=== PATIENT | male | born 1975 | race American Indian/Alaskan Native ===

== ENCOUNTER 2018-01-22 21:58 | Inpatient (IN) | payer MEDICAID ==
--- NOTE | 2018-01-22 23:30 | ED PDOC ---
Arrival/HPI - General Chief Complaint: Chest Pain Time Seen by Provider: 01/22/18 22:07 Historian: Patient - History of Present Illness Narrative History of Present Illness (Text): 01/22/18 23:26 A 42 year old male, whose past medical history includes 1 stent (July 2016) , hypertension, diabetes, anxiety, depression, and schizophrenia, presents to the emergency department with complaint of intermittent, chest tightness for the past 2 days, worsening today. The patient also notes that he "blacked out" today for about 5 seconds. Patient notes that he received Nitroglycerin spray in the ambulance in route to the emergency department. The patient denies fevers , chills, headache, dizziness, sore throat, cough, shortness of breath, dyspnea on exertion, abdominal pain, nausea, vomiting, diarrhea, neck/back pain, urinary /bowel changes or any other complaint. Time/Duration: Other (2 Days) Symptom Onset: Sudden Symptom Course: Unchanged Activities at Onset: Rest, Light Context: Home Past Medical History - Provider Review Nursing Documentation Reviewed: Yes - Infectious Disease Hx of Infectious Diseases: None Family/Social History - Physician Review Nursing Documentation Reviewed: Yes Family/Social History: No Known Family HX Allergies/Home Meds Allergies/Adverse Reactions: Allergies No Known Allergies Allergy (Verified 01/22/18 22:02) Home Medications: Home Meds Medication Instructions Recorded Confirmed Aspirin [Aspirin Chewable] 81 mg PO DAILY 01/22/18 01/22/18 Atorvastatin [Lipitor] 40 mg PO DAILY 01/22/18 01/22/18 Clopidogrel [Plavix] 75 mg PO DAILY 01/22/18 01/22/18 Lisinopril/Hydrochlorothiazide 1 tab PO DAILY 01/22/18 01/22/18 [Lisinopril-Hctz 20-25 mg Tab] Metoprolol Tartrate [Lopressor] 50 mg PO BID 01/22/18 01/22/18 QUEtiapine [Seroquel] 100 mg PO DAILY 01/22/18 01/22/18 amLODIPine [Norvasc] 10 mg PO DAILY 01/22/18 01/22/18 Review of Systems - Physician Review All systems were reviewed & negative as marked: Yes - Review of Systems Constitutional: absent: Fevers, Night Sweats ENT: absent: Sore Throat Respiratory: absent: SOB, Cough Cardiovascular: Chest Pain (Intermittent chest tightness), Syncope Gastrointestinal: absent: Abdominal Pain, Diarrhea, Nausea, Vomiting Musculoskeletal: absent: Back Pain, Neck Pain Neurological: absent: Headache Physical Exam Vital Signs Pulse Resp BP Pulse Ox 01/23/18 02:16 72 18 111/67 97 01/22/18 23:39 74 18 109/57 L 97 Temperature: Afebrile Blood Pressure: Normal Pulse: Regular Respiratory Rate: Normal Appearance: Positive for: Well-Appearing, Non-Toxic, Comfortable Pain Distress: None Mental Status: Positive for: Alert and Oriented X 3 - Systems Exam Head: Present: Atraumatic, Normocephalic Pupils: Present: PERRL Extroacular Muscles: Present: EOMI Conjunctiva: Present: Normal Ears: Present: NORMAL TM Mouth: Present: Moist Mucous Membranes Pharnyx: Present: Normal Neck: Present: Normal Range of Motion Respiratory/Chest: Present: Clear to Auscultation, Good Air Exchange. No: Respiratory Distress, Accessory Muscle Use Cardiovascular: Present: Regular Rate and Rhythm, Normal S1, S2. No: Murmurs Abdomen: No: Tenderness, Distention, Peritoneal Signs Back: Present: Normal Inspection Upper Extremity: Present: Normal Inspection. No: Cyanosis, Edema Lower Extremity: Present: Normal Inspection. No: Edema Neurological: Present: GCS=15, CN II-XII Intact, Speech Normal, Motor Func Grossly Intact, Normal Sensory Function Skin: Present: Warm, Dry, Normal Color. No: Rashes Psychiatric: Present: Alert, Oriented x 3, Normal Insight, Normal Concentration Medical Decision Making ED Course and Treatment: 01/22/18 23:31 Impression: A 42 year old male presents to the emergency department complaining of intermittent, chest pain, described as chest tightness and a short syncopal episode which the patient described as "blacking out". Plan: -- Head CT -- EKG -- Chest X-Ray -- Labs -- Aspirin -- Reassess and disposition Progress Notes: 01/23/18 00:22: Chest X-Ray read and interpreted by me shows no acute processes. EKG: Ordered, reviewed, and independently interpreted the EKG. Rate : BPM Rhythm : 85 NSR Interpretation : Non- specific ST- T changes 01/23/18 00:52: Case discussed in detail with Dr. Tai who accepts patient to the hospitalist service. CT Head Without Intravenous Contrast Dictated and Authenticated by: Tera De Anda MD 01/23/2018 2:12 AM Eastern Time ([place] & [place]) IMPRESSION: 1. No definite acute intracranial abnormality. 2. Incidental/non-acute findings are described above. - Lab Interpretations Lab Results: 01/22/18 22:20 01/22/18 22:20 Lab Results 01/23/18 00:20: pCO2 37, pO2 89.0, HCO3 22.4, ABG pH 7.39, ABG Total CO2 23.5, ABG O2 Saturation 97.9, ABG O2 Content 18.2, ABG Base Excess -2.2 L, ABG Hemoglobin 13.6, ABG Carboxyhemoglobin 2.5 H, POC ABG HHb (Measured) 2.0, ABG Methemoglobin 0.6, ABG O2 Capacity 18.6, Hgb O2 Saturation 94.9 L, FiO2 21.0 01/22/18 22:20: Serum Osmolality 316 H, Transferrin Pending 01/22/18 22:20: Iron 66, TIBC 270, % Saturation 24 01/22/18 22:20: WBC 6.8, RBC 4.96, Hgb 13.9 L, Hct 39.6 L, MCV 79.8 L, MCH 28.0 , MCHC 35.1, RDW 13.1, Plt Count 287, MPV 10.9 01/22/18 22:20: Sodium 125 L, Potassium 4.6, Chloride 81 L, Carbon Dioxide 25, Anion Gap 24 H, BUN 47 H, Creatinine 4.1 H, Est GFR ( Amer) 20, Est GFR ( Non-Af Amer) 16, Random Glucose 798 H*, Calcium 9.6, Total Bilirubin 0.8, AST 27 , ALT 25, Alkaline Phosphatase 145 H, Lactate Dehydrogenase 401, Total Creatine Kinase 169, Troponin I 0.02, Total Protein 7.8, Albumin 4.5, Globulin 3.4, Albumin/Globulin Ratio 1.3 01/22/18 22:20: PT 11.7, INR 1.03, APTT 27.4 I have reviewed the lab results: Yes - RAD Interpretation Radiology Orders: 01/22/18 23:21 CHEST PORTABLE [RAD] Stat 01/22/18 23:28 HEAD W/O CONTRAST [CT] Stat - EKG Interpretation Interpreted by ED Physician: Yes Type: 12 lead EKG - Medication Orders Current Medication Orders: Amlodipine Besylate (Norvasc) 10 mg PO DAILY JET Aspirin (Aspirin Chewable) 81 mg PO DAILY JET Atorvastatin Calcium (Lipitor) 40 mg PO DAILY JET Clopidogrel Bisulfate (Plavix) 75 mg PO DAILY [facility] Fluoxetine HCl (Prozac) 20 mg PO DAILY JET Sodium Chloride (Sodium Chloride 0.9%) 1,000 mls @ 200 mls/hr IV .Q5H JET Stop: 01/23/18 12:29 Last Admin: 01/23/18 03:09 Dose: 200 mls/hr eMAR Start Stop Document 01/23/18 03:09 AD (Rec: 01/23/18 03:09 AD [id number]) Intravenous Solution Start Date 01/23/18 Start Time 03:09 Insulin Human Lispro (Humalog High) 0 units SC Q4H JET PRN Reason: Protocol Last Admin: 01/23/18 03:08 Dose: 15 units MAR Blood Glucose Document 01/23/18 03:08 AD (Rec: 01/23/18 03:08 AD [id number]) Blood Glucose Finger Stick Blood Glucose (70-120) 483 Subcutaneous Administrations Document 01/23/18 03:08 AD (Rec: 01/23/18 03:08 AD [id number]) Injection Site MAR Injection Site Left Deltoid Charges for Administration # of Subcutaneous Administrations 1 Metoprolol Tartrate (Lopressor) 50 mg PO BID JET Mirtazapine (Remeron) 15 mg PO HS JET Pantoprazole Sodium (Protonix Inj) 40 mg IVP DAILY JET Quetiapine Fumarate (Seroquel) 100 mg PO HS JET PRN Reason: Protocol Discontinued Medications Aspirin (Aspirin) 325 mg PO ONCE STA Stop: 01/22/18 23:28 Last Admin: 01/22/18 23:32 Dose: 325 mg Sodium Chloride (Sodium Chloride 0.9%) 2,000 mls @ 999 mls/hr IV .Q2H1M STA Stop: 01/23/18 02:01 Last Admin: 01/23/18 00:15 Dose: 999 mls/hr eMAR Start Stop Document 01/23/18 00:15 AD (Rec: 01/23/18 00:15 AD [id number]) Intravenous Solution Start Date 01/23/18 Start Time 00:15 Insulin Human Regular (Humulin R) 10 units IVP STAT STA Stop: 01/23/18 00:03 Last Admin: 01/23/18 00:15 Dose: 10 units MAR Blood Glucose Document 01/23/18 00:15 AD (Rec: 01/23/18 00:15 AD [id number]) Blood Glucose Finger Stick Blood Glucose (70-120) 798 IVP Administration Document 01/23/18 00:15 AD (Rec: 01/23/18 00:15 AD [id number]) Charges for Administration # of IVP Administrations 1 Insulin Human Regular (Humulin R) 20 units SC STAT STA Stop: 01/23/18 05:55 Last Admin: 01/23/18 06:25 Dose: 20 units MAR Blood Glucose Document 01/23/18 06:25 CDL (Rec: 01/23/18 06:25 CDL [id number]) Blood Glucose Finger Stick Blood Glucose (70-120) 421 Subcutaneous Administrations Document 01/23/18 06:25 CDL (Rec: 01/23/18 06:25 CDL [id number]) Injection Site MAR Injection Site Right Abdomen Charges for Administration # of Subcutaneous Administrations 1 Nitroglycerin (Nitrostat Sl Tab) 0.4 mg SL Q5M PRN PRN Reason: Chest Pain Stop: 01/23/18 01:41 Tramadol HCl (Ultram) 50 mg PO STAT STA Stop: 01/23/18 00:50 Last Admin: 01/23/18 01:15 Dose: 50 mg MAR Pain Assessment Document 01/23/18 01:15 AD (Rec: 01/23/18 01:15 AD [id number]) Pain Reassessment Is this a pain reassessment? No Presence of Pain Presence of Pain Yes Pain Scale Used Pain Scale Used Numeric Description Intensity of Pain at present 8 Pain Behavior Facial Grimacing - Scribe Statement The provider has reviewed the documentation as recorded by the Scribe Sharda Bolden Provider Scribe Attestation: All medical record entries made by the Scribe were at my direction and personally dictated by me. I have reviewed the chart and agree that the record accurately reflects my personal performance of the history, physical exam, medical decision making, and the department course for this patient. I have also personally directed, reviewed, and agree with the discharge instructions and disposition. Disposition/Present on Arrival - Present on Arrival Any Indicators Present on Arrival: No History of DVT/PE: No History of Uncontrolled Diabetes: No Urinary Catheter: No History of Decub. Ulcer: No History Surgical Site Infection Following: None - Disposition Have Diagnosis and Disposition been Completed?: Yes Diagnosis: Chest pain, Syncope, Uncontrolled diabetes mellitus Disposition: HOSPITALIZED Disposition Time: 00:54 Patient Problems: Current Active Problems Problem Status Onset Chest pain Acute Syncope Acute Uncontrolled diabetes mellitus Acute Condition: STABLE
[2018-01-22 23:35] LABS: HEMOGLOBIN 13.9 g/dL (14.0-18.0); MEAN CELL VOLUME 79.8 fl (80.0-105.0); MEAN CORPUSCULAR HGB CONC 35.1 g/dl (31.0-37.0); MEAN PLATELET VOLUME 10.9 fl (7.0-11.0); RBC 4.96 10^6/uL (3.5-6.1); RED CELL DISTRIBUTION WIDTH 13.1 % (11.5-14.5); WHITE BLOOD COUNT 6.8 10^3/ul (4.5-11.0)
[2018-01-22 23:54] LABS: INR 1.03 (0.93-1.08); PARTIAL THROMBOPLASTIN TIME 27.4 Seconds (25.1-36.5); PROTHROMBIN TIME 11.7 SECONDS (9.4-12.5)
[2018-01-22 23:56] LABS: TROPONIN I 0.02 ng/mL
[2018-01-22 23:59] LABS: ALB/GLOB RATIO 1.3 (1.1-1.8); ALBUMIN 4.5 g/dL (3.0-4.8); CALCIUM 9.6 mg/dL (8.4-10.5)
[2018-01-23] MEDS ORDERED: Sodium Chloride 0.9% 2,000 ML IV STA (00:01)
[2018-01-23] MEDS ORDERED: Insulin Regular 1 UNITS/0.01 ML ML IVP STA (00:02)
[2018-01-23 00:22] LABS: ARTERIAL BLOOD GAS HCO3 22.4 mmol/L (21-28); ARTERIAL BLOOD GAS HEMOGLOBIN 13.6 g/dL (11.7-17.4); ARTERIAL BLOOD GAS O2 CAPACITY 18.6 mL/dl (16-24); ARTERIAL BLOOD GAS O2 CONTENT 18.2 ML/dl (15-23); ARTERIAL BLOOD GAS O2 SAT 97.9 % (95-98); ARTERIAL BLOOD GAS PCO2 37 mm/Hg (35-45); ARTERIAL BLOOD GAS PH 7.39 (7.35-7.45); ARTERIAL BLOOD GAS TCO2 23.5 mmol.L (22-28)
[2018-01-23] MEDS ORDERED: Insulin Lispro (humaLOG) MEDIUM Coverage SC SCH (01:30)
--- NOTE | 2018-01-23 02:13 | CT ---
EXAM: CT Head Without Intravenous Contrast CLINICAL HISTORY: 42 years old, male; Signs and symptoms; Syncope and collapse TECHNIQUE: Axial computed tomography images of the head/brain without intravenous contrast. All CT scans at this facility use one or more dose reduction techniques, viz.: automated exposure control; ma/kV adjustment per patient size (including targeted exams where dose is matched to indication; i.e. head); or iterative reconstruction technique. Coronal and sagittal reformatted images were created and reviewed. COMPARISON: No relevant prior studies available. FINDINGS: Brain: No intracranial hemorrhage. No mass. No definite edema. Ventricles: No hydrocephalus. Bones/joints: No acute fracture. Soft tissues: Unremarkable. Sinuses: Scattered mild mucosal thickening. Mastoid air cells: No mastoid effusion. Orbits: Unremarkable as visualized. IMPRESSION: 1. No definite acute intracranial abnormality. 2. Incidental/non-acute findings are described above.
[2018-01-23] MEDS ORDERED: Sodium Chloride 0.9% 1,000 ML IV SCH ×2 (02:30→08:16)
[2018-01-23] MEDS ORDERED: Insulin Lispro 1 UNITS/0.01 ML ONE (03:02)
[2018-01-23] MEDS: Insulin Lispro (HUMAlog) HIGH Coverage SC SCH ×5 (03:08→23:27)
[2018-01-23] MEDS: Sodium Chloride 0.9% 1,000 ML IV SCH ×4 (03:09→20:17)
[2018-01-23 04:25] LABS: IRON 66 ug/dL (45-180)
[2018-01-23 04:34] LABS: % IRON SATURATION 24 % (20-55); TOTAL IRON BINDING CAPACITY 270 ug/dL (261-462)
[2018-01-23 05:34] VITALS: BMI 38.5
[2018-01-23] MEDS ORDERED: Insulin Regular 1 UNITS/0.01 ML ML SC STA (05:54)
[2018-01-23 07:03] LABS: BASO # 0.03 K/mm3 (0.0-2.0); BASO % 0.5 % (0.0-3.0); EOS # 0.1 (0.0-0.7); EOS % 2.2 % (1.5-5.0); GRAN # 3.03 (1.4-6.5); GRAN % 48.3 % (50.0-68.0); HEMOGLOBIN 12.6 g/dL (14.0-18.0); LYMPH # 2.5 (1.2-3.4); LYMPH % 39.6 % (22.0-35.0); MEAN CELL VOLUME 77.7 fl (80.0-105.0); MEAN CORPUSCULAR HEMOGLOBIN 27.3 pg (25.0-35.0); MEAN CORPUSCULAR HGB CONC 35.2 g/dl (31.0-37.0); MEAN PLATELET VOLUME 10.5 fl (7.0-11.0); MONO # 0.6 (0.1-0.6); MONO % 9.4 % (1.0-6.0); RBC 4.61 10^6/uL (3.5-6.1); WHITE BLOOD COUNT 6.3 10^3/ul (4.5-11.0)
[2018-01-23 07:15] LABS: INR 1.09 (0.93-1.08); PROTHROMBIN TIME 12.6 SECONDS (9.4-12.5)
--- NOTE | 2018-01-23 07:41 | CP.PCM.HP ---
<Gian Neumann - Last Filed: 01/23/18 07:32> History of Present Illness - History of Present Illness History of Present Illness: CC: Syncopal episode HPI: 42 year old AA male with past medical history that includes HTN, DM2, schizophrenia, anxiety, depression who he see [facility] program who presents s/ p syncopal episode at fathers house and chest pressure. Patient reports that earlier in the day he was at his father's house when he bent over to pick something up off the ground and had a syncopal episode lasting a few seconds. Patient indicates that he broke his fall by first hitting a near by couch and then to the ground. He denies any biting of the tongue, loss of bowel, post ictal state, palpitations. He denies any changes in his vision. Patient also reports chest pressure that is midsternum without nausea, vomiting diaphoresis. He indicates productive cough for past few days. He indicates the chest tightness started about 2 days prior and was rated as 5/10 and for past 24 hours rated pain as 7/10. He also indicates that he has been consuming only kendall aid and fruit juices for the past 24 -48 hours and that is why his sugar is elevated in ED. Patient reports headache, sinus drainage, dry mouth, abdominal discomfort that is mild, and crampin of right lower extremity. 12 point ROS other than in HPI is benign. PMH: ?[place] s/p stentx1, HTN, DM2, schizophrenia, anxiety, depression PSH: Stent x1 in 07/2016 FMH: HTN, DM2 SOCHX: Tobacco: Light smoker for 20 plus years, ETOH: denies, ID: Denies ALL: NKDA MEDS: MAR Reviewed Present on Admission - Present on Admission Any Indicators Present on Admission: Yes History of Uncontrolled Diabetes: Yes Review of Systems - Review of Systems All systems: reviewed and no additional remarkable complaints except (as mentioned in HPI) Past Patient History - Infectious Disease Hx of Infectious Diseases: None - Past Social History Smoking Status: Light Smoker < 10 Cigarettes Daily Alcohol: None Drugs: Denies - CARDIAC Hx Hypertension: Yes - PULMONARY Hx Respiratory Disorders: No - NEUROLOGICAL Hx Neurological Disorder: No - HEENT Hx HEENT Problems: No - RENAL Hx Chronic Kidney Disease: No - ENDOCRINE/METABOLIC Hx Diabetes Mellitus Type 1: Yes - HEMATOLOGICAL/ONCOLOGICAL Hx Blood Disorders: No - INTEGUMENTARY Hx Dermatological Problems: No - MUSCULOSKELETAL/RHEUMATOLOGICAL Hx Musculoskeletal Disorders: No Hx Falls: No - GASTROINTESTINAL Hx Gastrointestinal Disorders: No - GENITOURINARY/GYNECOLOGICAL Hx Genitourinary Disorders: No - PSYCHIATRIC Hx Psychophysiologic Disorder: Yes Hx Anxiety: Yes Hx Depression: Yes Hx Schizophrenia: Yes Hx Substance Use: No - SURGICAL HISTORY Hx Surgeries: Yes Hx Cardiac Catheterization: Yes (07/2016) Other/Comment: cardiac stents - ANESTHESIA Hx Anesthesia: Yes Hx Anesthesia Reactions: No Hx Malignant Hyperthermia: No Meds Allergies/Adverse Reactions: Allergies Allergy/AdvReac Type Severity Reaction Status Date / Time No Known Allergies Allergy Verified 01/22/18 22:02 Physical Exam - Constitutional Appears: Non-toxic - Head Exam Head Exam: ATRAUMATIC, NORMAL INSPECTION, NORMOCEPHALIC - Eye Exam Eye Exam: EOMI, PERRL Additional comments: scleral icterus, conjunctivits mild - ENT Exam ENT Exam: Mucous Membranes Dry - Respiratory Exam Respiratory Exam: Clear to Auscultation Bilateral, NORMAL BREATHING PATTERN. absent: Rales, Rhonchi, Wheezes - Cardiovascular Exam Cardiovascular Exam: REGULAR RHYTHM, +S1, +S2 - GI/Abdominal Exam GI & Abdominal Exam: Diminished Bowel Sounds, Soft - Extremities Exam Extremities exam: Positive for: pedal pulses present. Negative for: calf tenderness, pedal edema - Neurological Exam Neurological exam: Alert, CN II-XII Intact, Normal Gait, Oriented x3 - Psychiatric Exam Psychiatric exam: Normal Mood Additional comments: slightly lethargic - Skin Skin Exam: Dry, Warm Additional comments: skin tenting Results - Vital Signs Recent Vital Signs: Last Vital Signs Temp 98.6 F 01/23/18 06:00 Pulse 70 01/23/18 06:00 Resp 20 01/23/18 06:00 BP 124/70 01/23/18 06:00 Pulse Ox 95 01/23/18 06:00 - Labs Result Diagrams: 01/23/18 06:30 01/22/18 22:20 Labs: Laboratory Results - last 24 hr 01/23/18 01/23/18 01/23/18 01:46 02:31 03:55 WBC RBC Hgb Hct MCV MCH MCHC RDW Plt Count MPV Gran % Lymph % (Auto) [place] % (Auto) Eos % (Auto) Baso % (Auto) Gran # Lymph # (Auto) [place] # (Auto) Eos # (Auto) Baso # (Auto) PT INR POC Glucose (mg/dL) > 500 H* 483 H* 440 H* 01/23/18 01/23/18 01/23/18 05:12 06:30 06:30 WBC 6.3 RBC 4.61 Hgb 12.6 L Hct 35.8 L MCV 77.7 L MCH 27.3 MCHC 35.2 RDW 13.0 Plt Count 263 MPV 10.5 Gran % 48.3 L Lymph % (Auto) 39.6 H [place] % (Auto) 9.4 H Eos % (Auto) 2.2 Baso % (Auto) 0.5 Gran # 3.03 Lymph # (Auto) 2.5 [place] # (Auto) 0.6 Eos # (Auto) 0.1 Baso # (Auto) 0.03 PT 12.6 H INR 1.09 H POC Glucose (mg/dL) 421 H* Assessment & Plan - Assessment and Plan (Free Text) Assessment: 42 year old AA male with past medical history that includes HTN, DM2, schizophrenia, anxiety, depression who he see [facility] program who presents s/ p syncopal episode at [facility] and chest pressure Syncopal episode - Head CT negative 1. No definite acute intracranial abnormality. 2. Incidental/non-acute findings are described above - EKG NSR, 85 bpm, no specific ST-T wave changes - No seizure like activity on history, no irregular heartbeat, no previous episodes - Likely secondary to hypovolemia - Cardiology consulted - echo, carotids Chest Pain r/o ACS - Initial trop negative - serial trops, ekgs - cardiology consult elevated AG - Possible etiology: DKA v. lactic acidosis v. rhabdomyolysis - 798 on admission - Poorly controlled DM - Recent intake of fruit juice and kendall aid - UA f/u for ketones - UDS, salicylates, methanol level - ISS - High Q4H - bg check Q4h - IVF Schizophrenia - Continue home meds Anxiety/Depression - Continue home meds DVT ppx: heparin SQ GI ppx: Protonix Case and plan discussed with attending - Date & Time Date: 01/23/18 Time: 07:43 <Aldair Tai - Last Filed: 01/27/18 03:41> Results - Vital Signs Recent Vital Signs: Last Vital Signs Temp 98.0 F 01/26/18 12:00 Pulse 69 01/26/18 12:00 Resp 21 01/26/18 12:00 BP 145/98 H 01/26/18 12:00 Pulse Ox 96 01/26/18 06:00 - Labs Result Diagrams: 01/26/18 06:40 01/26/18 06:40 Labs: Laboratory Results - last 24 hr 01/26/18 01/26/18 01/26/18 06:40 06:40 07:33 WBC 5.0 RBC 4.31 Hgb 11.7 L Hct 34.7 L MCV 80.5 MCH 27.1 MCHC 33.7 RDW 13.0 Plt Count 246 MPV 9.7 Gran % 46.3 L Lymph % (Auto) 43.9 H [place] % (Auto) 6.4 H Eos % (Auto) 3.0 Baso % (Auto) 0.4 Gran # 2.33 Lymph # (Auto) 2.2 [place] # (Auto) 0.3 Eos # (Auto) 0.2 Baso # (Auto) 0.02 Sodium 139 Potassium 4.2 Chloride 107 Carbon Dioxide 23 Anion Gap 13 BUN 22 H Creatinine 1.4 Est GFR ( Amer) > 60 Est GFR (Non-Af Amer) 56 POC Glucose (mg/dL) 157 H Random Glucose 180 H Calcium 8.6 Total Bilirubin 0.4 AST 22 ALT 24 Alkaline Phosphatase 110 Total Protein 6.8 Albumin 3.5 Globulin 3.3 Albumin/Globulin Ratio 1.1 01/26/18 11:17 WBC RBC Hgb Hct MCV MCH MCHC RDW Plt Count MPV Gran % Lymph % (Auto) [place] % (Auto) Eos % (Auto) Baso % (Auto) Gran # Lymph # (Auto) [place] # (Auto) Eos # (Auto) Baso # (Auto) Sodium Potassium Chloride Carbon Dioxide Anion Gap BUN Creatinine Est GFR ( Amer) Est GFR (Non-Af Amer) POC Glucose (mg/dL) 224 H Random Glucose Calcium Total Bilirubin AST ALT Alkaline Phosphatase Total Protein Albumin Globulin Albumin/Globulin Ratio Attending/Attestation - Attestation I have personally seen and examined this patient.: Yes I have fully participated in the care of the patient.: Yes I have reviewed all pertinent clinical information: Yes Notes (Text): 01/27/18 03:41 Agree with history, physical examination, assessment and plan.
[2018-01-23 08:25] LABS: TROPONIN I < 0.01 ng/mL
[2018-01-23 08:31] LABS: ALB/GLOB RATIO 1.1 (1.1-1.8); ALBUMIN 3.8 g/dL (3.0-4.8); ALT/SGPT 26 U/L (7-56); AST/SGOT 22 U/L (17-59); BLOOD UREA NITROGEN 46 mg/dL (7-21); CALCIUM 8.9 mg/dL (8.4-10.5); GFR AFRICAN-AMERICAN 26; GFR NON-AFRICAN AMERICAN 22
--- NOTE | 2018-01-23 08:59 | RAD ---
HISTORY: chest pain COMPARISON: No prior. FINDINGS: LUNGS: No active pulmonary disease. PLEURA: No significant pleural effusion identified, no pneumothorax apparent. CARDIOVASCULAR: Normal. OSSEOUS STRUCTURES: No significant abnormalities. VISUALIZED UPPER ABDOMEN: Normal. OTHER FINDINGS: None. IMPRESSION: No active disease.
--- NOTE | 2018-01-23 10:18 | CARD ---
APPROVED REPORT EKG Measurement Heart [id number] <Conclusion> Normal sinus rhythm LVH by voltage Q in 3 Shallow T wave inversions 1, AVL, new
[2018-01-23] MEDS ORDERED: Potassium Chloride 20 mEq ER Tab PO ONE (10:23)
[2018-01-23] MEDS ORDERED: Pantoprazole 40 mg EC Tab PO SCH (10:30)
--- NOTE | 2018-01-23 11:12 | CARD ---
APPROVED REPORT EKG Measurement Heart [id number] <Conclusion> Normal sinus rhythm Mild ST elevations inferolateral leads: suggest clinical correlation.
--- NOTE | 2018-01-23 11:43 | CP.PCM.CON ---
History of Present Illness - History of Present Illness History of Present Illness: Initial Nephrology Consultation: Assessment: Stable Acute Kidney Injury (N17.9) likely hemodyamic due to hyperglycemia, dehydration/ hypovolemia syncope HAGMA with metabolic alkalosis, likely due to uncontrolled DM with hyperglycemia hypokalemia, pseudohyponatremia due to hyperglycemia HTN, CAD s/p stent morbid obesity schizophrenia Plan No acute need for renal replacement therapy at this time. Hypertension control with meds as ordered. Patient not on ACEI/ARB due to RONAN. hold BP meds as BP on low side Monitor Input/Output, daily weights and renal function with basic metabolic panel continue with IVF. supplements lytes as needed Check urine analysis, spot protein/creatinine and albumin/creatinine ratio, renal sonogram. Check for 25-OH vitamin D, iPTH can check HIV/Hep B and Hep C serology Dose meds/antibiotics for reduced GFR. Avoid fleets enema/magnesium based laxatives. Avoid nephrotoxins/NSAIDs/ iodinated contrast (unless needed emergently) Glycemic control Further work up/management as per primary team Thanks for allowing me to participate in care of your patient. Will follow patient with you. Please call if any Qs Dr Tommy Arroyo Office: [phone] Chief Complaint; I passed out reason for consult: RONAN HPI: Pt is a 42 M with hx of diabetes Mellitus (since 2012), hypertension (12 years) morbid obesity, schizophrenia, CAD s/p stent presented with complaints of passing out. he had been drinking plenty of sugar drinks and found to haev severe hyperglycemia and RONAN, low BP Denies OTC/herbal meds or NSAIDs No recent iodinated contrast exposure. Noted obvious episodes of low BP. reports chronic back pain. also c/o increased thirst and increased urine output. he is not aware about kidney problems in past. says had lost 85 lbs so far denies smoking/etoh/drugs ROS: Cardiovascular: No chest pain. Pulmonary: No shortness of breath Gastrointestinal: denies abdominal pain No nausea. No vomiting. Genitourinary: No pain while urinating. Denies blood in urine. All other negative Physical Examination: General Appearance: Comfortable, in no acute respiratory distress, co-operative . morbid obese Vitals reviewed and noted as below Head; Atraumatic, normocephalic ENT: no ulcers no thrush. Tongue is midline. Oropharynx: no rash or ulcers. EYES: Pupils are equal, round and reactive to light accommodation. Eye muscles and extraocular movement intact. Sclera is anicteric. Neck; supple no lymphadenopathy, no thyromegaly or bruit Lungs: Normal respiratory rate/effort. Breath sounds bilateral equal and clear Heart: Normal rate. s1s2 normal. No rub or gallop. Extremities: no edema. No varicose veins Neurological: Patient is alert, awake and oriented to person, place and time. No focal deficit. Strength bilateral appropriate and equal Skin: Warm and dry. Normal turgor. No rash. Palpitation: Normal elasticity for age Abdomen: Abdomen is soft. Bowel sounds +. There is no abdominal tenderness, no guarding/rigidity no organomegaly Psych: normal insight and normal affect/mood MSK: no joint tenderness or swelling. Digits and nails normal, no deformity : kidney or bladder not palpable Labs/imaging reviewed. Past medical history, past surgical history, family history, social history, allergy reviewed and noted as below Family hx: no hx of CKD. Rest non-contributory Past Patient History - Infectious Disease Hx of Infectious Diseases: None - Past Social History Smoking Status: Light Smoker < 10 Cigarettes Daily Alcohol: None Drugs: Denies - CARDIAC Hx Hypertension: Yes - PULMONARY Hx Respiratory Disorders: No - NEUROLOGICAL Hx Neurological Disorder: No - HEENT Hx HEENT Problems: No - RENAL Hx Chronic Kidney Disease: No - ENDOCRINE/METABOLIC Hx Diabetes Mellitus Type 1: Yes - HEMATOLOGICAL/ONCOLOGICAL Hx Blood Disorders: No - INTEGUMENTARY Hx Dermatological Problems: No - MUSCULOSKELETAL/RHEUMATOLOGICAL Hx Musculoskeletal Disorders: No Hx Falls: No - GASTROINTESTINAL Hx Gastrointestinal Disorders: No - GENITOURINARY/GYNECOLOGICAL Hx Genitourinary Disorders: No - PSYCHIATRIC Hx Psychophysiologic Disorder: Yes Hx Anxiety: Yes Hx Depression: Yes Hx Schizophrenia: Yes Hx Substance Use: No - SURGICAL HISTORY Hx Surgeries: Yes Hx Cardiac Catheterization: Yes (07/2016) Other/Comment: cardiac stents - ANESTHESIA Hx Anesthesia: Yes Hx Anesthesia Reactions: No Hx Malignant Hyperthermia: No Meds Allergies/Adverse Reactions: Allergies Allergy/AdvReac Type Severity Reaction Status Date / Time No Known Allergies Allergy Verified 01/22/18 22:02 - Medications Medications: Current Medications Acetaminophen (Tylenol 325mg Tab) 650 mg PO Q6H PRN PRN Reason: headache Last Admin: 01/23/18 09:58 Dose: 650 mg Aspirin (Aspirin Chewable) 81 mg PO DAILY [facility] Last Admin: 01/23/18 09:57 Dose: 81 mg Atorvastatin Calcium (Lipitor) 40 mg PO DAILY [facility] Last Admin: 01/23/18 09:57 Dose: 40 mg Clopidogrel Bisulfate (Plavix) 75 mg PO DAILY [facility] Last Admin: 01/23/18 09:57 Dose: 75 mg Fluoxetine HCl (Prozac) 20 mg PO DAILY [facility] Last Admin: 01/23/18 10:01 Dose: 20 mg Sodium Chloride (Sodium Chloride 0.9%) 1,000 mls @ 150 mls/hr IV .Q6H40M [facility] Stop: 01/23/18 16:15 Insulin Human Lispro (Humalog High) 0 units SC Q4H [facility] PRN Reason: Protocol Last Admin: 01/23/18 08:10 Dose: 10 units Mirtazapine (Remeron) 15 mg PO HS [facility] Naproxen (Anaprox) 275 mg PO BID [facility] Pantoprazole Sodium (Protonix Ec Tab) 40 mg PO DAILY [facility] Quetiapine Fumarate (Seroquel) 100 mg PO HS [facility] PRN Reason: Protocol Results - Vital Signs Recent Vital Signs: Last Vital Signs Temp 98.6 F 01/23/18 06:00 Pulse 71 01/23/18 09:59 Resp 20 01/23/18 06:00 BP 101/60 01/23/18 09:59 Pulse Ox 95 01/23/18 06:00 - Labs Result Diagrams: 01/23/18 06:30 01/23/18 06:30 Labs: Laboratory Results - last 24 hr 01/23/18 01/23/18 01/23/18 01:46 02:31 03:55 WBC RBC Hgb Hct MCV MCH MCHC RDW Plt Count MPV Gran % Lymph % (Auto) Hardeman % (Auto) Eos % (Auto) Baso % (Auto) Gran # Lymph # (Auto) Hardeman # (Auto) Eos # (Auto) Baso # (Auto) PT INR Sodium Potassium Chloride Carbon Dioxide Anion Gap BUN Creatinine Est GFR ( Amer) Est GFR (Non-Af Amer) POC Glucose (mg/dL) > 500 H* 483 H* 440 H* Random Glucose Calcium Phosphorus Magnesium Total Bilirubin AST ALT Alkaline Phosphatase Troponin I Total Protein Albumin Globulin Albumin/Globulin Ratio Salicylates 01/23/18 01/23/18 01/23/18 05:12 06:00 06:30 WBC RBC Hgb Hct MCV MCH MCHC RDW Plt Count MPV Gran % Lymph % (Auto) Hardeman % (Auto) Eos % (Auto) Baso % (Auto) Gran # Lymph # (Auto) Hardeman # (Auto) Eos # (Auto) Baso # (Auto) PT INR Sodium 132 Potassium 3.6 Chloride 94 L Carbon Dioxide 22 Anion Gap 20 BUN 46 H Creatinine 3.2 H Est GFR ( Amer) 26 Est GFR (Non-Af Amer) 22 POC Glucose (mg/dL) 421 H* Random Glucose 423 H* D Calcium 8.9 Phosphorus 4.0 Magnesium 1.9 Total Bilirubin 0.6 AST 22 ALT 26 Alkaline Phosphatase 117 Troponin I < 0.01 D Total Protein 7.2 Albumin 3.8 Globulin 3.4 Albumin/Globulin Ratio 1.1 Salicylates 1 L 01/23/18 01/23/18 01/23/18 06:30 06:30 07:24 WBC 6.3 RBC 4.61 Hgb 12.6 L Hct 35.8 L MCV 77.7 L MCH 27.3 MCHC 35.2 RDW 13.0 Plt Count 263 MPV 10.5 Gran % 48.3 L Lymph % (Auto) 39.6 H Hardeman % (Auto) 9.4 H Eos % (Auto) 2.2 Baso % (Auto) 0.5 Gran # 3.03 Lymph # (Auto) 2.5 Hardeman # (Auto) 0.6 Eos # (Auto) 0.1 Baso # (Auto) 0.03 PT 12.6 H INR 1.09 H Sodium Potassium Chloride Carbon Dioxide Anion Gap BUN Creatinine Est GFR ( Amer) Est GFR (Non-Af Amer) POC Glucose (mg/dL) 322 H Random Glucose Calcium Phosphorus Magnesium Total Bilirubin AST ALT Alkaline Phosphatase Troponin I Total Protein Albumin Globulin Albumin/Globulin Ratio Salicylates
[2018-01-23 11:48] LABS: TRANSFERRIN 212.78 mg/dL (206-381)
--- NOTE | 2018-01-23 14:47 | US ---
PROCEDURE: Ultrasound of the Kidneys HISTORY: RONAN COMPARISON: None available. TECHNIQUE: Sonogram of the kidneys. FINDINGS: RIGHT KIDNEY: Measures: 12.0 x 6.0 x 5.3 cm. Normal in size, contour and echogenicity. No stone, solid mass lesion or hydronephrosis visualized. LEFT KIDNEY: Measures: 11.8 x 5.9 x 6.0 cm. Normal in size, contour and echogenicity. No stone, solid mass lesion or hydronephrosis visualized. OTHER FINDINGS: None. IMPRESSION: Unremarkable renal sonogram.
[2018-01-23] MEDS ORDERED: Insulin Lispro 1 UNITS/0.01 ML SC SCH (16:30)
[2018-01-23] MEDS ORDERED: Naproxen 275 mg Tab PO SCH (18:00)
[2018-01-23] MEDS ORDERED: Insulin Detemir 100 units/ml Vial (Levemir) SC SCH (22:00)
--- NOTE | 2018-01-23 22:33 | US ---
PROCEDURE: Bilateral carotid artery duplex ultrasound HISTORY: Carotid stenosis PHYSICIAN(S): Crow Kim MD. TECHNIQUE: Duplex sonography and color-flow Doppler were used to evaluate the carotid bifurcations and limited segments of the vertebral arteries bilaterally. FINDINGS: There is diffuse smooth heterogeneous plaque noted at the carotid bifurcations bilaterally. The peak systolic velocity in the proximal right internal carotid artery is 46 cm/sec. This corresponds to a 20 to 39% proximal right ICA stenosis. Normal systolic velocities are noted in the proximal right external carotid artery. There is antegrade flow in the right vertebral artery. The peak systolic velocity in the proximal left internal carotid artery is 60 cm/sec. This corresponds to a 20 to 39% proximal left ICA stenosis. Normal systolic velocities are noted in the proximal left external carotid artery. There is antegrade flow in the left vertebral artery. IMPRESSION: 1. Bilateral 20-39% proximal ICA stenoses. 2. Antegrade flow in both vertebral arteries.
--- NOTE | 2018-01-24 01:21 | CON ---
DATE: 01/23/2018 LOCATION: The patient in room 270, bed 1. REASON FOR CONSULTATION: Chest pain, coronary artery disease, history of stent insertion, hypertension, diabetes mellitus. 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 Denies any palpitations or shortness of breath associated with this episode. No nausea. No vomiting. No urinary incontinence. Patient is known to have coronary artery disease, has a history of stent insertion in 07/2016 at [facility], history of hypertension, diabetes, schizophrenia, anxiety, depression. Prior to 2 days ago, patient denies any exertional chest pain or shortness of breath. Denies any PND. PAST MEDICAL HISTORY: Positive for coronary artery disease, history of one stent insertion in 07/2016 at [facility], hypertension, diabetes, schizophrenia, anxiety, depression. PERSONAL HISTORY: Patient denied smoking and denied drinking. ALLERGIES: PATIENT DENIES ANY ALLERGIES. FAMILY HISTORY: Father has diabetes mellitus. Mother has high blood pressure. HOME MEDICATIONS: Included aspirin 81 daily, amlodipine 10 daily, Lipitor 40 daily, metoprolol tartarate 50 b.i.d., lisinopril/hydrochlorothiazide 20/25 mg one tablet daily, Seroquel 100 mg p.o. daily, Plavix 75 daily. REVIEW OF SYSTEMS: All the systems reviewed. Positive as mentioned in the history, otherwise negative. PHYSICAL EXAMINATION: VITAL SIGNS: Blood pressure 124/70, respirations 20, pulse 70, temperature 98.6. HEENT: Head is normocephalic. Eyes, pupil normal. Conjunctivae normal. Nose and throat normal. THORAX: Patient has tenderness on the area where he is complaining of chest pain. LUNGS: Clear. CARDIOVASCULAR: S1 and S2. ABDOMEN: Soft, nontender. No organomegaly. EXTREMITIES: No clubbing. No cyanosis. LABORATORY DATA: Shows WBC 6.3, hemoglobin 12.6, hematocrit 35.8, platelet 263. Sodium 132, potassium 3.6, BUN 46, creatinine 3.2. Random sugar on admission was 440, now is 214. Calcium, phosphorous and magnesium normal. Troponin x2 less than 0.01. Total protein and albumin normal. AST and ALT normal. DIAGNOSTIC DATA: Patient's chest x-ray, no active disease. Cardiogram, normal sinus rhythm, LVH by voltage criteria, Q in V3, shallow T-wave inversion in I and aVL. DIAGNOSES: Chest pain, it is sharp pain, it changes its intensity by moving side to side. Patient also stated that when he had stent insertion, he had tightness in the chest at that time, but this pain is different, it is like sharp pain. Patient also had local tenderness; it looks like it is musculoskeletal type of pain, although patient has a history of coronary artery disease, stent insertion in the past, but this pain is musculoskeletal; hypertension, diabetes mellitus, schizophrenia, depression, anxiety, obesity. PLAN: Patient is going to have echo and discussed with the patient, patient will have stress test as an outpatient, we will schedule him. I will also put him on Naprosyn 275 mg b.i.d. along with Protonix 40 daily. Patient already on Plavix 75 daily, atorvastatin 40 daily, insulin and aspirin 81 daily. Patient also has renal dysfunction. Patient getting IV fluid therapy. Case discussed with . We will continue to follow with you. Yulissa Palmer MD
[2018-01-24 07:02] LABS: BASO # 0.03 K/mm3 (0.0-2.0); BASO % 0.5 % (0.0-3.0); EOS # 0.2 (0.0-0.7); EOS % 3.3 % (1.5-5.0); GRAN # 2.21 (1.4-6.5); GRAN % 40.4 % (50.0-68.0); HEMOGLOBIN 12.4 g/dL (14.0-18.0); LYMPH # 2.6 (1.2-3.4); LYMPH % 46.7 % (22.0-35.0); MEAN CELL VOLUME 79.3 fl (80.0-105.0); MEAN CORPUSCULAR HEMOGLOBIN 27.3 pg (25.0-35.0); MEAN CORPUSCULAR HGB CONC 34.4 g/dl (31.0-37.0); MEAN PLATELET VOLUME 9.8 fl (7.0-11.0); MONO # 0.5 (0.1-0.6); MONO % 9.1 % (1.0-6.0); RBC 4.54 10^6/uL (3.5-6.1); RED CELL DISTRIBUTION WIDTH 13.1 % (11.5-14.5); WHITE BLOOD COUNT 5.5 10^3/ul (4.5-11.0)
[2018-01-24 07:21] LABS: INR 1.04 (0.93-1.08)
[2018-01-24 07:26] LABS: ALB/GLOB RATIO 1.1 (1.1-1.8); ALBUMIN 3.6 g/dL (3.0-4.8); CALCIUM 8.8 mg/dL (8.4-10.5)
[2018-01-24] MEDS: Insulin Lispro (HUMAlog) HIGH Coverage SC SCH ×2 (08:13→11:41)
--- NOTE | 2018-01-24 09:04 | CARD ---
APPROVED REPORT EXAM: Two-dimensional and M-mode echocardiogram with Doppler and color Doppler. Other Information Quality : Good[employer] : INDICATION Chest Pain 2D DIMENSIONS Left Atrium (2D)3.6 (1.6-4.0cm)IVSd1.3 (0.7-1.1cm) LVDd4.4 (3.9-5.9cm)PWd1.3 (0.7-1.1cm) LVDs2.8 (2.5-4.0cm)FS (%) 35.2 % LVEF (%)64.0 (>50%) M-Mode DIMENSIONS Aortic Root3.10 (2.2-3.7cm)Aortic Cusp Exc.2.30 (1.5-2.0cm) Aortic Valve AoV Peak Buvkriaw706.0cm/s Mitral Valve MV E Xjtqzttp11.5cm/sMV A Ttvtxufc63.0cm/sE/A ratio1.1 TDI E/Lateral E'0.0E/Medial E'0.0 Tricuspid Valve TR Peak [id number] [id number] Peak Gr.6mmHg [id number] LEFT VENTRICLE The left ventricle is normal size. There is mild concentric left ventricular hypertrophy. The left ventricular function is normal. The left ventricular ejection fraction is within the normal range. There is normal LV segmental wall motion. RIGHT VENTRICLE The right ventricle is normal size. ATRIA The left atrium size is normal. The right atrium size is normal. The interatrial septum is intact with no evidence for an atrial septal defect. AORTIC VALVE The aortic valve is normal in structure. MITRAL VALVE The mitral valve is normal in structure. TRICUSPID VALVE The tricuspid valve is normal in structure. There is trace tricuspid regurgitation. PULMONIC VALVE The pulmonic valve is not well visualized. GREAT VESSELS The aortic root is normal in size. PERICARDIAL EFFUSION There is no pericardial effusion. <Conclusion> The left ventricle is normal size. There is mild concentric left ventricular hypertrophy. The left ventricular function is normal.
--- NOTE | 2018-01-24 09:38 | CARD ---
APPROVED REPORT EKG Measurement Heart [id number] <Conclusion> Sinus bradycardia Improved repolarization 1, AVL c/w earlier ECG
[2018-01-24 10:59] LABS: PH,URINE 5.5 (4.7-8.0); URINE BILIRUBIN NEGATIVE (NEGATIVE); URINE BLOOD NEGATIVE (NEGATIVE); URINE GLUCOSE (UA) 250 mg/dL (NEGATIVE); URINE LEUKOCYTE ESTERASE NEGATIVE Leu/uL (NEGATIVE); URINE PROTEIN NEGATIVE mg/dL (<30 mg/dL); URINE UROBILINOGEN 0.2 E.U./dL (<1 E.U./dL)
[2018-01-24 11:04] LABS: URINE APPEARANCE CLEAR (CLEAR); URINE COLOR YELLOW (YELLOW)
--- NOTE | 2018-01-24 11:43 | CP.PCM.PN ---
Subjective - Date & Time of Evaluation Date of Evaluation: 01/24/18 Time of Evaluation: 11:42 - Subjective Subjective: Nephrology Consultation: Assessment: Stable Acute Kidney Injury (N17.9) likely hemodyamic due to hyperglycemia, dehydration/ hypovolemia syncope HAGMA with metabolic alkalosis, likely due to uncontrolled DM with hyperglycemia hypokalemia, pseudohyponatremia due to hyperglycemia HTN, CAD s/p stent morbid obesity schizophrenia Plan No acute need for renal replacement therapy at this time. Hypertension control with meds as ordered. Patient not on ACEI/ARB due to RONAN. hold BP meds as BP on low side, can resume lopressor at d/c since pt has CAD Monitor Input/Output, daily weights and renal function with basic metabolic panel continue with IVF. supplements lytes as needed Check urine analysis, spot protein/creatinine and albumin/creatinine ratio, renal sonogram. Check for 25-OH vitamin D, iPTH can check HIV/Hep B and Hep C serology Dose meds/antibiotics for reduced GFR. Avoid fleets enema/magnesium based laxatives. Avoid nephrotoxins/NSAIDs/ iodinated contrast (unless needed emergently) Glycemic control Further work up/management as per primary team Thanks for allowing me to participate in care of your patient. Will follow patient with you. Please call if any Qs Dr Tommy Arroyo Office: [phone] Chief Complaint; I passed out reason for consult: RONAN HPI: Pt is a 42 M with hx of diabetes Mellitus (since 2012), hypertension (12 years) morbid obesity, schizophrenia, CAD s/p stent presented with complaints of passing out. he had been drinking plenty of sugar drinks and found to haev severe hyperglycemia and RONAN, low BP Denies OTC/herbal meds or NSAIDs No recent iodinated contrast exposure. Noted obvious episodes of low BP. reports chronic back pain. also c/o increased thirst and increased urine output. he is not aware about kidney problems in past. says had lost 85 lbs so far denies smoking/etoh/drugs ROS: Cardiovascular: No chest pain. Pulmonary: No shortness of breath Gastrointestinal: denies abdominal pain No nausea. No vomiting. Genitourinary: No pain while urinating. Denies blood in urine. All other negative Physical Examination: General Appearance: Comfortable, in no acute respiratory distress, co-operative . morbid obese Vitals reviewed and noted as below Head; Atraumatic, normocephalic ENT: no ulcers no thrush. Tongue is midline. Oropharynx: no rash or ulcers. EYES: Pupils are equal, round and reactive to light accommodation. Eye muscles and extraocular movement intact. Sclera is anicteric. Neck; supple no lymphadenopathy, no thyromegaly or bruit Lungs: Normal respiratory rate/effort. Breath sounds bilateral equal and clear Heart: Normal rate. s1s2 normal. No rub or gallop. Extremities: no edema. No varicose veins Neurological: Patient is alert, awake and oriented to person, place and time. No focal deficit. Strength bilateral appropriate and equal Skin: Warm and dry. Normal turgor. No rash. Palpitation: Normal elasticity for age Abdomen: Abdomen is soft. Bowel sounds +. There is no abdominal tenderness, no guarding/rigidity no organomegaly Psych: normal insight and normal affect/mood MSK: no joint tenderness or swelling. Digits and nails normal, no deformity : kidney or bladder not palpable Labs/imaging reviewed. Past medical history, past surgical history, family history, social history, allergy reviewed and noted as below Family hx: no hx of CKD. Rest non-contributory Objective - Vital Signs/Intake and Output Vital Signs (last 24 hours): Temp Pulse Resp BP Pulse Ox 97.7 F 92 H 20 118/83 96 01/24/18 06:00 01/24/18 10:00 01/24/18 06:00 01/24/18 06:00 01/24/18 06:00 Intake and Output: 01/24/18 01/24/18 06:59 18:59 Intake Total 2220 Balance 2220 - Medications Medications: Current Medications Aspirin (Aspirin Chewable) 81 mg PO DAILY [facility] Last Admin: 01/24/18 10:05 Dose: 81 mg Atorvastatin Calcium (Lipitor) 40 mg PO DAILY [facility] Last Admin: 01/24/18 10:05 Dose: 40 mg Clopidogrel Bisulfate (Plavix) 75 mg PO DAILY [facility] Last Admin: 01/24/18 10:05 Dose: 75 mg Fluoxetine HCl (Prozac) 20 mg PO DAILY [facility] Last Admin: 01/24/18 10:05 Dose: 20 mg Insulin Human Lispro (Humalog High) 0 units SC ACHS [facility] PRN Reason: Protocol Last Admin: 01/24/18 08:13 Dose: 7 units Mirtazapine (Remeron) 15 mg PO HS [facility] Last Admin: 01/23/18 23:28 Dose: 15 mg Quetiapine Fumarate (Seroquel) 100 mg PO HS [facility] PRN Reason: Protocol Last Admin: 01/23/18 23:28 Dose: 100 mg - Labs Labs: 01/24/18 06:30 01/24/18 06:30 PT 12.0 SECONDS (9.4-12.5) 01/24/18 06:30 INR 1.04 (0.93-1.08) 01/24/18 06:30 APTT 27.4 Seconds (25.1-36.5) 01/22/18 22:20
--- NOTE | 2018-01-24 11:56 | CP.PCM.PN ---
<Juan Lopez - Last Filed: 01/24/18 11:51> Subjective - Date & Time of Evaluation Date of Evaluation: 01/24/18 Time of Evaluation: 11:51 - Subjective Subjective: patient seen and examined at bedside. Complaining of headache and overall lethargy. Explained this is most likely 2/2 to his blood sugar being so high for so long that he is expected to feel this way. No other complaints at this time. Objective - Vital Signs/Intake and Output Vital Signs (last 24 hours): Temp Pulse Resp BP Pulse Ox 97.7 F 92 H 20 118/83 96 01/24/18 06:00 01/24/18 10:00 01/24/18 06:00 01/24/18 06:00 01/24/18 06:00 Intake and Output: 01/24/18 01/24/18 06:59 18:59 Intake Total 2220 Balance 2220 - Medications Medications: Current Medications Aspirin (Aspirin Chewable) 81 mg PO DAILY [facility] Last Admin: 01/24/18 10:05 Dose: 81 mg Atorvastatin Calcium (Lipitor) 40 mg PO DAILY [facility] Last Admin: 01/24/18 10:05 Dose: 40 mg Clopidogrel Bisulfate (Plavix) 75 mg PO DAILY [facility] Last Admin: 01/24/18 10:05 Dose: 75 mg Fluoxetine HCl (Prozac) 20 mg PO DAILY [facility] Last Admin: 01/24/18 10:05 Dose: 20 mg Insulin Human Lispro (Humalog High) 0 units SC [facility] PRN Reason: Protocol Last Admin: 01/24/18 11:41 Dose: 15 units Mirtazapine (Remeron) 15 mg PO HS [facility] Last Admin: 01/23/18 23:28 Dose: 15 mg Quetiapine Fumarate (Seroquel) 100 mg PO HS [facility] PRN Reason: Protocol Last Admin: 01/23/18 23:28 Dose: 100 mg - Labs Labs: 01/24/18 06:30 01/24/18 06:30 PT 12.0 SECONDS (9.4-12.5) 01/24/18 06:30 INR 1.04 (0.93-1.08) 01/24/18 06:30 APTT 27.4 Seconds (25.1-36.5) 01/22/18 22:20 - Constitutional Appears: Well - Head Exam Head Exam: ATRAUMATIC, NORMAL INSPECTION, NORMOCEPHALIC - Eye Exam Eye Exam: EOMI, Normal appearance, PERRL Pupil Exam: NORMAL ACCOMODATION, PERRL - ENT Exam ENT Exam: Mucous Membranes Moist, Normal Exam - Neck Exam Neck Exam: Full ROM, Normal Inspection. absent: Lymphadenopathy - Respiratory Exam Respiratory Exam: Clear to Ausculation Bilateral, NORMAL BREATHING PATTERN - Cardiovascular Exam Cardiovascular Exam: REGULAR RHYTHM, +S1, +S2. absent: Murmur - GI/Abdominal Exam GI & Abdominal Exam: Soft, Normal Bowel Sounds. absent: Tenderness - Extremities Exam Extremities Exam: Full ROM, Normal Capillary Refill, Normal Inspection. absent : Joint Swelling, Pedal Edema - Back Exam Back Exam: NORMAL INSPECTION - Neurological Exam Neurological Exam: Alert, Awake, CN II-XII Intact, Normal Gait, Oriented x3 - Psychiatric Exam Psychiatric exam: Normal Affect, Normal Mood - Skin Skin Exam: Dry, Intact, Normal Color, Warm Assessment and Plan (1) Uncontrolled diabetes mellitus Assessment & Plan: development educator ISS High now, will reeval for bolus dosing A1C 18.8 so will need new regimen before discharge as well as strict follow up with PMD. Advised patient needs to take blood sugar regular at home. Explained the risks of having uncontrolled diabetes. All of his questions were answered. Status: Chronic (2) RONAN (acute kidney injury) Assessment & Plan: Nephro ([place]) Likely some ckd from uncontrolled DM No proteinuria, Renal US unremarkable acute injury likely 2/2 to dehydration, Will continue to monitor and hydrate Status: Acute (3) Chest pain Assessment & Plan: Cards ([facility]) Ekgs and trops negative, No st changes, no arrythmogenic intervals ASA 81 QD Plavix 75mg PO QD, may be able to stop. Needs to be evaluated with PMD for apporpriate stop date as patient has had stents placed in 2016 Status: Acute (4) Insomnia Assessment & Plan: Seroquel 100 PO HS Status: Chronic (5) Prophylactic measure Assessment & Plan: SCD heparin SC Q8 No GI PPX indicated at this time Status: Acute <Dahlia Linder - Last Filed: 01/25/18 15:06> Objective - Vital Signs/Intake and Output Vital Signs (last 24 hours): Temp Pulse Resp BP Pulse Ox 97.8 F 71 18 125/94 H 99 01/25/18 12:00 01/25/18 14:00 01/25/18 12:00 01/25/18 12:00 01/25/18 09:43 Intake and Output: 01/25/18 01/25/18 06:59 18:59 Intake Total 2020 Output Total 400 Balance 1620 - Medications Medications: Current Medications Acetaminophen (Tylenol 325mg Tab) 650 mg PO Q6H PRN PRN Reason: Pain, Mild (1-3) Last Admin: 01/25/18 09:44 Dose: 650 mg Aspirin (Aspirin Chewable) 81 mg PO DAILY [facility] Last Admin: 01/25/18 09:43 Dose: 81 mg Atorvastatin Calcium (Lipitor) 40 mg PO DAILY [facility] Last Admin: 01/25/18 09:43 Dose: 40 mg Clopidogrel Bisulfate (Plavix) 75 mg PO DAILY [facility] Last Admin: 01/25/18 09:43 Dose: 75 mg Ergocalciferol (Drisdol 50,000 Intl Units Cap) 1 cap PO Q7D [facility] Last Admin: 01/24/18 13:03 Dose: 1 cap Heparin Sodium (Porcine) (Heparin) 5,000 units SC Q8 [facility] PRN Reason: Protocol Last Admin: 01/25/18 14:37 Dose: 5,000 units Sodium Chloride (Sodium Chloride 0.9%) 1,000 mls @ 150 mls/hr IV .Q6H40M [facility] Last Admin: 01/25/18 10:45 Dose: 150 mls/hr Insulin Detemir (Levemir) 20 unit SC Q12 [facility] Insulin Human Lispro (Humalog Med) 0 units SC ACHS [facility] PRN Reason: Protocol Last Admin: 01/25/18 12:04 Dose: 7 units Oxymetazoline HCl (Afrin 0.05%) 0 ml NS Q12H [facility] Last Admin: 01/25/18 12:04 Dose: 1 spr Quetiapine Fumarate (Seroquel) 100 mg PO HS [facility] PRN Reason: Protocol Last Admin: 01/24/18 22:12 Dose: 100 mg Repaglinide (Prandin) 0.5 mg PO AC [facility] Last Admin: 01/25/18 12:08 Dose: 0.5 mg - Labs Labs: 01/25/18 06:00 01/25/18 06:00 PT 12.0 SECONDS (9.4-12.5) 01/24/18 06:30 INR 1.04 (0.93-1.08) 01/24/18 06:30 APTT 27.4 Seconds (25.1-36.5) 01/22/18 22:20 Attending/Attestation - Attestation I have personally seen and examined this patient.: Yes I have fully participated in the care of the patient.: Yes I have reviewed all pertinent clinical information, including history, physical exam and plan: Yes Notes (Text): I have seen and examined the patient at bedside. Agree with the above note with the following additions/ exceptions: Briefly this is 42 year female with history of uncontrolled DM non compliant with medications who came for evaluation of chest pain and syncope. 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 He was found to have Hba1c of 18. Will start insulin. development educator consulted. He also has RONAN most likely due to pre renal. Continue IVF. Creatinine is improving. UA did not reveal proteinuria. Renal US normal. Upon discharge patient will follow up with Dr Muhammad.
[2018-01-24] MEDS ORDERED: Cholecalciferol 1,000 INTLU TAB PO SCH (12:15)
[2018-01-24] MEDS ORDERED: Ergocalciferol 50,000 Intl Units Cap PO SCH (12:15)
[2018-01-24] MEDS: Insulin Lispro (humaLOG) MEDIUM Coverage SC SCH ×2 (16:49→22:07)
[2018-01-24] MEDS: Insulin Detemir 100 units/ml Vial (Levemir) SC SCH (22:08)
[2018-01-24] MEDS: Oxymetazoline 0.05% Nasal Spray (30 ml) NS SCH (23:34)
[2018-01-25 07:21] LABS: BASO # 0.02 K/mm3 (0.0-2.0); BASO % 0.4 % (0.0-3.0); EOS # 0.2 (0.0-0.7); EOS % 2.9 % (1.5-5.0); GRAN # 2.14 (1.4-6.5); GRAN % 38.2 % (50.0-68.0); HEMOGLOBIN 13.1 g/dL (14.0-18.0); LYMPH # 2.7 (1.2-3.4); LYMPH % 48.3 % (22.0-35.0); MEAN CORPUSCULAR HEMOGLOBIN 27.6 pg (25.0-35.0); MEAN CORPUSCULAR HGB CONC 34.1 g/dl (31.0-37.0); MEAN PLATELET VOLUME 10.4 fl (7.0-11.0); MONO # 0.6 (0.1-0.6); MONO % 10.2 % (1.0-6.0); RBC 4.74 10^6/uL (3.5-6.1); RED CELL DISTRIBUTION WIDTH 13.2 % (11.5-14.5); WHITE BLOOD COUNT 5.6 10^3/ul (4.5-11.0)
[2018-01-25 07:52] LABS: ALB/GLOB RATIO 1.1 (1.1-1.8); ALBUMIN 3.9 g/dL (3.0-4.8); CALCIUM 9.1 mg/dL (8.4-10.5)
[2018-01-25] MEDS: Insulin Lispro (humaLOG) MEDIUM Coverage SC SCH ×4 (08:24→21:31)
[2018-01-25] MEDS: Insulin Detemir 100 units/ml Vial (Levemir) SC SCH ×2 (09:43→21:32)
[2018-01-25] MEDS: Sodium Chloride 0.9% 1,000 ML IV SCH ×2 (10:45→17:40)
--- NOTE | 2018-01-25 11:24 | CP.PCM.PN ---
<Juan Lopez - Last Filed: 01/25/18 11:19> Subjective - Date & Time of Evaluation Date of Evaluation: 01/25/18 Time of Evaluation: 11:19 - Subjective Subjective: Patient seen and examined at bedside. Still complaining of dizziness and headache. Likely 2/2 blood sugars. No other Complaints at this time. Objective - Vital Signs/Intake and Output Vital Signs (last 24 hours): Temp Pulse Resp BP Pulse Ox 97.5 F L 75 20 142/90 99 01/25/18 06:00 01/25/18 09:43 01/25/18 06:00 01/25/18 09:43 01/25/18 09:43 Intake and Output: 01/25/18 01/25/18 06:59 18:59 Intake Total 1040 Output Total 400 Balance 640 - Medications Medications: Current Medications Acetaminophen (Tylenol 325mg Tab) 650 mg PO Q6H PRN PRN Reason: Pain, Mild (1-3) Last Admin: 01/25/18 09:44 Dose: 650 mg Aspirin (Aspirin Chewable) 81 mg PO DAILY [facility] Last Admin: 01/25/18 09:43 Dose: 81 mg Atorvastatin Calcium (Lipitor) 40 mg PO DAILY [facility] Last Admin: 01/25/18 09:43 Dose: 40 mg Clopidogrel Bisulfate (Plavix) 75 mg PO DAILY [facility] Last Admin: 01/25/18 09:43 Dose: 75 mg Ergocalciferol (Drisdol 50,000 Intl Units Cap) 1 cap PO Q7D [facility] Last Admin: 01/24/18 13:03 Dose: 1 cap Heparin Sodium (Porcine) (Heparin) 5,000 units SC Q8 [facility] PRN Reason: Protocol Last Admin: 01/25/18 06:00 Dose: 5,000 units Sodium Chloride (Sodium Chloride 0.9%) 1,000 mls @ 150 mls/hr IV .Q6H40M [facility] Last Admin: 01/25/18 10:45 Dose: 150 mls/hr Insulin Detemir (Levemir) 15 unit SC Q12 [facility] Last Admin: 01/25/18 09:43 Dose: 15 unit Insulin Human Lispro (Humalog Med) 0 units SC ACHS [facility] PRN Reason: Protocol Last Admin: 01/25/18 08:24 Dose: 3 units Oxymetazoline HCl (Afrin 0.05%) 0 ml NS Q12H [facility] Last Admin: 01/24/18 23:34 Dose: 1 spr Quetiapine Fumarate (Seroquel) 100 mg PO HS [facility] PRN Reason: Protocol Last Admin: 01/24/18 22:12 Dose: 100 mg Repaglinide (Prandin) 0.5 mg PO AC [facility] Last Admin: 01/25/18 08:24 Dose: 0.5 mg - Labs Labs: 01/25/18 06:00 01/25/18 06:00 PT 12.0 SECONDS (9.4-12.5) 01/24/18 06:30 INR 1.04 (0.93-1.08) 01/24/18 06:30 APTT 27.4 Seconds (25.1-36.5) 01/22/18 22:20 - Constitutional Appears: Well - Head Exam Head Exam: ATRAUMATIC, NORMAL INSPECTION, NORMOCEPHALIC - Eye Exam Eye Exam: EOMI, Normal appearance, PERRL Pupil Exam: NORMAL ACCOMODATION, PERRL - ENT Exam ENT Exam: Mucous Membranes Moist, Normal Exam - Neck Exam Neck Exam: Full ROM, Normal Inspection. absent: Lymphadenopathy - Respiratory Exam Respiratory Exam: Clear to Ausculation Bilateral, NORMAL BREATHING PATTERN - Cardiovascular Exam Cardiovascular Exam: REGULAR RHYTHM, +S1, +S2. absent: Murmur - GI/Abdominal Exam GI & Abdominal Exam: Soft, Normal Bowel Sounds. absent: Tenderness - Extremities Exam Extremities Exam: Full ROM, Normal Capillary Refill, Normal Inspection. absent : Joint Swelling, Pedal Edema - Back Exam Back Exam: NORMAL INSPECTION - Neurological Exam Neurological Exam: Alert, Awake, CN II-XII Intact, Normal Gait, Oriented x3 - Psychiatric Exam Psychiatric exam: Normal Affect, Normal Mood - Skin Skin Exam: Dry, Intact, Normal Color, Warm Assessment and Plan - Assessment and Plan (Free Text) Assessment: (1) Uncontrolled diabetes mellitus Assessment & Plan: inclusion paraeducator ISS Med Levemir Q12 BID Prandin 0.5 PO AC A1C 18.8 so will need new regimen before discharge as well as strict follow up with PMD. Advised patient needs to take blood sugar regular at home. Explained the risks of having uncontrolled diabetes. All of his questions were answered. Status: Chronic (2) RONAN (acute kidney injury) Assessment & Plan: Nephro ([place]) Likely some ckd from uncontrolled DM No proteinuria, Renal US unremarkable acute injury likely 2/2 to dehydration, Will continue to monitor and hydrate NS @ 150 Status: Acute (3) Chest pain Assessment & Plan: Cards ([facility]) Ekgs and trops negative, No st changes, no arrythmogenic intervals ASA 81 QD Plavix 75mg PO QD, may be able to stop. Needs to be evaluated with PMD for apporpriate stop date as patient has had stents placed in 2016 Status: Acute (4) Insomnia Assessment & Plan: Seroquel 100 PO HS Status: Chronic (5) Prophylactic measure Assessment & Plan: SCD heparin SC Q8 No GI PPX indicated at this time OOB to chair PT/OT ICS Status: Acute <Dahlia Linder - Last Filed: 01/25/18 15:10> Objective - Vital Signs/Intake and Output Vital Signs (last 24 hours): Temp Pulse Resp BP Pulse Ox 97.8 F 71 18 125/94 H 99 01/25/18 12:00 01/25/18 14:00 01/25/18 12:00 01/25/18 12:00 01/25/18 09:43 Intake and Output: 01/25/18 01/25/18 06:59 18:59 Intake Total 2020 Output Total 400 Balance 1620 - Medications Medications: Current Medications Acetaminophen (Tylenol 325mg Tab) 650 mg PO Q6H PRN PRN Reason: Pain, Mild (1-3) Last Admin: 01/25/18 09:44 Dose: 650 mg Aspirin (Aspirin Chewable) 81 mg PO DAILY [facility] Last Admin: 01/25/18 09:43 Dose: 81 mg Atorvastatin Calcium (Lipitor) 40 mg PO DAILY [facility] Last Admin: 01/25/18 09:43 Dose: 40 mg Clopidogrel Bisulfate (Plavix) 75 mg PO DAILY [facility] Last Admin: 01/25/18 09:43 Dose: 75 mg Ergocalciferol (Drisdol 50,000 Intl Units Cap) 1 cap PO Q7D [facility] Last Admin: 01/24/18 13:03 Dose: 1 cap Heparin Sodium (Porcine) (Heparin) 5,000 units SC Q8 [facility] PRN Reason: Protocol Last Admin: 01/25/18 14:37 Dose: 5,000 units Sodium Chloride (Sodium Chloride 0.9%) 1,000 mls @ 150 mls/hr IV .Q6H40M [facility] Last Admin: 01/25/18 10:45 Dose: 150 mls/hr Insulin Detemir (Levemir) 20 unit SC Q12 [facility] Insulin Human Lispro (Humalog Med) 0 units SC ACHS [facility] PRN Reason: Protocol Last Admin: 01/25/18 12:04 Dose: 7 units Oxymetazoline HCl (Afrin 0.05%) 0 ml NS Q12H [facility] Last Admin: 01/25/18 12:04 Dose: 1 spr Quetiapine Fumarate (Seroquel) 100 mg PO HS [facility] PRN Reason: Protocol Last Admin: 01/24/18 22:12 Dose: 100 mg Repaglinide (Prandin) 0.5 mg PO AC [facility] Last Admin: 01/25/18 12:08 Dose: 0.5 mg - Labs Labs: 01/25/18 06:00 01/25/18 06:00 PT 12.0 SECONDS (9.4-12.5) 01/24/18 06:30 INR 1.04 (0.93-1.08) 01/24/18 06:30 APTT 27.4 Seconds (25.1-36.5) 01/22/18 22:20 Attending/Attestation - Attestation I have personally seen and examined this patient.: Yes I have fully participated in the care of the patient.: Yes I have reviewed all pertinent clinical information, including history, physical exam and plan: Yes Notes (Text): I have seen and examined the patient at bedside. Agree with the above note with the following additions/ exceptions: Briefly this is 42 year female with history of uncontrolled DM non compliant with medications who came for evaluation of chest pain and syncope. Sports Manager recommended outpatient stress test. He was found to have Hba1c of 18. Levemir was started yesterday and we will adjust the dosage today. He also has RONAN most likely due to pre renal which is improving. Creatinine is 1.7 today. Continue IVF. UA did not reveal proteinuria. Renal US normal. Patient reports persistent headache and dizziness. Will repeat CT head today. Will order for PT eval tomorrow. Upon discharge patient will follow up with Dr Muhammad.
[2018-01-25] MEDS: Oxymetazoline 0.05% Nasal Spray (30 ml) NS SCH ×3 (12:04→23:33)
--- NOTE | 2018-01-25 14:42 | CP.PCM.PN ---
Subjective - Date & Time of Evaluation Date of Evaluation: 01/25/18 Time of Evaluation: 14:42 - Subjective Subjective: Nephrology Consultation: Assessment: Stable Acute Kidney Injury (N17.9) likely hemodyamic due to hyperglycemia, dehydration/ hypovolemia syncope HAGMA with metabolic alkalosis, likely due to uncontrolled DM with hyperglycemia hypokalemia, pseudohyponatremia due to hyperglycemia HTN, CAD s/p stent morbid obesity schizophrenia vit d def Plan No acute need for renal replacement therapy at this time. Hypertension control with meds as ordered. Patient not on ACEI/ARB due to RONAN. hold BP meds as BP on low side, can resume lopressor at d/c since pt has CAD Monitor Input/Output, daily weights and renal function with basic metabolic panel continue with IVF. supplements lytes as needed agree with weekly vit d supplements Check urine analysis, spot protein/creatinine and albumin/creatinine ratio, renal sonogram. Check for 25-OH vitamin D, iPTH can check HIV/Hep B and Hep C serology Dose meds/antibiotics for reduced GFR. Avoid fleets enema/magnesium based laxatives. Avoid nephrotoxins/NSAIDs/ iodinated contrast (unless needed emergently) Glycemic control Further work up/management as per primary team Thanks for allowing me to participate in care of your patient. Will follow patient with you. Please call if any Qs Dr Tommy Arroyo Office: [phone] Chief Complaint; I passed out reason for consult: RONAN HPI: Pt is a 42 M with hx of diabetes Mellitus (since 2012), hypertension (12 years) morbid obesity, schizophrenia, CAD s/p stent presented with complaints of passing out. he had been drinking plenty of sugar drinks and found to haev severe hyperglycemia and RONAN, low BP Denies OTC/herbal meds or NSAIDs No recent iodinated contrast exposure. Noted obvious episodes of low BP. reports chronic back pain. also c/o increased thirst and increased urine output. he is not aware about kidney problems in past. says had lost 85 lbs so far denies smoking/etoh/drugs ROS: Cardiovascular: No chest pain. Pulmonary: No shortness of breath Gastrointestinal: denies abdominal pain No nausea. No vomiting. Genitourinary: No pain while urinating. Denies blood in urine. All other negative Physical Examination: General Appearance: Comfortable, in no acute respiratory distress, co-operative . morbid obese Vitals reviewed and noted as below Head; Atraumatic, normocephalic ENT: no ulcers no thrush. Tongue is midline. Oropharynx: no rash or ulcers. EYES: Pupils are equal, round and reactive to light accommodation. Eye muscles and extraocular movement intact. Sclera is anicteric. Neck; supple no lymphadenopathy, no thyromegaly or bruit Lungs: Normal respiratory rate/effort. Breath sounds bilateral equal and clear Heart: Normal rate. s1s2 normal. No rub or gallop. Extremities: no edema. No varicose veins Neurological: Patient is alert, awake and oriented to person, place and time. No focal deficit. Strength bilateral appropriate and equal Skin: Warm and dry. Normal turgor. No rash. Palpitation: Normal elasticity for age Abdomen: Abdomen is soft. Bowel sounds +. There is no abdominal tenderness, no guarding/rigidity no organomegaly Psych: normal insight and normal affect/mood MSK: no joint tenderness or swelling. Digits and nails normal, no deformity : kidney or bladder not palpable Labs/imaging reviewed. Past medical history, past surgical history, family history, social history, allergy reviewed and noted as below Family hx: no hx of CKD. Rest non-contributory Objective - Vital Signs/Intake and Output Vital Signs (last 24 hours): Temp Pulse Resp BP Pulse Ox 97.8 F 71 18 125/94 H 99 01/25/18 12:00 01/25/18 14:00 01/25/18 12:00 01/25/18 12:00 01/25/18 09:43 Intake and Output: 01/25/18 01/25/18 06:59 18:59 Intake Total 2020 Output Total 400 Balance 1620 - Medications Medications: Current Medications Acetaminophen (Tylenol 325mg Tab) 650 mg PO Q6H PRN PRN Reason: Pain, Mild (1-3) Last Admin: 01/25/18 09:44 Dose: 650 mg Aspirin (Aspirin Chewable) 81 mg PO DAILY [facility] Last Admin: 01/25/18 09:43 Dose: 81 mg Atorvastatin Calcium (Lipitor) 40 mg PO DAILY [facility] Last Admin: 01/25/18 09:43 Dose: 40 mg Clopidogrel Bisulfate (Plavix) 75 mg PO DAILY [facility] Last Admin: 01/25/18 09:43 Dose: 75 mg Ergocalciferol (Drisdol 50,000 Intl Units Cap) 1 cap PO Q7D [facility] Last Admin: 01/24/18 13:03 Dose: 1 cap Heparin Sodium (Porcine) (Heparin) 5,000 units SC Q8 [facility] PRN Reason: Protocol Last Admin: 01/25/18 14:37 Dose: 5,000 units Sodium Chloride (Sodium Chloride 0.9%) 1,000 mls @ 150 mls/hr IV .Q6H40M [facility] Last Admin: 01/25/18 10:45 Dose: 150 mls/hr Insulin Detemir (Levemir) 15 unit SC Q12 [facility] Last Admin: 01/25/18 09:43 Dose: 15 unit Insulin Human Lispro (Humalog Med) 0 units SC ACHS [facility] PRN Reason: Protocol Last Admin: 01/25/18 12:04 Dose: 7 units Oxymetazoline HCl (Afrin 0.05%) 0 ml NS Q12H [facility] Last Admin: 01/25/18 12:04 Dose: 1 spr Quetiapine Fumarate (Seroquel) 100 mg PO HS [facility] PRN Reason: Protocol Last Admin: 01/24/18 22:12 Dose: 100 mg Repaglinide (Prandin) 0.5 mg PO AC [facility] Last Admin: 01/25/18 12:08 Dose: 0.5 mg - Labs Labs: 01/25/18 06:00 01/25/18 06:00 PT 12.0 SECONDS (9.4-12.5) 01/24/18 06:30 INR 1.04 (0.93-1.08) 01/24/18 06:30 APTT 27.4 Seconds (25.1-36.5) 01/22/18 22:20
[2018-01-25 16:53] LABS: BARBITURATES, UR NEGATIVE (NEGATIVE); BENZODIAZEPINES, UR NEGATIVE (NEGATIVE); OPIATES, UR NEGATIVE (NEGATIVE); PHENCYCLIDINE, UR POSITIVE (NEGATIVE)
[2018-01-25 23:34] VITALS: O2SAT 96
[2018-01-26] MEDS: Sodium Chloride 0.9% 1,000 ML IV SCH ×3 (00:27→13:53)
[2018-01-26 07:12] LABS: BASO # 0.02 K/mm3 (0.0-2.0); BASO % 0.4 % (0.0-3.0); EOS # 0.2 (0.0-0.7); GRAN # 2.33 (1.4-6.5); GRAN % 46.3 % (50.0-68.0); HEMOGLOBIN 11.7 g/dL (14.0-18.0); LYMPH # 2.2 (1.2-3.4); LYMPH % 43.9 % (22.0-35.0); MEAN CELL VOLUME 80.5 fl (80.0-105.0); MEAN CORPUSCULAR HEMOGLOBIN 27.1 pg (25.0-35.0); MEAN CORPUSCULAR HGB CONC 33.7 g/dl (31.0-37.0); MEAN PLATELET VOLUME 9.7 fl (7.0-11.0); MONO # 0.3 (0.1-0.6); MONO % 6.4 % (1.0-6.0); RBC 4.31 10^6/uL (3.5-6.1)
[2018-01-26 07:29] LABS: ALB/GLOB RATIO 1.1 (1.1-1.8); ALBUMIN 3.5 g/dL (3.0-4.8); ALT/SGPT 24 U/L (7-56); AST/SGOT 22 U/L (17-59); BLOOD UREA NITROGEN 22 mg/dL (7-21); CALCIUM 8.6 mg/dL (8.4-10.5); GFR AFRICAN-AMERICAN > 60; GFR NON-AFRICAN AMERICAN 56
[2018-01-26] MEDS: Insulin Lispro (humaLOG) MEDIUM Coverage SC SCH ×2 (07:30→13:52)
--- NOTE | 2018-01-26 09:13 | CT ---
PROCEDURE: CT HEAD WITHOUT CONTRAST. HISTORY: severe headache COMPARISON: None available. TECHNIQUE: Axial computed tomography images were obtained through the head/brain without intravenous contrast. Radiation dose: Total exam DLP = mGy-cm. This CT exam was performed using one or more of the following dose reduction techniques: Automated exposure control, adjustment of the mA and/or kV according to patient size, and/or use of iterative reconstruction technique. FINDINGS: HEMORRHAGE: No intracranial hemorrhage. BRAIN: No mass effect or edema. No atrophy or chronic microvascular ischemic changes. VENTRICLES: Unremarkable. No hydrocephalus. CALVARIUM: Unremarkable. PARANASAL SINUSES: Unremarkable as visualized. No significant inflammatory changes. MASTOID AIR CELLS: Unremarkable as visualized. No inflammatory changes. OTHER FINDINGS: None. IMPRESSION: Normal CT of the Head.
[2018-01-26] MEDS: Oxymetazoline 0.05% Nasal Spray (30 ml) NS SCH (11:00)
[2018-01-26] MEDS: Insulin Detemir 100 units/ml Vial (Levemir) SC SCH (11:01)
--- NOTE | 2018-01-26 12:22 | CP.PCM.PN ---
Subjective - Date & Time of Evaluation Date of Evaluation: 01/26/18 Time of Evaluation: 12:21 - Subjective Subjective: Nephrology Consultation: Assessment: Stable Acute Kidney Injury (N17.9) likely hemodyamic due to hyperglycemia, dehydration/ hypovolemia syncope HAGMA with metabolic alkalosis, likely due to uncontrolled DM with hyperglycemia hypokalemia, pseudohyponatremia due to hyperglycemia HTN, CAD s/p stent morbid obesity schizophrenia vit d def Plan No acute need for renal replacement therapy at this time. Hypertension control with meds as ordered. Patient not on ACEI/ARB due to RONAN. hold BP meds as BP on low side, can resume lopressor at d/c since pt has CAD Monitor Input/Output, daily weights and renal function with basic metabolic panel supplements lytes as needed agree with weekly vit d supplements Check urine analysis, spot protein/creatinine and albumin/creatinine ratio, renal sonogram. Check for 25-OH vitamin D, iPTH can check HIV/Hep B and Hep C serology Dose meds/antibiotics for reduced GFR. Avoid fleets enema/magnesium based laxatives. Avoid nephrotoxins/NSAIDs/ iodinated contrast (unless needed emergently) Glycemic control Further work up/management as per primary team pt stable for d/c from renal perspective when planned. pt to f/up 2 weeks in office post d/c Thanks for allowing me to participate in care of your patient. Will follow patient with you. Please call if any Qs Dr Tommy Arroyo Office: [phone] reason for consult: RONAN HPI: Pt is a 42 M with hx of diabetes Mellitus (since 2012), hypertension (12 years) morbid obesity, schizophrenia, CAD s/p stent presented with complaints of passing out. he had been drinking plenty of sugar drinks and found to haev severe hyperglycemia and RONAN, low BP Denies OTC/herbal meds or NSAIDs No recent iodinated contrast exposure. Noted obvious episodes of low BP. reports chronic back pain. also c/o increased thirst and increased urine output. he is not aware about kidney problems in past. says had lost 85 lbs so far denies smoking/etoh/drugs ROS: Cardiovascular: No chest pain. Pulmonary: No shortness of breath Gastrointestinal: denies abdominal pain No nausea. No vomiting. Genitourinary: No pain while urinating. Denies blood in urine. All other negative Physical Examination: General Appearance: Comfortable, in no acute respiratory distress, co-operative . morbid obese Vitals reviewed and noted as below Head; Atraumatic, normocephalic ENT: no ulcers no thrush. Tongue is midline. Oropharynx: no rash or ulcers. EYES: Pupils are equal, round and reactive to light accommodation. Eye muscles and extraocular movement intact. Sclera is anicteric. Neck; supple no lymphadenopathy, no thyromegaly or bruit Lungs: Normal respiratory rate/effort. Breath sounds bilateral equal and clear Heart: Normal rate. s1s2 normal. No rub or gallop. Extremities: no edema. No varicose veins Neurological: Patient is alert, awake and oriented to person, place and time. No focal deficit. Strength bilateral appropriate and equal Skin: Warm and dry. Normal turgor. No rash. Palpitation: Normal elasticity for age Abdomen: Abdomen is soft. Bowel sounds +. There is no abdominal tenderness, no guarding/rigidity no organomegaly Psych: normal insight and normal affect/mood MSK: no joint tenderness or swelling. Digits and nails normal, no deformity : kidney or bladder not palpable Labs/imaging reviewed. Past medical history, past surgical history, family history, social history, allergy reviewed and noted as below Family hx: no hx of CKD. Rest non-contributory Objective - Vital Signs/Intake and Output Vital Signs (last 24 hours): Temp Pulse Resp BP Pulse Ox 98 F 78 18 136/83 96 01/26/18 06:00 01/26/18 06:00 01/26/18 06:00 01/26/18 06:00 01/26/18 06:00 Intake and Output: 01/26/18 01/26/18 06:59 18:59 Intake Total 240 1685 Balance 240 1685 - Medications Medications: Current Medications Acetaminophen (Tylenol 325mg Tab) 650 mg PO Q6H PRN PRN Reason: Pain, Mild (1-3) Last Admin: 01/25/18 17:20 Dose: 650 mg Aspirin (Aspirin Chewable) 81 mg PO DAILY [facility] Last Admin: 01/26/18 11:01 Dose: 81 mg Atorvastatin Calcium (Lipitor) 40 mg PO DAILY [facility] Last Admin: 01/26/18 11:01 Dose: 40 mg Clopidogrel Bisulfate (Plavix) 75 mg PO DAILY [facility] Last Admin: 01/26/18 11:01 Dose: 75 mg Ergocalciferol (Drisdol 50,000 Intl Units Cap) 1 cap PO Q7D [facility] Last Admin: 01/24/18 13:03 Dose: 1 cap Heparin Sodium (Porcine) (Heparin) 5,000 units SC Q8 [facility] PRN Reason: Protocol Last Admin: 01/26/18 05:52 Dose: 5,000 units Sodium Chloride (Sodium Chloride 0.9%) 1,000 mls @ 150 mls/hr IV .Q6H40M [facility] Last Admin: 01/26/18 08:03 Dose: 150 mls/hr Insulin Detemir (Levemir) 20 unit SC Q12 [facility] Last Admin: 01/26/18 11:01 Dose: 20 unit Insulin Human Lispro (Humalog Med) 0 units SC ACHS [facility] PRN Reason: Protocol Last Admin: 01/25/18 21:31 Dose: Not Given Oxymetazoline HCl (Afrin 0.05%) 0 ml NS Q12H [facility] Last Admin: 01/26/18 11:00 Dose: 1 spr Quetiapine Fumarate (Seroquel) 100 mg PO HS [facility] PRN Reason: Protocol Last Admin: 01/25/18 21:31 Dose: 100 mg Repaglinide (Prandin) 0.5 mg PO AC [facility] Last Admin: 01/26/18 08:02 Dose: 0.5 mg - Labs Labs: 01/26/18 06:40 01/26/18 06:40 PT 12.0 SECONDS (9.4-12.5) 01/24/18 06:30 INR 1.04 (0.93-1.08) 01/24/18 06:30 APTT 27.4 Seconds (25.1-36.5) 01/22/18 22:20
[2018-01-26 12:44] VITALS: BP 145/98; PULSE 69; RESP 21; TEMP 98
--- NOTE | 2018-01-26 13:58 | CP.PCM.DIS ---
<ClementinaluisJuan - Last Filed: 01/26/18 13:58> Provider - Provider Date of Admission: 01/23/18 15:22 Attending physician: Yulissa Starr MD Primary care physician: Eleonora Arciniega MD Consults: Nephro: Dina Time Spent in preparation of Discharge (in minutes): 45 Hospital Course - Lab Results Lab Results: Most Recent Lab Values WBC 5.0 10^3/ul (4.5-11.0) 01/26/18 06:40 RBC 4.31 10^6/uL (3.5-6.1) 01/26/18 06:40 Hgb 11.7 g/dL (14.0-18.0) L 01/26/18 06:40 Hct 34.7 % (42.0-52.0) L 01/26/18 06:40 MCV 80.5 fl (80.0-105.0) 01/26/18 06:40 MCH 27.1 pg (25.0-35.0) 01/26/18 06:40 MCHC 33.7 g/dl (31.0-37.0) 01/26/18 06:40 RDW 13.0 % (11.5-14.5) 01/26/18 06:40 Plt Count 246 10^3/uL (120.0-450.0) 01/26/18 06:40 MPV 9.7 fl (7.0-11.0) 01/26/18 06:40 Gran % 46.3 % (50.0-68.0) L 01/26/18 06:40 Lymph % (Auto) 43.9 % (22.0-35.0) H 01/26/18 06:40 [place] % (Auto) 6.4 % (1.0-6.0) H 01/26/18 06:40 Eos % (Auto) 3.0 % (1.5-5.0) 01/26/18 06:40 Baso % (Auto) 0.4 % (0.0-3.0) 01/26/18 06:40 Gran # 2.33 (1.4-6.5) 01/26/18 06:40 Lymph # (Auto) 2.2 (1.2-3.4) 01/26/18 06:40 [place] # (Auto) 0.3 (0.1-0.6) 01/26/18 06:40 Eos # (Auto) 0.2 (0.0-0.7) 01/26/18 06:40 Baso # (Auto) 0.02 K/mm3 (0.0-2.0) 01/26/18 06:40 PT 12.0 SECONDS (9.4-12.5) 01/24/18 06:30 INR 1.04 (0.93-1.08) 01/24/18 06:30 APTT 27.4 Seconds (25.1-36.5) 01/22/18 22:20 pCO2 37 mm/Hg (35-45) 01/23/18 00:20 pO2 89.0 mm/Hg (80-100) 01/23/18 00:20 HCO3 22.4 mmol/L (21-28) 01/23/18 00:20 ABG pH 7.39 (7.35-7.45) 01/23/18 00:20 ABG Total CO2 23.5 mmol.L (22-28) 01/23/18 00:20 ABG O2 Saturation 97.9 % (95-98) 01/23/18 00:20 ABG O2 Content 18.2 ML/dl (15-23) 01/23/18 00:20 ABG Base Excess -2.2 mmol/L (-2.0-3.0) L 01/23/18 00:20 ABG Hemoglobin 13.6 g/dL (11.7-17.4) 01/23/18 00:20 ABG Carboxyhemoglobin 2.5 % (0.5-1.5) H 01/23/18 00:20 POC ABG HHb (Measured) 2.0 % (0-5) 01/23/18 00:20 ABG Methemoglobin 0.6 % (0.0-3.0) 01/23/18 00:20 ABG O2 Capacity 18.6 mL/dl (16-24) 01/23/18 00:20 Hgb O2 Saturation 94.9 % (95.0-98.0) L 01/23/18 00:20 FiO2 21.0 % 01/23/18 00:20 Sodium 139 mmol/L (132-148) 01/26/18 06:40 Potassium 4.2 mmol/L (3.6-5.0) 01/26/18 06:40 Chloride 107 mmol/L (98-107) 01/26/18 06:40 Carbon Dioxide 23 mmol/L (21-33) 01/26/18 06:40 Anion Gap 13 (10-20) 01/26/18 06:40 BUN 22 mg/dL (7-21) H 01/26/18 06:40 Creatinine 1.4 mg/dl (0.8-1.5) 01/26/18 06:40 Est GFR ( Amer) > 60 01/26/18 06:40 Est GFR (Non-Af Amer) 56 01/26/18 06:40 POC Glucose (mg/dL) 224 mg/dL (65-110) H 01/26/18 11:17 Random Glucose 180 mg/dL (70-110) H 01/26/18 06:40 Hemoglobin A1c 18.8 % (4.2-6.5) H 01/22/18 22:20 Serum Osmolality 316 mosm/kg (272-300) H 01/22/18 22:20 Calcium 8.6 mg/dL (8.4-10.5) 01/26/18 06:40 Phosphorus 3.2 mg/dL (2.5-4.5) 01/25/18 06:00 Magnesium 2.2 mg/dL (1.7-2.2) 01/25/18 06:00 Iron 66 ug/dL (45-180) 01/22/18 22:20 TIBC 270 ug/dL (261-462) 01/22/18 22:20 % Saturation 24 % (20-55) 01/22/18 22:20 Transferrin 212.78 mg/dL (206-381) 01/22/18 22:20 Ferritin 492.0 ng/mL 01/22/18 22:20 Total Bilirubin 0.4 mg/dL (0.2-1.3) 01/26/18 06:40 AST 22 U/L (17-59) 01/26/18 06:40 ALT 24 U/L (7-56) 01/26/18 06:40 Alkaline Phosphatase 110 U/L (38-126) 01/26/18 06:40 Lactate Dehydrogenase 401 U/L (333-699) 01/22/18 22:20 Total Creatine Kinase 169 U/L (35-230) 01/22/18 22:20 Troponin I < 0.01 ng/mL 01/23/18 11:10 Total Protein 6.8 g/dL (5.8-8.3) 01/26/18 06:40 Albumin 3.5 g/dL (3.0-4.8) 01/26/18 06:40 Globulin 3.3 gm/dL 01/26/18 06:40 Albumin/Globulin Ratio 1.1 (1.1-1.8) 01/26/18 06:40 25-OH Vitamin D Total < 12.8 NG/ML (30.0-100.0) L 01/24/18 06:30 TSH 3rd Generation 2.84 mIU/mL (0.46-4.68) 01/25/18 06:00 PTH Intact Whole Molec 159 pg/mL (14-64) H 01/23/18 12:20 Urine Color Yellow (YELLOW) 01/24/18 10:10 Urine Appearance Clear (CLEAR) 01/24/18 10:10 Urine pH 5.5 (4.7-8.0) 01/24/18 10:10 Ur Specific [place] 1.015 (1.005-1.035) 01/24/18 10:10 Urine Protein Negative mg/dL (<30 mg/dL) 01/24/18 10:10 Urine Glucose (UA) 250 mg/dL (NEGATIVE) H 01/24/18 10:10 Urine Ketones Negative mg/dL (NEGATIVE) 01/24/18 10:10 Urine Blood Negative (NEGATIVE) 01/24/18 10:10 Urine Nitrate Negative (NEGATIVE) 01/24/18 10:10 Urine Bilirubin Negative (NEGATIVE) 01/24/18 10:10 Urine Urobilinogen 0.2 E.U./dL (<1 E.U./dL) 01/24/18 10:10 Ur Leukocyte Esterase Negative Jenniffer/uL (NEGATIVE) 01/24/18 10:10 Salicylates 1 mg/dL (2.0-20.0) L 01/23/18 06:00 Urine Opiates Screen Negative (NEGATIVE) 01/25/18 16:05 Urine Methadone Screen Negative (NEGATIVE) 01/25/18 16:05 Ur Barbiturates Screen Negative (NEGATIVE) 01/25/18 16:05 Ur Phencyclidine Scrn Positive (NEGATIVE) H 01/25/18 16:05 Ur Amphetamines Screen Negative (NEGATIVE) 01/25/18 16:05 U Benzodiazepines Scrn Negative (NEGATIVE) 01/25/18 16:05 U Oth Cocaine Metabols Negative (NEGATIVE) 01/25/18 16:05 U Cannabinoids Screen Negative (NEGATIVE) 01/25/18 16:05 - Hospital Course Hospital Course: On admission: 42 year old AA male with past medical history that includes HTN, DM2, schizophrenia, anxiety, depression who he see [facility] who presents s/ p syncopal episode at fathers house and chest pressure. Patient reports that earlier in the day he was at his father's house when he bent over to pick something up off the ground and had a syncopal episode lasting a few seconds. Patient indicates that he broke his fall by first hitting a near by couch and then to the ground. He denies any biting of the tongue, loss of bowel, post ictal state, palpitations. He denies any changes in his vision. Patient also reports chest pressure that is midsternum without nausea, vomiting diaphoresis. He indicates productive cough for past few days. He indicates the chest tightness started about 2 days prior and was rated as 5/10 and for past 24 hours rated pain as 7/10. He also indicates that he has been consuming only kendall aid and fruit juices for the past 24 -48 hours and that is why his sugar is elevated in ED. Patient reports headache, sinus drainage, dry mouth, abdominal discomfort that is mild, and crampin of right lower extremity. 12 point ROS other than in HPI is benign. Hospital Course: Patient was cleared by cardiology and set up to have out patient stress test. His A1c was measured at 18.8. He was started on sliding scale insulin and then his insulin requirements were calculated and he was started on 20 units BID of Levemir and prandin before meals. His susana resolved with adequate hydration. The patient was counselled to keep to a diabetic diet, check his blood sugars 3x per day. Stop smoking and stop using drugs. He is going to follow up with his regular doctor in 7-10 days. All of this was explained to the patient in detail. He expressed understanding and all of his questions were answered. Discharge Exam - Head Exam Head Exam: ATRAUMATIC, NORMAL INSPECTION, NORMOCEPHALIC - Eye Exam Eye Exam: EOMI, Normal appearance, PERRL Pupil Exam: NORMAL ACCOMODATION, PERRL - Respiratory Exam Respiratory Exam: Clear to PA & Lateral, NORMAL BREATHING PATTERN, UNREMARKABLE - Cardiovascular Exam Cardiovascular Exam: REGULAR RHYTHM - GI/Abdominal Exam GI & Abdominal Exam: Normal Bowel Sounds, Soft. absent: Distended, Tenderness - Neurological Exam Neurological exam: Alert, CN II-XII Intact, Normal Gait, Oriented x3, Reflexes Normal - Psychiatric Exam Psychiatric exam: Normal Affect, Normal Mood - Skin Skin Exam: Dry, Intact, Normal Color, Warm Discharge Plan - Discharge Medications Prescriptions: amLODIPine [Norvasc] 10 mg PO DAILY #30 tab Aspirin [Aspirin Chewable] 81 mg PO DAILY #30 chew Atorvastatin [Lipitor] 40 mg PO DAILY #30 tab Clopidogrel [Plavix] 75 mg PO DAILY #30 tab Ergocalciferol [Drisdol 50,000 Intl Units Cap] 1 cap PO Q7D #30 cap Insulin Detemir [Levemir] 20 unit SC Q12 30 Days unit Lisinopril/Hydrochlorothiazide [Lisinopril-Hctz 20-25 mg Tab] 1 tab PO DAILY # 30 tablet Metoprolol Tartrate [Lopressor] 50 mg PO BID #60 tab Repaglinide [Prandin] 0.5 mg PO AC 30 Days tab - Follow Up Plan Condition: STABLE Disposition: HOME/ ROUTINE Instructions: Diabetes Diet , Chest Pain (DC), Chest Pain (GEN) Additional Instructions: Please follow up with your primary care provider in 7-10 days. Please call to make an appointment. Please follow up with Dr. Palmer in the office for outpatient stress test. Please call to make an appointment. I have attached his office information. Referrals: Eleonora Arciniega MD [Primary Care Provider] - Yulissa Palmer MD [Staff Provider] - <Yulissa Starr - Last Filed: 01/27/18 15:42> Provider - Provider Date of Admission: 01/23/18 15:22 Attending physician: Yulissa Starr MD Primary care physician: Eleonora Arciniega MD Hospital Course - Lab Results Lab Results: Most Recent Lab Values WBC 5.0 10^3/ul (4.5-11.0) 01/26/18 06:40 RBC 4.31 10^6/uL (3.5-6.1) 01/26/18 06:40 Hgb 11.7 g/dL (14.0-18.0) L 01/26/18 06:40 Hct 34.7 % (42.0-52.0) L 01/26/18 06:40 MCV 80.5 fl (80.0-105.0) 01/26/18 06:40 MCH 27.1 pg (25.0-35.0) 01/26/18 06:40 MCHC 33.7 g/dl (31.0-37.0) 01/26/18 06:40 RDW 13.0 % (11.5-14.5) 01/26/18 06:40 Plt Count 246 10^3/uL (120.0-450.0) 01/26/18 06:40 MPV 9.7 fl (7.0-11.0) 01/26/18 06:40 Gran % 46.3 % (50.0-68.0) L 01/26/18 06:40 Lymph % (Auto) 43.9 % (22.0-35.0) H 01/26/18 06:40 [place] % (Auto) 6.4 % (1.0-6.0) H 01/26/18 06:40 Eos % (Auto) 3.0 % (1.5-5.0) 01/26/18 06:40 Baso % (Auto) 0.4 % (0.0-3.0) 01/26/18 06:40 Gran # 2.33 (1.4-6.5) 01/26/18 06:40 Lymph # (Auto) 2.2 (1.2-3.4) 01/26/18 06:40 [place] # (Auto) 0.3 (0.1-0.6) 01/26/18 06:40 Eos # (Auto) 0.2 (0.0-0.7) 01/26/18 06:40 Baso # (Auto) 0.02 K/mm3 (0.0-2.0) 01/26/18 06:40 PT 12.0 SECONDS (9.4-12.5) 01/24/18 06:30 INR 1.04 (0.93-1.08) 01/24/18 06:30 APTT 27.4 Seconds (25.1-36.5) 01/22/18 22:20 pCO2 37 mm/Hg (35-45) 01/23/18 00:20 pO2 89.0 mm/Hg (80-100) 01/23/18 00:20 HCO3 22.4 mmol/L (21-28) 01/23/18 00:20 ABG pH 7.39 (7.35-7.45) 01/23/18 00:20 ABG Total CO2 23.5 mmol.L (22-28) 01/23/18 00:20 ABG O2 Saturation 97.9 % (95-98) 01/23/18 00:20 ABG O2 Content 18.2 ML/dl (15-23) 01/23/18 00:20 ABG Base Excess -2.2 mmol/L (-2.0-3.0) L 01/23/18 00:20 ABG Hemoglobin 13.6 g/dL (11.7-17.4) 01/23/18 00:20 ABG Carboxyhemoglobin 2.5 % (0.5-1.5) H 01/23/18 00:20 POC ABG HHb (Measured) 2.0 % (0-5) 01/23/18 00:20 ABG Methemoglobin 0.6 % (0.0-3.0) 01/23/18 00:20 ABG O2 Capacity 18.6 mL/dl (16-24) 01/23/18 00:20 Hgb O2 Saturation 94.9 % (95.0-98.0) L 01/23/18 00:20 FiO2 21.0 % 01/23/18 00:20 Sodium 139 mmol/L (132-148) 01/26/18 06:40 Potassium 4.2 mmol/L (3.6-5.0) 01/26/18 06:40 Chloride 107 mmol/L (98-107) 01/26/18 06:40 Carbon Dioxide 23 mmol/L (21-33) 01/26/18 06:40 Anion Gap 13 (10-20) 01/26/18 06:40 BUN 22 mg/dL (7-21) H 01/26/18 06:40 Creatinine 1.4 mg/dl (0.8-1.5) 01/26/18 06:40 Est GFR ( Amer) > 60 01/26/18 06:40 Est GFR (Non-Af Amer) 56 01/26/18 06:40 POC Glucose (mg/dL) 224 mg/dL (65-110) H 01/26/18 11:17 Random Glucose 180 mg/dL (70-110) H 01/26/18 06:40 Hemoglobin A1c 18.8 % (4.2-6.5) H 01/22/18 22:20 Serum Osmolality 316 mosm/kg (272-300) H 01/22/18 22:20 Calcium 8.6 mg/dL (8.4-10.5) 01/26/18 06:40 Phosphorus 3.2 mg/dL (2.5-4.5) 01/25/18 06:00 Magnesium 2.2 mg/dL (1.7-2.2) 01/25/18 06:00 Iron 66 ug/dL (45-180) 01/22/18 22:20 TIBC 270 ug/dL (261-462) 01/22/18 22:20 % Saturation 24 % (20-55) 01/22/18 22:20 Transferrin 212.78 mg/dL (206-381) 01/22/18 22:20 Ferritin 492.0 ng/mL 01/22/18 22:20 Total Bilirubin 0.4 mg/dL (0.2-1.3) 01/26/18 06:40 AST 22 U/L (17-59) 01/26/18 06:40 ALT 24 U/L (7-56) 01/26/18 06:40 Alkaline Phosphatase 110 U/L (38-126) 01/26/18 06:40 Lactate Dehydrogenase 401 U/L (333-699) 01/22/18 22:20 Total Creatine Kinase 169 U/L (35-230) 01/22/18 22:20 Troponin I < 0.01 ng/mL 01/23/18 11:10 Total Protein 6.8 g/dL (5.8-8.3) 01/26/18 06:40 Albumin 3.5 g/dL (3.0-4.8) 01/26/18 06:40 Globulin 3.3 gm/dL 01/26/18 06:40 Albumin/Globulin Ratio 1.1 (1.1-1.8) 01/26/18 06:40 25-OH Vitamin D Total < 12.8 NG/ML (30.0-100.0) L 01/24/18 06:30 TSH 3rd Generation 2.84 mIU/mL (0.46-4.68) 01/25/18 06:00 PTH Intact Whole Molec 159 pg/mL (14-64) H 01/23/18 12:20 Urine Color Yellow (YELLOW) 01/24/18 10:10 Urine Appearance Clear (CLEAR) 01/24/18 10:10 Urine pH 5.5 (4.7-8.0) 01/24/18 10:10 Ur Specific [place] 1.015 (1.005-1.035) 01/24/18 10:10 Urine Protein Negative mg/dL (<30 mg/dL) 01/24/18 10:10 Urine Glucose (UA) 250 mg/dL (NEGATIVE) H 01/24/18 10:10 Urine Ketones Negative mg/dL (NEGATIVE) 01/24/18 10:10 Urine Blood Negative (NEGATIVE) 01/24/18 10:10 Urine Nitrate Negative (NEGATIVE) 01/24/18 10:10 Urine Bilirubin Negative (NEGATIVE) 01/24/18 10:10 Urine Urobilinogen 0.2 E.U./dL (<1 E.U./dL) 01/24/18 10:10 Ur Leukocyte Esterase Negative Jenniffer/uL (NEGATIVE) 01/24/18 10:10 Salicylates 1 mg/dL (2.0-20.0) L 01/23/18 06:00 Urine Opiates Screen Negative (NEGATIVE) 01/25/18 16:05 Urine Methadone Screen Negative (NEGATIVE) 01/25/18 16:05 Ur Barbiturates Screen Negative (NEGATIVE) 01/25/18 16:05 Ur Phencyclidine Scrn Positive (NEGATIVE) H 01/25/18 16:05 Ur Amphetamines Screen Negative (NEGATIVE) 01/25/18 16:05 U Benzodiazepines Scrn Negative (NEGATIVE) 01/25/18 16:05 U Oth Cocaine Metabols Negative (NEGATIVE) 01/25/18 16:05 U Cannabinoids Screen Negative (NEGATIVE) 01/25/18 16:05 Attending/Attestation - Attestation I have personally seen and examined this patient.: Yes I have fully participated in the care of the patient.: Yes I have reviewed all pertinent clinical information, including history, physical exam and plan: Yes Notes (Text): 01/27/18 15:34 Medical record note made by the resident after discussion with my direction and input after the patient was personally seen and examined by me. I have reviewed the chart and agree that the record accurately reflects by personal performance of the history, physical exam, data review, and medical decision-making, in the course for the patient. I have also personally directed the plan of care. 42 year old female with PMH of uncontrolled DM non compliant with medications who came for evaluation of chest pain and syncope.He was monitored in telemetry.Serial troponins were normal.He was evaluated by cardiology and outpatient stress test was recommended.Patient was also found to have uncontrolled DM and acute renal failure.He was found to have Hba1c of 18. Levemir was started .His renal failure was treated with IV hydration. His sugars are better controlled.Renal functions are back to normal. Issue of compliance with medication and diet was discussed in detail with him. He will be discharged home and will follow up with PCP . He will also follow up with cardiology for stress test as out patient. Management plan was discussed in detail with patient. Education was provided.
--- NOTE | 2018-01-26 17:58 | PN ---
DATE: 01/26/2018 REASON FOR CONSULTATION AND FOLLOWUP: Atypical chest pain, history of coronary artery disease, history of PTCA, hypertension, diabetes. SUBJECTIVE: The patient denies any chest pain, shortness of breath, or any palpitations. OBJECTIVE: GENERAL: Not in apparent distress. VITAL SIGNS: Temperature afebrile, heart rate 69, blood pressure 145/98. HEENT: PERRLA, intact. NECK: Supple. No carotid bruits or thyromegaly. CHEST: Clear to auscultation. HEART: S1 and S2, regular. ABDOMEN: Soft. EXTREMITIES: Clubbing and cyanosis negative. LABORATORY DATA: Blood workup as follows: WBC 5, hemoglobin 11.7, hematocrit 34.7, platelet count 246. Chemistry shows sodium 139, potassium 4.2, chloride 107, carbon dioxide 23, anion gap of 13, BUN 22, creatinine 1.4. Troponin remains negative flat, 0.01 x3, negative. Atypical chest pain, musculoskeletal, history of coronary artery disease, diabetes, hypertension, hyperlipidemia, poorly controlled diabetes as well as renal insufficiency, baseline creatinine 1.6 and counseled about creatinine clearance if he has stage 2 to 3 CKD disease. On admitting, the creatinine was 3.2, improved. RECOMMENDATION: Aggressive medical treatment, we will consider stress as outpatient, discussed with the patient. given to the Cardiology to schedule stress as outpatient because of history of coronary artery disease, noncompliance, diabetes, hypertension, multiple risk factor for restenosis. We will follow with you. He will discontinue telemetry. Thank you for providing us the opportunity in taking care of the patient, Carlos Enrique Hernandez. Yulissa Butler MD
== END 2018-01-26 15:40 | disposition home or self-care (01) | DRG 543 ==
LOC: ED 21:58 → ERH 01-23 00:52 → 2RSO 01-23 04:49 → OBSVTOIN 01-23 15:22
PROVIDERS: ADMIT Internal Medicine; ATTEND Internal Medicine
DX: R07.89 Other chest pain (principal); N17.9 Acute kidney failure, unspecified; F20.9 Schizophrenia, unspecified; E11.65 Type 2 diabetes mellitus with hyperglycemia; E86.0 Dehydration; E87.6 Hypokalemia; E87.4 Mixed disorder of acid-base balance; I10 Essential (primary) hypertension; F41.9 Anxiety disorder, unspecified; I25.10 Atherosclerotic heart disease of native coronary artery without angina pectoris; E66.01 Morbid (severe) obesity due to excess calories; F32.9 Major depressive disorder, single episode, unspecified; G47.00 Insomnia, unspecified; E55.9 Vitamin D deficiency, unspecified; Z68.41 Body mass index [BMI] 40.0-44.9, adult; F17.210 Nicotine dependence, cigarettes, uncomplicated; Z91.14 Patient's other noncompliance with medication regimen; Z95.5 Presence of coronary angioplasty implant and graft; Z79.02 Long term (current) use of antithrombotics/antiplatelets; Z79.82 Long term (current) use of aspirin

== ENCOUNTER 2018-08-05 18:33 | Observation (INO) | payer MEDICAID ==
--- NOTE | 2018-08-05 19:32 | ED PDOC ---
Arrival/HPI - General Historian: Patient - History of Present Illness Narrative History of Present Illness (Text): 08/05/18 19:49 43yo male with pmhx of hypertension, Diabetes, Schizophrenia, chronic back pain, neuropathy who present with complaint of intermittent chest pain described as "tightness" x 2days. He also report back pain and b/l foot pain. Notes that the back pain and foot pain is chronic. States he did not take his medications today because he was rushing to get to his program. Notes that his back pain is sharp and constant and radiates to his right lower leg. Denies SOB, diaphoresis, nausea, vomiting, tearing/ripping upper back pain, abdominal pain, fever, c hills, any other complaint. <Tiffanie Red A - Last Filed: 08/06/18 01:31> <Arnold Daniel - Last Filed: 08/07/18 11:30> - General Chief Complaint: Lower Extremity Problem/Injury Past Medical History - Provider Review Nursing Documentation Reviewed: Yes - Infectious Disease Hx of Infectious Diseases: None - Cardiac Hx Hypertension: Yes - Pulmonary Hx Respiratory Disorders: No - Neurological Hx Neurological Disorder: No - HEENT Hx HEENT Disorder: No - Renal Hx Renal Disorder: No - Endocrine/Metabolic Hx Diabetes Mellitus Type 2: Yes - Hematological/Oncological Hx Blood Disorders: No - Integumentary Hx Dermatological Disorder: No - Musculoskeletal/Rheumatological Hx Musculoskeletal Disorders: No Hx Falls: No - Gastrointestinal Hx Gastrointestinal Disorders: No - Genitourinary/Gynecological Hx Genitourinary Disorders: No - Psychiatric Hx Psychophysiologic Disorder: Yes Hx Anxiety: Yes Hx Depression: Yes Hx Schizophrenia: Yes Hx Substance Use: No - Surgical History Hx Cardiac Catheterization: Yes (07/2016) Other/Comment: cardiac stents - Anesthesia Hx Anesthesia: Yes Hx Anesthesia Reactions: No Hx Malignant Hyperthermia: No <Tiffanie Red A - Last Filed: 08/06/18 01:31> Family/Social History - Physician Review Nursing Documentation Reviewed: Yes Family/Social History: Unknown Family HX Smoking Status: Light Smoker < 10 Cigarettes Daily Hx Alcohol Use: No Hx Substance Use: No <Tiffanie Red A - Last Filed: 08/06/18 01:31> Allergies/Home Meds <Tiffanie Red - Last Filed: 08/06/18 01:31> <Arnold Daniel - Last Filed: 08/07/18 11:30> Allergies/Adverse Reactions: Allergies No Known Allergies Allergy (Verified 01/22/18 22:02) Home Medications: Home Meds Medication Instructions Recorded Confirmed RX: FLUoxetine [Prozac] 20 mg PO DAILY 08/05/18 08/05/18 RX: Insulin Glargine,Hum.rec.anlog 35 unit SQ HS 08/05/18 08/05/18 [Basaglar Kwikpen U-100] RX: Insulin Lispro [humALOG] 8 units SQ WM 08/05/18 08/05/18 RX: Mirtazapine [Remeron] 15 mg PO HS 08/05/18 08/05/18 RX: QUEtiapine [Seroquel] 200 mg PO HS 08/05/18 08/05/18 RX: metFORMIN [glucOPHAGE] 850 mg PO QAM 08/05/18 08/05/18 Review of Systems - Physician Review All systems were reviewed & negative as marked: Yes - Review of Systems Constitutional: Normal Eyes: Normal ENT: Normal Respiratory: Normal Cardiovascular: Chest Pain. absent: Palpitations, Edema, Calf Pain Gastrointestinal: Normal Genitourinary Male: Normal Musculoskeletal: Arthralgias (B/L foot pain), Back Pain Skin: Normal Neurological: Normal Endocrine: Normal Hemo/Lymphatic: Normal Psychiatric: Normal <Tiffanie Red - Last Filed: 08/06/18 01:31> Physical Exam Vital Signs Reviewed: Yes Vital Signs Temp Pulse Resp BP Pulse Ox 08/05/18 18:51 98.3 F 82 20 132/85 99 Temperature: Afebrile Blood Pressure: Normal Pulse: Regular Respiratory Rate: Normal Appearance: Positive for: Well-Appearing, Non-Toxic, Comfortable, Other (Morbidly obese) Pain Distress: None Mental Status: Positive for: Alert and Oriented X 3 Finger Stick Blood Glucose: 500 - Systems Exam Head: Present: Atraumatic, Normocephalic Pupils: Present: PERRL Extroacular Muscles: Present: EOMI Conjunctiva: Present: Normal Mouth: Present: Moist Mucous Membranes Neck: Present: Normal Range of Motion Respiratory/Chest: Present: Clear to Auscultation, Good Air Exchange. No: Respiratory Distress, Accessory Muscle Use, Wheezes, Decreased Breath Sounds, Rales, Retracting, Rhonchi Cardiovascular: Present: Regular Rate and Rhythm, Normal S1, S2. No: Murmurs Abdomen: No: Tenderness, Distention, Peritoneal Signs Back: Present: Paraspinal Tenderness (Paralumbar tenderness). No: Midline Tenderness, Pain with Leg Raise Upper Extremity: Present: Normal Inspection. No: Cyanosis, Edema Lower Extremity: Present: Normal Inspection, NORMAL PULSES, Normal ROM. No: Edema, Tenderness, Swelling Neurological: Present: GCS=15, CN II-XII Intact, Speech Normal Skin: Present: Warm, Dry, Normal Color. No: Rashes Psychiatric: Present: Alert, Oriented x 3, Normal Insight, Normal Concentration <Diru,Happiness A - Last Filed: 08/06/18 01:31> Vital Signs Temp Pulse Pulse Resp BP Pulse Ox 08/05/18 22:33 69 18 08/05/18 19:59 69 18 135/85 100 08/05/18 18:51 98.3 F 82 20 132/85 99 <Arnold Daniel - Last Filed: 08/07/18 11:30> Medical Decision Making ED Course and Treatment: 08/06/18 01:31 Pt presented to ED for stated history. His FS was greater than 400 in ED Labs CXR EKG ASA, Insulin, 1L NS CXR NAD EKG NSR @ 79bpm First CE was wnl. Elevated BS was noted without AG. PT will be admitted for further evaluation secondary to his cardiac risk factor Case was DW Dr. Linder and pt was admitted - Lab Interpretations Lab Results: Lab Results 08/05/18 18:53: POC Glucose (mg/dL) > 500 H* - RAD Interpretation Radiology Orders: 08/05/18 19:07 CHEST PORTABLE [RAD] Stat <Diru,Happiness A - Last Filed: 08/06/18 01:31> - Lab Interpretations Lab Results: 08/05/18 19:31 08/05/18 19:31 Lab Results 08/05/18 19:40: Urine Color Light yellow, Urine Appearance Clear, Urine pH 6.0, Ur Specific [place] 1.010, Urine Protein Negative, Urine Glucose (UA) >=1000, Urine Ketones Negative, Urine Blood Negative, Urine Nitrate Negative, Urine Bilirubin Negative, Urine Urobilinogen 0.2, Ur Leukocyte Esterase Negative 08/05/18 19:31: PT 11.3, INR 0.99, APTT 27.0 08/05/18 19:31: Sodium 131 L, Potassium 4.4, Chloride 95 L, Carbon Dioxide 23, Anion Gap 17, BUN 32 H, Creatinine 1.6 H, Est GFR ( Amer) 58, Est GFR (Non-Af Amer) 48, Random Glucose 656 H* D, Calcium 9.1, Magnesium 1.8, Total Bilirubin 0.6, AST 35, ALT 25, Alkaline Phosphatase 112, Lactate Dehydrogenase 645, Total Creatine Kinase 354 H, CK-MB (CK-2) 2.0, CK-MB (CK-2) % Cancelled, Troponin I < 0.01, NT-Pro-B Natriuret Pep 39.1, Total Protein 7.9, Albumin 4.2, Globulin 3.6, Albumin/Globulin Ratio 1.2, Triglycerides 658 H, Cholesterol 163, LDL Cholesterol Direct 88, HDL Cholesterol 27 L 08/05/18 19:31: WBC 6.0, RBC 4.78, Hgb 13.8 L D, Hct 40.8 L, MCV 85.4 D, MCH 28.9, MCHC 33.8, RDW 12.7, Plt Count 281, MPV 11.2 H, Gran % 51.8, Lymph % (Auto) 39.7 H, [place] % (Auto) 6.2 H, Eos % (Auto) 1.8, Baso % (Auto) 0.5, Gran # 3.09, Lymph # (Auto) 2.4, [place] # (Auto) 0.4, Eos # (Auto) 0.1, Baso # (Auto) 0.03 08/05/18 18:53: POC Glucose (mg/dL) > 500 H* - RAD Interpretation Radiology Orders: 08/05/18 19:07 CHEST PORTABLE [RAD] Stat - Medication Orders Current Medication Orders: Discontinued Medications Amlodipine Besylate (Norvasc) 10 mg PO DAILY [facility] Amlodipine Besylate (Norvasc) 10 mg PO DAILY [facility] Last Admin: 08/06/18 10:09 Dose: 10 mg MAR Blood Pressure Document 08/06/18 10:09 CD (Rec: 08/06/18 10:09 CD [id number]) Blood Pressure Blood Pressure (100/60-150/90) 114/47 Aspirin (Aspirin) 325 mg PO STAT STA Stop: 08/05/18 20:12 Last Admin: 08/05/18 20:26 Dose: 325 mg Aspirin (Aspirin Chewable) 81 mg PO DAILY [facility] Last Admin: 08/06/18 10:10 Dose: 81 mg Atorvastatin Calcium (Lipitor) 40 mg PO DAILY [facility] Last Admin: 08/06/18 10:09 Dose: 40 mg Clopidogrel Bisulfate (Plavix) 75 mg PO DAILY [facility] Last Admin: 08/06/18 10:10 Dose: 75 mg Cyclobenzaprine HCl (Flexeril) 5 mg PO TID PRN PRN Reason: Muscle spasm Gabapentin (Neurontin) 300 mg PO TID [facility]; Protocol Last Admin: 08/06/18 10:10 Dose: 300 mg Behavioural Document 08/06/18 10:10 CD (Rec: 08/06/18 10:10 CD [id number]) Maintenance Maintenance Dose Yes Heparin Sodium (Porcine) (Heparin) 5,000 units SC Q8 [facility]; Protocol Last Admin: 08/06/18 05:44 Dose: 5,000 units Subcutaneous Administrations Document 08/06/18 05:44 CDL (Rec: 08/06/18 05:45 CDL [id number]) Injection Site MAR Injection Site Right Abdomen Charges for Administration # of Subcutaneous Administrations 1 Hydrochlorothiazide (Hydrodiuril) 25 mg PO DAILY [facility] Last Admin: 08/06/18 10:09 Dose: 25 mg Sodium Chloride (Sodium Chloride 0.9%) 1,000 mls @ 999 mls/hr IV .Q1H1M STA Stop: 08/05/18 20:43 Last Admin: 08/05/18 19:51 Dose: 999 mls/hr eMAR Start Stop Document 08/05/18 19:51 AD (Rec: 08/05/18 19:51 AD [id number]) Intravenous Solution Start Date 08/05/18 Start Time 19:51 Sodium Chloride (Sodium Chloride 0.9%) 1,000 mls @ 100 mls/hr IV .Q10H [facility] Last Admin: 08/06/18 08:10 Dose: 100 mls/hr eMAR Start Stop Document 08/06/18 08:10 CD (Rec: 08/06/18 08:10 CD [id number]) Intravenous Solution Start Date 08/06/18 Start Time 08:10 Influenza Virus Vaccine (Flucelvax Quad [id number] Syr) 60 mcg IM .ONCE ONE Stop: 08/05/18 22:50 Insulin Detemir (Levemir) 15 unit SC BID [facility] Last Admin: 08/06/18 10:08 Dose: 15 units MAR Blood Glucose Document 08/06/18 10:08 CD (Rec: 08/06/18 10:08 CD [id number]) Blood Glucose Finger Stick Blood Glucose (70-120) 316 Subcutaneous Administrations Document 08/06/18 10:08 CD (Rec: 08/06/18 10:08 CD [id number]) Injection Site MAR Injection Site Left Arm Charges for Administration # of Subcutaneous Administrations 1 Insulin Human Lispro (Humalog Med) 0 units SC ACHS [facility]; Protocol Last Admin: 08/06/18 08:09 Dose: 7 units MAR Blood Glucose Document 08/06/18 08:09 CD (Rec: 08/06/18 08:10 CD [id number]) Blood Glucose Finger Stick Blood Glucose (70-120) 316 Subcutaneous Administrations Document 08/06/18 08:09 CD (Rec: 08/06/18 08:10 CD [id number]) Injection Site MAR Injection Site Right Arm Charges for Administration # of Subcutaneous Administrations 1 Insulin Human Regular (Humulin R Med) 10 units IV ONCE STA; Protocol Stop: 08/05/18 19:44 Last Admin: 08/05/18 19:51 Dose: 10 unit eMAR Start Stop Document 08/05/18 19:51 AD (Rec: 08/05/18 19:51 AD [id number]) Intravenous Solution Start Date 08/05/18 Start Time 19:51 MAR Blood Glucose Document 08/05/18 19:51 AD (Rec: 08/05/18 19:51 AD [id number]) Blood Glucose Finger Stick Blood Glucose (70-120) 500 Lisinopril (Zestril) 20 mg PO DAILY [facility] Last Admin: 08/06/18 10:09 Dose: 20 mg MAR Pulse and Blood Pressure Document 08/06/18 10:09 CD (Rec: 08/06/18 10:10 CD [id number]) Pulse Pulse Rate (60-90) 56 Blood Pressure Blood Pressure (100/60-150/90) 114/47 Metoprolol Tartrate (Lopressor) 50 mg PO BID [facility] Last Admin: 08/06/18 10:09 Dose: 50 mg MAR Pulse and Blood Pressure Document 08/06/18 10:09 CD (Rec: 08/06/18 10:09 CD [id number]) Pulse Pulse Rate (60-90) 56 Blood Pressure Blood Pressure (100/60-150/90) 114/47 Oxycodone/Acetaminophen (Percocet 5/325 Mg Tab) 1 tab PO STAT STA Stop: 08/05/18 20:20 Last Admin: 08/05/18 20:30 Dose: 1 tab MAR Pain Assessment Document 08/05/18 20:30 AD (Rec: 08/05/18 20:31 AD [id number]) Pain Reassessment Is this a pain reassessment? No Description Intensity of Pain at present 8 Pain Behavior Facial Grimacing Pantoprazole Sodium (Protonix Ec Tab) 40 mg PO 0600 [facility] Last Admin: 08/06/18 05:45 Dose: 40 mg Pneumococcal Polyvalent Vaccine (Pneumovax 23 Vaccine) 0.5 ml IM .ONCE ONE Stop: 08/05/18 22:50 <Arnold Daniel - Last Filed: 08/07/18 11:30> - PA / [employer] / Resident Statement / has reviewed & agrees with the documentation as recorded. <Arnold Daniel - Last Filed: 08/07/18 11:30> Disposition/Present on Arrival - Present on Arrival Any Indicators Present on Arrival: No History of DVT/PE: No History of Uncontrolled Diabetes: Yes Urinary Catheter: No History of Decub. Ulcer: No History Surgical Site Infection Following: None - Disposition Have Diagnosis and Disposition been Completed?: Yes Disposition Time: 20:20 Patient Plan: Admission <Tiffanie Red - Last Filed: 08/06/18 01:31> <Arnold Daniel - Last Filed: 08/07/18 11:30> - Disposition Diagnosis: Chest pain, RONAN (acute kidney injury), Uncontrolled diabetes mellitus Disposition: HOSPITALIZED Condition: FAIR
[2018-08-05] MEDS ORDERED: Insulin Reg-MEDIUM-Coverage IV STA (19:43)
[2018-08-05] MEDS ORDERED: Sodium Chloride 0.9% 1,000 ML IV STA (19:43)
[2018-08-05] MEDS ORDERED: Insulin Regular 1 UNITS/0.01 ML ML ONE (19:51)
[2018-08-05 20:00] LABS: B-TYPE NATRIURETIC PEPTIDE 39.1 pg/mL (0-450); BASO # 0.03 K/mm3 (0.0-2.0); BASO % 0.5 % (0.0-3.0); EOS # 0.1 (0.0-0.7); EOS % 1.8 % (1.5-5.0); GRAN # 3.09 (1.4-6.5); GRAN % 51.8 % (50.0-68.0); HEMOGLOBIN 13.8 g/dL (14.0-18.0); LYMPH # 2.4 (1.2-3.4); LYMPH % 39.7 % (22.0-35.0); MEAN CELL VOLUME 85.4 fl (80.0-105.0); MEAN CORPUSCULAR HEMOGLOBIN 28.9 pg (25.0-35.0); MEAN CORPUSCULAR HGB CONC 33.8 g/dl (31.0-37.0); MEAN PLATELET VOLUME 11.2 fl (7.0-11.0); MONO # 0.4 (0.1-0.6); MONO % 6.2 % (1.0-6.0); RBC 4.78 10^6/uL (3.5-6.1); RED CELL DISTRIBUTION WIDTH 12.7 % (11.5-14.5); TROPONIN I < 0.01 ng/mL
[2018-08-05 20:00] LABS: URINE BILIRUBIN NEGATIVE (NEGATIVE); URINE BLOOD NEGATIVE (NEGATIVE); URINE GLUCOSE (UA) >=1000 mg/dL (NEGATIVE); URINE LEUKOCYTE ESTERASE NEGATIVE Leu/uL (NEGATIVE); URINE PROTEIN NEGATIVE mg/dL (<30 mg/dL); URINE UROBILINOGEN 0.2 E.U./dL (<1 E.U./dL)
[2018-08-05 20:03] LABS: ALB/GLOB RATIO 1.2 (1.1-1.8); ALBUMIN 4.2 g/dL (3.0-4.8); ALT/SGPT 25 U/L (7-56); AST/SGOT 35 U/L (17-59); BLOOD UREA NITROGEN 32 mg/dL (7-21); CALCIUM 9.1 mg/dL (8.4-10.5); GFR NON-AFRICAN AMERICAN 48
[2018-08-05 20:09] LABS: URINE APPEARANCE CLEAR (CLEAR); URINE COLOR LIGHT YELLOW (YELLOW)
[2018-08-05 20:16] LABS: INR 0.99; PROTHROMBIN TIME 11.3 SECONDS (9.4-12.5)
[2018-08-05] MEDS ORDERED: Oxycodone/Acetaminophen 5/325 mg Tab PO STA (20:19)
--- NOTE | 2018-08-05 21:21 | CP.PCM.HP ---
History of Present Illness - History of Present Illness History of Present Illness: Tram Dinh, PGY-1 Medicine H&P Note for Dr. Harinder Linder: CC: Back pain and chest tightness Pt is a 43 yo M with pmhx of HTN, DM, CAD s/p stent on 07/31, chronic back pain, schizophrenia and neuropathy who presents for chest tightness and back pain that began 2 days ago. Pt states that 2 days ago he slipped while walking and almost fell backwards, but pt was able to catch himself. Upon catching himself he noticed that his back became very tight and sore and began having 9/10 back pain which radiated down the right leg. Pt denies actually falling or hitting his back while catching himself. He states that the pain is sharp and burning and radiates down to his feet which feel like pins and needles. Pt states that he also began noticing midsternal chest pain that is located at the xyphoid process, pain is not worsened with activity and does not radiate. He states that he has been having this similar chest pain for about 1 month and it is off and on, and the lastest episode began 2 days ago. Pt states that only thing that w orsens the pain is when he pushes on it or coughs. Pt at this time is denying fevers, chills, headache, numbness, tingling, weakness, SOB, palpitations, abd pain, n/v, c/d. Pt admits to non-radiating, non-exertional chest tightness, cough and R sided back pain that radiates down to his R leg. Pt makes repeated mentions of back pain and asking for strong pain medications. Pmhx:HTN, DM, CAD s/p stent on 07/31, chronic back pain, schizophrenia and neuropathy Pshx: Stent placement All: NKDA Social: Quit smoking 10 years ago, denies etoh or illicit drug use PMD: Dr. Muhammad Present on Admission - Present on Admission Any Indicators Present on Admission: Yes History of Uncontrolled Diabetes: Yes Review of Systems - Review of Systems Review of Systems: 12 point ROS is reviewed and negative except noted in HPI above. Past Patient History - Infectious Disease Hx of Infectious Diseases: None - Past Social History Smoking Status: Light Smoker < 10 Cigarettes Daily - CARDIAC Hx Hypertension: Yes - PULMONARY Hx Respiratory Disorders: No - NEUROLOGICAL Hx Neurological Disorder: No - HEENT Hx HEENT Problems: No - RENAL Hx Chronic Kidney Disease: No - ENDOCRINE/METABOLIC Hx Diabetes Mellitus Type 2: Yes - HEMATOLOGICAL/ONCOLOGICAL Hx Blood Disorders: No - INTEGUMENTARY Hx Dermatological Problems: No - MUSCULOSKELETAL/RHEUMATOLOGICAL Hx Musculoskeletal Disorders: No Hx Falls: No - GASTROINTESTINAL Hx Gastrointestinal Disorders: No - GENITOURINARY/GYNECOLOGICAL Hx Genitourinary Disorders: No - PSYCHIATRIC Hx Psychophysiologic Disorder: Yes Hx Anxiety: Yes Hx Depression: Yes Hx Schizophrenia: Yes Hx Substance Use: No - SURGICAL HISTORY Hx Cardiac Catheterization: Yes (07/2016) Other/Comment: cardiac stents - ANESTHESIA Hx Anesthesia: Yes Hx Anesthesia Reactions: No Hx Malignant Hyperthermia: No Meds Allergies/Adverse Reactions: Allergies Allergy/AdvReac Type Severity Reaction Status Date / Time No Known Allergies Allergy Verified 01/22/18 22:02 Physical Exam - Constitutional Appears: Well, Non-toxic, No Acute Distress - Head Exam Head Exam: ATRAUMATIC, NORMAL INSPECTION, NORMOCEPHALIC - Eye Exam Eye Exam: EOMI, Normal appearance, PERRL - Respiratory Exam Respiratory Exam: Clear to Auscultation Bilateral, NORMAL BREATHING PATTERN. a bsent: Accessory Muscle Use, Decreased Breath Sounds, Rales, Rhonchi, Wheezes, Respiratory Distress, Stridor - Cardiovascular Exam Cardiovascular Exam: REGULAR RHYTHM, +S1, +S2. absent: Gallop, Rubs, Systolic Murmur - GI/Abdominal Exam GI & Abdominal Exam: Normal Bowel Sounds, Soft. absent: Firm, Guarding, Tenderness - Extremities Exam Extremities exam: Positive for: normal capillary refill, normal inspection, pedal pulses present. Negative for: pedal edema - Back Exam Back exam: NORMAL INSPECTION. absent: CVA tenderness (L), CVA tenderness (R) - Neurological Exam Neurological exam: Alert, Oriented x3 - Psychiatric Exam Psychiatric exam: Normal Affect, Normal Mood - Skin Skin Exam: Dry, Intact, Normal Color, Warm Results - Vital Signs Recent Vital Signs: Last Vital Signs Temp 98.3 F 08/05/18 18:51 Pulse 69 08/05/18 19:59 Resp 18 08/05/18 19:59 BP 135/85 08/05/18 19:59 Pulse Ox 100 08/05/18 19:59 - Labs Result Diagrams: 08/05/18 19:31 08/05/18 19:31 Labs: Laboratory Results - last 24 hr 08/05/18 08/05/18 08/05/18 18:53 19:31 19:31 WBC 6.0 RBC 4.78 Hgb 13.8 L D Hct 40.8 L MCV 85.4 D MCH 28.9 MCHC 33.8 RDW 12.7 Plt Count 281 MPV 11.2 H Gran % 51.8 Lymph % (Auto) 39.7 H [place] % (Auto) 6.2 H Eos % (Auto) 1.8 Baso % (Auto) 0.5 Gran # 3.09 Lymph # (Auto) 2.4 [place] # (Auto) 0.4 Eos # (Auto) 0.1 Baso # (Auto) 0.03 PT INR APTT Sodium 131 L Potassium 4.4 Chloride 95 L Carbon Dioxide 23 Anion Gap 17 BUN 32 H Creatinine 1.6 H Est GFR ( Amer) 58 Est GFR (Non-Af Amer) 48 POC Glucose (mg/dL) > 500 H* Random Glucose 656 H* D Calcium 9.1 Magnesium 1.8 Total Bilirubin 0.6 AST 35 ALT 25 Alkaline Phosphatase 112 Lactate Dehydrogenase 645 Total Creatine Kinase 354 H CK-MB (CK-2) 2.0 CK-MB (CK-2) % Cancelled Troponin I < 0.01 NT-Pro-B Natriuret Pep 39.1 Total Protein 7.9 Albumin 4.2 Globulin 3.6 Albumin/Globulin Ratio 1.2 Urine Color Urine Appearance Urine pH Ur Specific [place] Urine Protein Urine Glucose (UA) Urine Ketones Urine Blood Urine Nitrate Urine Bilirubin Urine Urobilinogen Ur Leukocyte Esterase 08/05/18 08/05/18 19:31 19:40 WBC RBC Hgb Hct MCV MCH MCHC RDW Plt Count MPV Gran % Lymph % (Auto) [place] % (Auto) Eos % (Auto) Baso % (Auto) Gran # Lymph # (Auto) [place] # (Auto) Eos # (Auto) Baso # (Auto) PT 11.3 INR 0.99 APTT 27.0 Sodium Potassium Chloride Carbon Dioxide Anion Gap BUN Creatinine Est GFR ( Amer) Est GFR (Non-Af Amer) POC Glucose (mg/dL) Random Glucose Calcium Magnesium Total Bilirubin AST ALT Alkaline Phosphatase Lactate Dehydrogenase Total Creatine Kinase CK-MB (CK-2) CK-MB (CK-2) % Troponin I NT-Pro-B Natriuret Pep Total Protein Albumin Globulin Albumin/Globulin Ratio Urine Color Light yellow Urine Appearance Clear Urine pH 6.0 Ur Specific [place] 1.010 Urine Protein Negative Urine Glucose (UA) >=1000 Urine Ketones Negative Urine Blood Negative Urine Nitrate Negative Urine Bilirubin Negative Urine Urobilinogen 0.2 Ur Leukocyte Esterase Negative Assessment & Plan - Assessment and Plan (Free Text) Assessment: Pt is a 43 yo M with pmhx of HTN, DM, CAD s/p stent on 07/31, chronic back pain, schizophrenia and neuropathy who presents for chest tightness and back pain that began 2 days ago. Plan: 1. Chest pain w/ hx of CAD s/p stent r/o ACS: - Pt has reproducible non-extertional chest pain w/out EKG changes, unlikely to be cardiac etiology - Trend trops x3, inital trop negative - Tsh - Lipid panel - ASA 81mg - UDS 2. Hypglycemia w/out gap: - Glucose elevated to 656, repeat is 488 - Cont IVF - 10 units insulin given in ED - Will monitor K+ - Will continue to monitor glucose - ISS- medium 3. Chronic back pain: - Denies trauma to the area - Flexeril 5 TID PRN 4. Neuropathy: - Gabapentin 300 TID - Will continue to monitor 5. Hx of HTN: - Continue home meds, norvasc, lisinopril/hctz and metoprolol - Will continue to monitor 6. Hx of HLD: - Cont home lipitor 7. PPX: DVT: heparin sq GI: Protonix
[2018-08-05] MEDS: Sodium Chloride 0.9% 1,000 ML IV SCH (21:54)
[2018-08-05 22:12] LABS: HDL CHOLESTEROL 27 mg/dL (29-60)
[2018-08-05 22:24] LABS: LDL CHOLESTEROL 88 mg/dL (0-129)
[2018-08-05 22:31] LABS: BARBITURATES, UR NEGATIVE (NEGATIVE); BENZODIAZEPINES, UR NEGATIVE (NEGATIVE); OPIATES, UR NEGATIVE (NEGATIVE); PHENCYCLIDINE, UR POSITIVE (NEGATIVE)
[2018-08-05 22:48] VITALS: BMI 43.4
[2018-08-05] MEDS ORDERED: Influenza Vaccine 60 mcg/0.5 mL SYR (4YR UP) IM ONE (22:49)
[2018-08-05] MEDS ORDERED: Pneumococcal 23-Valent Vaccine IM ONE (22:49)
[2018-08-06 00:46] VITALS: RESP 20
[2018-08-06] MEDS ORDERED: Pantoprazole 40 mg EC Tab PO SCH (06:00)
[2018-08-06 06:01] VITALS: BP 114/47; PULSE 56; TEMP 97.8; O2SAT 99
[2018-08-06] MEDS ORDERED: Insulin Lispro (humaLOG) MEDIUM Coverage SC SCH (07:30)
[2018-08-06 08:05] LABS: BASO # 0.03 K/mm3 (0.0-2.0); BASO % 0.6 % (0.0-3.0); EOS # 0.2 (0.0-0.7); EOS % 3.3 % (1.5-5.0); GRAN # 1.88 (1.4-6.5); GRAN % 36.1 % (50.0-68.0); HEMOGLOBIN 13.7 g/dL (14.0-18.0); LYMPH # 2.7 (1.2-3.4); LYMPH % 52.5 % (22.0-35.0); MEAN CELL VOLUME 84.4 fl (80.0-105.0); MEAN CORPUSCULAR HEMOGLOBIN 28.1 pg (25.0-35.0); MEAN CORPUSCULAR HGB CONC 33.3 g/dl (31.0-37.0); MEAN PLATELET VOLUME 10.7 fl (7.0-11.0); MONO # 0.4 (0.1-0.6); MONO % 7.5 % (1.0-6.0); RBC 4.87 10^6/uL (3.5-6.1); RED CELL DISTRIBUTION WIDTH 12.8 % (11.5-14.5); WHITE BLOOD COUNT 5.2 10^3/uL (4.5-11.0)
[2018-08-06] MEDS: Sodium Chloride 0.9% 1,000 ML IV SCH (08:10)
[2018-08-06 08:24] LABS: ALB/GLOB RATIO 1.1 (1.1-1.8); ALBUMIN 3.9 g/dL (3.0-4.8); ALT/SGPT 33 U/L (7-56); AST/SGOT 21 U/L (17-59); BLOOD UREA NITROGEN 24 mg/dL (7-21); CALCIUM 9.3 mg/dL (8.4-10.5); GFR NON-AFRICAN AMERICAN 52; HDL CHOLESTEROL 28 mg/dL (29-60)
[2018-08-06 08:25] LABS: LDL CHOLESTEROL 85 mg/dL (0-129); TROPONIN I < 0.01 ng/mL
--- NOTE | 2018-08-06 09:03 | RAD ---
Date of service: 08/05/2018 HISTORY: chest pain COMPARISON: 01/22/2018 FINDINGS: LUNGS: No active pulmonary disease. PLEURA: No significant pleural effusion identified, no pneumothorax apparent. CARDIOVASCULAR: No aortic atherosclerotic calcification present. Normal cardiac size. No pulmonary vascular congestion. OSSEOUS STRUCTURES: No significant abnormalities. VISUALIZED UPPER ABDOMEN: Normal. OTHER FINDINGS: None. IMPRESSION: No active disease.
[2018-08-06] MEDS ORDERED: Insulin Detemir 100 units/ml Vial (Levemir) SC SCH (10:00)
--- NOTE | 2018-08-06 10:52 | CP.PCM.DIS ---
<Angel Day - Last Filed: 08/06/18 10:57> Provider - Provider Date of Admission: 08/05/18 20:20 Attending physician: Erick Small MD Consults: Cardiology Time Spent in preparation of Discharge (in minutes): 40 Hospital Course - Lab Results Lab Results: Most Recent Lab Values WBC 5.2 10^3/uL (4.5-11.0) 08/06/18 07:30 RBC 4.87 10^6/uL (3.5-6.1) 08/06/18 07:30 Hgb 13.7 g/dL (14.0-18.0) L 08/06/18 07:30 Hct 41.1 % (42.0-52.0) L 08/06/18 07:30 MCV 84.4 fl (80.0-105.0) 08/06/18 07:30 MCH 28.1 pg (25.0-35.0) 08/06/18 07:30 MCHC 33.3 g/dl (31.0-37.0) 08/06/18 07:30 RDW 12.8 % (11.5-14.5) 08/06/18 07:30 Plt Count 240 10^3/uL (120.0-450.0) 08/06/18 07:30 MPV 10.7 fl (7.0-11.0) 08/06/18 07:30 Gran % 36.1 % (50.0-68.0) L 08/06/18 07:30 Lymph % (Auto) 52.5 % (22.0-35.0) H 08/06/18 07:30 Mason % (Auto) 7.5 % (1.0-6.0) H 08/06/18 07:30 Eos % (Auto) 3.3 % (1.5-5.0) 08/06/18 07:30 Baso % (Auto) 0.6 % (0.0-3.0) 08/06/18 07:30 Gran # 1.88 (1.4-6.5) 08/06/18 07:30 Lymph # (Auto) 2.7 (1.2-3.4) 08/06/18 07:30 Mason # (Auto) 0.4 (0.1-0.6) 08/06/18 07:30 Eos # (Auto) 0.2 (0.0-0.7) 08/06/18 07:30 Baso # (Auto) 0.03 K/mm3 (0.0-2.0) 08/06/18 07:30 PT 11.3 SECONDS (9.4-12.5) 08/05/18 19:31 INR 0.99 08/05/18 19:31 APTT 27.0 Seconds (25.1-36.5) 08/05/18 19:31 Sodium 137 mmol/L (132-148) 08/06/18 07:30 Potassium 4.8 mmol/L (3.6-5.0) 08/06/18 07:30 Chloride 103 mmol/L (98-107) 08/06/18 07:30 Carbon Dioxide 28 mmol/L (21-33) 08/06/18 07:30 Anion Gap 11 (10-20) 08/06/18 07:30 BUN 24 mg/dL (7-21) H 08/06/18 07:30 Creatinine 1.5 mg/dl (0.8-1.5) 08/06/18 07:30 Est GFR ( Amer) > 60 08/06/18 07:30 Est GFR (Non-Af Amer) 52 08/06/18 07:30 POC Glucose (mg/dL) 316 mg/dL (65-110) H 08/06/18 07:41 Random Glucose 344 mg/dL (70-110) H* D 08/06/18 07:30 Calcium 9.3 mg/dL (8.4-10.5) 08/06/18 07:30 Phosphorus 4.0 mg/dL (2.5-4.5) 08/06/18 07:30 Magnesium 2.1 mg/dL (1.7-2.2) 08/06/18 07:30 Total Bilirubin 0.6 mg/dL (0.2-1.3) 08/06/18 07:30 AST 21 U/L (17-59) 08/06/18 07:30 ALT 33 U/L (7-56) 08/06/18 07:30 Alkaline Phosphatase 107 U/L (38-126) 08/06/18 07:30 Lactate Dehydrogenase 645 U/L (333-699) 08/05/18 19:31 Total Creatine Kinase 354 U/L (35-230) H 08/05/18 19:31 CK-MB (CK-2) 2.0 ng/mL (0.0-3.6) 08/05/18 19:31 CK-MB (CK-2) % Cancelled 08/05/18 19: Troponin I < 0.01 ng/mL 08/06/18 07:30 NT-Pro-B Natriuret Pep 39.1 pg/mL (0-450) 08/05/18 19:31 Total Protein 7.4 g/dL (5.8-8.3) 08/06/18 07:30 Albumin 3.9 g/dL (3.0-4.8) 08/06/18 07:30 Globulin 3.5 gm/dL 08/06/18 07:30 Albumin/Globulin Ratio 1.1 (1.1-1.8) 08/06/18 07:30 Triglycerides 256 mg/dL (35-160) H 08/06/18 07:30 Cholesterol 159 mg/dL (130-200) 08/06/18 07:30 LDL Cholesterol Direct 85 mg/dL (0-129) 08/06/18 07:30 HDL Cholesterol 28 mg/dL (29-60) L 08/06/18 07:30 TSH 3rd Generation 1.49 mIU/mL (0.46-4.68) 08/05/18 22:02 Urine Color Light yellow (YELLOW) 08/05/18 19:40 Urine Appearance Clear (CLEAR) 08/05/18 19:40 Urine pH 6.0 (4.7-8.0) 08/05/18 19:40 Ur Specific [place] 1.010 (1.005-1.035) 08/05/18 19:40 Urine Protein Negative mg/dL (<30 mg/dL) 08/05/18 19:40 Urine Glucose (UA) >=1000 mg/dL (NEGATIVE) 08/05/18 19:40 Urine Ketones Negative mg/dL (NEGATIVE) 08/05/18 19:40 Urine Blood Negative (NEGATIVE) 08/05/18 19:40 Urine Nitrate Negative (NEGATIVE) 08/05/18 19:40 Urine Bilirubin Negative (NEGATIVE) 08/05/18 19:40 Urine Urobilinogen 0.2 E.U./dL (<1 E.U./dL) 08/05/18 19:40 Ur Leukocyte Esterase Negative Jenniffer/uL (NEGATIVE) 08/05/18 19:40 Urine Opiates Screen Negative (NEGATIVE) 08/05/18 21:43 Urine Methadone Screen Negative (NEGATIVE) 08/05/18 21:43 Ur Barbiturates Screen Negative (NEGATIVE) 08/05/18 21:43 Ur Phencyclidine Scrn Positive (NEGATIVE) H 08/05/18 21:43 Ur Amphetamines Screen Negative (NEGATIVE) 08/05/18 21:43 U Benzodiazepines Scrn Negative (NEGATIVE) 08/05/18 21:43 U Oth Cocaine Metabols Negative (NEGATIVE) 08/05/18 21:43 U Cannabinoids Screen Negative (NEGATIVE) 08/05/18 21:43 - Hospital Course Hospital Course: 43 yo M with pmhx of HTN, DM, CAD s/p stent on 07/31, chronic back pain, schizophrenia and neuropathy presents for chest pain and back pain that began 2 days ago. In the ED EKG showed 79bpm, NSR, and no ST wave changes. Troponin x 3 is negative. Blood sugars was elevated >600 with no anion gap, treated with insulin. CXR showed no acute findings. Patient was admitted to telemetry for close observation. Cardiology recommended stress test. The patient requested to go home and refused an inpatient stress test. Patient understands that he is at high risk for a CV event based on his medical history. He agreed to follow up with cardiology for an outpatient stress test. He states that he has all his home medications and doesn't need any refills. Patient currently with no complaints. Denies any chest pain, or shortness of breath. No other complaints. Dx: Chest pain / Elevated sugars Discharge Exam - Head Exam Head Exam: ATRAUMATIC, NORMAL INSPECTION, NORMOCEPHALIC Discharge Plan - Follow Up Plan Condition: FAIR Disposition: HOME/ ROUTINE Instructions: Chest Pain (DC), Chest Pain (GEN) Additional Instructions: Follow up with Dr Palmer in 3-5 days for stress test. If your symptoms recur come back to the ED. Follow up with your PMD with in 1 week. Continue your home medications as prescribed. Referrals: Yulissa Palmer MD [Staff Provider] - <Erick Small - Last Filed: 08/06/18 11:08> Provider - Provider Date of Admission: 08/05/18 20:20 Attending physician: Erick Small MD Hospital Course - Lab Results Lab Results: Most Recent Lab Values WBC 5.2 10^3/uL (4.5-11.0) 08/06/18 07:30 RBC 4.87 10^6/uL (3.5-6.1) 08/06/18 07:30 Hgb 13.7 g/dL (14.0-18.0) L 08/06/18 07:30 Hct 41.1 % (42.0-52.0) L 08/06/18 07:30 MCV 84.4 fl (80.0-105.0) 08/06/18 07:30 MCH 28.1 pg (25.0-35.0) 08/06/18 07:30 MCHC 33.3 g/dl (31.0-37.0) 08/06/18 07:30 RDW 12.8 % (11.5-14.5) 08/06/18 07:30 Plt Count 240 10^3/uL (120.0-450.0) 08/06/18 07:30 MPV 10.7 fl (7.0-11.0) 08/06/18 07:30 Gran % 36.1 % (50.0-68.0) L 08/06/18 07:30 Lymph % (Auto) 52.5 % (22.0-35.0) H 08/06/18 07:30 Mason % (Auto) 7.5 % (1.0-6.0) H 08/06/18 07:30 Eos % (Auto) 3.3 % (1.5-5.0) 08/06/18 07:30 Baso % (Auto) 0.6 % (0.0-3.0) 08/06/18 07:30 Gran # 1.88 (1.4-6.5) 08/06/18 07:30 Lymph # (Auto) 2.7 (1.2-3.4) 08/06/18 07:30 Mason # (Auto) 0.4 (0.1-0.6) 08/06/18 07:30 Eos # (Auto) 0.2 (0.0-0.7) 08/06/18 07:30 Baso # (Auto) 0.03 K/mm3 (0.0-2.0) 08/06/18 07:30 PT 11.3 SECONDS (9.4-12.5) 08/05/18 19:31 INR 0.99 08/05/18 19:31 APTT 27.0 Seconds (25.1-36.5) 08/05/18 19:31 Sodium 137 mmol/L (132-148) 08/06/18 07:30 Potassium 4.8 mmol/L (3.6-5.0) 08/06/18 07:30 Chloride 103 mmol/L (98-107) 08/06/18 07:30 Carbon Dioxide 28 mmol/L (21-33) 08/06/18 07:30 Anion Gap 11 (10-20) 08/06/18 07:30 BUN 24 mg/dL (7-21) H 08/06/18 07:30 Creatinine 1.5 mg/dl (0.8-1.5) 08/06/18 07:30 Est GFR ( Amer) > 60 08/06/18 07:30 Est GFR (Non-Af Amer) 52 08/06/18 07:30 POC Glucose (mg/dL) 316 mg/dL (65-110) H 08/06/18 07:41 Random Glucose 344 mg/dL (70-110) H* D 08/06/18 07:30 Calcium 9.3 mg/dL (8.4-10.5) 08/06/18 07:30 Phosphorus 4.0 mg/dL (2.5-4.5) 08/06/18 07:30 Magnesium 2.1 mg/dL (1.7-2.2) 08/06/18 07:30 Total Bilirubin 0.6 mg/dL (0.2-1.3) 08/06/18 07:30 AST 21 U/L (17-59) 08/06/18 07:30 ALT 33 U/L (7-56) 08/06/18 07:30 Alkaline Phosphatase 107 U/L (38-126) 08/06/18 07:30 Lactate Dehydrogenase 645 U/L (333-699) 08/05/18 19:31 Total Creatine Kinase 354 U/L (35-230) H 08/05/18 19:31 CK-MB (CK-2) 2.0 ng/mL (0.0-3.6) 08/05/18 19: CK-MB (CK-2) % Cancelled 08/05/18: Troponin I < 0.01 ng/mL 08/06/18 07:30 NT-Pro-B Natriuret Pep 39.1 pg/mL (0-450) 08/05/18 19:31 Total Protein 7.4 g/dL (5.8-8.3) 08/06/18 07:30 Albumin 3.9 g/dL (3.0-4.8) 08/06/18 07:30 Globulin 3.5 gm/dL 08/06/18 07: Albumin/Globulin Ratio 1.1 (1.1-1.8) 08/06/18 07:30 Triglycerides 256 mg/dL (35-160) H 08/06/18 07:30 Cholesterol 159 mg/dL (130-200) 08/06/18 07:30 LDL Cholesterol Direct 85 mg/dL (0-129) 08/06/18 07:30 HDL Cholesterol 28 mg/dL (29-60) L 08/06/18 07:30 TSH 3rd Generation 1.49 mIU/mL (0.46-4.68) 08/05/18 22:02 Urine Color Light yellow (YELLOW) 08/05/18 19:40 Urine Appearance Clear (CLEAR) 08/05/18 19:40 Urine pH 6.0 (4.7-8.0) 08/05/18 19:40 Ur Specific [place] 1.010 (1.005-1.035) 08/05/18 19:40 Urine Protein Negative mg/dL (<30 mg/dL) 08/05/18 19:40 Urine Glucose (UA) >=1000 mg/dL (NEGATIVE) 08/05/18 19:40 Urine Ketones Negative mg/dL (NEGATIVE) 08/05/18 19:40 Urine Blood Negative (NEGATIVE) 08/05/18 19:40 Urine Nitrate Negative (NEGATIVE) 08/05/18 19:40 Urine Bilirubin Negative (NEGATIVE) 08/05/18 19:40 Urine Urobilinogen 0.2 E.U./dL (<1 E.U./dL) 08/05/18 19:40 Ur Leukocyte Esterase Negative Jenniffer/uL (NEGATIVE) 08/05/18 19:40 Urine Opiates Screen Negative (NEGATIVE) 08/05/18 21:43 Urine Methadone Screen Negative (NEGATIVE) 08/05/18 21:43 Ur Barbiturates Screen Negative (NEGATIVE) 08/05/18 21:43 Ur Phencyclidine Scrn Positive (NEGATIVE) H 08/05/18 21:43 Ur Amphetamines Screen Negative (NEGATIVE) 08/05/18 21:43 U Benzodiazepines Scrn Negative (NEGATIVE) 08/05/18 21:43 U Oth Cocaine Metabols Negative (NEGATIVE) 08/05/18 21:43 U Cannabinoids Screen Negative (NEGATIVE) 08/05/18 21:43 Discharge Exam - Head Exam Head Exam: NORMAL INSPECTION - Eye Exam Eye Exam: EOMI - ENT Exam ENT Exam: Normal Exam - Neck Exam Neck exam: Full Rom - Respiratory Exam Respiratory Exam: Clear to PA & Lateral. absent: Rhonchi, Wheezes - Cardiovascular Exam Cardiovascular Exam: REGULAR RHYTHM, +S1, +S2 - GI/Abdominal Exam GI & Abdominal Exam: Normal Bowel Sounds, Soft. absent: Organomegaly, Tenderness - Extremities Exam Extremities exam: normal inspection - Neurological Exam Neurological exam: Alert, Oriented x3 - Psychiatric Exam Psychiatric exam: Normal Affect, Normal Mood Attending/Attestation - Attestation I have personally seen and examined this patient.: Yes I have fully participated in the care of the patient.: Yes I have reviewed all pertinent clinical information, including history, physical exam and plan: Yes Notes (Text): 08/06/18 11:00 43 year old male with past medical history of hypertension, diabetes, CAD s/p stent and chronic back pain who presented with complaint of chest pain and back pain. Serial cardiac enzymes were negative and ACS was ruled out. EKG did not show any ischemic changes. He was seen by cardiology who recommended stress test tomorrow which patient deferred to have it done as outpatient. He was found to have elevated blood sugars. He is on metformin and glargine at home. He was instructed to monitor fingersticks at home and increase glargine if he remains hyperglycemic. Follow up closely with pmd with log book and further management of diabetes. Urine drug screen was positive for PCP, which patiet denied use of. He was counselled on risks of continued substance abuse. He has CKD and advised to monitory kidney function closely with pmd while on lisinopril, HCTZ and metformin. Patient is discharged home to follow up with pmd. 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 Monitor FS/Cr closely with pmd. Erick Small MD Hospitalist.
--- NOTE | 2018-08-06 17:10 | CON ---
DATE: 08/06/2018 LOCATION: The patient is on room #277, bed #2. REASON FOR CONSULTATION: Chest pain. HISTORY OF PRESENT ILLNESS: A 43-year-old male, known case of hypertension, diabetes, coronary artery disease, history of stent insertion in 07/2016 at [facility]. According to the patient, at that time, he was told to have a mild heart attack, following that, he had stent insertion. The patient had also history of spinal problem with chronic back pain and sometimes pain radiates to the legs. He also has history of diabetic neuropathy and schizophrenia. The patient stated that off and on he is getting chest pain in the lower sternal area in the mid chest. The patient also has tenderness in the lower sternal area. Pain is dull to pressure type. Denies exertional chest pain. PAST MEDICAL HISTORY: Positive for hypertension, diabetes, coronary artery disease, history of stent insertion in 07/2016, chronic back pain due to spinal problems, schizophrenia, neuropathy. PERSONAL HISTORY: He used to smoke until 10 years ago. He stopped. Denies drinking. Denies taking any illicit drugs. ALLERGIES: DENIES ANY ALLERGIES. FAMILY HISTORY: Father has diabetes, mother has high blood pressure. MEDICATIONS: Home medications included insulin, metformin 850 mg p.o. in the morning, amlodipine 10 mg daily, Seroquel 200 mg at bedtime, Remeron 15 mg p.o. at bedtime, metoprolol tartrate 50 mg b.i.d., lisinopril/hydrochlorothiazide combination 20/25 mg 1 tablet daily, Prozac 20 mg daily, Plavix 75 daily, atorvastatin 40 daily, aspirin 81 daily, and Neurontin 300 mg p.o. t.i.d. REVIEW OF SYSTEMS: All the systems reviewed, positive mentioned in history, others were negative. PHYSICAL EXAMINATION: VITAL SIGNS: Blood pressure 114/47, respirations 20, pulse 56, and temperature 97.8. HEENT: Head is normocephalic. Eyes, pupils normal. Conjunctivae normal. Nose and throat normal. NECK: JVP low. Carotids equal. THORAX: AP diameter normal. LUNGS: Clear. CARDIOVASCULAR: S1, S2. Tenderness in the lower sternal area where he complained of pain. ABDOMEN: Soft, nontender. No organomegaly. EXTREMITIES: No clubbing. No cyanosis. LABORATORY DATA: WBC 5.2, hemoglobin 13.7, hematocrit 41.1, and platelets 240. Sodium 137, potassium 4.8, BUN 24, creatinine 1.5. Sugar 317, calcium 9.3, phosphorus 4, and magnesium 2.1. Troponin x2 negative. Total protein 7.4, albumin 3.9, globulin 3.5, and triglycerides 256. DIAGNOSES: Chest pain, musculoskeletal with local tenderness on lower sternal area, the area of pain, history of coronary artery disease, history of stent insertion in 07/2016 at [facility], uncontrolled diabetes mellitus, the patient was compliant with the diet, hypertension, obesity, hyperlipidemia, back pain, degenerative disk disease, schizophrenia, and peripheral neuropathy. PLAN: Plan is reviewed. Chest x-ray, no abnormality seen. Cardiogram showed regular sinus rhythm. No acute changes. Troponin negative. On the patient's EKG, the NM interval is borderline, otherwise normal EKG. The patient's chest pain is musculoskeletal at the present time. Advised the patient to stay, and we will do IV Lexiscan stress test and echo tomorrow, but he refused to stay. He wants to go home. Probably, he is going to sign out against medical advise; however, he was advised to lose weight and follow diet, and in case he signs out, he should have echocardiogram and IV Lexiscan stress test as outpatient and follow with his family physician. Apparently, the patient is getting aspirin 81 mg daily, heparin 5000 units subcutaneously every 8 hours, insulin as ordered, hydrochlorothiazide 25 daily, atorvastatin 40 daily, metoprolol 50 b.i.d, gabapentin 300 mg t.i.d., amlodipine 10 mg daily, Plavix 75 daily, Protonix 40 daily, and lisinopril 20 daily. We will order IV Lexiscan stress test for tomorrow and echocardiogram tomorrow in case the patient decides to stay, and we will follow. Yulissa Palmer MD
--- NOTE | 2018-08-07 07:54 | CARD ---
APPROVED REPORT Date of service: 08/05/2018 EKG Measurement Heart [id number] <Conclusion> Normal sinus rhythm Normal ECG No change
== END 2018-08-06 12:46 | disposition home or self-care (01) ==
LOC: ED 18:33 → ERH 20:20 → 2RSO 22:50
PROVIDERS: ADMIT Hospitalist; ATTEND Internal Medicine
DX: E11.65 Type 2 diabetes mellitus with hyperglycemia (principal); N17.9 Acute kidney failure, unspecified; R07.89 Other chest pain; I12.9 Hypertensive chronic kidney disease with stage 1 through stage 4 chronic kidney disease, or unspecified chronic kidney disease; N18.9 Chronic kidney disease, unspecified; E11.22 Type 2 diabetes mellitus with diabetic chronic kidney disease; E11.40 Type 2 diabetes mellitus with diabetic neuropathy, unspecified; I25.10 Atherosclerotic heart disease of native coronary artery without angina pectoris; E78.5 Hyperlipidemia, unspecified; F20.9 Schizophrenia, unspecified; G89.29 Other chronic pain; M54.9 Dorsalgia, unspecified; E66.9 Obesity, unspecified; Z79.4 Long term (current) use of insulin; Z87.891 Personal history of nicotine dependence; Z95.5 Presence of coronary angioplasty implant and graft
CPT/HCPCS: 36415; 71045; 80053; 80061; 80324; 80345; 80346; 80349; 80353; 80358; 80361; 81003; 82550; 82553; 82948; 83615; 83735; 83880; 83992; 84100; 84443; 84484; 85025; 85610; 85730; 93005; 96372; 99285; G0378; J1644; J7030

== ENCOUNTER 2018-12-26 16:15 | Inpatient (IN) | payer MEDICARE, MEDICAID ==
--- NOTE | 2018-12-26 16:19 | ED PDOC ---
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 Patient was given Aspiring and Nitroglycerin spray in the field, and patient states he feels less chest pain than earlier. Also, patient states he has not fully compliant with his diabetes medication, however he did take his Metformin and Insulin (taken at 08:00). Patient notes chest pain while playing basketball described as tightness. He has also been sweating perfusely prior to ER visit from playing basketball. Patient denies any nausea, vomiting, dizziness, trauma/fall, or any other complaints at this time. Also, patient notes he has not drank much water today. PMD: Dr. Fischer Past Medical History - Provider Review Nursing Documentation Reviewed: Yes - Infectious Disease Hx of Infectious Diseases: None - Cardiac Hx Hypertension: Yes - Pulmonary Hx Respiratory Disorders: No - Neurological Hx Neurological Disorder: No - HEENT Hx HEENT Disorder: No - Renal Hx Renal Disorder: No - Endocrine/Metabolic Hx Diabetes Mellitus Type 2: Yes - Hematological/Oncological Hx Blood Disorders: No - Integumentary Hx Dermatological Disorder: No - Musculoskeletal/Rheumatological Hx Musculoskeletal Disorders: No Hx Falls: No - Gastrointestinal Hx Gastrointestinal Disorders: No - Genitourinary/Gynecological Hx Genitourinary Disorders: No - Psychiatric Hx Psychophysiologic Disorder: Yes Hx Anxiety: Yes Hx Depression: Yes Hx Schizophrenia: Yes Hx Substance Use: No - Surgical History Hx Cardiac Catheterization: Yes (07/2016) Other/Comment: cardiac stents - Anesthesia Hx Anesthesia: Yes Hx Anesthesia Reactions: No Hx Malignant Hyperthermia: No Family/Social History - Physician Review Nursing Documentation Reviewed: Yes Family/Social History: No Known Family HX Smoking Status: Light Smoker < 10 Cigarettes Daily Hx Alcohol Use: No Hx Substance Use: No Allergies/Home Meds Allergies/Adverse Reactions: Allergies No Known Allergies Allergy (Verified 12/26/18 21:25) Home Medications: Home Meds Medication Instructions Recorded Confirmed FLUoxetine [Prozac] 20 mg PO DAILY 08/05/18 12/26/18 Insulin Glargine,Hum.rec.anlog 35 unit SQ HS 08/05/18 12/26/18 [Basaglar Kwikpen U-100] Insulin Lispro [humALOG] 8 units SQ WM 08/05/18 12/26/18 Mirtazapine [Remeron] 15 mg PO HS 08/05/18 12/26/18 QUEtiapine [Seroquel] 200 mg PO HS 08/05/18 12/26/18 metFORMIN [glucOPHAGE] 850 mg PO QAM 08/05/18 12/26/18 Review of Systems - Physician Review All systems were reviewed & negative as marked: Yes - Review of Systems Constitutional: absent: Weight Change, Fevers Eyes: absent: Vision Changes, Photophobia ENT: absent: Hearing Changes Respiratory: absent: SOB, Cough Cardiovascular: Chest Pain (non-radiating, described as tightness). absent: Edema Gastrointestinal: absent: Abdominal Pain, Stool Changes, Constipation, Diarrhea, Nausea, Vomiting, Hematochezia, Hematemesis Genitourinary Male: absent: Dysuria, Frequency Musculoskeletal: absent: Back Pain, Neck Pain Skin: absent: Rash Neurological: absent: Dizziness Physical Exam Vital Signs Reviewed: Yes Temperature: Afebrile Blood Pressure: Hypotensive Pulse: Regular Respiratory Rate: Normal Appearance: Positive for: Well-Appearing, Non-Toxic, Comfortable, Other (sweating perfusely prior to ER visit from playing basketball) Pain Distress: None Mental Status: Positive for: Alert and Oriented X 3 - Systems Exam Head: Present: Atraumatic, Normocephalic Pupils: Present: PERRL Extroacular Muscles: Present: EOMI Conjunctiva: Present: Normal Mouth: Present: Moist Mucous Membranes Neck: Present: Normal Range of Motion. No: Meningeal Signs, MIDLINE TENDERNESS Respiratory/Chest: Present: Clear to Auscultation, Good Air Exchange. No: Respiratory Distress, Accessory Muscle Use Cardiovascular: Present: Regular Rate and Rhythm, Normal S1, S2. No: Murmurs Abdomen: No: Tenderness, Distention, Peritoneal Signs Back: Present: Normal Inspection Upper Extremity: Present: Normal Inspection, NORMAL PULSES, Neurovascularly Intact. No: Cyanosis, Edema, Tenderness Lower Extremity: Present: Normal Inspection, NORMAL PULSES, Normal ROM, Neurovascularly Intact. No: Edema, Tenderness Neurological: Present: GCS=15, CN II-XII Intact, Speech Normal Skin: Present: Warm, Dry, Normal Color. No: Rashes Psychiatric: Present: Alert, Oriented x 3, Normal Insight, Normal Concentration Medical Decision Making ED Course and Treatment: 12/26/18 17:01 Impression: 43 year old male with non-radiating chest pain. Chest pain while playing basketball, resolved as nitroglycerin and ASA and rest. Denies any chest pain currently. Well appearing on exam, mentating well however hypotensive to 66/40, was given 325 of ASA in the [place], no hx of CHF, will bolus with fluids given elevated glucose, dehydration after playing basketball and no stemi. Heart score: Age: 0 RF: 2 Story: 1 EK trop: pend Low pretest wells: PERC out Plan: -- EKG -- Chest X-ray -- Labs -- IV Fluids -- Reassess and disposition Progress Notes: EKG: Ordered, reviewed, and independently interpreted the EKG. Rate : 80 BPM Rhythm : NSR Interpretation : No STEMI. Comparison : No previous EKG for comparison. 12/26/18 17:58 no leukocytosis, pt afebrile. Troponin, BNP negative 95/60 after 3L of fluids No DKA. No gap or low bicarb. Non-hyperosmolar. OSM<320 Lactic 2.2, likely fluid depletion as pt was playing basketball outside in hot humid weather and has had decreased oral fluids at home pt in NAD, mentating well, AOx3, MAEW, GCS15 12/26/2018 16:30 Chest X-ray IMPRESSION: Poor inspiration with low lung volumes, crowded bronchovascular markings and mild bibasilar atelectasis. Dictator: Dr. Vaibhav Rowe Appreciate consult w/ Dr. Small: to admit to his service, pt in NAD pressure remains stable 90/50+ after 3L of fluids. Pt in NAD, MAEW, mentating well without sob or cp. - Scribe Statement The provider has reviewed the documentation as recorded by the Juanibdale Hargrove Provider Scribe Attestation: All medical record entries made by the Scribe were at my direction and personally dictated by me. I have reviewed the chart and agree that the record accurately reflects my personal performance of the history, physical exam, medical decision making, and the department course for this patient. I have also personally directed, reviewed, and agree with the discharge instructions and disposition. Disposition/Present on Arrival - Present on Arrival Any Indicators Present on Arrival: No History of DVT/PE: No History of Uncontrolled Diabetes: Yes Urinary Catheter: No History Surgical Site Infection Following: None - Disposition Have Diagnosis and Disposition been Completed?: Yes Diagnosis: Chest pain, Hyperglycemia Disposition: HOSPITALIZED Disposition Time: 16:30 Patient Problems: Current Active Problems Problem Status Onset Chest pain Acute Hyperglycemia Acute Condition: STABLE
[2018-12-26 16:29] VITALS: BMI 45.5
[2018-12-26] MEDS ORDERED: Sodium Chloride 0.9% 1,000 ML IV STA ×3 (16:34→17:01)
[2018-12-26 16:44] LABS: BASO # 0.02 K/mm3 (0.0-2.0); BASO % 0.4 % (0.0-3.0); EOS # 0.1 (0.0-0.7); EOS % 1.4 % (1.5-5.0); HEMOGLOBIN 14.8 g/dL (14.0-18.0); LYMPH # 1.9 (1.2-3.4); LYMPH % 39.2 % (22.0-35.0); MEAN CELL VOLUME 84.4 fl (80.0-105.0); MEAN CORPUSCULAR HEMOGLOBIN 28.5 pg (25.0-35.0); MEAN CORPUSCULAR HGB CONC 33.8 g/dl (31.0-37.0); MEAN PLATELET VOLUME 10.6 fl (7.0-11.0); MONO # 0.4 (0.1-0.6); MONO % 7.5 % (1.0-6.0); RBC 5.19 10^6/uL (3.5-6.1); RED CELL DISTRIBUTION WIDTH 12.8 % (11.5-14.5); WHITE BLOOD COUNT 4.9 10^3/uL (4.5-11.0)
[2018-12-26 16:55] LABS: INR 1.05; PARTIAL THROMBOPLASTIN TIME 27.2 Seconds (26.9-38.3); PROTHROMBIN TIME 11.7 SECONDS (9.4-12.5)
[2018-12-26 16:57] LABS: ALB/GLOB RATIO 1.2 (1.1-1.8); ALBUMIN 4.3 g/dL (3.0-4.8); CALCIUM 9.6 mg/dL (8.4-10.5)
[2018-12-26 17:06] LABS: B-TYPE NATRIURETIC PEPTIDE 25.1 pg/mL (0-450); TROPONIN I 0.02 ng/mL
[2018-12-26 17:11] LABS: CK-MB 4.6 ng/mL (0.0-3.6)
--- NOTE | 2018-12-26 17:15 | RAD ---
Date of service: 12/26/2018 HISTORY: cp COMPARISON: Comparison made with chest radiograph 08/05/2018. TECHNIQUE: 1 view obtained. FINDINGS: LUNGS: Poor inspiration with low lung volumes, crowded bronchovascular markings and mild bibasilar atelectasis. PLEURA: No significant pleural effusion identified, no pneumothorax apparent. CARDIOVASCULAR: Heart is enlarged. No aortic atherosclerotic calcification present. OSSEOUS STRUCTURES: No significant abnormalities. VISUALIZED UPPER ABDOMEN: Normal. OTHER FINDINGS: None. IMPRESSION: Poor inspiration with low lung volumes, crowded bronchovascular markings and mild bibasilar atelectasis.
[2018-12-26 17:23] LABS: VENOUS BLOOD GAS PO2 39 mm/Hg (30-55)
--- NOTE | 2018-12-26 18:29 | CP.PCM.HP ---
<FabrizioTram alvarez - Last Filed: 12/26/18 19:56> History of Present Illness - History of Present Illness History of Present Illness: Tram Dinh, PGY-1 Medicine H&P Note for Dr. Tai CC: Chest tightness Pt is a 43 yo M with pmhx of HTN, DM, CAD s/p stent on 07/31, schizophrenia, and anxiety who presents for chest tightness which started while he was playing basketball this afternoon. Pt states that about 30 mins prior to presentation in the ER the pt was playing basketball with his friends and the noted that he was experiencing some chest tightness. Pt describes the pain as midsternal chest pain that is located at the xyphoid process, pain is not worsened with activity and does not radiate. He states that the pain is similar to one that he has experienced in the past, and states that he believes that its related to him not eating all day. He reports that when the pain started it was a 7/10 and continues to be a 7/10 now. Pt also admits to being non-compliant with his diabetes medications and states that he has been drinking sugar filled drinks all day. Pt at this time is denying fevers, chills, headache, numbness, tingling, weakness, SOB, palpitations, abd pain, n/v, c/d. Pt admits to non- radiating, chest tightness. Pmhx:HTN, DM, CAD s/p stent on 07/31, schizophrenia and anxiety Pshx: Stent placement All: NKDA Social: admits to smoking 5cig/day, denies etoh or illicit drug use PMD: Dr. Muhammad Pharm: [facility] [place] Present on Admission - Present on Admission Any Indicators Present on Admission: Yes History of Uncontrolled Diabetes: Yes Review of Systems - Review of Systems Review of Systems: 12 point ROS reviewed and negative except for noted in HPI above. Past Patient History - Infectious Disease Hx of Infectious Diseases: None - Past Social History Smoking Status: Light Smoker < 10 Cigarettes Daily - CARDIAC Hx Hypertension: Yes - PULMONARY Hx Respiratory Disorders: No - NEUROLOGICAL Hx Neurological Disorder: No - HEENT Hx HEENT Problems: No - RENAL Hx Chronic Kidney Disease: No - ENDOCRINE/METABOLIC Hx Diabetes Mellitus Type 2: Yes - HEMATOLOGICAL/ONCOLOGICAL Hx Blood Disorders: No - INTEGUMENTARY Hx Dermatological Problems: No - MUSCULOSKELETAL/RHEUMATOLOGICAL Hx Musculoskeletal Disorders: No Hx Falls: No - GASTROINTESTINAL Hx Gastrointestinal Disorders: No - GENITOURINARY/GYNECOLOGICAL Hx Genitourinary Disorders: No - PSYCHIATRIC Hx Psychophysiologic Disorder: Yes Hx Anxiety: Yes Hx Depression: Yes Hx Schizophrenia: Yes Hx Substance Use: No - SURGICAL HISTORY Hx Cardiac Catheterization: Yes (07/2016) Other/Comment: cardiac stents - ANESTHESIA Hx Anesthesia: Yes Hx Anesthesia Reactions: No Hx Malignant Hyperthermia: No Meds Allergies/Adverse Reactions: Allergies Allergy/AdvReac Type Severity Reaction Status Date / Time No Known Allergies Allergy Verified 12/26/18 21:25 Physical Exam - Constitutional Appears: Non-toxic, No Acute Distress - Head Exam Head Exam: ATRAUMATIC, NORMAL INSPECTION, NORMOCEPHALIC - Eye Exam Eye Exam: EOMI, Normal appearance, PERRL - Respiratory Exam Respiratory Exam: Chest Wall Tenderness (upon palpation), Clear to Auscultation Bilateral, NORMAL BREATHING PATTERN. absent: Accessory Muscle Use, Rales, Rhonchi, Wheezes, Respiratory Distress, Stridor - Cardiovascular Exam Cardiovascular Exam: RRR, +S1, +S2. absent: Gallop, Rubs - GI/Abdominal Exam GI & Abdominal Exam: Normal Bowel Sounds, Soft. absent: Diminished Bowel Sounds, Distended, Firm, Tenderness - Extremities Exam Extremities exam: Positive for: normal capillary refill, normal inspection, pedal pulses present. Negative for: calf tenderness, pedal edema, tenderness - Back Exam Back exam: NORMAL INSPECTION. absent: CVA tenderness (L), CVA tenderness (R) - Neurological Exam Neurological exam: Alert, Oriented x3 - Psychiatric Exam Psychiatric exam: Normal Affect, Normal Mood - Skin Skin Exam: Dry, Normal Color, Warm Results - Vital Signs Recent Vital Signs: Last Vital Signs Temp 98.5 F 12/26/18 16:16 Pulse 70 12/26/18 17:02 Resp 16 12/26/18 17:02 BP 95/50 L 12/26/18 17:02 Pulse Ox 100 12/26/18 17:02 - Labs Result Diagrams: 12/26/18 16:33 12/26/18 16:33 Labs: Laboratory Results - last 24 hr 12/26/18 12/26/18 12/26/18 16:33 16:33 16:33 WBC 4.9 RBC 5.19 Hgb 14.8 Hct 43.8 MCV 84.4 MCH 28.5 MCHC 33.8 RDW 12.8 Plt Count 332 MPV 10.6 Neut % (Auto) 51.5 Lymph % (Auto) 39.2 H [place] % (Auto) 7.5 H Eos % (Auto) 1.4 L Baso % (Auto) 0.4 Lymph # (Auto) 1.9 [place] # (Auto) 0.4 Eos # (Auto) 0.1 Baso # (Auto) 0.02 Absolute Neuts (auto) 2.53 PT 11.7 INR 1.05 APTT 27.2 pO2 VBG pH VBG pCO2 VBG HCO3 VBG Total CO2 VBG O2 Sat (Calc) VBG Base Excess VBG Potassium Glucose Lactate FiO2 Crit Value Called To Crit Value Called By Blood Gas Notified Time Sodium 128 L Potassium 5.0 Chloride 90 L Carbon Dioxide 26 Anion Gap 17 BUN 34 H Creatinine 2.6 H Est GFR ( Amer) 33 Est GFR (Non-Af Amer) 27 Random Glucose 624 H* D Serum Osmolality Calcium 9.6 Magnesium 1.8 Total Bilirubin 1.0 AST 43 ALT 18 Alkaline Phosphatase 120 Lactate Dehydrogenase 592 Total Creatine Kinase 348 H CK-MB (CK-2) 4.6 H CK-MB (CK-2) % Cancelled Troponin I 0.02 D NT-Pro-B Natriuret Pep 25.1 Total Protein 7.8 Albumin 4.3 Globulin 3.5 Albumin/Globulin Ratio 1.2 Venous Blood Potassium 12/26/18 12/26/18 16:50 17:00 WBC RBC Hgb Hct MCV MCH MCHC RDW Plt Count MPV Neut % (Auto) Lymph % (Auto) [place] % (Auto) Eos % (Auto) Baso % (Auto) Lymph # (Auto) [place] # (Auto) Eos # (Auto) Baso # (Auto) Absolute Neuts (auto) PT INR APTT pO2 39 VBG pH 7.30 L VBG pCO2 51.0 VBG HCO3 25.1 VBG Total CO2 26.7 VBG O2 Sat (Calc) 75.6 H VBG Base Excess -2.0 L VBG Potassium 4.2 Glucose 585 H* Lactate 2.2 H FiO2 21.0 Crit Value Called To nubia Garcia md Crit Value Called By Quiana platt foot worker Blood Gas Notified Time 1722 Sodium 129.0 L Potassium Chloride 95.0 L Carbon Dioxide Anion Gap BUN Creatinine Est GFR ( Amer) Est GFR (Non-Af Amer) Random Glucose Serum Osmolality 311 H Calcium Magnesium Total Bilirubin AST ALT Alkaline Phosphatase Lactate Dehydrogenase Total Creatine Kinase CK-MB (CK-2) CK-MB (CK-2) % Troponin I NT-Pro-B Natriuret Pep Total Protein Albumin Globulin Albumin/Globulin Ratio Venous Blood Potassium 4.2 Assessment & Plan - Assessment and Plan (Free Text) Assessment: Pt is a 43 yo M with pmhx of HTN, DM, CAD s/p stent on 07/31, schizophrenia, and anxiety who presents for chest tightness which started while he was playing basketball this afternoon. Plan: CP r/o ACS: - Trops x 3 - s/l nitro q5min x3 PRN - A1c - Lipid panel - Echo - ASA 81 qd - Cardio consult Hyperglycemia w/out AG: - Glucose elevated to 624, repeat is 311 - Pt glucose drop after 3 L bolus in ED - Cont IVF - NS @ 100/hr - Will continue to monitor glucose - ISS- medium - Levamir 10 units AMHS - accuchecks - Hypoglycemia protocol RONAN on CKD: - Pts BUN 34 /Cr 2.6 - Likely 2/2 poor DM management - Nephro consulted Hx of HTN: - Will hold home meds, norvasc, lisinopril/hctz and metoprolol due to initial hypotension upon presentation - Will continue to monitor Hx of HLD: - Cont home lipitor Tobacco abuse: - Duonebs PRN - Counseled to stop smoking PPX: DVT: heparin sq GI: Protonix Case seen and discussed with Dr. Zaire Dinh, PGY-1 <Aldair Tai - Last Filed: 12/26/18 23:05> Results - Vital Signs Recent Vital Signs: Last Vital Signs Temp 98.5 F 12/26/18 16:16 Pulse 72 12/26/18 20:19 Resp 18 12/26/18 20:19 BP 111/65 12/26/18 20:19 Pulse Ox 95 12/26/18 20:19 - Labs Result Diagrams: 12/26/18 16:33 12/26/18 16:33 Labs: Laboratory Results - last 24 hr 12/26/18 12/26/18 12/26/18 16:33 16:33 16:33 WBC 4.9 RBC 5.19 Hgb 14.8 Hct 43.8 MCV 84.4 MCH 28.5 MCHC 33.8 RDW 12.8 Plt Count 332 MPV 10.6 Neut % (Auto) 51.5 Lymph % (Auto) 39.2 H [place] % (Auto) 7.5 H Eos % (Auto) 1.4 L Baso % (Auto) 0.4 Lymph # (Auto) 1.9 [place] # (Auto) 0.4 Eos # (Auto) 0.1 Baso # (Auto) 0.02 Absolute Neuts (auto) 2.53 PT 11.7 INR 1.05 APTT 27.2 pO2 VBG pH VBG pCO2 VBG HCO3 VBG Total CO2 VBG O2 Sat (Calc) VBG Base Excess VBG Potassium Glucose Lactate FiO2 Crit Value Called To Crit Value Called By Blood Gas Notified Time Sodium 128 L Potassium 5.0 Chloride 90 L Carbon Dioxide 26 Anion Gap 17 BUN 34 H Creatinine 2.6 H Est GFR ( Amer) 33 Est GFR (Non-Af Amer) 27 POC Glucose (mg/dL) Random Glucose 624 H* D Serum Osmolality Calcium 9.6 Magnesium 1.8 Total Bilirubin 1.0 AST 43 ALT 18 Alkaline Phosphatase 120 Lactate Dehydrogenase 592 Total Creatine Kinase 348 H CK-MB (CK-2) 4.6 H CK-MB (CK-2) % Cancelled Troponin I 0.02 D NT-Pro-B Natriuret Pep 25.1 Total Protein 7.8 Albumin 4.3 Globulin 3.5 Albumin/Globulin Ratio 1.2 Venous Blood Potassium 12/26/18 12/26/18 12/26/18 16:50 17:00 18:40 WBC RBC Hgb Hct MCV MCH MCHC RDW Plt Count MPV Neut % (Auto) Lymph % (Auto) [place] % (Auto) Eos % (Auto) Baso % (Auto) Lymph # (Auto) [place] # (Auto) Eos # (Auto) Baso # (Auto) Absolute Neuts (auto) PT INR APTT pO2 39 VBG pH 7.30 L VBG pCO2 51.0 VBG HCO3 25.1 VBG Total CO2 26.7 VBG O2 Sat (Calc) 75.6 H VBG Base Excess -2.0 L VBG Potassium 4.2 Glucose 585 H* Lactate 2.2 H FiO2 21.0 Crit Value Called To nubia Garcia md Crit Value Called By Quiana paltt foot worker Blood Gas Notified Time 1722 Sodium 129.0 L Potassium Chloride 95.0 L Carbon Dioxide Anion Gap BUN Creatinine Est GFR ( Amer) Est GFR (Non-Af Amer) POC Glucose (mg/dL) 468 H* Random Glucose Serum Osmolality 311 H Calcium Magnesium Total Bilirubin AST ALT Alkaline Phosphatase Lactate Dehydrogenase Total Creatine Kinase CK-MB (CK-2) CK-MB (CK-2) % Troponin I NT-Pro-B Natriuret Pep Total Protein Albumin Globulin Albumin/Globulin Ratio Venous Blood Potassium 4.2 12/26/18 12/26/18 21:09 21:30 WBC RBC Hgb Hct MCV MCH MCHC RDW Plt Count MPV Neut % (Auto) Lymph % (Auto) [place] % (Auto) Eos % (Auto) Baso % (Auto) Lymph # (Auto) [place] # (Auto) Eos # (Auto) Baso # (Auto) Absolute Neuts (auto) PT INR APTT pO2 50 VBG pH 7.25 L VBG pCO2 65.0 H VBG HCO3 28.5 H VBG Total CO2 30.5 H VBG O2 Sat (Calc) 84.9 H VBG Base Excess -0.3 L VBG Potassium 4.6 Glucose 402 H* D Lactate 1.7 FiO2 21.0 Crit Value Called To Stefani garcia rn Crit Value Called By Shanelle Blood Gas Notified Time 2210 Sodium 135.0 Potassium Chloride 94.0 L Carbon Dioxide Anion Gap BUN Creatinine Est GFR ( Amer) Est GFR (Non-Af Amer) POC Glucose (mg/dL) 404 H* Random Glucose Serum Osmolality Calcium Magnesium Total Bilirubin AST ALT Alkaline Phosphatase Lactate Dehydrogenase Total Creatine Kinase CK-MB (CK-2) CK-MB (CK-2) % Troponin I NT-Pro-B Natriuret Pep Total Protein Albumin Globulin Albumin/Globulin Ratio Venous Blood Potassium 4.6 Attending/Attestation - Attestation I have personally seen and examined this patient.: Yes I have fully participated in the care of the patient.: Yes I have reviewed all pertinent clinical information: Yes Notes (Text): 04/13/19 22:34 Patient was seen when he was in the room # [id number]. Medical record was reviewed. Agree with history, physical examination, assessment and plan.
[2018-12-26] MEDS ORDERED: Dextrose 50% SYRINGE Inj (50 ml) IV PRN (19:47)
[2018-12-26] MEDS ORDERED: Albuterol-Ipratrop 3 mg / 0.5 (3 ml) UD IH PRN (20:13)
[2018-12-26] MEDS ORDERED: Nitroglycerin 0.6 mg SL Tab SL PRN (20:13)
[2018-12-26] MEDS: Sodium Chloride 0.9% 1,000 ML IV SCH (20:24)
[2018-12-26] MEDS ORDERED: Insulin Regular 1 UNITS/0.01 ML ML SC ONE (21:32)
[2018-12-26] MEDS: Insulin Detemir 100 units/ml Vial (Levemir) SC SCH (21:40)
[2018-12-26] MEDS ORDERED: Insulin Lispro (humaLOG) LOW Coverage SC SCH (22:00)
[2018-12-26] MEDS: Insulin Reg-HIGH-Coverage SC SCH (22:16)
[2018-12-26 22:25] LABS: VENOUS BLOOD GAS BASE EXCESS -0.3 mmol/L (0.0-2.0); VENOUS BLOOD GAS PO2 50 mm/Hg (30-55); VENOUS BLOOD PH 7.25 (7.32-7.43)
[2018-12-26] MEDS ORDERED: Pneumococcal 23-Valent Vaccine IM ONE (22:44)
[2018-12-26] MEDS ORDERED: Influenza Vaccine 60 mcg/0.5 mL SYR (4YR UP) IM ONE (22:44)
[2018-12-27] MEDS ORDERED: Pantoprazole 40 mg EC Tab PO SCH (06:00)
[2018-12-27] MEDS: Sodium Chloride 0.9% 1,000 ML IV SCH ×2 (07:03→16:06)
[2018-12-27 07:19] LABS: BASO # 0.02 K/mm3 (0.0-2.0); BASO % 0.4 % (0.0-3.0); EOS # 0.2 (0.0-0.7); HEMOGLOBIN 13.9 g/dL (14.0-18.0); LYMPH # 2.5 (1.2-3.4); LYMPH % 43.9 % (22.0-35.0); MEAN CELL VOLUME 84.9 fl (80.0-105.0); MEAN CORPUSCULAR HEMOGLOBIN 27.7 pg (25.0-35.0); MEAN CORPUSCULAR HGB CONC 32.6 g/dl (31.0-37.0); MEAN PLATELET VOLUME 10.4 fl (7.0-11.0); MONO # 0.3 (0.1-0.6); MONO % 5.9 % (1.0-6.0); RBC 5.02 10^6/uL (3.5-6.1); RED CELL DISTRIBUTION WIDTH 13.1 % (11.5-14.5); WHITE BLOOD COUNT 5.6 10^3/uL (4.5-11.0)
[2018-12-27 07:40] LABS: TROPONIN I 0.02 ng/mL
[2018-12-27 07:49] LABS: ALB/GLOB RATIO 1.1 (1.1-1.8); ALBUMIN 3.6 g/dL (3.0-4.8); CALCIUM 8.9 mg/dL (8.4-10.5)
[2018-12-27] MEDS: Insulin Lispro 1 UNITS/0.01 ML SC SCH ×3 (08:01→17:59)
[2018-12-27] MEDS: Insulin Reg-HIGH-Coverage SC SCH ×4 (09:50→22:02)
[2018-12-27] MEDS: Insulin Detemir 100 units/ml Vial (Levemir) SC SCH (09:50)
--- NOTE | 2018-12-27 10:54 | CP.PCM.PN ---
<Tram Dinh - Last Filed: 12/27/18 14:05> Subjective - Date & Time of Evaluation Date of Evaluation: 12/27/18 Time of Evaluation: 09:00 - Subjective Subjective: Tram Dinh, PGY-1 Medicine Progress Note: Pt was seen and examined this AM at bedside. Pt had no acute overnight events. Pt states that he is no longer feeling the chest pain and states that it has improved. Otherwise the pt has no acute complaints at this time. Objective - Vital Signs/Intake and Output Vital Signs (last 24 hours): Temp Pulse Resp BP Pulse Ox 97.4 F L 68 19 124/85 97 12/27/18 06:00 12/27/18 06:00 12/27/18 06:00 12/27/18 06:00 12/27/18 06:00 Intake and Output: 12/27/18 12/27/18 06:59 18:59 Intake Total 660 Output Total 1600 Balance -940 - Medications Medications: Current Medications Albuterol/Ipratropium (Duoneb 3 Mg/0.5 Mg (3 Ml) Ud) 3 ml IH Q2H PRN PRN Reason: Shortness of Breath Aspirin (Aspirin Chewable) 81 mg PO DAILY JET Last Admin: 12/27/18 09:49 Dose: 81 mg Atorvastatin Calcium (Lipitor) 40 mg PO DAILY [facility] Last Admin: 12/27/18 09:50 Dose: 40 mg Dextrose (Dextrose 50% Inj) 0 ml IV STAT PRN; Protocol PRN Reason: Hypoglycemia Protocol Heparin Sodium (Porcine) (Heparin) 5,000 units SC Q12 JET; Protocol Last Admin: 12/27/18 09:49 Dose: 5,000 units Dextrose (Dextrose 5% In Water 1000 Ml) 1,000 mls @ 0 mls/hr IV .Q0M PRN; Protocol PRN Reason: Hypoglycemia Protocol Sodium Chloride (Sodium Chloride 0.9%) 1,000 mls @ 100 mls/hr IV .Q10H JET Last Admin: 12/27/18 07:03 Dose: 100 mls/hr Insulin Detemir (Levemir) 10 unit SC AMHS [facility] Last Admin: 12/27/18 09:50 Dose: 10 units Insulin Human Regular (Humulin R High) 0 units SC ACHS JET; Protocol Last Admin: 12/27/18 09:50 Dose: 10 unit Pantoprazole Sodium (Protonix Ec Tab) 40 mg PO 0600 JET Last Admin: 12/27/18 07:03 Dose: 40 mg - Labs Labs: 12/27/18 06:35 12/27/18 06:35 PT 11.7 SECONDS (9.4-12.5) 12/26/18 16:33 INR 1.05 12/26/18 16:33 APTT 27.2 Seconds (26.9-38.3) 12/26/18 16:33 - Constitutional Appears: Non-toxic, No Acute Distress - Head Exam Head Exam: ATRAUMATIC, NORMAL INSPECTION, NORMOCEPHALIC - Eye Exam Eye Exam: EOMI, Normal appearance, PERRL - Respiratory Exam Respiratory Exam: Chest Wall Tenderness (upon palpation), Clear to Auscultation Bilateral, NORMAL BREATHING PATTERN. absent: Accessory Muscle Use, Rales, Rhonchi, Wheezes, Respiratory Distress, Stridor - Cardiovascular Exam Cardiovascular Exam: RRR, +S1, +S2. absent: Gallop, Rubs - GI/Abdominal Exam GI & Abdominal Exam: Normal Bowel Sounds, Soft. absent: Diminished Bowel Sounds, Distended, Firm, Tenderness - Extremities Exam Extremities exam: Positive for: normal capillary refill, normal inspection, pedal pulses present. Negative for: calf tenderness, pedal edema, tenderness - Back Exam Back exam: NORMAL INSPECTION. absent: CVA tenderness (L), CVA tenderness (R) - Neurological Exam Neurological exam: Alert, Oriented x3 - Psychiatric Exam Psychiatric exam: Normal Affect, Normal Mood - Skin Skin Exam: Dry, Normal Color, Warm Assessment & Plan - Assessment and Plan (Free Text) Assessment: Pt is a 43 yo M with pmhx of HTN, DM, CAD s/p stent on 07/31, schizophrenia, and anxiety who presents for chest tightness which started while he was playing basketball this afternoon. Plan: CP r/o ACS: - Trops x 3 (-) - s/l nitro q5min x3 PRN - A1c - 13.3 - Lipid panel - TG = 451. LDL is 72, HDL is 25 - Echo - ASA 81 qd - Cardio consult, recs appreciated Hyperglycemia w/out AG: - Glucose elevated to 624, repeat is 311 - Pt glucose drop after 3 L bolus in ED - Cont IVF - NS @ 100/hr - Will continue to monitor glucose - ISS- medium - Levamir 10 units AMHS - accuchecks - Hypoglycemia protocol - Endocrinology consulted, Dr. Mike FERRARO on CKD: Improving - Pts BUN 31 /Cr 1.8 - Likely 2/2 poor DM management - Nephro consulted Hx of HTN: - Will hold home meds, norvasc, lisinopril/hctz and metoprolol due to initial hypotension upon presentation - Will continue to monitor Hx of HLD: - Cont home lipitor Tobacco abuse: - Duonebs PRN - Counseled to stop smoking PPX: DVT: heparin sq GI: Protonix Case seen and discussed with Dr. Chari Dinh, PGY-1 <Keturah Morris R - Last Filed: 12/27/18 16:48> Objective - Vital Signs/Intake and Output Vital Signs (last 24 hours): Temp Pulse Resp BP Pulse Ox 97.9 F 76 20 139/83 97 12/27/18 11:53 12/27/18 14:00 12/27/18 11:53 12/27/18 11:53 12/27/18 06:00 Intake and Output: 12/27/18 12/27/18 06:59 18:59 Intake Total 660 Output Total 1600 Balance -940 - Medications Medications: Current Medications Albuterol/Ipratropium (Duoneb 3 Mg/0.5 Mg (3 Ml) Ud) 3 ml IH Q2H PRN PRN Reason: Shortness of Breath Aspirin (Aspirin Chewable) 81 mg PO DAILY [facility] Last Admin: 12/27/18 09:49 Dose: 81 mg Atorvastatin Calcium (Lipitor) 40 mg PO DAILY [facility] Last Admin: 12/27/18 09:50 Dose: 40 mg Clopidogrel Bisulfate (Plavix) 75 mg PO DAILY [facility] Dextrose (Dextrose 50% Inj) 0 ml IV STAT PRN; Protocol PRN Reason: Hypoglycemia Protocol Fenofibrate (Tricor) 48 mg PO DAILY [facility] Heparin Sodium (Porcine) (Heparin) 5,000 units SC Q12 JET; Protocol Last Admin: 12/27/18 09:49 Dose: 5,000 units Dextrose (Dextrose 5% In Water 1000 Ml) 1,000 mls @ 0 mls/hr IV .Q0M PRN; Protocol PRN Reason: Hypoglycemia Protocol Sodium Chloride (Sodium Chloride 0.9%) 1,000 mls @ 100 mls/hr IV .Q10H [facility] Last Admin: 12/27/18 16:06 Dose: Not Given Insulin Detemir (Levemir) 15 unit SC AMHS [facility] Insulin Human Lispro (Humalog) 8 units SC ACTID [facility] Insulin Human Regular (Humulin R High) 0 units SC ACHS [facility]; Protocol Last Admin: 12/27/18 13:04 Dose: 15 unit Metoprolol Tartrate (Lopressor) 25 mg PO BRKDIN [facility] - Labs Labs: 12/27/18 06:35 12/27/18 06:35 PT 11.7 SECONDS (9.4-12.5) 12/26/18 16:33 INR 1.05 12/26/18 16:33 APTT 27.2 Seconds (26.9-38.3) 12/26/18 16:33 Attending/Attestation - Attestation I have personally seen and examined this patient.: Yes I have fully participated in the care of the patient.: Yes I have reviewed all pertinent clinical information, including history, physical exam and plan: Yes Notes (Text): Patient seen and examined by me with resident at approximately 8:45AM on 12/27/18. Case including HPI, physical exam, and assessment and plan discussed with resident. Agree with above with following additions/corrections. Patient is a 43-year-old male with past medical history significant for hypertension, type 2 diabetes, coronary artery disease status post stent placement, drug abuse, schizophrenia, and anxiety that presents to the emergency room with chest tightness that began while playing basketball. Patient states he is not feeling well. He is unable to explain why. States he is hungry and wants food. Per patient's nurse, patient has constantly been requesting food. He understands his blood sugars are uncontrolled. Patient admits to using PCP 2 days ago. He states chest pain at time of exam has resolved. No nausea, vomiting, or abdominal pain. No headaches or dizziness. No fevers or chills. No dysuria. No shortness of breath. Physical exam: General: Awake and alert sitting up in bed in no acute distress HEENT: Normocephalic, atraumatic. Extraocular muscles intact, pupils equal and r eactive, no scleral icterus. Oropharynx is pink and moist. No pharyngeal erythema or exudate appreciated. Neck is supple. Cardiovascular: Regular rhythm.Normal S1 and S2. No murmur, rubs, or gallops appreciated Pulmonary: Normal respiratory effort.No rhonchi, rales, or wheezing appreciated. Gastrointestinal: Soft, nondistended. Nontender. Positive bowel sounds all 4 quadrants. No guarding. Obese abdomen. Musculoskeletal: Moves all extremities. No calf tenderness. No edema appreciated. Central nervous system: AAOx3, CN 2-12 grossly intact. 5/5 muscle strength all extremities. Dermatologic: Skin warm and dry. Assessment and plan: Patient is a 43-year-old male with past medical history significant for hypertension, type 2 diabetes, coronary artery disease status post stent placement, drug abuse, schizophrenia, and anxiety that presents to the emergency room with chest tightness that began while playing basketball. 1. Chest pain in patient with CAD. Pain resolved. May have been secondary to PCP use. Troponins within normal limits. Triglycerides elevated at 451. LDL 72, TSH 1.29. Continue Lipitor. Fenofibrate added. Continue ASA. Home Plavix added. Restarted on home metoprolol with decreased dosing to 25mg PO BID with hold parameters. Cardiology recommendations pending. Follow up 2D echo. 2. DM2 with hyperglycemia. Patient with poor diet, refusing to change. HgB A1C 13.3. Security Systems Administrator consulted, pending recommendations. Continue insulin sliding scale. Levemir increased to 15 AMPM. Lispro 8units ACTID added. Continue to monitor accuchecks. 3. Hypertension. Patient came in with hypotension on admission. All blood pressure medications were held. Patient restarted on metoprolol but at a lower dose. Monitor blood pressure and add medications if needed. 4. RONAN. Likely secondary to dehydration. Improved with IV fluids. Continue to monitor. 5. Hypercholesterolemia. Continue Lipitor. Fenofibrate added. 6. Drug abuse. Admits to PCP about two days ago. Symptoms may have been secondary to this. Cessation discussed at length with patient. 7. Schizophrenia, depression, and anxiety. Will need to check with patient's pharmacy for correct dosing of medications. 8. DVT prophylaxis. Heparin Case was discussed in detail with patient regarding current diagnosis, study r esults, and treatment plan. All questions answered.
[2018-12-27] MEDS ORDERED: Insulin Reg-HIGH-Coverage SC ONE (11:27)
[2018-12-27] MEDS ORDERED: Insulin Detemir 100 units/ml Vial (Levemir) SC SCH (16:35)
--- NOTE | 2018-12-27 18:42 | CP.PCM.CON ---
History of Present Illness - History of Present Illness History of Present Illness: RENAL CONSULT 43 yo M with pmhx of HTN, DM, CAD s/p stent that presented to ER /w Chest tightness and light headedness. He has hx of poorly controlled dm - he states he "over did it" w/ basketball - and was not taking in any fluids except for soda and sweets. he denies fever or chills. He denies n/v. He was admitted w/ hypotension as well. he was started on ivf - his renal function is now improving. He states he is feeling better today ros: a full detailed ros is negative except as in my hpi Pmhx:HTN, DM, CAD s/p stent on 07/31, schizophrenia and anxiety Pshx: Stent placement All: NKDA Social: admits to smoking 5cig/day, denies etoh or illicit drug use famhx: + htn pe: vs as below gen: nad sclera: anicteric op: clear neck: supple cv: +S1+s2 no rub lungs cta abd soft nt nd no organomegaly ext: no edema neuro: a+Ox3 psych: nml affect skin no rash labs and imaging reviewed imp: ARF/ Diabetic kidney disease/ hypertensive kidney disease /hyponatremia plan: susana seems c/w hypovolemia and is improving continue ivf DM per primary team continue na improved /w volume/sugar control hold raas blockade/diuretics for now Past Patient History - Infectious Disease Hx of Infectious Diseases: None - Past Social History Smoking Status: Light Smoker < 10 Cigarettes Daily - CARDIAC Hx Hypertension: Yes - PULMONARY Hx Respiratory Disorders: No - NEUROLOGICAL Hx Neurological Disorder: No - HEENT Hx HEENT Problems: No - RENAL Hx Chronic Kidney Disease: No - ENDOCRINE/METABOLIC Hx Diabetes Mellitus Type 2: Yes - HEMATOLOGICAL/ONCOLOGICAL Hx Blood Disorders: No - INTEGUMENTARY Hx Dermatological Problems: No - MUSCULOSKELETAL/RHEUMATOLOGICAL Hx Musculoskeletal Disorders: No Hx Falls: No - GASTROINTESTINAL Hx Gastrointestinal Disorders: No - GENITOURINARY/GYNECOLOGICAL Hx Genitourinary Disorders: No - PSYCHIATRIC Hx Psychophysiologic Disorder: Yes Hx Anxiety: Yes Hx Depression: Yes Hx Schizophrenia: Yes Hx Substance Use: No - SURGICAL HISTORY Hx Cardiac Catheterization: Yes (07/2016) Other/Comment: cardiac stents - ANESTHESIA Hx Anesthesia: Yes Hx Anesthesia Reactions: No Hx Malignant Hyperthermia: No Meds Allergies/Adverse Reactions: Allergies Allergy/AdvReac Type Severity Reaction Status Date / Time No Known Allergies Allergy Verified 12/26/18 21:25 - Medications Medications: Current Medications Albuterol/Ipratropium (Duoneb 3 Mg/0.5 Mg (3 Ml) Ud) 3 ml IH Q2H PRN PRN Reason: Shortness of Breath Aspirin (Aspirin Chewable) 81 mg PO DAILY [facility] Last Admin: 12/27/18 09:49 Dose: 81 mg Atorvastatin Calcium (Lipitor) 40 mg PO DAILY [facility] Last Admin: 12/27/18 09:50 Dose: 40 mg Clopidogrel Bisulfate (Plavix) 75 mg PO DAILY [facility] Dextrose (Dextrose 50% Inj) 0 ml IV STAT PRN; Protocol PRN Reason: Hypoglycemia Protocol Fenofibrate (Tricor) 48 mg PO DAILY [facility] Heparin Sodium (Porcine) (Heparin) 5,000 units SC Q12 [facility]; Protocol Last Admin: 12/27/18 09:49 Dose: 5,000 units Dextrose (Dextrose 5% In Water 1000 Ml) 1,000 mls @ 0 mls/hr IV .Q0M PRN; P rotocol PRN Reason: Hypoglycemia Protocol Sodium Chloride (Sodium Chloride 0.9%) 1,000 mls @ 100 mls/hr IV .Q10H [facility] Last Admin: 12/27/18 16:06 Dose: Not Given Insulin Detemir (Levemir) 15 unit SC AMHS [facility] Insulin Human Lispro (Humalog) 8 units SC ACTID [facility] Last Admin: 12/27/18 17:59 Dose: 8 unit Insulin Human Regular (Humulin R High) 0 units SC ACHS [facility]; Protocol Last Admin: 12/27/18 18:00 Dose: 12 unit Metoprolol Tartrate (Lopressor) 25 mg PO BRKDIN [facility] Last Admin: 12/27/18 17:59 Dose: 25 mg Results - Vital Signs Recent Vital Signs: Last Vital Signs Temp 97.9 F 12/27/18 17:46 Pulse 87 12/27/18 18:00 Resp 18 12/27/18 17:46 BP 147/95 H 12/27/18 17:59 Pulse Ox 95 12/27/18 17:46 - Labs Result Diagrams: 12/27/18 06:35 12/27/18 06:35 Labs: Laboratory Results - last 24 hr 12/26/18 12/26/18 12/26/18 18:40 21:09 21:30 WBC RBC Hgb Hct MCV MCH MCHC RDW Plt Count MPV Neut % (Auto) Lymph % (Auto) [place] % (Auto) Eos % (Auto) Baso % (Auto) Lymph # (Auto) [place] # (Auto) Eos # (Auto) Baso # (Auto) Absolute Neuts (auto) pO2 50 VBG pH 7.25 L VBG pCO2 65.0 H VBG HCO3 28.5 H VBG Total CO2 30.5 H VBG O2 Sat (Calc) 84.9 H VBG Base Excess -0.3 L VBG Potassium 4.6 Sodium 135.0 Chloride 94.0 L Glucose 402 H* D Lactate 1.7 FiO2 21.0 Crit Value Called To Stefani garcia rn Crit Value Called By Shanelle Blood Gas Notified Time 2210 Potassium Carbon Dioxide Anion Gap BUN Creatinine Est GFR ( Amer) Est GFR (Non-Af Amer) POC Glucose (mg/dL) 468 H* 404 H* Random Glucose Hemoglobin A1c Calcium Phosphorus Magnesium Total Bilirubin AST ALT Alkaline Phosphatase Total Creatine Kinase Troponin I Total Protein Albumin Globulin Albumin/Globulin Ratio Triglycerides Cholesterol LDL Cholesterol Direct HDL Cholesterol TSH 3rd Generation Venous Blood Potassium 4.6 12/26/18 12/27/18 12/27/18 22:00 03:08 06:35 WBC RBC Hgb Hct MCV MCH MCHC RDW Plt Count MPV Neut % (Auto) Lymph % (Auto) [place] % (Auto) Eos % (Auto) Baso % (Auto) Lymph # (Auto) [place] # (Auto) Eos # (Auto) Baso # (Auto) Absolute Neuts (auto) pO2 VBG pH VBG pCO2 VBG HCO3 VBG Total CO2 VBG O2 Sat (Calc) VBG Base Excess VBG Potassium Sodium 136 Chloride 101 Glucose Lactate FiO2 Crit Value Called To Crit Value Called By Blood Gas Notified Time Potassium 4.3 Carbon Dioxide 29 Anion Gap 10 BUN 31 H Creatinine 1.8 H Est GFR ( Amer) 51 Est GFR (Non-Af Amer) 42 POC Glucose (mg/dL) 354 H Random Glucose 324 H* D Hemoglobin A1c Calcium 8.9 Phosphorus 3.5 Magnesium 2.0 Total Bilirubin 0.7 AST 23 ALT 21 Alkaline Phosphatase 105 Total Creatine Kinase 194 Troponin I < 0.01 D 0.02 D Total Protein 6.9 Albumin 3.6 Globulin 3.2 Albumin/Globulin Ratio 1.1 Triglycerides 451 H Cholesterol 161 LDL Cholesterol Direct 72 HDL Cholesterol 25 L TSH 3rd Generation Venous Blood Potassium 12/27/18 12/27/18 12/27/18 06:35 06:35 06:35 WBC 5.6 RBC 5.02 Hgb 13.9 L Hct 42.6 MCV 84.9 MCH 27.7 MCHC 32.6 RDW 13.1 Plt Count 263 MPV 10.4 Neut % (Auto) 46.8 L Lymph % (Auto) 43.9 H [place] % (Auto) 5.9 Eos % (Auto) 3.0 Baso % (Auto) 0.4 Lymph # (Auto) 2.5 [place] # (Auto) 0.3 Eos # (Auto) 0.2 Baso # (Auto) 0.02 Absolute Neuts (auto) 2.61 pO2 VBG pH VBG pCO2 VBG HCO3 VBG Total CO2 VBG O2 Sat (Calc) VBG Base Excess VBG Potassium Sodium Chloride Glucose Lactate FiO2 Crit Value Called To Crit Value Called By Blood Gas Notified Time Potassium Carbon Dioxide Anion Gap BUN Creatinine Est GFR ( Amer) Est GFR (Non-Af Amer) POC Glucose (mg/dL) Random Glucose Hemoglobin A1c 13.3 H D Calcium Phosphorus Magnesium Total Bilirubin AST ALT Alkaline Phosphatase Total Creatine Kinase Troponin I Total Protein Albumin Globulin Albumin/Globulin Ratio Triglycerides Cholesterol LDL Cholesterol Direct HDL Cholesterol TSH 3rd Generation 1.29 Venous Blood Potassium 12/27/18 12/27/18 12/27/18 07:12 11:13 12:32 WBC RBC Hgb Hct MCV MCH MCHC RDW Plt Count MPV Neut % (Auto) Lymph % (Auto) [place] % (Auto) Eos % (Auto) Baso % (Auto) Lymph # (Auto) [place] # (Auto) Eos # (Auto) Baso # (Auto) Absolute Neuts (auto) pO2 VBG pH VBG pCO2 VBG HCO3 VBG Total CO2 VBG O2 Sat (Calc) VBG Base Excess VBG Potassium Sodium Chloride Glucose Lactate FiO2 Crit Value Called To Crit Value Called By Blood Gas Notified Time Potassium Carbon Dioxide Anion Gap BUN Creatinine Est GFR ( Amer) Est GFR (Non-Af Amer) POC Glucose (mg/dL) 337 H > 500 H* > 500 H* Random Glucose Hemoglobin A1c Calcium Phosphorus Magnesium Total Bilirubin AST ALT Alkaline Phosphatase Total Creatine Kinase Troponin I Total Protein Albumin Globulin Albumin/Globulin Ratio Triglycerides Cholesterol LDL Cholesterol Direct HDL Cholesterol TSH 3rd Generation Venous Blood Potassium 12/27/18 15:52 WBC RBC Hgb Hct MCV MCH MCHC RDW Plt Count MPV Neut % (Auto) Lymph % (Auto) [place] % (Auto) Eos % (Auto) Baso % (Auto) Lymph # (Auto) [place] # (Auto) Eos # (Auto) Baso # (Auto) Absolute Neuts (auto) pO2 VBG pH VBG pCO2 VBG HCO3 VBG Total CO2 VBG O2 Sat (Calc) VBG Base Excess VBG Potassium Sodium Chloride Glucose Lactate FiO2 Crit Value Called To Crit Value Called By Blood Gas Notified Time Potassium Carbon Dioxide Anion Gap BUN Creatinine Est GFR ( Amer) Est GFR (Non-Af Amer) POC Glucose (mg/dL) 368 H Random Glucose Hemoglobin A1c Calcium Phosphorus Magnesium Total Bilirubin AST ALT Alkaline Phosphatase Total Creatine Kinase Troponin I Total Protein Albumin Globulin Albumin/Globulin Ratio Triglycerides Cholesterol LDL Cholesterol Direct HDL Cholesterol TSH 3rd Generation Venous Blood Potassium
--- NOTE | 2018-12-27 20:27 | CON ---
DATE: 12/27/2018 REQUESTING PHYSICIAN: Dr. Small. REASON FOR CONSULTATION: Chest pain. HISTORY OF PRESENT ILLNESS: This is a 43-year-old man with a history of diabetes and coronary artery disease, who underwent PCI at [facility] approximately a year and half ago, who presented with chest discomfort yesterday. He states he was playing basketball when he developed chest tightness. Pain resolved with rest. He has not been on any cardiac medications recently. He has not had regular Cardiology followed either. He has had no stress test performed since his PCI. Initial cardiac enzymes and electrocardiogram were unremarkable. He continues to smoke several cigarettes a day. He also has a history of hypertension and diabetes. PAST MEDICAL HISTORY: Notable for the problems as mentioned above. He also has a history of schizophrenia and anxiety. MEDICATIONS AT HOME: None. ALLERGIES: NONE. FAMILY HISTORY: Both parents are alive. His mother is diabetic. There is no family history of premature heart disease. SOCIAL HISTORY: He smokes less than half pack per day. He denies drug or alcohol use. REVIEW OF SYSTEMS: A 10-point review of systems is otherwise unremarkable. PHYSICAL EXAMINATION: GENERAL: He is a muscular, middle-aged man. VITAL SIGNS: His blood pressure is 124/86, pulse of 60 and sinus, respirations 16, and he is afebrile. HEENT: Normocephalic and atraumatic. NECK: Supple. No JVD noted. CHEST: A few scattered rhonchi heard. HEART: PMI in normal position. No pathological murmurs or gallops noted. ABDOMEN: Soft and nontender with normoactive bowel sounds. EXTREMITIES: No clubbing, cyanosis, or edema. SKIN: Warm and dry. PSYCHIATRIC: Normal mood and affect. NEUROLOGIC: Alert and oriented x3. No gross motor or sensory deficits notable. DIAGNOSTIC DATA: Potassium 4.3, BUN and creatinine are 31 and 1.8 with glucose of 324, recent glucose was 624 with a creatinine of 2.6. Three sets of cardiac enzymes were negative. White count 5.6, hemoglobin and hematocrit of 13.9 and 42.6, and platelet count of 263,000. Lactate level 1.7. Electrocardiogram reveals sinus rhythm with voltage criteria for LVH and nonspecific ST-T abnormalities. Chest x-ray reveals an increased cardiac silhouette with clear lung barbosa, but poor inspiratory effort. IMPRESSION: 1. Chest pain, symptoms were somewhat equivocal for cardiac ischemia. No clear evidence of acute coronary injury based upon electrocardiogram and blood work. 2. Coronary artery disease, status post prior percutaneous coronary intervention, details unavailable. 3. History of tobacco abuse. 4. History of diabetes with poor control. 5. Hypertension. RECOMMENDATIONS: Resumption of aspirin and statin therapy is advisable. Endocrine assessment is pending to address his hyperglycemia and eventual stress test would be appropriate, this can be performed as an outpatient. The need for medical compliance was discussed with him. Thank you for this consultation. I will be happy to follow along as needed. Fco Estrella MD MTDD
[2018-12-28] MEDS: Sodium Chloride 0.9% 1,000 ML IV SCH (02:00)
--- NOTE | 2018-12-28 02:46 | CON ---
DATE: 12/27/2018 ENDOCRINOLOGY CONSULT LOCATION: Room 271. HISTORY OF PRESENT ILLNESS: This is a 43-year-old male with known history of type 2 insulin-requiring diabetes, on a basal and bolus insulin regimen at home, presenting here with precordial chest pain and supervening shortness of breath and is now undergoing cardiac workup and management and is also referred for diabetic evaluation because of marked hyperglycemic accelerations and very poor adherence and compliance with insulin regimen at home. No recent home glucose monitoring available at this time as noted. PAST MEDICAL HISTORY: History of type 2 insulin-requiring diabetes, on a combination of Levemir taken at a variable dose at bedtime with Humalog given as 8 units t.i.d. with meals. History of hypertension and dyslipidemia; history of chronic schizoaffective disorder with schizophrenia, currently on psychotropic medications; history of generalized anxiety state with marked disrupted sleep patterns as noted; history of diabetic retinopathy, polyneuropathy, and nephropathy with underlying chronic kidney disease; history of coronary artery disease with previous coronary stent placement. FAMILY HISTORY: Positive for hypertension and diabetes. SOCIAL HISTORY: The patient smokes half a pack a day for some years now, has a supportive family otherwise. REVIEW OF SYSTEMS: Admits to generalized body weakness with episodic bouts of dizziness and lightheadedness and disrupted sleep patterns with recent insomnia as noted. Admits to recent chest pain described as precordial tightness and heaviness with supervening shortness of breath, especially on exertion. His oral intake has been variable with occasional dyspepsia and vague upper abdominal pains. Also admits to marked polyuria, nocturia, polydipsia. Also admits to lower extremity paresthesias, especially nocturnally. PHYSICAL EXAMINATION: GENERAL: Overweight male in no apparent distress. VITAL SIGNS: Blood pressure of 160/90; pulse of 100 beats per minute, regular; temperature 99; respirations 20; height is 6 feet 1 inch; weight is 326 pounds. HEENT: Head normocephalic. Eyes anicteric with pink conjunctivae. Funduscopy not possible at this time. Ears, nose, and throat otherwise normal. NECK: Supple. Thyroid gland is normal sized. No carotid bruits or cervical adenopathy. CARDIOPULMONARY: Some adynamic precordium. S1, S2 are rapid and regular. LUNGS: Clear to auscultation. ABDOMEN: Obese, soft with positive bowel sounds. EXTREMITIES: No peripheral edema. Pulses are +2 bilaterally. LABORATORIES: His chemistries initially BUN of 34, sodium 128, potassium 5, chloride 90, CO2 is 26, glucose is 624, and creatinine is 2.6. Subsequent glucose levels have ranged from 404 to 468 mg/dL and the latest glucose levels tonight have ranged from 125 to 368 and over 500 mg/dL. ASSESSMENT: This is a 43-year-old male with uncontrolled and decompensated type 2 insulin-requiring diabetes with marked hyperglycemic accelerations related to very poor adherence to his insulin regimen and presenting here with precordial chest tightness and possible acute coronary syndrome and is undergoing cardiac workup and management. He also has diabetic microvascular complications of retinopathy, polyneuropathy, and nephropathy with underlying chronic kidney disease. Moreover, he has significant cardiac vasculopathy with coronary artery disease and previous coronary stent placement and possible peripheral arterial disease and vasculopathy. There is also evidence of dehydration with prerenal azotemia and spurious hyponatremia related to the increased osmotic diuresis thereof. PLAN OF MANAGEMENT: We will modify his current insulin regimen and initiate a more physiologic basal and bolus insulin drug combination as ordered. We will increase his Levemir to 24 units subcu at bedtime daily to start tomorrow night. We will add Humalog given as 12 units t.i.d. before meals to start tomorrow morning as ordered. We will modify the coverage scale to obviate hypoglycemia, and detailed orders have been given. We will also initiate diabetic education and dietary instructions at the time of his admission and reinforced the need for tighter metabolic control thereof. We will also initiate dietary evaluation and nutritional counseling for healthier food choices accordingly. We will obtain serial chemistries and supplement accordingly as needed. We will follow. Ioana Mckeon MD
[2018-12-28 05:45] VITALS: TEMP 98.1; O2SAT 97
[2018-12-28 07:14] LABS: BASO # 0.02 K/mm3 (0.0-2.0); BASO % 0.4 % (0.0-3.0); EOS # 0.1 (0.0-0.7); HEMOGLOBIN 13.9 g/dL (14.0-18.0); LYMPH # 2.8 (1.2-3.4); MEAN CELL VOLUME 85.5 fl (80.0-105.0); MEAN CORPUSCULAR HEMOGLOBIN 27.7 pg (25.0-35.0); MEAN CORPUSCULAR HGB CONC 32.4 g/dl (31.0-37.0); MEAN PLATELET VOLUME 10.4 fl (7.0-11.0); MONO # 0.3 (0.1-0.6); MONO % 5.8 % (1.0-6.0); RBC 5.02 10^6/uL (3.5-6.1); WHITE BLOOD COUNT 5.4 10^3/uL (4.5-11.0)
--- NOTE | 2018-12-28 07:19 | CARD ---
APPROVED REPORT Date of service: 12/26/2018 EKG Measurement Heart [id number] <Conclusion> Normal sinus rhythm Possible Left atrial enlargement Borderline ECG
--- NOTE | 2018-12-28 07:31 | CARD ---
APPROVED REPORT Date of service: 12/27/2018 EKG Measurement Heart [id number] <Conclusion> Normal sinus rhythm Nonspecific ST and T wave abnormality Abnormal ECG
[2018-12-28 07:42] LABS: ALB/GLOB RATIO 1.1 (1.1-1.8); ALBUMIN 3.7 g/dL (3.0-4.8); ALT/SGPT 18 U/L (7-56); AST/SGOT 29 U/L (17-59); BLOOD UREA NITROGEN 25 mg/dL (7-21); CALCIUM 8.8 mg/dL (8.4-10.5); GFR NON-AFRICAN AMERICAN > 60
--- NOTE | 2018-12-28 08:30 | CP.PCM.PN ---
Subjective - Date & Time of Evaluation Date of Evaluation: 12/28/18 Time of Evaluation: 08:30 - Subjective Subjective: Endo, PGY-[address] Mckeon Pt ambulates in his room. No more chest pain. No acute complaint Objective - Vital Signs/Intake and Output Vital Signs (last 24 hours): Temp Pulse Resp BP Pulse Ox 98.1 F 68 18 130/84 97 12/28/18 05:44 12/28/18 05:44 12/28/18 05:44 12/28/18 05:44 12/28/18 05:44 Intake and Output: 12/28/18 12/28/18 06:59 18:59 Intake Total 1200 Output Total 0 Balance 1200 - Medications Medications: Current Medications Albuterol/Ipratropium (Duoneb 3 Mg/0.5 Mg (3 Ml) Ud) 3 ml IH Q2H PRN PRN Reason: Shortness of Breath Aspirin (Aspirin Chewable) 81 mg PO DAILY [facility] Last Admin: 12/27/18 09:49 Dose: 81 mg Atorvastatin Calcium (Lipitor) 40 mg PO DAILY [facility] Last Admin: 12/27/18 09:50 Dose: 40 mg Clopidogrel Bisulfate (Plavix) 75 mg PO DAILY [facility] Dextrose (Dextrose 50% Inj) 0 ml IV STAT PRN; Protocol PRN Reason: Hypoglycemia Protocol Fenofibrate (Tricor) 48 mg PO DAILY [facility] Heparin Sodium (Porcine) (Heparin) 5,000 units SC Q12 [facility]; Protocol Last Admin: 12/27/18 22:32 Dose: 5,000 units Dextrose (Dextrose 5% In Water 1000 Ml) 1,000 mls @ 0 mls/hr IV .Q0M PRN; Protocol PRN Reason: Hypoglycemia Protocol Sodium Chloride (Sodium Chloride 0.9%) 1,000 mls @ 100 mls/hr IV .Q10H [facility] Last Admin: 12/28/18 02:00 Dose: 100 mls/hr Insulin Detemir (Levemir) 24 unit SC HS [facility] Insulin Human Lispro (Humalog Low) 0 units SC ACHS [facility]; Protocol Insulin Human Lispro (Humalog) 12 units SC ACTID [facility] Metoprolol Tartrate (Lopressor) 25 mg PO BRKDIN [facility] Last Admin: 12/27/18 17:59 Dose: 25 mg - Labs Labs: 12/28/18 07:05 12/28/18 07:05 PT 11.7 SECONDS (9.4-12.5) 12/26/18 16:33 INR 1.05 12/26/18 16:33 APTT 27.2 Seconds (26.9-38.3) 12/26/18 16:33 - Constitutional Appears: No Acute Distress - Head Exam Head Exam: ATRAUMATIC, NORMAL INSPECTION, NORMOCEPHALIC - Eye Exam Eye Exam: EOMI, Normal appearance, PERRL. absent: Scleral icterus Pupil Exam: NORMAL ACCOMODATION - ENT Exam ENT Exam: Mucous Membranes Moist - Respiratory Exam Respiratory Exam: Clear to Ausculation Bilateral. absent: Rales, Rhonchi, Wheezes - Cardiovascular Exam Cardiovascular Exam: REGULAR RHYTHM, +S1, +S2 - GI/Abdominal Exam GI & Abdominal Exam: Soft, Normal Bowel Sounds. absent: Guarding, Rigid, Tenderness - Extremities Exam Extremities Exam: Normal Capillary Refill. absent: Calf Tenderness, Pedal Edema - Back Exam Back Exam: absent: CVA tenderness (L), CVA tenderness (R) - Neurological Exam Neurological Exam: Alert, Awake, Normal Gait, Oriented x3 - Psychiatric Exam Psychiatric exam: Normal Affect, Normal Mood - Skin Skin Exam: Dry, Warm Assessment and Plan - Assessment and Plan (Free Text) Plan: Ms Hernandez, 43M, with PMHx for CAD s/p stent, HTN, DM2 (dx 6 years ago), drug abuse, schizophrenia, and anxiety c/o chest tightness that began while playing basketball. Chest pain resolved, likely due to PCP use For DM2 with hyperglycemia, pt has poor compliant diet, refusing to change. HgB A1C 13.3. Increase Levemir to 24u HS, humalog 12 ACTID, with modified ISSS. Consult diabetic education and dietitan instruction. Rug Receiving Clerk on substance abuse cessation s/r/d/w Dr Mckeon
[2018-12-28] MEDS: Insulin Lispro 1 UNITS/0.01 ML SC SCH ×2 (08:41→12:01)
[2018-12-28 11:20] VITALS: BP 153/109
[2018-12-28] MEDS: Insulin Lispro (humaLOG) LOW Coverage SC SCH ×2 (12:00→12:01)
[2018-12-28 12:15] VITALS: RESP 20
--- NOTE | 2018-12-28 13:37 | CP.PCM.PN ---
Subjective - Date & Time of Evaluation Date of Evaluation: 12/28/18 Time of Evaluation: 13:34 - Subjective Subjective: RENAL FOLLOW UP 43 yo M with pmhx of HTN, DM, CAD s/p stent that presented to ER /w Chest tightness and light headedness. He has hx of poorly controlled dm - he states he "over did it" w/ basketball - and was not taking in any fluids except for soda and sweets. he denies fever or chills. He denies n/v. He was admitted w/ hypotension as well. he was started on ivf - his renal function is now improving. He states he is feeling better today ros: a full detailed ros is negative except as in my hpi. pt says I feel good and ready to check out now. Pmhx:HTN, DM, CAD s/p stent on 07/31, schizophrenia and anxiety Pshx: Stent placement All: NKDA Social: admits to smoking 5cig/day, denies etoh or illicit drug use famhx: + htn pe: vs as below gen: nad obese morbidly sclera: anicteric op: clear neck: supple cv: +S1+s2 no rub lungs cta abd soft nt nd no organomegaly ext: no edema neuro: a+Ox3 psych: nml affect skin no rash labs and imaging reviewed imp: ARF/ Diabetic kidney disease/ hypertensive kidney disease /hyponatremia /hypertriglyceridemia/morbid obesity/uncontrolled DM with hyperglycemia plan: susana seems c/w hypovolemia and is improving with IVF DM per primary team continue na improved /w volume/sugar control endocrine following resume home anti-hypertensive regimen pt stable from renal perspective advised to abstain from sugar drinks he needs lifestyle modification exercise weight loss diet control f/up renal clinic 1-2 weeks post d/c Objective - Vital Signs/Intake and Output Vital Signs (last 24 hours): Temp Pulse Resp BP Pulse Ox 98.1 F 63 20 153/109 H 97 12/28/18 12:00 12/28/18 12:34 12/28/18 12:00 12/28/18 12:34 12/28/18 05:44 Intake and Output: 12/28/18 12/28/18 06:59 18:59 Intake Total 1200 500 Output Total 0 Balance 1200 500 - Medications Medications: Current Medications Albuterol/Ipratropium (Duoneb 3 Mg/0.5 Mg (3 Ml) Ud) 3 ml IH Q2H PRN PRN Reason: Shortness of Breath Aspirin (Aspirin Chewable) 81 mg PO DAILY [facility] Last Admin: 12/28/18 11:19 Dose: 81 mg Atorvastatin Calcium (Lipitor) 40 mg PO DAILY [facility] Last Admin: 12/28/18 11:18 Dose: 40 mg Clopidogrel Bisulfate (Plavix) 75 mg PO DAILY [facility] Last Admin: 12/28/18 11:18 Dose: 75 mg Fenofibrate (Tricor) 48 mg PO DAILY [facility] Last Admin: 12/28/18 11:18 Dose: 48 mg Heparin Sodium (Porcine) (Heparin) 5,000 units SC Q12 [facility]; Protocol Last Admin: 12/28/18 11:18 Dose: 5,000 units Insulin Detemir (Levemir) 24 unit SC HS [facility] Insulin Human Lispro (Humalog Low) 0 units SC ACHS [facility]; Protocol Last Admin: 12/28/18 12:01 Dose: Not Given Insulin Human Lispro (Humalog) 12 units SC ACTID [facility] Last Admin: 12/28/18 12:01 Dose: 12 units Metoprolol Tartrate (Lopressor) 25 mg PO BRKDIN [facility] Last Admin: 12/28/18 11:19 Dose: 25 mg - Labs Labs: 12/28/18 07:05 12/28/18 07:05 PT 11.7 SECONDS (9.4-12.5) 12/26/18 16:33 INR 1.05 12/26/18 16:33 APTT 27.2 Seconds (26.9-38.3) 12/26/18 16:33
--- NOTE | 2018-12-28 14:12 | CP.PCM.DIS ---
<Tram Dinh - Last Filed: 12/28/18 21:12> Provider - Provider Date of Admission: 12/26/18 17:57 Attending physician: Arash Davis MD Consults: 12/26/18 20:13 Nephrology Consult Routine Comment: Consulting Provider: Tommy Arroyo Consulting Physician: Tommy Arroyo Reason for Consult: RONAN on CKD 12/26/18 20:17 Cardiology Consult Routine Comment: Consulting Provider: Fco Estrella Consulting Physician: Fco Estrella Reason for Consult: CP r/o ACS hx of CAD s/p 1 stent 12/26/18 22:44 Diabetic Education Referral Routine Comment: DIABETIC TEACHING,REINFORCEMENT.NON COMPLIANT /MED Physician Instructions: Reason For Exam: [id number] Inpatient TOE FORMER Core Measures Referral Routine Comment: Physician Instructions: Reason For Exam: EVALUATION Transition In Care/Readmission Reduction Routine Comment: Physician Instructions: Reason For Exam: EVALUATION 12/27/18 08:31 Endocrinology Consult Routine Comment: Consulting Provider: Ioana Mckeon Consulting Physician: Ioana Mckeon Reason for Consult: dm2 with hyperglycemia Time Spent in preparation of Discharge (in minutes): 45 Diagnosis - Discharge Diagnosis (1) RONAN (acute kidney injury) Status: Acute (2) Chest pain Status: Acute (3) Hyperglycemia Status: Acute (4) Uncontrolled diabetes mellitus Status: Chronic Hospital Course - Lab Results Lab Results: Most Recent Lab Values WBC 5.4 10^3/uL (4.5-11.0) 12/28/18 07:05 RBC 5.02 10^6/uL (3.5-6.1) 12/28/18 07:05 Hgb 13.9 g/dL (14.0-18.0) L 12/28/18 07:05 Hct 42.9 % (42.0-52.0) 12/28/18 07:05 MCV 85.5 fl (80.0-105.0) 12/28/18 07:05 MCH 27.7 pg (25.0-35.0) 12/28/18 07:05 MCHC 32.4 g/dl (31.0-37.0) 12/28/18 07:05 RDW 13.0 % (11.5-14.5) 12/28/18 07:05 Plt Count 262 10^3/uL (120.0-450.0) 12/28/18 07:05 MPV 10.4 fl (7.0-11.0) 12/28/18 07:05 Neut % (Auto) 39.8 % (50.0-68.0) L 12/28/18 07:05 Lymph % (Auto) 52.0 % (22.0-35.0) H 12/28/18 07:05 Phelps % (Auto) 5.8 % (1.0-6.0) 12/28/18 07:05 Eos % (Auto) 2.0 % (1.5-5.0) 12/28/18 07:05 Baso % (Auto) 0.4 % (0.0-3.0) 12/28/18 07:05 Lymph # (Auto) 2.8 (1.2-3.4) 12/28/18 07:05 Phelps # (Auto) 0.3 (0.1-0.6) 12/28/18 07:05 Eos # (Auto) 0.1 (0.0-0.7) 12/28/18 07:05 Baso # (Auto) 0.02 K/mm3 (0.0-2.0) 12/28/18 07:05 Absolute Neuts (auto) 2.14 (1.4-6.5) 12/28/18 07:05 PT 11.7 SECONDS (9.4-12.5) 12/26/18 16:33 INR 1.05 12/26/18 16:33 APTT 27.2 Seconds (26.9-38.3) 12/26/18 16:33 pO2 50 mm/Hg (30-55) 12/26/18 21:30 VBG pH 7.25 (7.32-7.43) L 12/26/18 21:30 VBG pCO2 65.0 (40-60) H 12/26/18 21:30 VBG HCO3 28.5 mmol/l (21-28) H 12/26/18 21:30 VBG Total CO2 30.5 mmol.L (22-28) H 12/26/18 21:30 VBG O2 Sat (Calc) 84.9 % (40-65) H 12/26/18 21:30 VBG Base Excess -0.3 mmol/L (0.0-2.0) L 12/26/18 21:30 VBG Potassium 4.6 mmol/L (3.6-5.2) 12/26/18 21:30 Sodium 135.0 mmol/L (132-148) 12/26/18 21:30 Chloride 94.0 mmol/L (98-107) L 12/26/18 21:30 Glucose 402 mg/dl (75-110) H* D 12/26/18 21:30 Lactate 1.7 mmol/L (0.7-2.1) 12/26/18 21:30 FiO2 21.0 % 12/26/18 21:30 Crit Value Called To Stefani garcia rn 12/26/18 21:30 Crit Value Called By Shanelle 12/26/18 21:30 Blood Gas Notified Time 220912/26/18 21:30 Sodium 136 mmol/L (132-148) 12/28/18 07:05 Potassium 4.1 mmol/L (3.6-5.0) 12/28/18 07:05 Chloride 100 mmol/L (98-107) 12/28/18 07:05 Carbon Dioxide 28 mmol/L (21-33) 12/28/18 07:05 Anion Gap 12 (10-20) 12/28/18 07:05 BUN 25 mg/dL (7-21) H 12/28/18 07:05 Creatinine 1.3 mg/dl (0.8-1.5) 12/28/18 07:05 Est GFR ( Amer) > 60 12/28/18 07:05 Est GFR (Non-Af Amer) > 60 12/28/18 07:05 POC Glucose (mg/dL) 313 mg/dL (65-110) H 12/28/18 11:53 Random Glucose 215 mg/dL (70-110) H 12/28/18 07:05 Hemoglobin A1c 13.3 % (4.2-6.5) H D 12/27/18 06:35 Serum Osmolality 311 mosm/kg (272-300) H 12/26/18 16:50 Calcium 8.8 mg/dL (8.4-10.5) 12/28/18 07:05 Phosphorus 3.0 mg/dL (2.5-4.5) 12/28/18 07:05 Magnesium 1.7 mg/dL (1.7-2.2) 12/28/18 07:05 Total Bilirubin 0.7 mg/dL (0.2-1.3) 12/28/18 07:05 AST 29 U/L (17-59) 12/28/18 07:05 ALT 18 U/L (7-56) 12/28/18 07:05 Alkaline Phosphatase 104 U/L (38-126) 12/28/18 07:05 Lactate Dehydrogenase 592 U/L (333-699) 12/26/18 16:33 Total Creatine Kinase 194 U/L (35-230) 12/27/18 06:35 CK-MB (CK-2) 4.6 ng/mL (0.0-3.6) H 12/26/18 16:33 CK-MB (CK-2) % Cancelled 12/26/18 16:33 Troponin I 0.02 ng/mL D 12/27/18 06:35 NT-Pro-B Natriuret Pep 25.1 pg/mL (0-450) 12/26/18 16:33 Total Protein 7.0 g/dL (5.8-8.3) 12/28/18 07:05 Albumin 3.7 g/dL (3.0-4.8) 12/28/18 07:05 Globulin 3.3 gm/dL 12/28/18 07:05 Albumin/Globulin Ratio 1.1 (1.1-1.8) 12/28/18 07:05 Triglycerides 451 mg/dL (35-160) H 12/27/18 06:35 Cholesterol 161 mg/dL (130-200) 12/27/18 06:35 LDL Cholesterol Direct 72 mg/dL (0-129) 12/27/18 06:35 HDL Cholesterol 25 mg/dL (29-60) L 12/27/18 06:35 TSH 3rd Generation 1.29 mIU/mL (0.46-4.68) 12/27/18 06:35 Venous Blood Potassium 4.6 mmol/L (3.6-5.2) 12/26/18 21:30 - Hospital Course Hospital Course: Upon Admission: Pt is a 43 yo M with pmhx of HTN, DM, CAD s/p stent on 07/31, schizophrenia, and anxiety who presents for chest tightness which started while he was playing basketball this afternoon. Pt states that about 30 mins prior to presentation in the ER the pt was playing basketball with his friends and the noted that he was experiencing some chest tightness. Pt describes the pain as midsternal chest pain that is located at the xyphoid process, pain is not worsened with activity and does not radiate. He states that the pain is similar to one that he has experienced in the past, and states that he believes that its related to him not eating all day. He reports that when the pain started it was a 7/10 and contin ues to be a 7/10 now. Pt also admits to being non-compliant with his diabetes medications and states that he has been drinking sugar filled drinks all day. Pt at this time is denying fevers, chills, headache, numbness, tingling, weakness, SOB, palpitations, abd pain, n/v, c/d. Pt admits to non-radiating, chest tightness. Hosptial Course: Pt was being worked up for his chest pain, RONAN and his hyperglycemia. Pts trops were trended and noted to be negative. Cardi consulted and pt had echo. Cardio stated that the pt should follow up with them for outpt stress test and to follow up on echo reports with them. Pt was cleared by cardio for d/c with follow up. Pt was given fluids as the pt was noted to by hyperglycemic W/OUT anion gap. Pt was given 3L fluid bolus. Pt admits to being non-comploant with his diabetic regimen. Pts Hgb is noted to be over 13 and pt was informed about this result and consuled to be compliant with diabetic regimen and to follow low carb diet. Pt educated on importance of sugar control and how high glucose in his blood leads to increased risk of infections, poor healing wounds, kidney, feet, nerve and eye damage. Pt stated that he understood the advice but wishes to eat what he wants and will be better with his medications. Endocrine was consulted on his case for insulin regimen adjustment. Pt also noted to be having RONAN. Nephro consulted and stated that it was likely 2/2 dehydration and pts poorly controlled DM is also likely a contibuting factor for his poor renal function. Pt was given fluids and his RONAN was improving after fluids given. Pt Also admitted to PCP use 2 days ago. Pt was consoled to stop taking illicit drug use. Pt stated that he would consider stop using illicit drugs. Pt was upset that he was not getting the food he wanted, and as pt was cleared for d/c with followup, pt agreed to dicharge and ensured that he would follow up and be more compliant with his insulin regimen. Pt agreed and understood to d/c and f/u plan. All of the pts questions and concerns were addressed prior to d/c. Discharge Exam - Head Exam Head Exam: ATRAUMATIC, NORMAL INSPECTION, NORMOCEPHALIC - Eye Exam Eye Exam: EOMI, Normal appearance, PERRL - Respiratory Exam Respiratory Exam: Clear to PA & Lateral, NORMAL BREATHING PATTERN, UNREMARKABLE. absent: Rales, Rhonchi, Wheezes, Respiratory Distress, Stridor - Cardiovascular Exam Cardiovascular Exam: RRR, +S1, +S2. absent: Gallop, Rubs - GI/Abdominal Exam GI & Abdominal Exam: Normal Bowel Sounds, Soft, Unremarkable. absent: Distended, Firm, Rigid, Tenderness - Extremities Exam Extremities exam: normal capillary refill, normal inspection, pedal pulses present - Back Exam Back exam: NORMAL INSPECTION. absent: CVA tenderness (L), CVA tenderness (R) - Neurological Exam Neurological exam: Alert, Normal Gait - Psychiatric Exam Psychiatric exam: Normal Affect, Normal Mood - Skin Skin Exam: Dry, Normal Color, Warm Discharge Plan - Discharge Medications Prescriptions: Ergocalciferol (Vitamin D2) [Vitamin D2] 50,000 unit PO Q7D 30 Days #30 capsule FLUoxetine [Fluoxetine HCl] 20 mg PO DAILY 30 Days #30 cap Gabapentin [Neurontin] 300 mg PO TID 30 Days #30 cap Insulin Glargine,Hum.rec.anlog [Basaglar Kwikpen U-100] 35 unit SQ HS 30 Days #1 insuln.pen Insulin Lispro [Humalog (Insulin Lispro)] 12 unit SQ WM 30 Days #1 cartridge Lisinopril/Hydrochlorothiazide [Lisinopril-Hctz 20-25 mg Tab] 1 each PO DAILY 30 Days #30 tablet metFORMIN [glucOPHAGE] 850 mg PO QAM 30 Days #30 tab Multivitamin [Multivitamins] 1 each PO DAILY 30 Days #30 capsule QUEtiapine [Seroquel] 200 mg PO HS 30 Days #30 tab - Follow Up Plan Condition: STABLE Disposition: HOME/ ROUTINE Additional Instructions: - Please follow up with your Primary Medical Doctor within 3-5 days of discharge. - Please ensure that you are taking your insulin and your metformin as prescribed by your doctor. - Your HgbA1c is greater than 13.3 which indicates that your Diabetes is poorly controlled please follow up with your primary care doctor (Dr. Muhammad) within 3-5 days to continue to follow this closely. You will need a repeat basic metabolic profile in the outpatient setting which should be followed with your primary care doctor. - Your Kidney numbers are abnormal. This is likely due to damage from your Diabetes to your kidneys. Please follow up with a kidney specialist within 7 days to continue to closely follow this. - Please also follow up with an Cash Person (bibliographic services specialist) to better control your diabetes. - Please follow up with your Evaluation Advisor (heart doctor) for a stress test. - If you have any new or returning symptoms please return to the nearest Emergency Department. Referrals: Ioana Mckeon MD [Medical Doctor] - Fco Estrella MD [Staff Provider] - Valeria Muhammad MD [Non-Staff] - <Arash Davis - Last Filed: 12/29/18 13:09> Provider - Provider Date of Admission: 12/26/18 17:57 Attending physician: Arash Davis MD Consults: 12/26/18 20:13 Nephrology Consult Routine Comment: Consulting Provider: Tommy Arroyo Consulting Physician: Tommy Arroyo Reason for Consult: RONAN on CKD 12/26/18 20:17 Cardiology Consult Routine Comment: Consulting Provider: Fco Estrella Consulting Physician: Fco Estrella Reason for Consult: CP r/o ACS hx of CAD s/p 1 stent 12/26/18 22:44 Diabetic Education Referral Routine Comment: DIABETIC TEACHING,REINFORCEMENT.NON COMPLIANT /MED Physician Instructions: Reason For Exam: [id number] Inpatient TOE FORMER Core Measures Referral Routine Comment: Physician Instructions: Reason For Exam: EVALUATION Transition In Care/Readmission Reduction Routine Comment: Physician Instructions: Reason For Exam: EVALUATION 12/27/18 08:31 Endocrinology Consult Routine Comment: Consulting Provider: Ioana Mckeon Consulting Physician: Ioana Mckeon Reason for Consult: dm2 with hyperglycemia Hospital Course - Lab Results Lab Results: Most Recent Lab Values WBC 5.4 10^3/uL (4.5-11.0) 12/28/18 07:05 RBC 5.02 10^6/uL (3.5-6.1) 12/28/18 07:05 Hgb 13.9 g/dL (14.0-18.0) L 12/28/18 07:05 Hct 42.9 % (42.0-52.0) 12/28/18 07:05 MCV 85.5 fl (80.0-105.0) 12/28/18 07:05 MCH 27.7 pg (25.0-35.0) 12/28/18 07:05 MCHC 32.4 g/dl (31.0-37.0) 12/28/18 07:05 RDW 13.0 % (11.5-14.5) 12/28/18 07:05 Plt Count 262 10^3/uL (120.0-450.0) 12/28/18 07:05 MPV 10.4 fl (7.0-11.0) 12/28/18 07:05 Neut % (Auto) 39.8 % (50.0-68.0) L 12/28/18 07:05 Lymph % (Auto) 52.0 % (22.0-35.0) H 12/28/18 07:05 Phelps % (Auto) 5.8 % (1.0-6.0) 12/28/18 07:05 Eos % (Auto) 2.0 % (1.5-5.0) 12/28/18 07:05 Baso % (Auto) 0.4 % (0.0-3.0) 12/28/18 07:05 Lymph # (Auto) 2.8 (1.2-3.4) 12/28/18 07:05 Phelps # (Auto) 0.3 (0.1-0.6) 12/28/18 07:05 Eos # (Auto) 0.1 (0.0-0.7) 12/28/18 07:05 Baso # (Auto) 0.02 K/mm3 (0.0-2.0) 12/28/18 07:05 Absolute Neuts (auto) 2.14 (1.4-6.5) 12/28/18 07:05 PT 11.7 SECONDS (9.4-12.5) 12/26/18 16:33 INR 1.05 12/26/18 16:33 APTT 27.2 Seconds (26.9-38.3) 12/26/18 16:33 pO2 50 mm/Hg (30-55) 12/26/18 21:30 VBG pH 7.25 (7.32-7.43) L 12/26/18 21:30 VBG pCO2 65.0 (40-60) H 12/26/18 21:30 VBG HCO3 28.5 mmol/l (21-28) H 12/26/18 21:30 VBG Total CO2 30.5 mmol.L (22-28) H 12/26/18 21:30 VBG O2 Sat (Calc) 84.9 % (40-65) H 12/26/18 21:30 VBG Base Excess -0.3 mmol/L (0.0-2.0) L 12/26/18 21:30 VBG Potassium 4.6 mmol/L (3.6-5.2) 12/26/18 21:30 Sodium 135.0 mmol/L (132-148) 12/26/18 21:30 Chloride 94.0 mmol/L (98-107) L 12/26/18 21:30 Glucose 402 mg/dl (75-110) H* D 12/26/18 21:30 Lactate 1.7 mmol/L (0.7-2.1) 12/26/18 21:30 FiO2 21.0 % 12/26/18 21:30 Crit Value Called To Stefani garcia rn 12/26/18 21:30 Crit Value Called By Shanelle 12/26/18 21:30 Blood Gas Notified Time 2210 12/26/18 21:30 Sodium 136 mmol/L (132-148) 12/28/18 07:05 Potassium 4.1 mmol/L (3.6-5.0) 12/28/18 07:05 Chloride 100 mmol/L (98-107) 12/28/18 07:05 Carbon Dioxide 28 mmol/L (21-33) 12/28/18 07:05 Anion Gap 12 (10-20) 12/28/18 07:05 BUN 25 mg/dL (7-21) H 12/28/18 07:05 Creatinine 1.3 mg/dl (0.8-1.5) 12/28/18 07:05 Est GFR ( Amer) > 60 12/28/18 07:05 Est GFR (Non-Af Amer) > 60 12/28/18 07:05 POC Glucose (mg/dL) 313 mg/dL (65-110) H 12/28/18 11:53 Random Glucose 215 mg/dL (70-110) H 12/28/18 07:05 Hemoglobin A1c 13.3 % (4.2-6.5) H D 12/27/18 06:35 Serum Osmolality 311 mosm/kg (272-300) H 12/26/18 16:50 Calcium 8.8 mg/dL (8.4-10.5) 12/28/18 07:05 Phosphorus 3.0 mg/dL (2.5-4.5) 12/28/18 07:05 Magnesium 1.7 mg/dL (1.7-2.2) 12/28/18 07:05 Total Bilirubin 0.7 mg/dL (0.2-1.3) 12/28/18 07:05 AST 29 U/L (17-59) 12/28/18 07:05 ALT 18 U/L (7-56) 12/28/18 07:05 Alkaline Phosphatase 104 U/L (38-126) 12/28/18 07:05 Lactate Dehydrogenase 592 U/L (333-699) 12/26/18 16:33 Total Creatine Kinase 194 U/L (35-230) 12/27/18 06:35 CK-MB (CK-2) 4.6 ng/mL (0.0-3.6) H 12/26/18 16:33 CK-MB (CK-2) % Cancelled 12/26/18 16:33 Troponin I 0.02 ng/mL D 12/27/18 06:35 NT-Pro-B Natriuret Pep 25.1 pg/mL (0-450) 12/26/18 16:33 Total Protein 7.0 g/dL (5.8-8.3) 12/28/18 07:05 Albumin 3.7 g/dL (3.0-4.8) 12/28/18 07:05 Globulin 3.3 gm/dL 12/28/18 07:05 Albumin/Globulin Ratio 1.1 (1.1-1.8) 12/28/18 07:05 Triglycerides 451 mg/dL (35-160) H 12/27/18 06:35 Cholesterol 161 mg/dL (130-200) 12/27/18 06:35 LDL Cholesterol Direct 72 mg/dL (0-129) 12/27/18 06:35 HDL Cholesterol 25 mg/dL (29-60) L 12/27/18 06:35 TSH 3rd Generation 1.29 mIU/mL (0.46-4.68) 12/27/18 06:35 Venous Blood Potassium 4.6 mmol/L (3.6-5.2) 12/26/18 21:30 Attending/Attestation - Attestation I have personally seen and examined this patient.: Yes I have fully participated in the care of the patient.: Yes I have reviewed all pertinent clinical information, including history, physical exam and plan: Yes Notes (Text): 12/29/18 13:01 Attending note ; Patient seen and examined in room 271 . Patient is alert and awake . Denies any chest pain, shortness of breath . Ambulating in the hallway without difficulty . Tolerating diet well . patient is a 43-year-old male with past medical history significant for hypertension, type 2 diabetes, coronary artery disease status post stent placement, drug abuse, schizophrenia, and anxiety that presents to the emergency room with chest tightness that began while playing basketball. 1. Chest pain; patient is currently pain-free. Cardiac enzymes negative. Cardiology evaluation appreciated. Dietary education given. triglycerides elevated at 451. LDL 72, TSH 1.29. Continue Lipitor and Fenofibrate. Continue ASA and Plavix. Continue metoprolol, lisinopril/hydrochlorthiazide. 2. DM2 with hyperglycemia. Patient with poor diet, refusing to change. HgB A1C 13.3. Cash Person recommendations appreciated . Continue Levemir and pre-meal insulin. Patient has glucometer at home. Patient states that he checks his sugar at home. Advised to keep a diary and follow-up with PMD to adjust insulin. 3. Hypertension. Patient came in with hypotension on admission. Started on metoprolol and lisinopril/hydrochlorthiazide. 4. RNOAN. resolved. 5. Hypercholesterolemia. Continue Lipitor and Fenofibrate. 6. Drug abuse. Admits to PCP about two days ago. Symptoms may have been secondary to this. Cessation discussed at length with patient. Follow-up creatinine and fingerstick closely as outpatient. Patient will be discharged home today. Follow-up with PMD Dr. Muhammad.
--- NOTE | 2018-12-28 14:24 | CARD ---
APPROVED REPORT Date of service: 12/28/2018 EXAM: Two-dimensional and M-mode echocardiogram with Doppler and color Doppler. INDICATION Chest Pain 2D DIMENSIONS Left Atrium (2D)3.3 (1.6-4.0cm)IVSd1.8 (0.7-1.1cm) LVDd5.1 (3.9-5.9cm)PWd1.4 (0.7-1.1cm) LVDs3.2 (2.5-4.0cm)FS (%) 37.0 % LVEF (%)66.7 (>50%) M-Mode DIMENSIONS Aortic Root3.50 (2.2-3.7cm)Aortic Cusp Exc.1.80 (1.5-2.0cm) Aortic Valve AoV Peak Crleeukl492.0cm/Josiane Peak GR.6mmHg Mitral Valve MV E Qtdvwgcp91.9cm/sMV A Ogvwzvll32.0cm/sE/A ratio1.0 TDI E/Lateral E'0.0E/Medial E'0.0 Tricuspid Valve TR Peak [id number]/sRAP [id number] Peak Gr.7mmHg [id number] LEFT VENTRICLE The left ventricle is normal size. There is mild concentric left ventricular hypertrophy. The left ventricular function is normal. The left ventricular ejection fraction is within the normal range. There is normal LV segmental wall motion. Transmitral Doppler flow pattern is Grade I-abnormal relaxation pattern. RIGHT VENTRICLE The right ventricle is normal size. There is normal right ventricular wall thickness. The right ventricular systolic function is normal. ATRIA The left atrium size is normal. The right atrium size is normal. AORTIC VALVE The aortic valve is not well visualized. There is mild aortic regurgitation. There is no aortic valvular stenosis. There is no aortic valvular vegetation. MITRAL VALVE The mitral valve is normal in structure. There is no mitral valve regurgitation noted. There is no mitral valve stenosis. There is no evidence of mitral valve prolapse. TRICUSPID VALVE The tricuspid valve is normal in structure. There is no tricuspid valve regurgitation noted. There is no tricuspid valve stenosis. PULMONIC VALVE The pulmonary valve is normal in structure. There is mild pulmonic valvular regurgitation. GREAT VESSELS The aortic root is normal in size. The IVC is normal in size and collapses >50% with inspiration. PERICARDIAL EFFUSION There is no pericardial effusion. <Conclusion> There is mild concentric left ventricular hypertrophy. The left ventricular function is normal. The left ventricular ejection fraction is within the normal range. There is normal LV segmental wall motion. Transmitral Doppler flow pattern is Grade I-abnormal relaxation pattern. There is mild aortic regurgitation.
[2018-12-28 14:36] VITALS: PULSE 67
[2018-12-28] MEDS ORDERED: Insulin Detemir 100 units/ml Vial (Levemir) SC SCH (22:00)
--- NOTE | 2018-12-29 01:08 | PN ---
DATE: 12/28/2018 ENDOCRINOLOGY FOLLOWUP NOTE LOCATION: Room 271. SUBJECTIVE: This is a 43-year-old male with recent uncontrolled type 2 insulin-requiring diabetes, presenting here with precordial chest pain and concomitant illicit drug use, and is now being followed closely for metabolic management. His glycemic levels are fluctuating as noted today yet have ranged from 214 to 313 mg/dL. It was 368 at bedtime last night. LABORATORY DATA: His chemistry showed a BUN of 25, sodium 136, potassium 4.1, chloride 100, CO2 of 28, glucose 215, and creatinine 1.3. ASSESSMENT: This is a 43-year-old male with uncontrolled and decompensated type 2 insulin-requiring diabetes with marked hyperglycemic accelerations and very poor adherence and compliance with outpatient insulin regimen as given. PLAN OF MANAGEMENT: We will continue the modified basal and bolus insulin regimen as given with Humalog given as 12 units t.i.d. before meals as ordered. We will also continue the basal insulin given as Levemir at 24 units subcu at bedtime daily as given. We will titrate incrementally as indicated to optimize metabolic control. We will obtain serial chemistries and supplement accordingly needed. We will follow. Ioana Mckeon MD
--- NOTE | 2018-12-29 01:40 | PN ---
DATE: 12/28/2018 SUBJECTIVE: The patient is seen walking on telemetry. He denies any recurrent chest pain. He is anxious to go home. MEDICATIONS: His current medications include aspirin, DuoNeb inhaler, subcutaneous heparin, insulin, Lipitor 40 mg daily, metoprolol 25 mg b.i.d., Plavix 75 mg daily, and TriCor. PHYSICAL EXAMINATION: GENERAL: He is an overweight middle-aged male. VITAL SIGNS: Blood pressure is 130/84, the pulse is 70 and sinus, respirations are 16. He is afebrile. HEENT: No JVD. CHEST: Few scattered rhonchi heard. HEART: PMI displaced laterally with a systolic murmur at the left sternal border. ABDOMEN: Soft, obese, nontender. Normoactive bowel sounds. EXTREMITIES: No edema. DIAGNOSTIC DATA: White count is 5.4, hemoglobin and hematocrit is 13.9 and 42.9 with a platelet count of 262,000. Potassium 4.1, BUN and creatinine 25 and 1.3. An echocardiogram was performed to reveal mild concentric LVH with normal LV systolic function. IMPRESSION: 1. Recent chest pain, known coronary artery disease, status post prior percutaneous coronary intervention. No evidence of acute injury are present. 2. History of tobacco abuse. 3. History of diabetes with poor control. 4. Hypertension. 5. Obesity. RECOMMENDATIONS: Current medical regimen will continue. Aggressive risk factor control is advised. The need for diet controlled diabetes was discussed with him. A followup stress test is recommended. He prefers to be discharged and have this performed as an outpatient. The need for compliance or followup was emphasized to him. Fco Estrella MD
== END 2018-12-28 15:00 | disposition home or self-care (01) | DRG 638 ==
LOC: ED 16:15 → ERH 17:57 → 2RSO 20:36
PROVIDERS: ADMIT Internal Medicine; ATTEND Internal Medicine
DX: E11.65 Type 2 diabetes mellitus with hyperglycemia (principal); E87.1 Hypo-osmolality and hyponatremia; N17.9 Acute kidney failure, unspecified; Z68.42 Body mass index [BMI] 45.0-49.9, adult; E86.0 Dehydration; I95.9 Hypotension, unspecified; I25.10 Atherosclerotic heart disease of native coronary artery without angina pectoris; F41.1 Generalized anxiety disorder; F25.9 Schizoaffective disorder, unspecified; E11.42 Type 2 diabetes mellitus with diabetic polyneuropathy; F16.90 Hallucinogen use, unspecified, uncomplicated; E78.1 Pure hyperglyceridemia; E78.00 Pure hypercholesterolemia, unspecified; I12.9 Hypertensive chronic kidney disease with stage 1 through stage 4 chronic kidney disease, or unspecified chronic kidney disease; N18.9 Chronic kidney disease, unspecified; E11.22 Type 2 diabetes mellitus with diabetic chronic kidney disease; E66.01 Morbid (severe) obesity due to excess calories; Z91.14 Patient's other noncompliance with medication regimen; E11.21 Type 2 diabetes mellitus with diabetic nephropathy; E11.319 Type 2 diabetes mellitus with unspecified diabetic retinopathy without macular edema; F17.210 Nicotine dependence, cigarettes, uncomplicated; Z79.899 Other long term (current) drug therapy; Z79.4 Long term (current) use of insulin; Z79.84 Long term (current) use of oral hypoglycemic drugs; Z95.5 Presence of coronary angioplasty implant and graft; Z83.3 Family history of diabetes mellitus

== ENCOUNTER 2019-01-11 19:18 | Inpatient (IN) | payer MEDICARE, MEDICAID ==
--- NOTE | 2019-01-11 19:42 | ED PDOC ---
Arrival/HPI - General Chief Complaint: Chest Pain Time Seen by Provider: 01/11/19 19:27 - Critical Care Critical Care Minutes: 30 minutes - History of Present Illness Narrative History of Present Illness (Text): 43 yr old male w/ hx of CAD w/ 1 stent, hypertension, DM2, smoking p/w chest pain. Pt notes chest pain 45 minutes prior to arrival, tightness, to center or chest, without radiation. No nausea or vomiting or diaphoresis. No fall or trauma. No exertional chest pain. He notes taking his plavix and home medications this morning. He denies any trauma or fall. No leg swelling, sob, CHUA, orthopnea or pnd. No fever, chills, night sweats or cough. No other complaints. Past Medical History - Infectious Disease Hx of Infectious Diseases: None - Cardiac Hx Hypertension: Yes - Pulmonary Hx Respiratory Disorders: No - Neurological Hx Neurological Disorder: No - HEENT Hx HEENT Disorder: No - Renal Hx Renal Disorder: No - Endocrine/Metabolic Hx Diabetes Mellitus Type 2: Yes - Hematological/Oncological Hx Blood Disorders: No - Integumentary Hx Dermatological Disorder: No - Musculoskeletal/Rheumatological Hx Musculoskeletal Disorders: No Hx Falls: No - Gastrointestinal Hx Gastrointestinal Disorders: No - Genitourinary/Gynecological Hx Genitourinary Disorders: No - Psychiatric Hx Psychophysiologic Disorder: Yes Hx Anxiety: Yes Hx Depression: Yes Hx Schizophrenia: Yes Hx Substance Use: No - Surgical History Hx Cardiac Catheterization: Yes (07/2016) Other/Comment: cardiac stents - Anesthesia Hx Anesthesia: Yes Hx Anesthesia Reactions: No Hx Malignant Hyperthermia: No Family/Social History Family/Social History: Unknown Family HX Smoking Status: Light Smoker < 10 Cigarettes Daily Hx Alcohol Use: No Hx Substance Use: No Allergies/Home Meds Allergies/Adverse Reactions: Allergies No Known Allergies Allergy (Verified 12/26/18 21:25) Review of Systems - Review of Systems Constitutional: absent: Fatigue, Weight Change Eyes: absent: Vision Changes, Photophobia ENT: absent: Hearing Changes, Tinnitus Respiratory: absent: SOB, Cough, Sputum Cardiovascular: Chest Pain. absent: Palpitations, Edema Gastrointestinal: absent: Abdominal Pain, Stool Changes, Constipation Genitourinary Male: absent: Dysuria, Frequency, Hematuria Musculoskeletal: absent: Arthralgias, Back Pain, Neck Pain Skin: absent: Rash, Pruritis, Skin Lesions Neurological: absent: Headache, Dizziness, Focal Weakness Endocrine: absent: Diaphoresis Hemo/Lymphatic: absent: Adenopathy, Easy Bleeding Physical Exam Vital Signs Temp Pulse Resp BP Pulse Ox 01/11/19 19:30 97.9 F 70 16 125/74 100 Temperature: Afebrile Blood Pressure: Normal Pulse: Regular Respiratory Rate: Normal Appearance: Positive for: Well-Appearing, Non-Toxic, Comfortable Pain Distress: None Mental Status: Positive for: Alert and Oriented X 3 - Systems Exam Head: Present: Atraumatic, Normocephalic Pupils: Present: PERRL Extroacular Muscles: Present: EOMI Conjunctiva: Present: Normal Ears: Present: Normal Mouth: Present: Moist Mucous Membranes Neck: Present: Normal Range of Motion. No: Meningeal Signs, MIDLINE TENDERNESS, JVD, Lymphadenopathy Respiratory/Chest: Present: Clear to Auscultation, Good Air Exchange. No: Respiratory Distress, Accessory Muscle Use Cardiovascular: Present: Regular Rate and Rhythm, Normal S1, S2. No: Murmurs Abdomen: No: Tenderness, Distention, Peritoneal Signs Back: Present: Normal Inspection. No: CVA Tenderness, Midline Tenderness Upper Extremity: Present: Normal Inspection, NORMAL PULSES. No: Cyanosis, Edema, Swelling Lower Extremity: Present: Normal Inspection, NORMAL PULSES. No: Edema, Rossi's Sign, Swelling Neurological: Present: GCS=15, CN II-XII Intact, Speech Normal Skin: Present: Warm, Dry, Normal Color. No: Rashes Psychiatric: Present: Alert, Oriented x 3, Normal Insight, Normal Concentration Medical Decision Making ED Course and Treatment: 43 yr old male w/ hx of CAD w/ stents p/w chest pain. Substernal chest pain, non-reproducible to palpation, without respiratory complaints. Took plavix this AM. 45 minutes prior to arrival, no fall or trauma. No tearing chest pain or neuro complaints. Pt comfortable bedside, but given moderate heart score, and cp 45 mins prior pt will likely require serial trops. Low pretes wells: PERCED out Heart score Age: 2 RF: 2 EK Story: 1 Trop: pending EK, nsr, no stemi 01/11/19 22:22 CXR unremarkable per my read Hyperglycemia: elevated Gap but no decreased bicarb. Serum OSM <320 EKG re-reviewed from previous, Notable T wave tenting compared to previous in v3-v4, Ordered insulin given K5.7. Also ordered Albuterol and calcium gluconate. Pt in NAD at this time. VBG lactic 2.8, likely 2/2 dehydration and Hyperglycemia, no fever or elevated WBC. Endorsed to Dr. Bowden (ICU)- who will see pt. 01/11/19 22:36 Accepted to ICU service Appreciate consult w/ Dr. Burns: to admit to her service. pt in NAD, agreeable to plan. Disposition/Present on Arrival - Present on Arrival Any Indicators Present on Arrival: Yes History of DVT/PE: No History of Uncontrolled Diabetes: Yes Urinary Catheter: No History of Decub. Ulcer: No History Surgical Site Infection Following: None - Disposition Have Diagnosis and Disposition been Completed?: Yes Diagnosis: Hyperkalemia, Hyperglycemia, Chest pain Disposition: HOSPITALIZED Disposition Time: 22:43 Patient Problems: Current Active Problems Problem Status Onset Chest pain Acute Hyperglycemia Acute Hyperkalemia Acute Condition: STABLE
[2019-01-11 20:06] LABS: INR 1.03; PARTIAL THROMBOPLASTIN TIME 29.5 Seconds (26.9-38.3); PROTHROMBIN TIME 11.4 SECONDS (9.4-12.5)
[2019-01-11 20:11] LABS: HEMOGLOBIN 14.7 g/dL (14.0-18.0); RBC 5.11 10^6/uL (3.5-6.1); WHITE BLOOD COUNT 5.8 10^3/uL (4.5-11.0)
[2019-01-11 20:12] LABS: BASO % 0.5 % (0.0-3.0); LYMPH # 1.4 (1.2-3.4); LYMPH % 24.6 % (22.0-35.0); MEAN CELL VOLUME 83.2 fl (80.0-105.0); MEAN CORPUSCULAR HEMOGLOBIN 28.8 pg (25.0-35.0); MEAN CORPUSCULAR HGB CONC 34.6 g/dl (31.0-37.0); MEAN PLATELET VOLUME 11.9 fl (7.0-11.0); MONO # 0.4 (0.1-0.6); MONO % 7.6 % (1.0-6.0); RED CELL DISTRIBUTION WIDTH 12.8 % (11.5-14.5)
[2019-01-11 20:13] LABS: BASO # 0.03 K/mm3 (0.0-2.0); EOS # 0.1 (0.0-0.7)
[2019-01-11 20:25] LABS: TROPONIN I < 0.01 ng/mL
[2019-01-11 20:29] LABS: ALB/GLOB RATIO 1.3 (1.1-1.8); ALBUMIN 4.4 g/dL (3.0-4.8); ALT/SGPT 25 U/L (7-56); AST/SGOT 19 U/L (17-59); BLOOD UREA NITROGEN 44 mg/dL (7-21); CALCIUM 10.2 mg/dL (8.4-10.5); GFR NON-AFRICAN AMERICAN 39
[2019-01-11] MEDS ORDERED: Sodium Chloride 0.9% 1,000 ML IV ONE (20:29)
[2019-01-11] MEDS ORDERED: Albuterol 0.5% Inhal Sol (2.5 mg/0.5 ml) UD IH STA (20:32)
[2019-01-11] MEDS ORDERED: Insulin Regular 1 UNITS/0.01 ML ML IV ONE (21:06)
[2019-01-11 22:20] LABS: VENOUS BLOOD GAS BASE EXCESS 1.3 mmol/L (0.0-2.0); VENOUS BLOOD GAS PO2 32 mm/Hg (30-55); VENOUS BLOOD PH 7.21 (7.32-7.43)
[2019-01-11] MEDS ORDERED: Calcium Gluconate in NS 1 GM/50 ML BAG IV ONE (22:20)
[2019-01-11] MEDS ORDERED: Insulin Regular 100 UNITS in Sodium Chloride 0.9% 99 ML IV PRN (23:10)
[2019-01-11] MEDS ORDERED: Sodium Chloride 0.9% 1,000 ML IV SCH (23:15)
[2019-01-11 23:28] LABS: URINE BILIRUBIN NEGATIVE (NEGATIVE); URINE BLOOD NEGATIVE (NEGATIVE); URINE GLUCOSE (UA) >=1000 mg/dL (NEGATIVE); URINE LEUKOCYTE ESTERASE NEGATIVE Leu/uL (NEGATIVE); URINE PROTEIN NEGATIVE mg/dL (<30 mg/dL); URINE UROBILINOGEN 0.2 E.U./dL (<1 E.U./dL)
[2019-01-11 23:33] LABS: URINE APPEARANCE CLEAR (CLEAR); URINE COLOR YELLOW (YELLOW)
--- NOTE | 2019-01-11 23:35 | CP.PCM.CON ---
<Luis Jordan - Last Filed: 01/11/19 23:38> History of Present Illness - History of Present Illness History of Present Illness: Luis Jordan DO, PGY-2: ICU Consult Note 43 year old black male with a past medical history of CAD, DM II, hypertension, depression, PCP abuse, obesity, CKD who presents with chest pain that started today in the evening. He reports the pain is in the center of his chest, 9/10 in severity, not associated with dyspnea, tightness in character, non-radiating, not associated with diaphoresis. He reports eating pizza at home and then having the pain. He denies exertional chest pain and reports being able to walk six blocks without getting short of breath or developing chest pain. Nothing improved the chest pain today. It remained constant warranting him to come to the hospital via ambulance. He is suppose to get an outpatient stress test with Dr. Mancilla in early January. Review of previous admission shows the patient does have echocardiogram showing normal LVEF of 66% dated, 12/28/2018. Also, in the ED he was noted to have an RONAN and hyperglycemia. He denies fever, chills, nausea, vomiting, dysuria, sore throat, tinnitus, headache, unilateral weakness of numbness, blurry vision, hallucinations, or the use of any illicit drugs since his last admission. He admits to polyuria and polydipsia. Otherwise, a 12 point ROS is negative except as mentioned above. Pmhx: HTN, DM, CAD s/p stent on 07/31, schizophrenia and anxiety Pshx: Stent placement All: NKDA Social: admits to smoking 5cig/day, denies etoh or illicit drug use PMD: Dr. Muhammad Pharm: [facility] [place] Review of Systems - Review of Systems All systems: reviewed and no additional remarkable complaints except (except as per HPI) Past Patient History - Infectious Disease Hx of Infectious Diseases: None - Past Social History Smoking Status: Light Smoker < 10 Cigarettes Daily - CARDIAC Hx Hypertension: Yes - PULMONARY Hx Respiratory Disorders: No - NEUROLOGICAL Hx Neurological Disorder: No - HEENT Hx HEENT Problems: No - RENAL Hx Chronic Kidney Disease: No - ENDOCRINE/METABOLIC Hx Diabetes Mellitus Type 2: Yes - HEMATOLOGICAL/ONCOLOGICAL Hx Blood Disorders: No - INTEGUMENTARY Hx Dermatological Problems: No - MUSCULOSKELETAL/RHEUMATOLOGICAL Hx Musculoskeletal Disorders: No Hx Falls: No - GASTROINTESTINAL Hx Gastrointestinal Disorders: No - GENITOURINARY/GYNECOLOGICAL Hx Genitourinary Disorders: No - PSYCHIATRIC Hx Psychophysiologic Disorder: Yes Hx Anxiety: Yes Hx Depression: Yes Hx Schizophrenia: Yes Hx Substance Use: No - SURGICAL HISTORY Hx Cardiac Catheterization: Yes (07/2016) Other/Comment: cardiac stents - ANESTHESIA Hx Anesthesia: Yes Hx Anesthesia Reactions: No Hx Malignant Hyperthermia: No Meds Allergies/Adverse Reactions: Allergies Allergy/AdvReac Type Severity Reaction Status Date / Time No Known Allergies Allergy Verified 12/26/18 21:25 - Medications Medications: Current Medications Aspirin (Aspirin Chewable) 81 mg PO DAILY [facility] Atorvastatin Calcium (Lipitor) 40 mg PO HS [facility] Sodium Chloride (Sodium Chloride 0.9%) 1,000 mls @ 250 mls/hr IV .Q4H ONE Stop: 01/12/19 00:28 Last Admin: 01/11/19 20:51 Dose: 250 mls/hr Insulin Human Regular 100 (units/ Sodium Chloride) 100 mls @ 0 mls/hr IV .Q0M PRN; Protocol PRN Reason: TITRATE PER MD ORDER Sodium Chloride (Sodium Chloride 0.9%) 1,000 mls @ 150 mls/hr IV .Q6H40M JET Stop: 01/12/19 07:14 Nitroglycerin (Nitro-Dur 0.2 Mg/Hr Patch) 1 patch TD DAILY [facility] Physical Exam - Constitutional Appears: Non-toxic, No Acute Distress - Head Exam Head Exam: ATRAUMATIC, NORMOCEPHALIC - Eye Exam Eye Exam: EOMI, Normal appearance - ENT Exam ENT Exam: Mucous Membranes Moist, Normal Oropharynx - Neck Exam Neck exam: Positive for: Normal Inspection - Respiratory Exam Respiratory Exam: NORMAL BREATHING PATTERN. absent: Accessory Muscle Use - Cardiovascular Exam Cardiovascular Exam: RRR, +S1, +S2 - GI/Abdominal Exam GI & Abdominal Exam: Normal Bowel Sounds, Soft. absent: Guarding, Rebound - Extremities Exam Extremities exam: Positive for: normal inspection. Negative for: calf tenderness, pedal edema - Back Exam Back exam: NORMAL INSPECTION. absent: CVA tenderness (L), CVA tenderness (R) - Neurological Exam Neurological exam: Alert, CN II-XII Intact, Oriented x3 - Psychiatric Exam Psychiatric exam: Normal Affect, Normal Mood - Skin Skin Exam: Dry, Intact, Normal Color, Warm Results - Vital Signs Recent Vital Signs: Last Vital Signs Temp 97.9 F 01/11/19 19:30 Pulse 69 01/11/19 22:37 Resp 18 01/11/19 22:37 BP 118/69 01/11/19 22:37 Pulse Ox 100 01/11/19 22:37 - Labs Result Diagrams: 01/11/19 19:52 01/11/19 19:52 Labs: Laboratory Results - last 24 hr 01/11/19 01/11/19 01/11/19 19:52 19:52 19:52 WBC 5.8 RBC 5.11 Hgb 14.7 Hct 42.5 MCV 83.2 MCH 28.8 MCHC 34.6 RDW 12.8 Plt Count 276 MPV 11.9 H Neut % (Auto) 66.3 Lymph % (Auto) 24.6 Osborne % (Auto) 7.6 H Eos % (Auto) 1.0 L Baso % (Auto) 0.5 Lymph # (Auto) 1.4 Osborne # (Auto) 0.4 Eos # (Auto) 0.1 Baso # (Auto) 0.03 Absolute Neuts (auto) 3.86 PT 11.4 INR 1.03 APTT 29.5 pO2 VBG pH VBG pCO2 VBG HCO3 VBG Total CO2 VBG O2 Sat (Calc) VBG Base Excess VBG Potassium Lactate FiO2 Crit Value Called To Crit Value Called By Blood Gas Notified Time Sodium 124 L Potassium 5.7 H* D Chloride 82 L Carbon Dioxide 26 Anion Gap 22 H BUN 44 H Creatinine 1.9 H Est GFR ( Amer) 48 Est GFR (Non-Af Amer) 39 Random Glucose 895 H* D Serum Osmolality Calcium 10.2 Magnesium 2.0 Total Bilirubin 0.5 AST 19 ALT 25 Alkaline Phosphatase 131 H D Troponin I < 0.01 D NT-Pro-B Natriuret Pep Total Protein 7.7 Albumin 4.4 Globulin 3.3 Albumin/Globulin Ratio 1.3 Venous Blood Potassium 01/11/19 01/11/19 01/11/19 19:52 19:52 22:10 WBC RBC Hgb Hct MCV MCH MCHC RDW Plt Count MPV Neut % (Auto) Lymph % (Auto) Osborne % (Auto) Eos % (Auto) Baso % (Auto) Lymph # (Auto) Osborne # (Auto) Eos # (Auto) Baso # (Auto) Absolute Neuts (auto) PT INR APTT pO2 32 VBG pH 7.21 L VBG pCO2 79.0 H* VBG HCO3 31.6 H VBG Total CO2 34.0 H VBG O2 Sat (Calc) 58.3 VBG Base Excess 1.3 VBG Potassium 5.5 H Lactate 2.2 H FiO2 21.0 Crit Value Called To Bonnie earl Crit Value Called By Atc Blood Gas Notified Time 2220 Sodium 127.0 L Potassium Chloride 83.0 L Carbon Dioxide Anion Gap BUN Creatinine Est GFR ( Amer) Est GFR (Non-Af Amer) Random Glucose Serum Osmolality 317 H Calcium Magnesium Total Bilirubin AST ALT Alkaline Phosphatase Troponin I NT-Pro-B Natriuret Pep 38.2 Total Protein Albumin Globulin Albumin/Globulin Ratio Venous Blood Potassium 5.5 H Assessment & Plan - Assessment and Plan (Free Text) Assessment: 43 year old male black male with a past medical history of DM II, hypertension, CAD with stent placement, PCP abuse, and depression who presented with chest pain and was found to have a blood sugar of 895 and an RONAN. Plan: 1) Chest pain r/o ACS - Aspirin 325 mg PO stat given in ED - Troponins x 3, pending - EKG showed no ST-T wave changes consistent with active ischemia - 0.2 mg/hr Nitroglycerin patch applied - Cardiology consulted, Dr. Mancilla 2) [facility] - Insulin drip protocol #4 - Fingerstick blood glucose q1h - BMP q4h - NS 150 mls/hr - Endocrinology consulted, Dr. Mckeon - NPO except for meds 3) RONAN with hyperkalemia - holding lisinopril and thiazide diuretic - Strict I & O - Calcium gluconate and insulin 10 units given in ED for hyperkalemia - Monitor Creatinine daily 4) Electrolyte disturbance - Monitor electrolytes q4h while patient is on insulin drip 5) CAD - Continue home statin - Aspirin 81 daily - Plavix 75 mg daily - ACEI (holding due to RONAN) - Metoprolol 25 mg BID 6) Depression - Continue home Prozac 7) Hypertension - HCTZ (holding in the setting of RONAN) 8) DVT/GI prophylaxis - Heparin 5000 units sc q8h - Pepcid 40 mg daily Case was reviewed and discussed with attending physician, Dr. Gerber <Jose Gerber - Last Filed: 01/12/19 07:15> Meds - Medications Medications: Current Medications Aspirin (Aspirin Chewable) 81 mg PO DAILY [facility] Atorvastatin Calcium (Lipitor) 40 mg PO HS [facility] Clopidogrel Bisulfate (Plavix) 75 mg PO DAILY [facility] Ergocalciferol (Drisdol 50,000 Intl Units Cap) 1 cap PO Q7D [facility] Famotidine (Pepcid) 20 mg IVP DAILY [facility] Fluoxetine HCl (Prozac) 20 mg PO DAILY [facility] Gabapentin (Neurontin) 300 mg PO TID JET; Protocol Heparin Sodium (Porcine) (Heparin) 5,000 units SC Q8 [facility]; Protocol Last Admin: 01/12/19 05:26 Dose: 5,000 units Hydrochlorothiazide (Hydrodiuril) 25 mg PO DAILY [facility] Insulin Human Regular 100 (units/ Sodium Chloride) 100 mls @ 28 mls/hr IV .Q3H35M PRN; Protocol PRN Reason: TITRATE PER MD ORDER Last Titration: 01/12/19 06:00 Dose: 9 mls/hr, 9 mls/hr Dextrose/Sodium Chloride (Dextrose 5%/0.45% Ns 1000 Ml) 1,000 mls @ 150 mls/hr IV .Q6H40M [facility] Last Admin: 01/12/19 04:13 Dose: 150 mls/hr Lisinopril (Zestril) 20 mg PO DAILY [facility] Metoprolol Tartrate (Lopressor) 25 mg PO BRKDIN [facility] Nitroglycerin (Nitro-Dur 0.2 Mg/Hr Patch) 1 patch TD DAILY [facility] Last Admin: 01/11/19 23:57 Dose: 1 patch Results - Vital Signs Recent Vital Signs: Last Vital Signs Temp 98.7 F 01/12/19 01:46 Pulse 85 01/12/19 04:10 Resp 90 H 01/12/19 04:10 BP 72/39 L 01/12/19 04:01 Pulse Ox 92 L 01/12/19 04:10 - Labs Result Diagrams: 01/12/19 05:30 01/12/19 05:30 Labs: Laboratory Results - last 24 hr 01/11/19 01/11/19 01/11/19 19:52 19:52 19:52 WBC 5.8 RBC 5.11 Hgb 14.7 Hct 42.5 MCV 83.2 MCH 28.8 MCHC 34.6 RDW 12.8 Plt Count 276 MPV 11.9 H Neut % (Auto) 66.3 Lymph % (Auto) 24.6 Osborne % (Auto) 7.6 H Eos % (Auto) 1.0 L Baso % (Auto) 0.5 Lymph # (Auto) 1.4 Osborne # (Auto) 0.4 Eos # (Auto) 0.1 Baso # (Auto) 0.03 Absolute Neuts (auto) 3.86 PT 11.4 INR 1.03 APTT 29.5 pO2 VBG pH VBG pCO2 VBG HCO3 VBG Total CO2 VBG O2 Sat (Calc) VBG Base Excess VBG Potassium Glucose Lactate FiO2 Crit Value Called To Crit Value Called By Blood Gas Notified Time Sodium 124 L Potassium 5.7 H* D Chloride 82 L Carbon Dioxide 26 Anion Gap 22 H BUN 44 H Creatinine 1.9 H Est GFR ( Amer) 48 Est GFR (Non-Af Amer) 39 POC Glucose (mg/dL) Random Glucose 895 H* D Serum Osmolality Calcium 10.2 Magnesium 2.0 Total Bilirubin 0.5 AST 19 ALT 25 Alkaline Phosphatase 131 H D Troponin I < 0.01 D NT-Pro-B Natriuret Pep Total Protein 7.7 Albumin 4.4 Globulin 3.3 Albumin/Globulin Ratio 1.3 Venous Blood Potassium Urine Color Urine Appearance Urine pH Ur Specific [place] Urine Protein Urine Glucose (UA) Urine Ketones Urine Blood Urine Nitrate Urine Bilirubin Urine Urobilinogen Ur Leukocyte Esterase Urine Opiates Screen Urine Methadone Screen Ur Barbiturates Screen Ur Phencyclidine Scrn Ur Amphetamines Screen U Benzodiazepines Scrn U Oth Cocaine Metabols U Cannabinoids Screen 01/11/19 01/11/19 01/11/19 19:52 19:52 22:10 WBC RBC Hgb Hct MCV MCH MCHC RDW Plt Count MPV Neut % (Auto) Lymph % (Auto) Osborne % (Auto) Eos % (Auto) Baso % (Auto) Lymph # (Auto) Osborne # (Auto) Eos # (Auto) Baso # (Auto) Absolute Neuts (auto) PT INR APTT pO2 32 VBG pH 7.21 L VBG pCO2 79.0 H* VBG HCO3 31.6 H VBG Total CO2 34.0 H VBG O2 Sat (Calc) 58.3 VBG Base Excess 1.3 VBG Potassium 5.5 H Glucose TEST NOT PERFORMED Lactate 2.2 H FiO2 21.0 Crit [facility] Crit Value Called By [facility] Blood Gas Notified Time 2220 Sodium 127.0 L Potassium Chloride 83.0 L Carbon Dioxide Anion Gap BUN Creatinine Est GFR ( Amer) Est GFR (Non-Af Amer) POC Glucose (mg/dL) Random Glucose Serum Osmolality 317 H Calcium Magnesium Total Bilirubin AST ALT Alkaline Phosphatase Troponin I NT-Pro-B Natriuret Pep 38.2 Total Protein Albumin Globulin Albumin/Globulin Ratio Venous Blood Potassium 5.5 H Urine Color Urine Appearance Urine pH Ur Specific [place] Urine Protein Urine Glucose (UA) Urine Ketones Urine Blood Urine Nitrate Urine Bilirubin Urine Urobilinogen Ur Leukocyte Esterase Urine Opiates Screen Urine Methadone Screen Ur Barbiturates Screen Ur Phencyclidine Scrn Ur Amphetamines Screen U Benzodiazepines Scrn U Oth Cocaine Metabols U Cannabinoids Screen 01/11/19 01/11/19 01/11/19 23:22 23:22 23:55 WBC RBC Hgb Hct MCV MCH MCHC RDW Plt Count MPV Neut % (Auto) Lymph % (Auto) Osborne % (Auto) Eos % (Auto) Baso % (Auto) Lymph # (Auto) Osborne # (Auto) Eos # (Auto) Baso # (Auto) Absolute Neuts (auto) PT INR APTT pO2 VBG pH VBG pCO2 VBG HCO3 VBG Total CO2 VBG O2 Sat (Calc) VBG Base Excess VBG Potassium Glucose Lactate FiO2 Crit Value Called To Crit Value Called By Blood Gas Notified Time Sodium Potassium Chloride Carbon Dioxide Anion Gap BUN Creatinine Est GFR ( Amer) Est GFR (Non-Af Amer) POC Glucose (mg/dL) Random Glucose Serum Osmolality Calcium Magnesium Total Bilirubin AST ALT Alkaline Phosphatase Troponin I < 0.01 NT-Pro-B Natriuret Pep Total Protein Albumin Globulin Albumin/Globulin Ratio Venous Blood Potassium Urine Color Yellow Urine Appearance Clear Urine pH 6.0 Ur Specific [place] 1.010 Urine Protein Negative Urine Glucose (UA) >=1000 Urine Ketones Negative Urine Blood Negative Urine Nitrate Negative Urine Bilirubin Negative Urine Urobilinogen 0.2 Ur Leukocyte Esterase Negative Urine Opiates Screen Negative Urine Methadone Screen Negative Ur Barbiturates Screen Negative Ur Phencyclidine Scrn Positive H Ur Amphetamines Screen Negative U Benzodiazepines Scrn Negative U Oth Cocaine Metabols Negative U Cannabinoids Screen Negative 01/11/19 01/12/19 01/12/19 23:55 00:59 01:27 WBC RBC Hgb Hct MCV MCH MCHC RDW Plt Count MPV Neut % (Auto) Lymph % (Auto) Osborne % (Auto) Eos % (Auto) Baso % (Auto) Lymph # (Auto) Osborne # (Auto) Eos # (Auto) Baso # (Auto) Absolute Neuts (auto) PT INR APTT pO2 VBG pH VBG pCO2 VBG HCO3 VBG Total CO2 VBG O2 Sat (Calc) VBG Base Excess VBG Potassium Glucose Lactate FiO2 Crit Value Called To Crit Value Called By Blood Gas Notified Time Sodium 130 L Potassium 5.1 H Chloride 86 L Carbon Dioxide 28 Anion Gap 21 H BUN 42 H Creatinine 1.9 H Est GFR ( Amer) 48 Est GFR (Non-Af Amer) 39 POC Glucose (mg/dL) > 500 H* 490 H* Random Glucose 605 H* D Serum Osmolality Calcium 10.5 Magnesium Total Bilirubin AST ALT Alkaline Phosphatase Troponin I NT-Pro-B Natriuret Pep Total Protein Albumin Globulin Albumin/Globulin Ratio Venous Blood Potassium Urine Color Urine Appearance Urine pH Ur Specific [place] Urine Protein Urine Glucose (UA) Urine Ketones Urine Blood Urine Nitrate Urine Bilirubin Urine Urobilinogen Ur Leukocyte Esterase Urine Opiates Screen Urine Methadone Screen Ur Barbiturates Screen Ur Phencyclidine Scrn Ur Amphetamines Screen U Benzodiazepines Scrn U Oth Cocaine Metabols U Cannabinoids Screen 01/12/19 01/12/19 01/12/19 02:29 03:22 03:55 WBC RBC Hgb Hct MCV MCH MCHC RDW Plt Count MPV Neut % (Auto) Lymph % (Auto) Osborne % (Auto) Eos % (Auto) Baso % (Auto) Lymph # (Auto) Osborne # (Auto) Eos # (Auto) Baso # (Auto) Absolute Neuts (auto) PT INR APTT pO2 VBG pH VBG pCO2 VBG HCO3 VBG Total CO2 VBG O2 Sat (Calc) VBG Base Excess VBG Potassium Glucose Lactate FiO2 Crit Value Called To Crit Value Called By Blood Gas Notified Time Sodium Potassium Chloride Carbon Dioxide Anion Gap BUN Creatinine Est GFR ( Amer) Est GFR (Non-Af Amer) POC Glucose (mg/dL) 239 H 149 H 125 H Random Glucose Serum Osmolality Calcium Magnesium Total Bilirubin AST ALT Alkaline Phosphatase Troponin I NT-Pro-B Natriuret Pep Total Protein Albumin Globulin Albumin/Globulin Ratio Venous Blood Potassium Urine Color Urine Appearance Urine pH Ur Specific [place] Urine Protein Urine Glucose (UA) Urine Ketones Urine Blood Urine Nitrate Urine Bilirubin Urine Urobilinogen Ur Leukocyte Esterase Urine Opiates Screen Urine Methadone Screen Ur Barbiturates Screen Ur Phencyclidine Scrn Ur Amphetamines Screen U Benzodiazepines Scrn U Oth Cocaine Metabols U Cannabinoids Screen 01/12/19 01/12/19 01/12/19 05:17 05:30 05:30 WBC 9.5 D RBC 5.10 Hgb 14.4 Hct 41.6 L MCV 81.6 MCH 28.2 MCHC 34.6 RDW 12.7 Plt Count 320 MPV 11.2 H Neut % (Auto) 55.5 Lymph % (Auto) 35.3 H Os[place] % (Auto) 7.6 H Eos % (Auto) 1.3 L Baso % (Auto) 0.3 Lymph # (Auto) 3.4 Osborne # (Auto) 0.7 H Eos # (Auto) 0.1 Baso # (Auto) 0.03 Absolute Neuts (auto) 5.27 PT INR APTT pO2 VBG pH VBG pCO2 VBG HCO3 VBG Total CO2 VBG O2 Sat (Calc) VBG Base Excess VBG Potassium Glucose Lactate FiO2 Crit Value Called To Crit Value Called By Blood Gas Notified Time Sodium 135 Potassium 3.9 Chloride 94 L Carbon Dioxide 27 Anion Gap 18 BUN 45 H Creatinine 2.9 H Est GFR ( Amer) 29 Est GFR (Non-Af Amer) 24 POC Glucose (mg/dL) 171 H Random Glucose 177 H Serum Osmolality Calcium 10.4 Magnesium Total Bilirubin AST ALT Alkaline Phosphatase Troponin I 0.04 D NT-Pro-B Natriuret Pep Total Protein Albumin Globulin Albumin/Globulin Ratio Venous Blood Potassium Urine Color Urine Appearance Urine pH Ur Specific [place] Urine Protein Urine Glucose (UA) Urine Ketones Urine Blood Urine Nitrate Urine Bilirubin Urine Urobilinogen Ur Leukocyte Esterase Urine Opiates Screen Urine Methadone Screen Ur Barbiturates Screen Ur Phencyclidine Scrn Ur Amphetamines Screen U Benzodiazepines Scrn U Oth Cocaine Metabols U Cannabinoids Screen 01/12/19 01/12/19 05:50 06:07 WBC RBC Hgb Hct MCV MCH MCHC RDW Plt Count MPV Neut % (Auto) Lymph % (Auto) Osborne % (Auto) Eos % (Auto) Baso % (Auto) Lymph # (Auto) Osborne # (Auto) Eos # (Auto) Baso # (Auto) Absolute Neuts (auto) PT INR APTT pO2 37 VBG pH 7.30 L VBG pCO2 59.0 VBG HCO3 29.0 H VBG Total CO2 30.8 H VBG O2 Sat (Calc) 70.9 H VBG Base Excess 1.2 VBG Potassium 4.1 Glucose 184 H Lactate 3.0 H FiO2 21.0 Crit Value Called To Ekaterina villar. Crit Value Called By Angie zeng Blood Gas Notified Time 640 Sodium 134.0 Potassium Chloride 94.0 L Carbon Dioxide Anion Gap BUN Creatinine Est GFR ( Amer) Est GFR (Non-Af Amer) POC Glucose (mg/dL) 208 H Random Glucose Serum Osmolality Calcium Magnesium Total Bilirubin AST ALT Alkaline Phosphatase Troponin I NT-Pro-B Natriuret Pep Total Protein Albumin Globulin Albumin/Globulin Ratio Venous Blood Potassium 4.1 Urine Color Urine Appearance Urine pH Ur Specific [place] Urine Protein Urine Glucose (UA) Urine Ketones Urine Blood Urine Nitrate Urine Bilirubin Urine Urobilinogen Ur Leukocyte Esterase Urine Opiates Screen Urine Methadone Screen Ur Barbiturates Screen Ur Phencyclidine Scrn Ur Amphetamines Screen U Benzodiazepines Scrn U Oth Cocaine Metabols U Cannabinoids Screen Attending/Attestation - Attestation I have personally seen and examined this patient.: Yes I have fully participated in the care of the patient.: Yes I have reviewed all pertinent clinical information: Yes Notes (Text): 01/12/19 07:14 Seen and examined. Discussed with resident. A&P as above. Utox + PCP. Chest pain is atypical, cardiology to evaluate.
[2019-01-11] MEDS: Nitroglycerin 0.2 mg/hr Top Patch TD SCH (23:57)
[2019-01-12 00:08] LABS: BARBITURATES, UR NEGATIVE (NEGATIVE); BENZODIAZEPINES, UR NEGATIVE (NEGATIVE); OPIATES, UR NEGATIVE (NEGATIVE); PHENCYCLIDINE, UR POSITIVE (NEGATIVE)
[2019-01-12] MEDS ORDERED: Insulin Regular 100 UNITS in Sodium Chloride 0.9% 99 ML IV PRN (00:09)
[2019-01-12] MEDS ORDERED: Sodium Chloride 0.9% 1,000 ML IV SCH ×2 (00:35→11:30)
[2019-01-12 01:37] LABS: CALCIUM 10.5 mg/dL (8.4-10.5)
[2019-01-12 02:05] VITALS: BMI 41.8
[2019-01-12] MEDS ORDERED: Dextrose 5%/0.45% NS 1,000 ML IV SCH (04:15)
[2019-01-12 06:22] LABS: BASO # 0.03 K/mm3 (0.0-2.0); BASO % 0.3 % (0.0-3.0); EOS # 0.1 (0.0-0.7); EOS % 1.3 % (1.5-5.0); HEMOGLOBIN 14.4 g/dL (14.0-18.0); LYMPH # 3.4 (1.2-3.4); LYMPH % 35.3 % (22.0-35.0); MEAN CELL VOLUME 81.6 fl (80.0-105.0); MEAN CORPUSCULAR HEMOGLOBIN 28.2 pg (25.0-35.0); MEAN CORPUSCULAR HGB CONC 34.6 g/dl (31.0-37.0); MEAN PLATELET VOLUME 11.2 fl (7.0-11.0); MONO # 0.7 (0.1-0.6); MONO % 7.6 % (1.0-6.0); RBC 5.1 10^6/uL (3.5-6.1); RED CELL DISTRIBUTION WIDTH 12.7 % (11.5-14.5); WHITE BLOOD COUNT 9.5 10^3/uL (4.5-11.0)
[2019-01-12 06:43] LABS: VENOUS BLOOD GAS BASE EXCESS 1.2 mmol/L (0.0-2.0); VENOUS BLOOD GAS PO2 37 mm/Hg (30-55)
[2019-01-12 06:48] LABS: TROPONIN I 0.04 ng/mL
[2019-01-12 07:08] LABS: CALCIUM 10.4 mg/dL (8.4-10.5)
--- NOTE | 2019-01-12 08:44 | RAD ---
Date of service: 01/11/2019 HISTORY: cp COMPARISON: Portable chest 12/26/2018. TECHNIQUE: 1 view obtained. FINDINGS: LUNGS: Improved inspiratory volume identified. No acute airspace disease identified bilaterally. Prior bibasilar atelectasis appears to have cleared. PLEURA: No significant pleural effusion identified, no pneumothorax apparent. CARDIOVASCULAR: No aortic atherosclerotic calcification present. Normal cardiac size. No pulmonary vascular congestion. OSSEOUS STRUCTURES: No significant abnormalities. VISUALIZED UPPER ABDOMEN: Normal. OTHER FINDINGS: None. IMPRESSION: Improved inspiratory volumes. No acute infiltrate, pleural effusion or pneumothorax bilaterally. Normal pulmonary vascular pattern.
[2019-01-12 09:09] LABS: CALCIUM 10.3 mg/dL (8.4-10.5)
--- NOTE | 2019-01-12 09:15 | CP.PCM.CON ---
History of Present Illness - History of Present Illness History of Present Illness: PGY-[address] Mike Cruz: DKA and uncontrolled DM Mr Hernandez, 43 AAM, active smoker with 5 cig/d with PMHx CAD s/p stent, HTN, IDDM II (A1C 18.8 in 2018, 13.3 in 2019), CKD, depression, PCP abuse, obesity, c/o chest pain x 1 day at rest after eating pizza. In the ED he was noted to have an DKA of gap 16, BS 895, with hypoosmolar hyponatremia (Na 124, Osm 317), RONAN with creatinine 2.9 (baseline 1.3). UDS (+) Phencyclidine. Pt was hyp otensive 68/34 after application of nitro patch. Today, pt sits up by bedside, c/o sharp chest pain, constant, mild to moderate. At home, pt takes metformin 850 daily with levemir 8.5 BID, no short term insulin coverage. In addition, he skipped insulin for the past 3 days due to being busy for daughter's birthday. ICU team called his pharmacy and verified that he did not roller picker his meds after hospital discharge 2 months ago. ROS - denies fever, chills, nausea, vomiting, dysuria, sore throat, tinnitus, headache, unilateral weakness of numbness, blurry vision, hallucinations, or the use of any illicit drugs since his last admission. He admits to polyuria and polydipsia. Otherwise, a 12 point ROS is negative except as mentioned above. Pmhx: Active cigar smoker PCP abuse HTN, CAD s/p stent on 07/31 IDDM2 (A1C 18.8 in 2018, 13.3 in 2019), complicated by retinopathy, polyneuropathy, nephropathy CKD schizophrenia and anxiety Obesity Medication non-compliance Pshx: Stent placement All: NKDA Social: admits to smoking 5cig/day, denies etoh or illicit drug use PMD: Dr. Muhammad Pharm: [facility] [place] Review of Systems - Review of Systems All systems: reviewed and no additional remarkable complaints except (HPI) Past Patient History - Infectious Disease Hx of Infectious Diseases: None - Past Social History Smoking Status: Light Smoker < 10 Cigarettes Daily - CARDIAC Hx Hypertension: Yes - PULMONARY Hx Respiratory Disorders: No - NEUROLOGICAL Hx Neurological Disorder: No - HEENT Hx HEENT Problems: No - RENAL Hx Chronic Kidney Disease: No - ENDOCRINE/METABOLIC Hx Diabetes Mellitus Type 2: Yes - HEMATOLOGICAL/ONCOLOGICAL Hx Blood Disorders: No - INTEGUMENTARY Hx Dermatological Problems: No - MUSCULOSKELETAL/RHEUMATOLOGICAL Hx Musculoskeletal Disorders: No Hx Falls: No - GASTROINTESTINAL Hx Gastrointestinal Disorders: No - GENITOURINARY/GYNECOLOGICAL Hx Genitourinary Disorders: No - PSYCHIATRIC Hx Psychophysiologic Disorder: Yes Hx Anxiety: Yes Hx Depression: Yes Hx Schizophrenia: Yes Hx Substance Use: No - SURGICAL HISTORY Hx Cardiac Catheterization: Yes (07/2016) Other/Comment: cardiac stents - ANESTHESIA Hx Anesthesia: Yes Hx Anesthesia Reactions: No Hx Malignant Hyperthermia: No Meds Allergies/Adverse Reactions: Allergies Allergy/AdvReac Type Severity Reaction Status Date / Time No Known Allergies Allergy Verified 12/26/18 21:25 - Medications Medications: Current Medications Aspirin (Aspirin Chewable) 81 mg PO DAILY [facility] Atorvastatin Calcium (Lipitor) 40 mg PO HS [facility] Clopidogrel Bisulfate (Plavix) 75 mg PO DAILY [facility] Ergocalciferol (Drisdol 50,000 Intl Units Cap) 1 cap PO Q7D [facility] Famotidine (Pepcid) 20 mg IVP DAILY [facility] Fluoxetine HCl (Prozac) 20 mg PO DAILY [facility] Gabapentin (Neurontin) 300 mg PO TID [facility]; Protocol Heparin Sodium (Porcine) (Heparin) 5,000 units SC Q8 [facility]; Protocol Last Admin: 01/12/19 05:26 Dose: 5,000 units Hydrochlorothiazide (Hydrodiuril) 25 mg PO DAILY [facility] Insulin Human Regular 100 (units/ Sodium Chloride) 100 mls @ 28 mls/hr IV .Q3H35M PRN; Protocol PRN Reason: TITRATE PER MD ORDER Last Titration: 01/12/19 08:00 Dose: 12 mls/hr, 12 mls/hr Dextrose/Sodium Chloride (Dextrose 5%/0.45% Ns 1000 Ml) 1,000 mls @ 150 mls/hr IV .Q6H40M [facility] Last Admin: 01/12/19 04:13 Dose: 150 mls/hr Lisinopril (Zestril) 20 mg PO DAILY [facility] Metoprolol Tartrate (Lopressor) 25 mg PO BRKDIN [facility] Last Admin: 01/12/19 08:40 Dose: 25 mg Nitroglycerin (Nitro-Dur 0.2 Mg/Hr Patch) 1 patch TD DAILY [facility] Last Admin: 01/11/19 23:57 Dose: 1 patch Physical Exam - Constitutional Appears: No Acute Distress - Head Exam Head Exam: ATRAUMATIC, NORMAL INSPECTION, NORMOCEPHALIC - Eye Exam Eye Exam: EOMI, Normal appearance, PERRL. absent: Scleral icterus Pupil Exam: NORMAL ACCOMODATION - ENT Exam ENT Exam: Mucous Membranes Moist - Neck Exam Neck exam: Positive for: Normal Inspection - Respiratory Exam Respiratory Exam: Clear to Auscultation Bilateral. absent: Rales, Rhonchi, Wheezes - Cardiovascular Exam Cardiovascular Exam: REGULAR RHYTHM, +S1, +S2 - GI/Abdominal Exam GI & Abdominal Exam: Normal Bowel Sounds, Soft, Tenderness (epigastric) - Extremities Exam Extremities exam: Negative for: calf tenderness - Back Exam Back exam: absent: CVA tenderness (L), CVA tenderness (R), paraspinal tenderness - Neurological Exam Neurological exam: Alert, CN II-XII Intact, Oriented x3 - Psychiatric Exam Psychiatric exam: Normal Affect, Normal Mood - Skin Skin Exam: Dry, Warm Results - Vital Signs Recent Vital Signs: Last Vital Signs Temp 98.7 F 01/12/19 01:46 Pulse 72 01/12/19 08:40 Resp 19 01/12/19 07:50 BP 105/37 L 01/12/19 08:40 Pulse Ox 96 01/12/19 07:50 - Labs Result Diagrams: 01/12/19 05:30 01/12/19 11:55 Labs: Laboratory Results - last 24 hr 01/11/19 01/11/19 01/11/19 19:52 19:52 19:52 WBC 5.8 RBC 5.11 Hgb 14.7 Hct 42.5 MCV 83.2 MCH 28.8 MCHC 34.6 RDW 12.8 Plt Count 276 MPV 11.9 H Neut % (Auto) 66.3 Lymph % (Auto) 24.6 [place] % (Auto) 7.6 H Eos % (Auto) 1.0 L Baso % (Auto) 0.5 Lymph # (Auto) 1.4 [place] # (Auto) 0.4 Eos # (Auto) 0.1 Baso # (Auto) 0.03 Absolute Neuts (auto) 3.86 PT 11.4 INR 1.03 APTT 29.5 pO2 VBG pH VBG pCO2 VBG HCO3 VBG Total CO2 VBG O2 Sat (Calc) VBG Base Excess VBG Potassium Glucose Lactate FiO2 Crit Value Called To Crit Value Called By Blood Gas Notified Time Sodium 124 L Potassium 5.7 H* D Chloride 82 L Carbon Dioxide 26 Anion Gap 22 H BUN 44 H Creatinine 1.9 H Est GFR ( Amer) 48 Est GFR (Non-Af Amer) 39 POC Glucose (mg/dL) Random Glucose 895 H* D Serum Osmolality Calcium 10.2 Magnesium 2.0 Total Bilirubin 0.5 AST 19 ALT 25 Alkaline Phosphatase 131 H D Troponin I < 0.01 D NT-Pro-B Natriuret Pep Total Protein 7.7 Albumin 4.4 Globulin 3.3 Albumin/Globulin Ratio 1.3 Venous Blood Potassium Urine Color Urine Appearance Urine pH Ur Specific [place] Urine Protein Urine Glucose (UA) Urine Ketones Urine Blood Urine Nitrate Urine Bilirubin Urine Urobilinogen Ur Leukocyte Esterase Urine Opiates Screen Urine Methadone Screen Ur Barbiturates Screen Ur Phencyclidine Scrn Ur Amphetamines Screen U Benzodiazepines Scrn U Oth Cocaine Metabols U Cannabinoids Screen 01/11/19 01/11/19 01/11/19 19:52 19:52 22:10 WBC RBC Hgb Hct MCV MCH MCHC RDW Plt Count MPV Neut % (Auto) Lymph % (Auto) [place] % (Auto) Eos % (Auto) Baso % (Auto) Lymph # (Auto) [place] # (Auto) Eos # (Auto) Baso # (Auto) Absolute Neuts (auto) PT INR APTT pO2 32 VBG pH 7.21 L VBG pCO2 79.0 H* VBG HCO3 31.6 H VBG Total CO2 34.0 H VBG O2 Sat (Calc) 58.3 VBG Base Excess 1.3 VBG Potassium 5.5 H Glucose TEST NOT PERFORMED Lactate 2.2 H FiO2 21.0 Crit Value Called To Bonnie earl Crit Value Called By [facility] Blood Gas Notified Time 2220 Sodium 127.0 L Potassium Chloride 83.0 L Carbon Dioxide Anion Gap BUN Creatinine Est GFR ( Amer) Est GFR (Non-Af Amer) POC Glucose (mg/dL) Random Glucose Serum Osmolality 317 H Calcium Magnesium Total Bilirubin AST ALT Alkaline Phosphatase Troponin I NT-Pro-B Natriuret Pep 38.2 Total Protein Albumin Globulin Albumin/Globulin Ratio Venous Blood Potassium 5.5 H Urine Color Urine Appearance Urine pH Ur Specific [place] Urine Protein Urine Glucose (UA) Urine Ketones Urine Blood Urine Nitrate Urine Bilirubin Urine Urobilinogen Ur Leukocyte Esterase Urine Opiates Screen Urine Methadone Screen Ur Barbiturates Screen Ur Phencyclidine Scrn Ur Amphetamines Screen U Benzodiazepines Scrn U Oth Cocaine Metabols U Cannabinoids Screen 01/11/19 01/11/19 01/11/19 23:22 23:22 23:55 WBC RBC Hgb Hct MCV MCH MCHC RDW Plt Count MPV Neut % (Auto) Lymph % (Auto) [place] % (Auto) Eos % (Auto) Baso % (Auto) Lymph # (Auto) [place] # (Auto) Eos # (Auto) Baso # (Auto) Absolute Neuts (auto) PT INR APTT pO2 VBG pH VBG pCO2 VBG HCO3 VBG Total CO2 VBG O2 Sat (Calc) VBG Base Excess VBG Potassium Glucose Lactate FiO2 Crit Value Called To Crit Value Called By Blood Gas Notified Time Sodium Potassium Chloride Carbon Dioxide Anion Gap BUN Creatinine Est GFR ( Amer) Est GFR (Non-Af Amer) POC Glucose (mg/dL) Random Glucose Serum Osmolality Calcium Magnesium Total Bilirubin AST ALT Alkaline Phosphatase Troponin I < 0.01 NT-Pro-B Natriuret Pep Total Protein Albumin Globulin Albumin/Globulin Ratio Venous Blood Potassium Urine Color Yellow Urine Appearance Clear Urine pH 6.0 Ur Specific [place] 1.010 Urine Protein Negative Urine Glucose (UA) >=1000 Urine Ketones Negative Urine Blood Negative Urine Nitrate Negative Urine Bilirubin Negative Urine Urobilinogen 0.2 Ur Leukocyte Esterase Negative Urine Opiates Screen Negative Urine Methadone Screen Negative Ur Barbiturates Screen Negative Ur Phencyclidine Scrn Positive H Ur Amphetamines Screen Negative U Benzodiazepines Scrn Negative U Oth Cocaine Metabols Negative U Cannabinoids Screen Negative 01/11/19 01/12/19 01/12/19 23:55 00:59 01:27 WBC RBC Hgb Hct MCV MCH MCHC RDW Plt Count MPV Neut % (Auto) Lymph % (Auto) [place] % (Auto) Eos % (Auto) Baso % (Auto) Lymph # (Auto) [place] # (Auto) Eos # (Auto) Baso # (Auto) Absolute Neuts (auto) PT INR APTT pO2 VBG pH VBG pCO2 VBG HCO3 VBG Total CO2 VBG O2 Sat (Calc) VBG Base Excess VBG Potassium Glucose Lactate FiO2 Crit Value Called To Crit Value Called By Blood Gas Notified Time Sodium 130 L Potassium 5.1 H Chloride 86 L Carbon Dioxide 28 Anion Gap 21 H BUN 42 H Creatinine 1.9 H Est GFR ( Amer) 48 Est GFR (Non-Af Amer) 39 POC Glucose (mg/dL) > 500 H* 490 H* Random Glucose 605 H* D Serum Osmolality Calcium 10.5 Magnesium Total Bilirubin AST ALT Alkaline Phosphatase Troponin I NT-Pro-B Natriuret Pep Total Protein Albumin Globulin Albumin/Globulin Ratio Venous Blood Potassium Urine Color Urine Appearance Urine pH Ur Specific [place] Urine Protein Urine Glucose (UA) Urine Ketones Urine Blood Urine Nitrate Urine Bilirubin Urine Urobilinogen Ur Leukocyte Esterase Urine Opiates Screen Urine Methadone Screen Ur Barbiturates Screen Ur Phencyclidine Scrn Ur Amphetamines Screen U Benzodiazepines Scrn U Oth Cocaine Metabols U Cannabinoids Screen 01/12/19 01/12/19 01/12/19 02:29 03:22 03:55 WBC RBC Hgb Hct MCV MCH MCHC RDW Plt Count MPV Neut % (Auto) Lymph % (Auto) [place] % (Auto) Eos % (Auto) Baso % (Auto) Lymph # (Auto) [place] # (Auto) Eos # (Auto) Baso # (Auto) Absolute Neuts (auto) PT INR APTT pO2 VBG pH VBG pCO2 VBG HCO3 VBG Total CO2 VBG O2 Sat (Calc) VBG Base Excess VBG Potassium Glucose Lactate FiO2 Crit Value Called To Crit Value Called By Blood Gas Notified Time Sodium Potassium Chloride Carbon Dioxide Anion Gap BUN Creatinine Est GFR ( Amer) Est GFR (Non-Af Amer) POC Glucose (mg/dL) 239 H 149 H 125 H Random Glucose Serum Osmolality Calcium Magnesium Total Bilirubin AST ALT Alkaline Phosphatase Troponin I NT-Pro-B Natriuret Pep Total Protein Albumin Globulin Albumin/Globulin Ratio Venous Blood Potassium Urine Color Urine Appearance Urine pH Ur Specific [place] Urine Protein Urine Glucose (UA) Urine Ketones Urine Blood Urine Nitrate Urine Bilirubin Urine Urobilinogen Ur Leukocyte Esterase Urine Opiates Screen Urine Methadone Screen Ur Barbiturates Screen Ur Phencyclidine Scrn Ur Amphetamines Screen U Benzodiazepines Scrn U Oth Cocaine Metabols U Cannabinoids Screen 01/12/19 01/12/19 01/12/19 05:17 05:30 05:30 WBC 9.5 D RBC 5.10 Hgb 14.4 Hct 41.6 L MCV 81.6 MCH 28.2 MCHC 34.6 RDW 12.7 Plt Count 320 MPV 11.2 H Neut % (Auto) 55.5 Lymph % (Auto) 35.3 H [place] % (Auto) 7.6 H Eos % (Auto) 1.3 L Baso % (Auto) 0.3 Lymph # (Auto) 3.4 [place] # (Auto) 0.7 H Eos # (Auto) 0.1 Baso # (Auto) 0.03 Absolute Neuts (auto) 5.27 PT INR APTT pO2 VBG pH VBG pCO2 VBG HCO3 VBG Total CO2 VBG O2 Sat (Calc) VBG Base Excess VBG Potassium Glucose Lactate FiO2 Crit Value Called To Crit Value Called By Blood Gas Notified Time Sodium 135 Potassium 3.9 Chloride 94 L Carbon Dioxide 27 Anion Gap 18 BUN 45 H Creatinine 2.9 H Est GFR ( Amer) 29 Est GFR (Non-Af Amer) 24 POC Glucose (mg/dL) 171 H Random Glucose 177 H Serum Osmolality Calcium 10.4 Magnesium Total Bilirubin AST ALT Alkaline Phosphatase Troponin I 0.04 D NT-Pro-B Natriuret Pep Total Protein Albumin Globulin Albumin/Globulin Ratio Venous Blood Potassium Urine Color Urine Appearance Urine pH Ur Specific [place] Urine Protein Urine Glucose (UA) Urine Ketones Urine Blood Urine Nitrate Urine Bilirubin Urine Urobilinogen Ur Leukocyte Esterase Urine Opiates Screen Urine Methadone Screen Ur Barbiturates Screen Ur Phencyclidine Scrn Ur Amphetamines Screen U Benzodiazepines Scrn U Oth Cocaine Metabols U Cannabinoids Screen 01/12/19 01/12/19 01/12/19 05:50 06:07 07:47 WBC RBC Hgb Hct MCV MCH MCHC RDW Plt Count MPV Neut % (Auto) Lymph % (Auto) [place] % (Auto) Eos % (Auto) Baso % (Auto) Lymph # (Auto) [place] # (Auto) Eos # (Auto) Baso # (Auto) Absolute Neuts (auto) PT INR APTT pO2 37 VBG pH 7.30 L VBG pCO2 59.0 VBG HCO3 29.0 H VBG Total CO2 30.8 H VBG O2 Sat (Calc) 70.9 H VBG Base Excess 1.2 VBG Potassium 4.1 Glucose 184 H Lactate 3.0 H FiO2 21.0 Crit Value Called To Ekaterina villar. Crit Value Called By Angie zeng Blood Gas Notified Time 640 Sodium 134.0 Potassium Chloride 94.0 L Carbon Dioxide Anion Gap BUN Creatinine Est GFR ( Amer) Est GFR (Non-Af Amer) POC Glucose (mg/dL) 208 H 215 H Random Glucose Serum Osmolality Calcium Magnesium Total Bilirubin AST ALT Alkaline Phosphatase Troponin I NT-Pro-B Natriuret Pep Total Protein Albumin Globulin Albumin/Globulin Ratio Venous Blood Potassium 4.1 Urine Color Urine Appearance Urine pH Ur Specific [place] Urine Protein Urine Glucose (UA) Urine Ketones Urine Blood Urine Nitrate Urine Bilirubin Urine Urobilinogen Ur Leukocyte Esterase Urine Opiates Screen Urine Methadone Screen Ur Barbiturates Screen Ur Phencyclidine Scrn Ur Amphetamines Screen U Benzodiazepines Scrn U Oth Cocaine Metabols U Cannabinoids Screen 01/12/19 01/12/19 08:57 09:05 WBC RBC Hgb Hct MCV MCH MCHC RDW Plt Count MPV Neut % (Auto) Lymph % (Auto) [place] % (Auto) Eos % (Auto) Baso % (Auto) Lymph # (Auto) [place] # (Auto) Eos # (Auto) Baso # (Auto) Absolute Neuts (auto) PT INR APTT pO2 VBG pH VBG pCO2 VBG HCO3 VBG Total CO2 VBG O2 Sat (Calc) VBG Base Excess VBG Potassium Glucose Lactate FiO2 Crit Value Called To Crit Value Called By Blood Gas Notified Time Sodium 134 Potassium 4.0 Chloride 95 L Carbon Dioxide 26 Anion Gap 18 BUN 46 H Creatinine 3.2 H Est GFR ( Amer) 26 Est GFR (Non-Af Amer) 22 POC Glucose (mg/dL) 201 H Random Glucose 196 H Serum Osmolality Calcium 10.3 Magnesium Total Bilirubin AST ALT Alkaline Phosphatase Troponin I NT-Pro-B Natriuret Pep Total Protein Albumin Globulin Albumin/Globulin Ratio Venous Blood Potassium Urine Color Urine Appearance Urine pH Ur Specific [place] Urine Protein Urine Glucose (UA) Urine Ketones Urine Blood Urine Nitrate Urine Bilirubin Urine Urobilinogen Ur Leukocyte Esterase Urine Opiates Screen Urine Methadone Screen Ur Barbiturates Screen Ur Phencyclidine Scrn Ur Amphetamines Screen U Benzodiazepines Scrn U Oth Cocaine Metabols U Cannabinoids Screen Assessment & Plan - Assessment and Plan (Free Text) Plan: DKA likely due to medication non-compliance and skipping insulin x 3 days Oliguria due to Dehydration and hypotensive episode from nitropaste - Need aggressive fluid hydration, at least NS@150 - monitor i/o due to RONAN on CKD with oliguria - insulin gtt until gap closed - BMP q 4, accu check q1 - replenish K when below 4, start D5/half-NS when BS below 250 - When gap closed, calculate the total units of insulin required to close the gap, scale it to 24 hour requirement, then give 1/4 of the [id number] as levemir, continue D5-IVF for 1-2 more hours while observe appetite/PO intake Uncontrolled IDDM-2 Complicated by retinopathy, polyneuropathy, nephropathy - A1C - should discontinue metformin due to DKAs and RONAN on CKD - Pt cannot afford insulin, will change his insulin regimen TOMORROW after DKA and hypotension resolve: Regular Insulin 10 ACTID NPH 20 HS May add amaryl 4 BID - (Home: metformin 850 daily, levemir 8.5 BID) Active smoker - agency legal counsel for cessation PCP substance abuse - agency legal counsel for cessation s/r/d/w Dr Mckeon
--- NOTE | 2019-01-12 09:20 | CARD ---
APPROVED REPORT Date of service: 01/11/2019 EKG Measurement Heart [id number] <Conclusion> Normal sinus rhythm Possible Left atrial enlargement Borderline ECG
[2019-01-12] MEDS ORDERED: Dextrose 50% SYRINGE Inj (50 ml) IV PRN (09:22)
[2019-01-12] MEDS ORDERED: Insulin Detemir 100 units/ml Vial (Levemir) SC ONE (09:23)
--- NOTE | 2019-01-12 09:53 | CP.CCUPN ---
<Kendall Fine - Last Filed: 01/12/19 11:20> CCU Subjective - Physician Review Subjective (Free Text): Kendall Fine DO, PGY-1 MICU Progress Note for Dr. Zaragoza Patient was seen and examined at bedside this AM. He complains of some burning chest pain which is worse with eating. He otherwise offers no additional complaints and denies fever/chills, SOB, worsened or new chest pain, nausea/vomiting, or urinary complaints. CCU Objective - Vital Signs / Intake & Output Vital Signs (Last 4 hours): Vital Signs Pulse Resp BP Pulse Ox 01/12/19 08:40 72 105/37 L 01/12/19 07:50 72 19 96 01/12/19 07:40 69 100 01/12/19 07:30 70 99 01/12/19 07:20 77 19 91 L 01/12/19 07:10 79 23 97 01/12/19 07:00 78 25 H 101/49 L 62 L 01/12/19 06:50 69 8 L 98 01/12/19 06:40 76 23 94 L 01/12/19 06:30 70 92 L 01/12/19 06:20 71 16 94 L 01/12/19 06:12 77 25 H 01/12/19 06:11 76 23 01/12/19 06:10 75 23 01/12/19 06:09 75 22 01/12/19 06:08 74 24 01/12/19 06:01 72 01/12/19 06:00 87/44 L 01/12/19 05:59 74 77 L 01/12/19 05:57 75 01/12/19 05:56 74 19 01/12/19 05:55 76 01/12/19 05:54 74 22 Intake and Output (Last 8hrs): Intake & Output 01/11/19 01/12/19 01/12/19 22:59 06:59 14:59 Intake Total 3678 21 Output Total 200 Balance 3478 21 Weight 346 lb 316 lb 11.2 oz Intake: IV 3678 21 Left Antecubital 1826 Right Wrist 1800 Output: Urine 200 Urine, Voided 200 Other: Voiding Method Urinal - Physical Exam Head: Positive for: Atraumatic, Normocephalic Pupils: Positive for: PERRL Extroacular Muscles: Positive for: EOMI Conjunctiva: Positive for: Normal Ears: Positive for: Normal Mouth: Positive for: Moist Mucous Membranes Pharnyx: Positive for: Normal. Negative for: ERYTHEMA, EXUDATE Neck: Positive for: Normal Range of Motion. Negative for: Meningeal Signs, MIDLINE TENDERNESS, JVD, Lymphadenopathy Respiratory/Chest: Positive for: Clear to Auscultation, Good Air Exchange. Negative for: Respiratory Distress, Accessory Muscle Use Cardiovascular: Positive for: Regular Rate and Rhythm, Normal S1, S2. Negative for: Murmurs Abdomen: Negative for: Tenderness, Distention, Peritoneal Signs Back: Positive for: Normal Inspection. Negative for: CVA Tenderness, Midline Tenderness Upper Extremity: Positive for: Normal Inspection, NORMAL PULSES. Negative for: Cyanosis, Edema, Swelling Lower Extremity: Positive for: Normal Inspection, NORMAL PULSES. Negative for: Edema, Rossi's Sign, Swelling Neurological: Positive for: GCS=15, CN II-XII Intact, Speech Normal Skin: Positive for: Warm, Dry, Normal Color. Negative for: Rashes Psychiatric: Positive for: Alert, Oriented x 3, Normal Insight, Normal Concentration - Medications Active Medications: Active Medications Generic Name Dose Route Start Last Admin Trade Name Freq PRN Reason Stop Dose Admin Aspirin 81 mg 01/12/19 10:00 Aspirin Chewable PO DAILY [facility] Atorvastatin Calcium 40 mg 01/12/19 22:00 Lipitor PO HS [facility] Clopidogrel Bisulfate 75 mg 01/12/19 10:00 Plavix PO DAILY [facility] Dextrose 0 ml 01/12/19 09:22 Dextrose 50% Inj IV STAT PRN Hypoglycemia Protocol Protocol Ergocalciferol 1 cap 01/12/19 10:00 Drisdol 50,000 Intl Units Cap PO Q7D [facility] Famotidine 20 mg 01/12/19 10:00 Pepcid IVP DAILY [facility] Fluoxetine HCl 20 mg 01/12/19 10:00 Prozac PO DAILY [facility] Gabapentin 300 mg 01/12/19 10:00 Neurontin PO TID [facility] Protocol Heparin Sodium (Porcine) 5,000 units 01/12/19 06:00 01/12/19 05:26 Heparin SC 5,000 units Q8 EJT Administration Protocol Hydrochlorothiazide 25 mg 01/12/19 10:00 Hydrodiuril PO DAILY [facility] Insulin Human Regular 100 100 mls @ 28 mls/hr 01/12/19 00:09 01/12/19 08:00 units/ Sodium Chloride IV 12 mls/hr .Q3H35M PRN 12 mls/hr TITRATE PER MD ORDER Titration Protocol Per Protocol Dextrose/Sodium Chloride 1,000 mls @ 150 mls/hr 01/12/19 04:15 01/12/19 04:13 Dextrose 5%/0.45% Ns 1000 Ml IV 150 mls/hr .Q6H40M JET Administration Dextrose 1,000 mls @ 0 mls/hr 01/12/19 09:22 Dextrose 5% In Water 1000 Ml IV .Q0M PRN Hypoglycemia Protocol Protocol Per Protocol Insulin Human Lispro 12 units 01/12/19 12:00 Humalog SC WM JET Lisinopril 20 mg 01/12/19 10:00 Zestril PO DAILY JET Metoprolol Tartrate 25 mg 01/12/19 07:30 01/12/19 08:40 Lopressor PO 25 mg BRKDIN JET Administration Nitroglycerin 1 patch 01/11/19 23:30 01/11/19 23:57 Nitro-Dur 0.2 Mg/Hr Patch TD 1 patch DAILY JET Administration (Insulin Glargine, 35 unit 01/12/19 22:00 Hum.Rec.Anlog [ SQ Basaglar [place] U- HS JET 100] - Patient Studies Lab Studies: Lab Studies 01/12/19 01/12/19 01/12/19 Range/Units 09:05 08:57 07:47 WBC (4.5-11.0) 10^3/uL RBC (3.5-6.1) 10^6/uL Hgb (14.0-18.0) g/dL Hct (42.0-52.0) % MCV (80.0-105.0) fl MCH (25.0-35.0) pg MCHC (31.0-37.0) g/dl RDW (11.5-14.5) % Plt Count (120.0-450.0) 10^3/uL MPV (7.0-11.0) fl Neut % (Auto) (50.0-68.0) % Lymph % (Auto) (22.0-35.0) % [place] % (Auto) (1.0-6.0) % Eos % (Auto) (1.5-5.0) % Baso % (Auto) (0.0-3.0) % Lymph # (Auto) (1.2-3.4) [place] # (Auto) (0.1-0.6) Eos # (Auto) (0.0-0.7) Baso # (Auto) (0.0-2.0) K/mm3 Absolute Neuts (auto) (1.4-6.5) PT (9.4-12.5) SECONDS INR APTT (26.9-38.3) Seconds pO2 (30-55) mm/Hg VBG pH (7.32-7.43) VBG pCO2 (40-60) VBG HCO3 (21-28) mmol/l VBG Total CO2 (22-28) mmol.L VBG O2 Sat (Calc) (40-65) % VBG Base Excess (0.0-2.0) mmol/L VBG Potassium (3.6-5.2) mmol/L Glucose Lactate (0.7-2.1) mmol/L FiO2 % Crit Value Called To Crit Value Called By Blood Gas Notified Time Sodium 134 (132-148) mmol/L Potassium 4.0 (3.6-5.0) mmol/L Chloride 95 L (98-107) mmol/L Carbon Dioxide 26 (21-33) mmol/L Anion Gap 18 (10-20) BUN 46 H (7-21) mg/dL Creatinine 3.2 H (0.8-1.5) mg/dl Est GFR ( Amer) 26 Est GFR (Non-Af Amer) 22 POC Glucose (mg/dL) 201 H 215 H (65-110) mg/dL Random Glucose 196 H (70-110) mg/dL Serum Osmolality (272-300) mosm/kg Calcium 10.3 (8.4-10.5) mg/dL Magnesium (1.7-2.2) mg/dL Total Bilirubin (0.2-1.3) mg/dL AST (17-59) U/L ALT (7-56) U/L Alkaline Phosphatase (38-126) U/L Troponin I ng/mL NT-Pro-B Natriuret Pep (0-450) pg/mL Total Protein (5.8-8.3) g/dL Albumin (3.0-4.8) g/dL Globulin gm/dL Albumin/Globulin Ratio (1.1-1.8) Venous Blood Potassium (3.6-5.2) mmol/L Urine Color (YELLOW) Urine Appearance (CLEAR) Urine pH (4.7-8.0) Ur Specific [place] (1.005-1.035) Urine Protein (<30 mg/dL) mg/dL Urine Glucose (UA) (NEGATIVE) mg/dL Urine Ketones (NEGATIVE) mg/dL Urine Blood (NEGATIVE) Urine Nitrate (NEGATIVE) Urine Bilirubin (NEGATIVE) Urine Urobilinogen (<1 E.U./dL) E.U./dL Ur Leukocyte Esterase (NEGATIVE) Jenniffer/uL Urine Opiates Screen (NEGATIVE) Urine Methadone Screen (NEGATIVE) Ur Barbiturates Screen (NEGATIVE) Ur Phencyclidine Scrn (NEGATIVE) Ur Amphetamines Screen (NEGATIVE) U Benzodiazepines Scrn (NEGATIVE) U Oth Cocaine Metabols (NEGATIVE) U Cannabinoids Screen (NEGATIVE) 01/12/19 01/12/19 01/12/19 Range/Units 06:07 05:50 05:30 WBC 9.5 D (4.5-11.0) 10^3/uL RBC 5.10 (3.5-6.1) 10^6/uL Hgb 14.4 (14.0-18.0) g/dL Hct 41.6 L (42.0-52.0) % MCV 81.6 (80.0-105.0) fl MCH 28.2 (25.0-35.0) pg MCHC 34.6 (31.0-37.0) g/dl RDW 12.7 (11.5-14.5) % Plt Count 320 (120.0-450.0) 10^3/uL MPV 11.2 H (7.0-11.0) fl Neut % (Auto) 55.5 (50.0-68.0) % Lymph % (Auto) 35.3 H (22.0-35.0) % [place] % (Auto) 7.6 H (1.0-6.0) % Eos % (Auto) 1.3 L (1.5-5.0) % Baso % (Auto) 0.3 (0.0-3.0) % Lymph # (Auto) 3.4 (1.2-3.4) [place] # (Auto) 0.7 H (0.1-0.6) Eos # (Auto) 0.1 (0.0-0.7) Baso # (Auto) 0.03 (0.0-2.0) K/mm3 Absolute Neuts (auto) 5.27 (1.4-6.5) PT (9.4-12.5) SECONDS INR APTT (26.9-38.3) Seconds pO2 37 (30-55) mm/Hg VBG pH 7.30 L (7.32-7.43) VBG pCO2 59.0 (40-60) VBG HCO3 29.0 H (21-28) mmol/l VBG Total CO2 30.8 H (22-28) mmol.L VBG O2 Sat (Calc) 70.9 H (40-65) % VBG Base Excess 1.2 (0.0-2.0) mmol/L VBG Potassium 4.1 (3.6-5.2) mmol/L Glucose 184 H Lactate 3.0 H (0.7-2.1) mmol/L FiO2 21.0 % Crit Value Called To Ekaterina villar. Crit Value Called By Angie zeng Blood Gas Notified Time 640 Sodium 134.0 (132-148) mmol/L Potassium (3.6-5.0) mmol/L Chloride 94.0 L (98-107) mmol/L Carbon Dioxide (21-33) mmol/L Anion Gap (10-20) BUN (7-21) mg/dL Creatinine (0.8-1.5) mg/dl Est GFR ( Amer) Est GFR (Non-Af Amer) POC Glucose (mg/dL) 208 H (65-110) mg/dL Random Glucose (70-110) mg/dL Serum Osmolality (272-300) mosm/kg Calcium (8.4-10.5) mg/dL Magnesium (1.7-2.2) mg/dL Total Bilirubin (0.2-1.3) mg/dL AST (17-59) U/L ALT (7-56) U/L Alkaline Phosphatase (38-126) U/L Troponin I ng/mL NT-Pro-B Natriuret Pep (0-450) pg/mL Total Protein (5.8-8.3) g/dL Albumin (3.0-4.8) g/dL Globulin gm/dL Albumin/Globulin Ratio (1.1-1.8) Venous Blood Potassium 4.1 (3.6-5.2) mmol/L Urine Color (YELLOW) Urine Appearance (CLEAR) Urine pH (4.7-8.0) Ur Specific [place] (1.005-1.035) Urine Protein (<30 mg/dL) mg/dL Urine Glucose (UA) (NEGATIVE) mg/dL Urine Ketones (NEGATIVE) mg/dL Urine Blood (NEGATIVE) Urine Nitrate (NEGATIVE) Urine Bilirubin (NEGATIVE) Urine Urobilinogen (<1 E.U./dL) E.U./dL Ur Leukocyte Esterase (NEGATIVE) Jenniffer/uL Urine Opiates Screen (NEGATIVE) Urine Methadone Screen (NEGATIVE) Ur Barbiturates Screen (NEGATIVE) Ur Phencyclidine Scrn (NEGATIVE) Ur Amphetamines Screen (NEGATIVE) U Benzodiazepines Scrn (NEGATIVE) U Oth Cocaine Metabols (NEGATIVE) U Cannabinoids Screen (NEGATIVE) 01/12/19 01/12/19 01/12/19 Range/Units 05:30 05:17 03:55 WBC (4.5-11.0) 10^3/uL RBC (3.5-6.1) 10^6/uL Hgb (14.0-18.0) g/dL Hct (42.0-52.0) % MCV (80.0-105.0) fl MCH (25.0-35.0) pg MCHC (31.0-37.0) g/dl RDW (11.5-14.5) % Plt Count (120.0-450.0) 10^3/uL MPV (7.0-11.0) fl Neut % (Auto) (50.0-68.0) % Lymph % (Auto) (22.0-35.0) % [place] % (Auto) (1.0-6.0) % Eos % (Auto) (1.5-5.0) % Baso % (Auto) (0.0-3.0) % Lymph # (Auto) (1.2-3.4) [place] # (Auto) (0.1-0.6) Eos # (Auto) (0.0-0.7) Baso # (Auto) (0.0-2.0) K/mm3 Absolute Neuts (auto) (1.4-6.5) PT (9.4-12.5) SECONDS INR APTT (26.9-38.3) Seconds pO2 (30-55) mm/Hg VBG pH (7.32-7.43) VBG pCO2 (40-60) VBG HCO3 (21-28) mmol/l VBG Total CO2 (22-28) mmol.L VBG O2 Sat (Calc) (40-65) % VBG Base Excess (0.0-2.0) mmol/L VBG Potassium (3.6-5.2) mmol/L Glucose Lactate (0.7-2.1) mmol/L FiO2 % Crit Value Called To Crit Value Called By Blood Gas Notified Time Sodium 135 (132-148) mmol/L Potassium 3.9 (3.6-5.0) mmol/L Chloride 94 L (98-107) mmol/L Carbon Dioxide 27 (21-33) mmol/L Anion Gap 18 (10-20) BUN 45 H (7-21) mg/dL Creatinine 2.9 H (0.8-1.5) mg/dl Est GFR ( Amer) 29 Est GFR (Non-Af Amer) 24 POC Glucose (mg/dL) 171 H 125 H (65-110) mg/dL Random Glucose 177 H (70-110) mg/dL Serum Osmolality (272-300) mosm/kg Calcium 10.4 (8.4-10.5) mg/dL Magnesium (1.7-2.2) mg/dL Total Bilirubin (0.2-1.3) mg/dL AST (17-59) U/L ALT (7-56) U/L Alkaline Phosphatase (38-126) U/L Troponin I 0.04 D ng/mL NT-Pro-B Natriuret Pep (0-450) pg/mL Total Protein (5.8-8.3) g/dL Albumin (3.0-4.8) g/dL Globulin gm/dL Albumin/Globulin Ratio (1.1-1.8) Venous Blood Potassium (3.6-5.2) mmol/L Urine Color (YELLOW) Urine Appearance (CLEAR) Urine pH (4.7-8.0) Ur Specific [place] (1.005-1.035) Urine Protein (<30 mg/dL) mg/dL Urine Glucose (UA) (NEGATIVE) mg/dL Urine Ketones (NEGATIVE) mg/dL Urine Blood (NEGATIVE) Urine Nitrate (NEGATIVE) Urine Bilirubin (NEGATIVE) Urine Urobilinogen (<1 E.U./dL) E.U./dL Ur Leukocyte Esterase (NEGATIVE) Jenniffer/uL Urine Opiates Screen (NEGATIVE) Urine Methadone Screen (NEGATIVE) Ur Barbiturates Screen (NEGATIVE) Ur Phencyclidine Scrn (NEGATIVE) Ur Amphetamines Screen (NEGATIVE) U Benzodiazepines Scrn (NEGATIVE) U Oth Cocaine Metabols (NEGATIVE) U Cannabinoids Screen (NEGATIVE) 01/12/19 01/12/19 01/12/19 Range/Units 03:22 02:29 01:27 WBC (4.5-11.0) 10^3/uL RBC (3.5-6.1) 10^6/uL Hgb (14.0-18.0) g/dL Hct (42.0-52.0) % MCV (80.0-105.0) fl MCH (25.0-35.0) pg MCHC (31.0-37.0) g/dl RDW (11.5-14.5) % Plt Count (120.0-450.0) 10^3/uL MPV (7.0-11.0) fl Neut % (Auto) (50.0-68.0) % Lymph % (Auto) (22.0-35.0) % [place] % (Auto) (1.0-6.0) % Eos % (Auto) (1.5-5.0) % Baso % (Auto) (0.0-3.0) % Lymph # (Auto) (1.2-3.4) [place] # (Auto) (0.1-0.6) Eos # (Auto) (0.0-0.7) Baso # (Auto) (0.0-2.0) K/mm3 Absolute Neuts (auto) (1.4-6.5) PT (9.4-12.5) SECONDS INR APTT (26.9-38.3) Seconds pO2 (30-55) mm/Hg VBG pH (7.32-7.43) VBG pCO2 (40-60) VBG HCO3 (21-28) mmol/l VBG Total CO2 (22-28) mmol.L VBG O2 Sat (Calc) (40-65) % VBG Base Excess (0.0-2.0) mmol/L VBG Potassium (3.6-5.2) mmol/L Glucose Lactate (0.7-2.1) mmol/L FiO2 % Crit Value Called To Crit Value Called By Blood Gas Notified Time Sodium (132-148) mmol/L Potassium (3.6-5.0) mmol/L Chloride (98-107) mmol/L Carbon Dioxide (21-33) mmol/L Anion Gap (10-20) BUN (7-21) mg/dL Creatinine (0.8-1.5) mg/dl Est GFR ( Amer) Est GFR (Non-Af Amer) POC Glucose (mg/dL) 149 H 239 H 490 H* (65-110) mg/dL Random Glucose (70-110) mg/dL Serum Osmolality (272-300) mosm/kg Calcium (8.4-10.5) mg/dL Magnesium (1.7-2.2) mg/dL Total Bilirubin (0.2-1.3) mg/dL AST (17-59) U/L ALT (7-56) U/L Alkaline Phosphatase (38-126) U/L Troponin I ng/mL NT-Pro-B Natriuret Pep (0-450) pg/mL Total Protein (5.8-8.3) g/dL Albumin (3.0-4.8) g/dL Globulin gm/dL Albumin/Globulin Ratio (1.1-1.8) Venous Blood Potassium (3.6-5.2) mmol/L Urine Color (YELLOW) Urine Appearance (CLEAR) Urine pH (4.7-8.0) Ur Specific [place] (1.005-1.035) Urine Protein (<30 mg/dL) mg/dL Urine Glucose (UA) (NEGATIVE) mg/dL Urine Ketones (NEGATIVE) mg/dL Urine Blood (NEGATIVE) Urine Nitrate (NEGATIVE) Urine Bilirubin (NEGATIVE) Urine Urobilinogen (<1 E.U./dL) E.U./dL Ur Leukocyte Esterase (NEGATIVE) Jenniffer/uL Urine Opiates Screen (NEGATIVE) Urine Methadone Screen (NEGATIVE) Ur Barbiturates Screen (NEGATIVE) Ur Phencyclidine Scrn (NEGATIVE) Ur Amphetamines Screen (NEGATIVE) U Benzodiazepines Scrn (NEGATIVE) U Oth Cocaine Metabols (NEGATIVE) U Cannabinoids Screen (NEGATIVE) 01/12/19 01/11/19 01/11/19 Range/Units 00:59 23:55 23:55 WBC (4.5-11.0) 10^3/uL RBC (3.5-6.1) 10^6/uL Hgb (14.0-18.0) g/dL Hct (42.0-52.0) % MCV (80.0-105.0) fl MCH (25.0-35.0) pg MCHC (31.0-37.0) g/dl RDW (11.5-14.5) % Plt Count (120.0-450.0) 10^3/uL MPV (7.0-11.0) fl Neut % (Auto) (50.0-68.0) % Lymph % (Auto) (22.0-35.0) % [place] % (Auto) (1.0-6.0) % Eos % (Auto) (1.5-5.0) % Baso % (Auto) (0.0-3.0) % Lymph # (Auto) (1.2-3.4) [place] # (Auto) (0.1-0.6) Eos # (Auto) (0.0-0.7) Baso # (Auto) (0.0-2.0) K/mm3 Absolute Neuts (auto) (1.4-6.5) PT (9.4-12.5) SECONDS INR APTT (26.9-38.3) Seconds pO2 (30-55) mm/Hg VBG pH (7.32-7.43) VBG pCO2 (40-60) VBG HCO3 (21-28) mmol/l VBG Total CO2 (22-28) mmol.L VBG O2 Sat (Calc) (40-65) % VBG Base Excess (0.0-2.0) mmol/L VBG Potassium (3.6-5.2) mmol/L Glucose Lactate (0.7-2.1) mmol/L FiO2 % Crit Value Called To Crit Value Called By Blood Gas Notified Time Sodium 130 L (132-148) mmol/L Potassium 5.1 H (3.6-5.0) mmol/L Chloride 86 L (98-107) mmol/L Carbon Dioxide 28 (21-33) mmol/L Anion Gap 21 H (10-20) BUN 42 H (7-21) mg/dL Creatinine 1.9 H (0.8-1.5) mg/dl Est GFR ( Amer) 48 Est GFR (Non-Af Amer) 39 POC Glucose (mg/dL) > 500 H* (65-110) mg/dL Random Glucose 605 H* D (70-110) mg/dL Serum Osmolality (272-300) mosm/kg Calcium 10.5 (8.4-10.5) mg/dL Magnesium (1.7-2.2) mg/dL Total Bilirubin (0.2-1.3) mg/dL AST (17-59) U/L ALT (7-56) U/L Alkaline Phosphatase (38-126) U/L Troponin I < 0.01 ng/mL NT-Pro-B Natriuret Pep (0-450) pg/mL Total Protein (5.8-8.3) g/dL Albumin (3.0-4.8) g/dL Globulin gm/dL Albumin/Globulin Ratio (1.1-1.8) Venous Blood Potassium (3.6-5.2) mmol/L Urine Color (YELLOW) Urine Appearance (CLEAR) Urine pH (4.7-8.0) Ur Specific [place] (1.005-1.035) Urine Protein (<30 mg/dL) mg/dL Urine Glucose (UA) (NEGATIVE) mg/dL Urine Ketones (NEGATIVE) mg/dL Urine Blood (NEGATIVE) Urine Nitrate (NEGATIVE) Urine Bilirubin (NEGATIVE) Urine Urobilinogen (<1 E.U./dL) E.U./dL Ur Leukocyte Esterase (NEGATIVE) Jenniffer/uL Urine Opiates Screen (NEGATIVE) Urine Methadone Screen (NEGATIVE) Ur Barbiturates Screen (NEGATIVE) Ur Phencyclidine Scrn (NEGATIVE) Ur Amphetamines Screen (NEGATIVE) U Benzodiazepines Scrn (NEGATIVE) U Oth Cocaine Metabols (NEGATIVE) U Cannabinoids Screen (NEGATIVE) 01/11/19 01/11/19 01/11/19 Range/Units 23:22 23:22 22:10 WBC (4.5-11.0) 10^3/uL RBC (3.5-6.1) 10^6/uL Hgb (14.0-18.0) g/dL Hct (42.0-52.0) % MCV (80.0-105.0) fl MCH (25.0-35.0) pg MCHC (31.0-37.0) g/dl RDW (11.5-14.5) % Plt Count (120.0-450.0) 10^3/uL MPV (7.0-11.0) fl Neut % (Auto) (50.0-68.0) % Lymph % (Auto) (22.0-35.0) % [place] % (Auto) (1.0-6.0) % Eos % (Auto) (1.5-5.0) % Baso % (Auto) (0.0-3.0) % Lymph # (Auto) (1.2-3.4) [place] # (Auto) (0.1-0.6) Eos # (Auto) (0.0-0.7) Baso # (Auto) (0.0-2.0) K/mm3 Absolute Neuts (auto) (1.4-6.5) PT (9.4-12.5) SECONDS INR APTT (26.9-38.3) Seconds pO2 32 (30-55) mm/Hg VBG pH 7.21 L (7.32-7.43) VBG pCO2 79.0 H* (40-60) VBG HCO3 31.6 H (21-28) mmol/l VBG Total CO2 34.0 H (22-28) mmol.L VBG O2 Sat (Calc) 58.3 (40-65) % VBG Base Excess 1.3 (0.0-2.0) mmol/L VBG Potassium 5.5 H (3.6-5.2) mmol/L Glucose TEST NOT PERFORMED Lactate 2.2 H (0.7-2.1) mmol/L FiO2 21.0 % Crit Value Called To Bonnie earl Crit Value Called By Atc Blood Gas Notified Time 2220 Sodium 127.0 L (132-148) mmol/L Potassium (3.6-5.0) mmol/L Chloride 83.0 L (98-107) mmol/L Carbon Dioxide (21-33) mmol/L Anion Gap (10-20) BUN (7-21) mg/dL Creatinine (0.8-1.5) mg/dl Est GFR ( Amer) Est GFR (Non-Af Amer) POC Glucose (mg/dL) (65-110) mg/dL Random Glucose (70-110) mg/dL Serum Osmolality (272-300) mosm/kg Calcium (8.4-10.5) mg/dL Magnesium (1.7-2.2) mg/dL Total Bilirubin (0.2-1.3) mg/dL AST (17-59) U/L ALT (7-56) U/L Alkaline Phosphatase (38-126) U/L Troponin I ng/mL NT-Pro-B Natriuret Pep (0-450) pg/mL Total Protein (5.8-8.3) g/dL Albumin (3.0-4.8) g/dL Globulin gm/dL Albumin/Globulin Ratio (1.1-1.8) Venous Blood Potassium 5.5 H (3.6-5.2) mmol/L Urine Color Yellow (YELLOW) Urine Appearance Clear (CLEAR) Urine pH 6.0 (4.7-8.0) Ur Specific [place] 1.010 (1.005-1.035) Urine Protein Negative (<30 mg/dL) mg/dL Urine Glucose (UA) >=1000 (NEGATIVE) mg/dL Urine Ketones Negative (NEGATIVE) mg/dL Urine Blood Negative (NEGATIVE) Urine Nitrate Negative (NEGATIVE) Urine Bilirubin Negative (NEGATIVE) Urine Urobilinogen 0.2 (<1 E.U./dL) E.U./dL Ur Leukocyte Esterase Negative (NEGATIVE) Jenniffer/uL Urine Opiates Screen Negative (NEGATIVE) Urine Methadone Screen Negative (NEGATIVE) Ur Barbiturates Screen Negative (NEGATIVE) Ur Phencyclidine Scrn Positive H (NEGATIVE) Ur Amphetamines Screen Negative (NEGATIVE) U Benzodiazepines Scrn Negative (NEGATIVE) U Oth Cocaine Metabols Negative (NEGATIVE) U Cannabinoids Screen Negative (NEGATIVE) 01/11/19 01/11/19 01/11/19 Range/Units 19:52 19:52 19:52 WBC (4.5-11.0) 10^3/uL RBC (3.5-6.1) 10^6/uL Hgb (14.0-18.0) g/dL Hct (42.0-52.0) % MCV (80.0-105.0) fl MCH (25.0-35.0) pg MCHC (31.0-37.0) g/dl RDW (11.5-14.5) % Plt Count (120.0-450.0) 10^3/uL MPV (7.0-11.0) fl Neut % (Auto) (50.0-68.0) % Lymph % (Auto) (22.0-35.0) % [place] % (Auto) (1.0-6.0) % Eos % (Auto) (1.5-5.0) % Baso % (Auto) (0.0-3.0) % Lymph # (Auto) (1.2-3.4) [place] # (Auto) (0.1-0.6) Eos # (Auto) (0.0-0.7) Baso # (Auto) (0.0-2.0) K/mm3 Absolute Neuts (auto) (1.4-6.5) PT (9.4-12.5) SECONDS INR APTT (26.9-38.3) Seconds pO2 (30-55) mm/Hg VBG pH (7.32-7.43) VBG pCO2 (40-60) VBG HCO3 (21-28) mmol/l VBG Total CO2 (22-28) mmol.L VBG O2 Sat (Calc) (40-65) % VBG Base Excess (0.0-2.0) mmol/L VBG Potassium (3.6-5.2) mmol/L Glucose Lactate (0.7-2.1) mmol/L FiO2 % Crit Value Called To Crit Value Called By Blood Gas Notified Time Sodium 124 L (132-148) mmol/L Potassium 5.7 H* D (3.6-5.0) mmol/L Chloride 82 L (98-107) mmol/L Carbon Dioxide 26 (21-33) mmol/L Anion Gap 22 H (10-20) BUN 44 H (7-21) mg/dL Creatinine 1.9 H (0.8-1.5) mg/dl Est GFR ( Amer) 48 Est GFR (Non-Af Amer) 39 POC Glucose (mg/dL) (65-110) mg/dL Random Glucose 895 H* D (70-110) mg/dL Serum Osmolality 317 H (272-300) mosm/kg Calcium 10.2 (8.4-10.5) mg/dL Magnesium 2.0 (1.7-2.2) mg/dL Total Bilirubin 0.5 (0.2-1.3) mg/dL AST 19 (17-59) U/L ALT 25 (7-56) U/L Alkaline Phosphatase 131 H D (38-126) U/L Troponin I < 0.01 D ng/mL NT-Pro-B Natriuret Pep 38.2 (0-450) pg/mL Total Protein 7.7 (5.8-8.3) g/dL Albumin 4.4 (3.0-4.8) g/dL Globulin 3.3 gm/dL Albumin/Globulin Ratio 1.3 (1.1-1.8) Venous Blood Potassium (3.6-5.2) mmol/L Urine Color (YELLOW) Urine Appearance (CLEAR) Urine pH (4.7-8.0) Ur Specific [place] (1.005-1.035) Urine Protein (<30 mg/dL) mg/dL Urine Glucose (UA) (NEGATIVE) mg/dL Urine Ketones (NEGATIVE) mg/dL Urine Blood (NEGATIVE) Urine Nitrate (NEGATIVE) Urine Bilirubin (NEGATIVE) Urine Urobilinogen (<1 E.U./dL) E.U./dL Ur Leukocyte Esterase (NEGATIVE) Jenniffer/uL Urine Opiates Screen (NEGATIVE) Urine Methadone Screen (NEGATIVE) Ur Barbiturates Screen (NEGATIVE) Ur Phencyclidine Scrn (NEGATIVE) Ur Amphetamines Screen (NEGATIVE) U Benzodiazepines Scrn (NEGATIVE) U Oth Cocaine Metabols (NEGATIVE) U Cannabinoids Screen (NEGATIVE) 01/11/19 01/11/19 Range/Units 19:52 19:52 WBC 5.8 (4.5-11.0) 10^3/uL RBC 5.11 (3.5-6.1) 10^6/uL Hgb 14.7 (14.0-18.0) g/dL Hct 42.5 (42.0-52.0) % MCV 83.2 (80.0-105.0) fl MCH 28.8 (25.0-35.0) pg MCHC 34.6 (31.0-37.0) g/dl RDW 12.8 (11.5-14.5) % Plt Count 276 (120.0-450.0) 10^3/uL MPV 11.9 H (7.0-11.0) fl Neut % (Auto) 66.3 (50.0-68.0) % Lymph % (Auto) 24.6 (22.0-35.0) % [place] % (Auto) 7.6 H (1.0-6.0) % Eos % (Auto) 1.0 L (1.5-5.0) % Baso % (Auto) 0.5 (0.0-3.0) % Lymph # (Auto) 1.4 (1.2-3.4) [place] # (Auto) 0.4 (0.1-0.6) Eos # (Auto) 0.1 (0.0-0.7) Baso # (Auto) 0.03 (0.0-2.0) K/mm3 Absolute Neuts (auto) 3.86 (1.4-6.5) PT 11.4 (9.4-12.5) SECONDS INR 1.03 APTT 29.5 (26.9-38.3) Seconds pO2 (30-55) mm/Hg VBG pH (7.32-7.43) VBG pCO2 (40-60) VBG HCO3 (21-28) mmol/l VBG Total CO2 (22-28) mmol.L VBG O2 Sat (Calc) (40-65) % VBG Base Excess (0.0-2.0) mmol/L VBG Potassium (3.6-5.2) mmol/L Glucose Lactate (0.7-2.1) mmol/L FiO2 % Crit Value Called To Crit Value Called By Blood Gas Notified Time Sodium (132-148) mmol/L Potassium (3.6-5.0) mmol/L Chloride (98-107) mmol/L Carbon Dioxide (21-33) mmol/L Anion Gap (10-20) BUN (7-21) mg/dL Creatinine (0.8-1.5) mg/dl Est GFR ( Amer) Est GFR (Non-Af Amer) POC Glucose (mg/dL) (65-110) mg/dL Random Glucose (70-110) mg/dL Serum Osmolality (272-300) mosm/kg Calcium (8.4-10.5) mg/dL Magnesium (1.7-2.2) mg/dL Total Bilirubin (0.2-1.3) mg/dL AST (17-59) U/L ALT (7-56) U/L Alkaline Phosphatase (38-126) U/L Troponin I ng/mL NT-Pro-B Natriuret Pep (0-450) pg/mL Total Protein (5.8-8.3) g/dL Albumin (3.0-4.8) g/dL Globulin gm/dL Albumin/Globulin Ratio (1.1-1.8) Venous Blood Potassium (3.6-5.2) mmol/L Urine Color (YELLOW) Urine Appearance (CLEAR) Urine pH (4.7-8.0) Ur Specific [place] (1.005-1.035) Urine Protein (<30 mg/dL) mg/dL Urine Glucose (UA) (NEGATIVE) mg/dL Urine Ketones (NEGATIVE) mg/dL Urine Blood (NEGATIVE) Urine Nitrate (NEGATIVE) Urine Bilirubin (NEGATIVE) Urine Urobilinogen (<1 E.U./dL) E.U./dL Ur Leukocyte Esterase (NEGATIVE) Jenniffer/uL Urine Opiates Screen (NEGATIVE) Urine Methadone Screen (NEGATIVE) Ur Barbiturates Screen (NEGATIVE) Ur Phencyclidine Scrn (NEGATIVE) Ur Amphetamines Screen (NEGATIVE) U Benzodiazepines Scrn (NEGATIVE) U Oth Cocaine Metabols (NEGATIVE) U Cannabinoids Screen (NEGATIVE) Laboratory Results - last 24 hr 01/11/19 01/11/19 01/11/19 19:52 19:52 19:52 WBC 5.8 RBC 5.11 Hgb 14.7 Hct 42.5 MCV 83.2 MCH 28.8 MCHC 34.6 RDW 12.8 Plt Count 276 MPV 11.9 H Neut % (Auto) 66.3 Lymph % (Auto) 24.6 [place] % (Auto) 7.6 H Eos % (Auto) 1.0 L Baso % (Auto) 0.5 Lymph # (Auto) 1.4 [place] # (Auto) 0.4 Eos # (Auto) 0.1 Baso # (Auto) 0.03 Absolute Neuts (auto) 3.86 PT 11.4 INR 1.03 APTT 29.5 pO2 VBG pH VBG pCO2 VBG HCO3 VBG Total CO2 VBG O2 Sat (Calc) VBG Base Excess VBG Potassium Glucose Lactate FiO2 Crit Value Called To Crit Value Called By Blood Gas Notified Time Sodium 124 L Potassium 5.7 H* D Chloride 82 L Carbon Dioxide 26 Anion Gap 22 H BUN 44 H Creatinine 1.9 H Est GFR ( Amer) 48 Est GFR (Non-Af Amer) 39 POC Glucose (mg/dL) Random Glucose 895 H* D Serum Osmolality Calcium 10.2 Magnesium 2.0 Total Bilirubin 0.5 AST 19 ALT 25 Alkaline Phosphatase 131 H D Troponin I < 0.01 D NT-Pro-B Natriuret Pep Total Protein 7.7 Albumin 4.4 Globulin 3.3 Albumin/Globulin Ratio 1.3 Venous Blood Potassium Urine Color Urine Appearance Urine pH Ur Specific [place] Urine Protein Urine Glucose (UA) Urine Ketones Urine Blood Urine Nitrate Urine Bilirubin Urine Urobilinogen Ur Leukocyte Esterase Urine Opiates Screen Urine Methadone Screen Ur Barbiturates Screen Ur Phencyclidine Scrn Ur Amphetamines Screen U Benzodiazepines Scrn U Oth Cocaine Metabols U Cannabinoids Screen 01/11/19 01/11/19 01/11/19 19:52 19:52 22:10 WBC RBC Hgb Hct MCV MCH MCHC RDW Plt Count MPV Neut % (Auto) Lymph % (Auto) [place] % (Auto) Eos % (Auto) Baso % (Auto) Lymph # (Auto) [place] # (Auto) Eos # (Auto) Baso # (Auto) Absolute Neuts (auto) PT INR APTT pO2 32 VBG pH 7.21 L VBG pCO2 79.0 H* VBG HCO3 31.6 H VBG Total CO2 34.0 H VBG O2 Sat (Calc) 58.3 VBG Base Excess 1.3 VBG Potassium 5.5 H Glucose TEST NOT PERFORMED Lactate 2.2 H FiO2 21.0 Crit Value Called To Bonnie earl Crit Value Called By Atc Blood Gas Notified Time 2220 Sodium 127.0 L Potassium Chloride 83.0 L Carbon Dioxide Anion Gap BUN Creatinine Est GFR ( Amer) Est GFR (Non-Af Amer) POC Glucose (mg/dL) Random Glucose Serum Osmolality 317 H Calcium Magnesium Total Bilirubin AST ALT Alkaline Phosphatase Troponin I NT-Pro-B Natriuret Pep 38.2 Total Protein Albumin Globulin Albumin/Globulin Ratio Venous Blood Potassium 5.5 H Urine Color Urine Appearance Urine pH Ur Specific [place] Urine Protein Urine Glucose (UA) Urine Ketones Urine Blood Urine Nitrate Urine Bilirubin Urine Urobilinogen Ur Leukocyte Esterase Urine Opiates Screen Urine Methadone Screen Ur Barbiturates Screen Ur Phencyclidine Scrn Ur Amphetamines Screen U Benzodiazepines Scrn U Oth Cocaine Metabols U Cannabinoids Screen 01/11/19 01/11/19 01/11/19 23:22 23:22 23:55 WBC RBC Hgb Hct MCV MCH MCHC RDW Plt Count MPV Neut % (Auto) Lymph % (Auto) [place] % (Auto) Eos % (Auto) Baso % (Auto) Lymph # (Auto) [place] # (Auto) Eos # (Auto) Baso # (Auto) Absolute Neuts (auto) PT INR APTT pO2 VBG pH VBG pCO2 VBG HCO3 VBG Total CO2 VBG O2 Sat (Calc) VBG Base Excess VBG Potassium Glucose Lactate FiO2 Crit Value Called To Crit Value Called By Blood Gas Notified Time Sodium Potassium Chloride Carbon Dioxide Anion Gap BUN Creatinine Est GFR ( Amer) Est GFR (Non-Af Amer) POC Glucose (mg/dL) Random Glucose Serum Osmolality Calcium Magnesium Total Bilirubin AST ALT Alkaline Phosphatase Troponin I < 0.01 NT-Pro-B Natriuret Pep Total Protein Albumin Globulin Albumin/Globulin Ratio Venous Blood Potassium Urine Color Yellow Urine Appearance Clear Urine pH 6.0 Ur Specific [place] 1.010 Urine Protein Negative Urine Glucose (UA) >=1000 Urine Ketones Negative Urine Blood Negative Urine Nitrate Negative Urine Bilirubin Negative Urine Urobilinogen 0.2 Ur Leukocyte Esterase Negative Urine Opiates Screen Negative Urine Methadone Screen Negative Ur Barbiturates Screen Negative Ur Phencyclidine Scrn Positive H Ur Amphetamines Screen Negative U Benzodiazepines Scrn Negative U Oth Cocaine Metabols Negative U Cannabinoids Screen Negative 01/11/19 01/12/19 01/12/19 23:55 00:59 01:27 WBC RBC Hgb Hct MCV MCH MCHC RDW Plt Count MPV Neut % (Auto) Lymph % (Auto) [place] % (Auto) Eos % (Auto) Baso % (Auto) Lymph # (Auto) [place] # (Auto) Eos # (Auto) Baso # (Auto) Absolute Neuts (auto) PT INR APTT pO2 VBG pH VBG pCO2 VBG HCO3 VBG Total CO2 VBG O2 Sat (Calc) VBG Base Excess VBG Potassium Glucose Lactate FiO2 Crit Value Called To Crit Value Called By Blood Gas Notified Time Sodium 130 L Potassium 5.1 H Chloride 86 L Carbon Dioxide 28 Anion Gap 21 H BUN 42 H Creatinine 1.9 H Est GFR ( Amer) 48 Est GFR (Non-Af Amer) 39 POC Glucose (mg/dL) > 500 H* 490 H* Random Glucose 605 H* D Serum Osmolality Calcium 10.5 Magnesium Total Bilirubin AST ALT Alkaline Phosphatase Troponin I NT-Pro-B Natriuret Pep Total Protein Albumin Globulin Albumin/Globulin Ratio Venous Blood Potassium Urine Color Urine Appearance Urine pH Ur Specific [place] Urine Protein Urine Glucose (UA) Urine Ketones Urine Blood Urine Nitrate Urine Bilirubin Urine Urobilinogen Ur Leukocyte Esterase Urine Opiates Screen Urine Methadone Screen Ur Barbiturates Screen Ur Phencyclidine Scrn Ur Amphetamines Screen U Benzodiazepines Scrn U Oth Cocaine Metabols U Cannabinoids Screen 01/12/19 01/12/19 01/12/19 02:29 03:22 03:55 WBC RBC Hgb Hct MCV MCH MCHC RDW Plt Count MPV Neut % (Auto) Lymph % (Auto) [place] % (Auto) Eos % (Auto) Baso % (Auto) Lymph # (Auto) [place] # (Auto) Eos # (Auto) Baso # (Auto) Absolute Neuts (auto) PT INR APTT pO2 VBG pH VBG pCO2 VBG HCO3 VBG Total CO2 VBG O2 Sat (Calc) VBG Base Excess VBG Potassium Glucose Lactate FiO2 Crit Value Called To Crit Value Called By Blood Gas Notified Time Sodium Potassium Chloride Carbon Dioxide Anion Gap BUN Creatinine Est GFR ( Amer) Est GFR (Non-Af Amer) POC Glucose (mg/dL) 239 H 149 H 125 H Random Glucose Serum Osmolality Calcium Magnesium Total Bilirubin AST ALT Alkaline Phosphatase Troponin I NT-Pro-B Natriuret Pep Total Protein Albumin Globulin Albumin/Globulin Ratio Venous Blood Potassium Urine Color Urine Appearance Urine pH Ur Specific [place] Urine Protein Urine Glucose (UA) Urine Ketones Urine Blood Urine Nitrate Urine Bilirubin Urine Urobilinogen Ur Leukocyte Esterase Urine Opiates Screen Urine Methadone Screen Ur Barbiturates Screen Ur Phencyclidine Scrn Ur Amphetamines Screen U Benzodiazepines Scrn U Oth Cocaine Metabols U Cannabinoids Screen 01/12/19 01/12/19 01/12/19 05:17 05:30 05:30 WBC 9.5 D RBC 5.10 Hgb 14.4 Hct 41.6 L MCV 81.6 MCH 28.2 MCHC 34.6 RDW 12.7 Plt Count 320 MPV 11.2 H Neut % (Auto) 55.5 Lymph % (Auto) 35.3 H [place] % (Auto) 7.6 H Eos % (Auto) 1.3 L Baso % (Auto) 0.3 Lymph # (Auto) 3.4 [place] # (Auto) 0.7 H Eos # (Auto) 0.1 Baso # (Auto) 0.03 Absolute Neuts (auto) 5.27 PT INR APTT pO2 VBG pH VBG pCO2 VBG HCO3 VBG Total CO2 VBG O2 Sat (Calc) VBG Base Excess VBG Potassium Glucose Lactate FiO2 Crit Value Called To Crit Value Called By Blood Gas Notified Time Sodium 135 Potassium 3.9 Chloride 94 L Carbon Dioxide 27 Anion Gap 18 BUN 45 H Creatinine 2.9 H Est GFR ( Amer) 29 Est GFR (Non-Af Amer) 24 POC Glucose (mg/dL) 171 H Random Glucose 177 H Serum Osmolality Calcium 10.4 Magnesium Total Bilirubin AST ALT Alkaline Phosphatase Troponin I 0.04 D NT-Pro-B Natriuret Pep Total Protein Albumin Globulin Albumin/Globulin Ratio Venous Blood Potassium Urine Color Urine Appearance Urine pH Ur Specific [place] Urine Protein Urine Glucose (UA) Urine Ketones Urine Blood Urine Nitrate Urine Bilirubin Urine Urobilinogen Ur Leukocyte Esterase Urine Opiates Screen Urine Methadone Screen Ur Barbiturates Screen Ur Phencyclidine Scrn Ur Amphetamines Screen U Benzodiazepines Scrn U Oth Cocaine Metabols U Cannabinoids Screen 01/12/19 01/12/19 01/12/19 05:50 06:07 07:47 WBC RBC Hgb Hct MCV MCH MCHC RDW Plt Count MPV Neut % (Auto) Lymph % (Auto) [place] % (Auto) Eos % (Auto) Baso % (Auto) Lymph # (Auto) [place] # (Auto) Eos # (Auto) Baso # (Auto) Absolute Neuts (auto) PT INR APTT pO2 37 VBG pH 7.30 L VBG pCO2 59.0 VBG HCO3 29.0 H VBG Total CO2 30.8 H VBG O2 Sat (Calc) 70.9 H VBG Base Excess 1.2 VBG Potassium 4.1 Glucose 184 H Lactate 3.0 H FiO2 21.0 Crit Value Called To Ekaterina villar. Crit Value Called By Angie zeng Blood Gas Notified Time 640 Sodium 134.0 Potassium Chloride 94.0 L Carbon Dioxide Anion Gap BUN Creatinine Est GFR ( Amer) Est GFR (Non-Af Amer) POC Glucose (mg/dL) 208 H 215 H Random Glucose Serum Osmolality Calcium Magnesium Total Bilirubin AST ALT Alkaline Phosphatase Troponin I NT-Pro-B Natriuret Pep Total Protein Albumin Globulin Albumin/Globulin Ratio Venous Blood Potassium 4.1 Urine Color Urine Appearance Urine pH Ur Specific [place] Urine Protein Urine Glucose (UA) Urine Ketones Urine Blood Urine Nitrate Urine Bilirubin Urine Urobilinogen Ur Leukocyte Esterase Urine Opiates Screen Urine Methadone Screen Ur Barbiturates Screen Ur Phencyclidine Scrn Ur Amphetamines Screen U Benzodiazepines Scrn U Oth Cocaine Metabols U Cannabinoids Screen 01/12/19 01/12/19 08:57 09:05 WBC RBC Hgb Hct MCV MCH MCHC RDW Plt Count MPV Neut % (Auto) Lymph % (Auto) [place] % (Auto) Eos % (Auto) Baso % (Auto) Lymph # (Auto) [place] # (Auto) Eos # (Auto) Baso # (Auto) Absolute Neuts (auto) PT INR APTT pO2 VBG pH VBG pCO2 VBG HCO3 VBG Total CO2 VBG O2 Sat (Calc) VBG Base Excess VBG Potassium Glucose Lactate FiO2 Crit Value Called To Crit Value Called By Blood Gas Notified Time Sodium 134 Potassium 4.0 Chloride 95 L Carbon Dioxide 26 Anion Gap 18 BUN 46 H Creatinine 3.2 H Est GFR ( Amer) 26 Est GFR (Non-Af Amer) 22 POC Glucose (mg/dL) 201 H Random Glucose 196 H Serum Osmolality Calcium 10.3 Magnesium Total Bilirubin AST ALT Alkaline Phosphatase Troponin I NT-Pro-B Natriuret Pep Total Protein Albumin Globulin Albumin/Globulin Ratio Venous Blood Potassium Urine Color Urine Appearance Urine pH Ur Specific [place] Urine Protein Urine Glucose (UA) Urine Ketones Urine Blood Urine Nitrate Urine Bilirubin Urine Urobilinogen Ur Leukocyte Esterase Urine Opiates Screen Urine Methadone Screen Ur Barbiturates Screen Ur Phencyclidine Scrn Ur Amphetamines Screen U Benzodiazepines Scrn U Oth Cocaine Metabols U Cannabinoids Screen Radiology Impressions: Radiology Impressions Chest X-Ray 01/11/19 19:41 IMPRESSION: Improved inspiratory volumes. No acute infiltrate, pleural effusion or pneumothorax bilaterally. Normal pulmonary vascular pattern. EKG/Cardiology Studies: Cardiology / EKG Studies 01/11/19 19:41 ELECTROCARDIOGRAM Stat Comment: Reason For Exam: cp Fingerstick Blood Sugar Results: 208 Critical Care Progress Note - Nutrition Nutrition: Nutrition Category Date Time Status Heart Healthy Diet [DIET] Diets 01/12/19 Lunch Active Assessment/Plan - Assessment and Plan (Free Text) Assessment: 43 yo M with PMH of DM2, HTN, CAD (s/p PCI), PCP abuse, and depression admitted to MICU for management of DKA/HHS 2/2 non-compliance with insulin regimen. Plan: Neuro: AAOx3, no focal deficit, moving extremities past midline, able to protect airway Reorient as necessary Cardio: Currently RRR, normotensive, no signs of HD compromise Had a few episodes of hypotension overnight which resolved with IVF resuscitation Patient continues to complain of burning chest pain worse with meals Suspect most likely 2/2 GERD but patient was supposed to go for stress test as well Troponin x 3 negative Cardiology following, all recs appreciated Pulm: Maintaining SaO2 > 95% on room air CXR on admission without concerning findings No active issues GI: Now tolerating diet well without nausea/vomiting /Nephro: Suspect RONAN is most likely 2/2 pre-renal azotemia with component of CKD (given hx of poorly controlled DM2 and non-compliance) May continue gentle IVF resuscitation Switch IVF from D5W to NS at 75 cc/hr Continue serial monitoring of renal function parameters Endo: Patient has a history of prior similar episodes of HHS, 2/2 non-compliance and difficulty obtaining insulin Anion gap resolved since early this AM Patient is awake, alert, requesting food, tolerating diet well Levemir 35 u given, insulin drip and D5W subsequently stopped about 1 hour after Will continue on insulin regimen as recommended by Dr. Mckeon during prior visit Switch fingerstick glucose frequency to [facility] Endocrinology following, all recs appreciated Heme/Onc: H/H stable, at baseline Continue monitoring H/H and for sx of HD compromise ID: Afebrile, no leukocytosis Lactate trending down with IVF resuscitation/insulin drip Low suspicion for infectious process given hx of non-compliance with insulin regimen, so cx not sent Monitor for s/sx of infection DVT/GI PPX: SCD/pepcid Full Code Heart healthy, diabetic diet Transfer to telemetry Patient seen, examined with, and plan confirmed with my attending Dr. Mila Fine D.O. IM Resident PGY-1 Pager: [phone] <Prabhakar Zaragoza - Last Filed: 01/12/19 11:42> CCU Objective - Vital Signs / Intake & Output Vital Signs (Last 4 hours): Vital Signs Pulse Resp BP Pulse Ox 01/12/19 08:40 72 105/37 L 01/12/19 07:50 72 19 96 01/12/19 07:40 69 100 Intake and Output (Last 8hrs): Intake & Output 01/11/19 01/12/19 01/12/19 22:59 06:59 14:59 Intake Total 3678 35 Output Total 200 Balance 3478 35 Weight 346 lb 316 lb 11.2 oz Intake: IV 3678 35 Left Antecubital 1826 Right Wrist 1800 Output: Urine 200 Urine, Voided 200 Other: Voiding Method Urinal - Medications Active Medications: Active Medications Generic Name Dose Route Start Last Admin Trade Name Freq PRN Reason Stop Dose Admin Aspirin 81 mg 01/12/19 10:00 01/12/19 10:56 Aspirin Chewable PO 81 mg DAILY JET Administration Atorvastatin Calcium 40 mg 01/12/19 22:00 Lipitor PO HS [facility] Clopidogrel Bisulfate 75 mg 01/12/19 10:00 01/12/19 10:54 Plavix PO 75 mg DAILY JET Administration Dextrose 0 ml 01/12/19 09:22 Dextrose 50% Inj IV STAT PRN Hypoglycemia Protocol Protocol Ergocalciferol 1 cap 01/12/19 10:00 Drisdol 50,000 Intl Units Cap PO Q7D JET Famotidine 40 mg 01/12/19 22:00 Pepcid PO HS JET Fluoxetine HCl 20 mg 01/12/19 10:00 01/12/19 10:54 Prozac PO 20 mg DAILY JET Administration Gabapentin 300 mg 01/12/19 10:00 01/12/19 10:54 Neurontin PO 300 mg TID JET Administration Protocol Heparin Sodium (Porcine) 5,000 units 01/12/19 06:00 01/12/19 05:26 Heparin SC 5,000 units Q8 JET Administration Protocol Hydrochlorothiazide 25 mg 01/12/19 11:34 Hydrodiuril PO DAILY JET Dextrose 1,000 mls @ 0 mls/hr 01/12/19 09:22 Dextrose 5% In Water 1000 Ml IV .Q0M PRN Hypoglycemia Protocol Protocol Per Protocol Sodium Chloride 1,000 mls @ 100 mls/hr 01/12/19 11:30 Sodium Chloride 0.9% IV .Q10H JET Insulin Human Lispro 12 units 01/12/19 12:00 Humalog SC WM [facility] Lisinopril 20 mg 01/12/19 11:34 Zestril PO DAILY [facility] Metoprolol Tartrate 25 mg 01/12/19 11:34 Lopressor PO BRKDIN [facility] Nitroglycerin 1 patch 01/12/19 11:37 Nitro-Dur 0.2 Mg/Hr Patch TD DAILY [facility] (Insulin Glargine, 35 unit 01/12/19 22:00 Hum.Rec.Anlog [ SQ Vanessaaglfabiano Hanley U- HS JET 100] - Patient Studies Lab Studies: Lab Studies 01/12/19 01/12/19 01/12/19 Range/Units 10:25 09:05 08:57 WBC (4.5-11.0) 10^3/uL RBC (3.5-6.1) 10^6/uL Hgb (14.0-18.0) g/dL Hct (42.0-52.0) % MCV (80.0-105.0) fl MCH (25.0-35.0) pg MCHC (31.0-37.0) g/dl RDW (11.5-14.5) % Plt Count (120.0-450.0) 10^3/uL MPV (7.0-11.0) fl Neut % (Auto) (50.0-68.0) % Lymph % (Auto) (22.0-35.0) % [place] % (Auto) (1.0-6.0) % Eos % (Auto) (1.5-5.0) % Baso % (Auto) (0.0-3.0) % Lymph # (Auto) (1.2-3.4) [place] # (Auto) (0.1-0.6) Eos # (Auto) (0.0-0.7) Baso # (Auto) (0.0-2.0) K/mm3 Absolute Neuts (auto) (1.4-6.5) PT (9.4-12.5) SECONDS INR APTT (26.9-38.3) Seconds pO2 46 (30-55) mm/Hg VBG pH 7.34 (7.32-7.43) VBG pCO2 51.0 (40-60) VBG HCO3 27.5 (21-28) mmol/l VBG Total CO2 29.1 H (22-28) mmol.L VBG O2 Sat (Calc) 84.5 H (40-65) % VBG Base Excess 0.9 (0.0-2.0) mmol/L VBG Potassium 4.1 (3.6-5.2) mmol/L Glucose 167 H Lactate 2.7 H (0.7-2.1) mmol/L FiO2 21.0 % Crit Value Called To Fredy Crit Value Called By Angie Blood Gas Notified Time 1022 Sodium 135.0 134 (132-148) mmol/L Potassium 4.0 (3.6-5.0) mmol/L Chloride 96.0 L 95 L (98-107) mmol/L Carbon Dioxide 26 (21-33) mmol/L Anion Gap 18 (10-20) BUN 46 H (7-21) mg/dL Creatinine 3.2 H (0.8-1.5) mg/dl Est GFR ( Amer) 26 Est GFR (Non-Af Amer) 22 POC Glucose (mg/dL) 201 H (65-110) mg/dL Random Glucose 196 H (70-110) mg/dL Serum Osmolality (272-300) mosm/kg Calcium 10.3 (8.4-10.5) mg/dL Magnesium (1.7-2.2) mg/dL Total Bilirubin (0.2-1.3) mg/dL AST (17-59) U/L ALT (7-56) U/L Alkaline Phosphatase (38-126) U/L Troponin I ng/mL NT-Pro-B Natriuret Pep (0-450) pg/mL Total Protein (5.8-8.3) g/dL Albumin (3.0-4.8) g/dL Globulin gm/dL Albumin/Globulin Ratio (1.1-1.8) Venous Blood Potassium 4.1 (3.6-5.2) mmol/L Urine Color (YELLOW) Urine Appearance (CLEAR) Urine pH (4.7-8.0) Ur Specific [place] (1.005-1.035) Urine Protein (<30 mg/dL) mg/dL Urine Glucose (UA) (NEGATIVE) mg/dL Urine Ketones (NEGATIVE) mg/dL Urine Blood (NEGATIVE) Urine Nitrate (NEGATIVE) Urine Bilirubin (NEGATIVE) Urine Urobilinogen (<1 E.U./dL) E.U./dL Ur Leukocyte Esterase (NEGATIVE) Jenniffer/uL Urine Opiates Screen (NEGATIVE) Urine Methadone Screen (NEGATIVE) Ur Barbiturates Screen (NEGATIVE) Ur Phencyclidine Scrn (NEGATIVE) Ur Amphetamines Screen (NEGATIVE) U Benzodiazepines Scrn (NEGATIVE) U Oth Cocaine Metabols (NEGATIVE) U Cannabinoids Screen (NEGATIVE) 01/12/19 01/12/19 01/12/19 Range/Units 07:47 06:07 05:50 WBC (4.5-11.0) 10^3/uL RBC (3.5-6.1) 10^6/uL Hgb (14.0-18.0) g/dL Hct (42.0-52.0) % MCV (80.0-105.0) fl MCH (25.0-35.0) pg MCHC (31.0-37.0) g/dl RDW (11.5-14.5) % Plt Count (120.0-450.0) 10^3/uL MPV (7.0-11.0) fl Neut % (Auto) (50.0-68.0) % Lymph % (Auto) (22.0-35.0) % [place] % (Auto) (1.0-6.0) % Eos % (Auto) (1.5-5.0) % Baso % (Auto) (0.0-3.0) % Lymph # (Auto) (1.2-3.4) [place] # (Auto) (0.1-0.6) Eos # (Auto) (0.0-0.7) Baso # (Auto) (0.0-2.0) K/mm3 Absolute Neuts (auto) (1.4-6.5) PT (9.4-12.5) SECONDS INR APTT (26.9-38.3) Seconds pO2 37 (30-55) mm/Hg VBG pH 7.30 L (7.32-7.43) VBG pCO2 59.0 (40-60) VBG HCO3 29.0 H (21-28) mmol/l VBG Total CO2 30.8 H (22-28) mmol.L VBG O2 Sat (Calc) 70.9 H (40-65) % VBG Base Excess 1.2 (0.0-2.0) mmol/L VBG Potassium 4.1 (3.6-5.2) mmol/L Glucose 184 H Lactate 3.0 H (0.7-2.1) mmol/L FiO2 21.0 % Crit Value Called To Ekaterina villar. Crit Value Called By Angie zeng Blood Gas Notified Time 640 Sodium 134.0 (132-148) mmol/L Potassium (3.6-5.0) mmol/L Chloride 94.0 L (98-107) mmol/L Carbon Dioxide (21-33) mmol/L Anion Gap (10-20) BUN (7-21) mg/dL Creatinine (0.8-1.5) mg/dl Est GFR ( Amer) Est GFR (Non-Af Amer) POC Glucose (mg/dL) 215 H 208 H (65-110) mg/dL Random Glucose (70-110) mg/dL Serum Osmolality (272-300) mosm/kg Calcium (8.4-10.5) mg/dL Magnesium (1.7-2.2) mg/dL Total Bilirubin (0.2-1.3) mg/dL AST (17-59) U/L ALT (7-56) U/L Alkaline Phosphatase (38-126) U/L Troponin I ng/mL NT-Pro-B Natriuret Pep (0-450) pg/mL Total Protein (5.8-8.3) g/dL Albumin (3.0-4.8) g/dL Globulin gm/dL Albumin/Globulin Ratio (1.1-1.8) Venous Blood Potassium 4.1 (3.6-5.2) mmol/L Urine Color (YELLOW) Urine Appearance (CLEAR) Urine pH (4.7-8.0) Ur Specific [place] (1.005-1.035) Urine Protein (<30 mg/dL) mg/dL Urine Glucose (UA) (NEGATIVE) mg/dL Urine Ketones (NEGATIVE) mg/dL Urine Blood (NEGATIVE) Urine Nitrate (NEGATIVE) Urine Bilirubin (NEGATIVE) Urine Urobilinogen (<1 E.U./dL) E.U./dL Ur Leukocyte Esterase (NEGATIVE) Jenniffer/uL Urine Opiates Screen (NEGATIVE) Urine Methadone Screen (NEGATIVE) Ur Barbiturates Screen (NEGATIVE) Ur Phencyclidine Scrn (NEGATIVE) Ur Amphetamines Screen (NEGATIVE) U Benzodiazepines Scrn (NEGATIVE) U Oth Cocaine Metabols (NEGATIVE) U Cannabinoids Screen (NEGATIVE) 01/12/19 01/12/19 01/12/19 Range/Units 05:30 05:30 05:17 WBC 9.5 D (4.5-11.0) 10^3/uL RBC 5.10 (3.5-6.1) 10^6/uL Hgb 14.4 (14.0-18.0) g/dL Hct 41.6 L (42.0-52.0) % MCV 81.6 (80.0-105.0) fl MCH 28.2 (25.0-35.0) pg MCHC 34.6 (31.0-37.0) g/dl RDW 12.7 (11.5-14.5) % Plt Count 320 (120.0-450.0) 10^3/uL MPV 11.2 H (7.0-11.0) fl Neut % (Auto) 55.5 (50.0-68.0) % Lymph % (Auto) 35.3 H (22.0-35.0) % [place] % (Auto) 7.6 H (1.0-6.0) % Eos % (Auto) 1.3 L (1.5-5.0) % Baso % (Auto) 0.3 (0.0-3.0) % Lymph # (Auto) 3.4 (1.2-3.4) [place] # (Auto) 0.7 H (0.1-0.6) Eos # (Auto) 0.1 (0.0-0.7) Baso # (Auto) 0.03 (0.0-2.0) K/mm3 Absolute Neuts (auto) 5.27 (1.4-6.5) PT (9.4-12.5) SECONDS INR APTT (26.9-38.3) Seconds pO2 (30-55) mm/Hg VBG pH (7.32-7.43) VBG pCO2 (40-60) VBG HCO3 (21-28) mmol/l VBG Total CO2 (22-28) mmol.L VBG O2 Sat (Calc) (40-65) % VBG Base Excess (0.0-2.0) mmol/L VBG Potassium (3.6-5.2) mmol/L Glucose Lactate (0.7-2.1) mmol/L FiO2 % Crit Value Called To Crit Value Called By Blood Gas Notified Time Sodium 135 (132-148) mmol/L Potassium 3.9 (3.6-5.0) mmol/L Chloride 94 L (98-107) mmol/L Carbon Dioxide 27 (21-33) mmol/L Anion Gap 18 (10-20) BUN 45 H (7-21) mg/dL Creatinine 2.9 H (0.8-1.5) mg/dl Est GFR ( Amer) 29 Est GFR (Non-Af Amer) 24 POC Glucose (mg/dL) 171 H (65-110) mg/dL Random Glucose 177 H (70-110) mg/dL Serum Osmolality (272-300) mosm/kg Calcium 10.4 (8.4-10.5) mg/dL Magnesium (1.7-2.2) mg/dL Total Bilirubin (0.2-1.3) mg/dL AST (17-59) U/L ALT (7-56) U/L Alkaline Phosphatase (38-126) U/L Troponin I 0.04 D ng/mL NT-Pro-B Natriuret Pep (0-450) pg/mL Total Protein (5.8-8.3) g/dL Albumin (3.0-4.8) g/dL Globulin gm/dL Albumin/Globulin Ratio (1.1-1.8) Venous Blood Potassium (3.6-5.2) mmol/L Urine Color (YELLOW) Urine Appearance (CLEAR) Urine pH (4.7-8.0) Ur Specific [place] (1.005-1.035) Urine Protein (<30 mg/dL) mg/dL Urine Glucose (UA) (NEGATIVE) mg/dL Urine Ketones (NEGATIVE) mg/dL Urine Blood (NEGATIVE) Urine Nitrate (NEGATIVE) Urine Bilirubin (NEGATIVE) Urine Urobilinogen (<1 E.U./dL) E.U./dL Ur Leukocyte Esterase (NEGATIVE) Jenniffer/uL Urine Opiates Screen (NEGATIVE) Urine Methadone Screen (NEGATIVE) Ur Barbiturates Screen (NEGATIVE) Ur Phencyclidine Scrn (NEGATIVE) Ur Amphetamines Screen (NEGATIVE) U Benzodiazepines Scrn (NEGATIVE) U Oth Cocaine Metabols (NEGATIVE) U Cannabinoids Screen (NEGATIVE) 01/12/19 01/12/19 01/12/19 Range/Units 03:55 03:22 02:29 WBC (4.5-11.0) 10^3/uL RBC (3.5-6.1) 10^6/uL Hgb (14.0-18.0) g/dL Hct (42.0-52.0) % MCV (80.0-105.0) fl MCH (25.0-35.0) pg MCHC (31.0-37.0) g/dl RDW (11.5-14.5) % Plt Count (120.0-450.0) 10^3/uL MPV (7.0-11.0) fl Neut % (Auto) (50.0-68.0) % Lymph % (Auto) (22.0-35.0) % [place] % (Auto) (1.0-6.0) % Eos % (Auto) (1.5-5.0) % Baso % (Auto) (0.0-3.0) % Lymph # (Auto) (1.2-3.4) [place] # (Auto) (0.1-0.6) Eos # (Auto) (0.0-0.7) Baso # (Auto) (0.0-2.0) K/mm3 Absolute Neuts (auto) (1.4-6.5) PT (9.4-12.5) SECONDS INR APTT (26.9-38.3) Seconds pO2 (30-55) mm/Hg VBG pH (7.32-7.43) VBG pCO2 (40-60) VBG HCO3 (21-28) mmol/l VBG Total CO2 (22-28) mmol.L VBG O2 Sat (Calc) (40-65) % VBG Base Excess (0.0-2.0) mmol/L VBG Potassium (3.6-5.2) mmol/L Glucose Lactate (0.7-2.1) mmol/L FiO2 % Crit Value Called To Crit Value Called By Blood Gas Notified Time Sodium (132-148) mmol/L Potassium (3.6-5.0) mmol/L Chloride (98-107) mmol/L Carbon Dioxide (21-33) mmol/L Anion Gap (10-20) BUN (7-21) mg/dL Creatinine (0.8-1.5) mg/dl Est GFR ( Amer) Est GFR (Non-Af Amer) POC Glucose (mg/dL) 125 H 149 H 239 H (65-110) mg/dL Random Glucose (70-110) mg/dL Serum Osmolality (272-300) mosm/kg Calcium (8.4-10.5) mg/dL Magnesium (1.7-2.2) mg/dL Total Bilirubin (0.2-1.3) mg/dL AST (17-59) U/L ALT (7-56) U/L Alkaline Phosphatase (38-126) U/L Troponin I ng/mL NT-Pro-B Natriuret Pep (0-450) pg/mL Total Protein (5.8-8.3) g/dL Albumin (3.0-4.8) g/dL Globulin gm/dL Albumin/Globulin Ratio (1.1-1.8) Venous Blood Potassium (3.6-5.2) mmol/L Urine Color (YELLOW) Urine Appearance (CLEAR) Urine pH (4.7-8.0) Ur Specific [place] (1.005-1.035) Urine Protein (<30 mg/dL) mg/dL Urine Glucose (UA) (NEGATIVE) mg/dL Urine Ketones (NEGATIVE) mg/dL Urine Blood (NEGATIVE) Urine Nitrate (NEGATIVE) Urine Bilirubin (NEGATIVE) Urine Urobilinogen (<1 E.U./dL) E.U./dL Ur Leukocyte Esterase (NEGATIVE) [place]/uL Urine Opiates Screen (NEGATIVE) Urine Methadone Screen (NEGATIVE) Ur Barbiturates Screen (NEGATIVE) Ur Phencyclidine Scrn (NEGATIVE) Ur Amphetamines Screen (NEGATIVE) U Benzodiazepines Scrn (NEGATIVE) U Oth Cocaine Metabols (NEGATIVE) U Cannabinoids Screen (NEGATIVE) 01/12/19 01/12/19 01/11/19 Range/Units 01:27 00:59 23:55 WBC (4.5-11.0) 10^3/uL RBC (3.5-6.1) 10^6/uL Hgb (14.0-18.0) g/dL Hct (42.0-52.0) % MCV (80.0-105.0) fl MCH (25.0-35.0) pg MCHC (31.0-37.0) g/dl RDW (11.5-14.5) % Plt Count (120.0-450.0) 10^3/uL MPV (7.0-11.0) fl Neut % (Auto) (50.0-68.0) % Lymph % (Auto) (22.0-35.0) % [place] % (Auto) (1.0-6.0) % Eos % (Auto) (1.5-5.0) % Baso % (Auto) (0.0-3.0) % Lymph # (Auto) (1.2-3.4) [place] # (Auto) (0.1-0.6) Eos # (Auto) (0.0-0.7) Baso # (Auto) (0.0-2.0) K/mm3 Absolute Neuts (auto) (1.4-6.5) PT (9.4-12.5) SECONDS INR APTT (26.9-38.3) Seconds pO2 (30-55) mm/Hg VBG pH (7.32-7.43) VBG pCO2 (40-60) VBG HCO3 (21-28) mmol/l VBG Total CO2 (22-28) mmol.L VBG O2 Sat (Calc) (40-65) % VBG Base Excess (0.0-2.0) mmol/L VBG Potassium (3.6-5.2) mmol/L Glucose Lactate (0.7-2.1) mmol/L FiO2 % Crit Value Called To Crit Value Called By Blood Gas Notified Time Sodium 130 L (132-148) mmol/L Potassium 5.1 H (3.6-5.0) mmol/L Chloride 86 L (98-107) mmol/L Carbon Dioxide 28 (21-33) mmol/L Anion Gap 21 H (10-20) BUN 42 H (7-21) mg/dL Creatinine 1.9 H (0.8-1.5) mg/dl Est GFR ( Amer) 48 Est GFR (Non-Af Amer) 39 POC Glucose (mg/dL) 490 H* > 500 H* (65-110) mg/dL Random Glucose 605 H* D (70-110) mg/dL Serum Osmolality (272-300) mosm/kg Calcium 10.5 (8.4-10.5) mg/dL Magnesium (1.7-2.2) mg/dL Total Bilirubin (0.2-1.3) mg/dL AST (17-59) U/L ALT (7-56) U/L Alkaline Phosphatase (38-126) U/L Troponin I ng/mL NT-Pro-B Natriuret Pep (0-450) pg/mL Total Protein (5.8-8.3) g/dL Albumin (3.0-4.8) g/dL Globulin gm/dL Albumin/Globulin Ratio (1.1-1.8) Venous Blood Potassium (3.6-5.2) mmol/L Urine Color (YELLOW) Urine Appearance (CLEAR) Urine pH (4.7-8.0) Ur Specific [place] (1.005-1.035) Urine Protein (<30 mg/dL) mg/dL Urine Glucose (UA) (NEGATIVE) mg/dL Urine Ketones (NEGATIVE) mg/dL Urine Blood (NEGATIVE) Urine Nitrate (NEGATIVE) Urine Bilirubin (NEGATIVE) Urine Urobilinogen (<1 E.U./dL) E.U./dL Ur Leukocyte Esterase (NEGATIVE) Jenniffer/uL Urine Opiates Screen (NEGATIVE) Urine Methadone Screen (NEGATIVE) Ur Barbiturates Screen (NEGATIVE) Ur Phencyclidine Scrn (NEGATIVE) Ur Amphetamines Screen (NEGATIVE) U Benzodiazepines Scrn (NEGATIVE) U Oth Cocaine Metabols (NEGATIVE) U Cannabinoids Screen (NEGATIVE) 01/11/19 01/11/19 01/11/19 Range/Units 23:55 23:22 23:22 WBC (4.5-11.0) 10^3/uL RBC (3.5-6.1) 10^6/uL Hgb (14.0-18.0) g/dL Hct (42.0-52.0) % MCV (80.0-105.0) fl MCH (25.0-35.0) pg MCHC (31.0-37.0) g/dl RDW (11.5-14.5) % Plt Count (120.0-450.0) 10^3/uL MPV (7.0-11.0) fl Neut % (Auto) (50.0-68.0) % Lymph % (Auto) (22.0-35.0) % [place] % (Auto) (1.0-6.0) % Eos % (Auto) (1.5-5.0) % Baso % (Auto) (0.0-3.0) % Lymph # (Auto) (1.2-3.4) [place] # (Auto) (0.1-0.6) Eos # (Auto) (0.0-0.7) Baso # (Auto) (0.0-2.0) K/mm3 Absolute Neuts (auto) (1.4-6.5) PT (9.4-12.5) SECONDS INR APTT (26.9-38.3) Seconds pO2 (30-55) mm/Hg VBG pH (7.32-7.43) VBG pCO2 (40-60) VBG HCO3 (21-28) mmol/l VBG Total CO2 (22-28) mmol.L VBG O2 Sat (Calc) (40-65) % VBG Base Excess (0.0-2.0) mmol/L VBG Potassium (3.6-5.2) mmol/L Glucose Lactate (0.7-2.1) mmol/L FiO2 % Crit Value Called To Crit Value Called By Blood Gas Notified Time Sodium (132-148) mmol/L Potassium (3.6-5.0) mmol/L Chloride (98-107) mmol/L Carbon Dioxide (21-33) mmol/L Anion Gap (10-20) BUN (7-21) mg/dL Creatinine (0.8-1.5) mg/dl Est GFR ( Amer) Est GFR (Non-Af Amer) POC Glucose (mg/dL) (65-110) mg/dL Random Glucose (70-110) mg/dL Serum Osmolality (272-300) mosm/kg Calcium (8.4-10.5) mg/dL Magnesium (1.7-2.2) mg/dL Total Bilirubin (0.2-1.3) mg/dL AST (17-59) U/L ALT (7-56) U/L Alkaline Phosphatase (38-126) U/L Troponin I < 0.01 ng/mL NT-Pro-B Natriuret Pep (0-450) pg/mL Total Protein (5.8-8.3) g/dL Albumin (3.0-4.8) g/dL Globulin gm/dL Albumin/Globulin Ratio (1.1-1.8) Venous Blood Potassium (3.6-5.2) mmol/L Urine Color Yellow (YELLOW) Urine Appearance Clear (CLEAR) Urine pH 6.0 (4.7-8.0) Ur Specific [place] 1.010 (1.005-1.035) Urine Protein Negative (<30 mg/dL) mg/dL Urine Glucose (UA) >=1000 (NEGATIVE) mg/dL Urine Ketones Negative (NEGATIVE) mg/dL Urine Blood Negative (NEGATIVE) Urine Nitrate Negative (NEGATIVE) Urine Bilirubin Negative (NEGATIVE) Urine Urobilinogen 0.2 (<1 E.U./dL) E.U./dL Ur Leukocyte Esterase Negative (NEGATIVE) Jenniffer/uL Urine Opiates Screen Negative (NEGATIVE) Urine Methadone Screen Negative (NEGATIVE) Ur Barbiturates Screen Negative (NEGATIVE) Ur Phencyclidine Scrn Positive H (NEGATIVE) Ur Amphetamines Screen Negative (NEGATIVE) U Benzodiazepines Scrn Negative (NEGATIVE) U Oth Cocaine Metabols Negative (NEGATIVE) U Cannabinoids Screen Negative (NEGATIVE) 01/11/19 01/11/19 01/11/19 Range/Units 22:10 19:52 19:52 WBC (4.5-11.0) 10^3/uL RBC (3.5-6.1) 10^6/uL Hgb (14.0-18.0) g/dL Hct (42.0-52.0) % MCV (80.0-105.0) fl MCH (25.0-35.0) pg MCHC (31.0-37.0) g/dl RDW (11.5-14.5) % Plt Count (120.0-450.0) 10^3/uL MPV (7.0-11.0) fl Neut % (Auto) (50.0-68.0) % Lymph % (Auto) (22.0-35.0) % [place] % (Auto) (1.0-6.0) % Eos % (Auto) (1.5-5.0) % Baso % (Auto) (0.0-3.0) % Lymph # (Auto) (1.2-3.4) [place] # (Auto) (0.1-0.6) Eos # (Auto) (0.0-0.7) Baso # (Auto) (0.0-2.0) K/mm3 Absolute Neuts (auto) (1.4-6.5) PT (9.4-12.5) SECONDS INR APTT (26.9-38.3) Seconds pO2 32 (30-55) mm/Hg VBG pH 7.21 L (7.32-7.43) VBG pCO2 79.0 H* (40-60) VBG HCO3 31.6 H (21-28) mmol/l VBG Total CO2 34.0 H (22-28) mmol.L VBG O2 Sat (Calc) 58.3 (40-65) % VBG Base Excess 1.3 (0.0-2.0) mmol/L VBG Potassium 5.5 H (3.6-5.2) mmol/L Glucose TEST NOT PERFORMED Lactate 2.2 H (0.7-2.1) mmol/L FiO2 21.0 % Crit Value Called To Bonnie earl Crit Value Called By Atc Blood Gas Notified Time 2220 Sodium 127.0 L (132-148) mmol/L Potassium (3.6-5.0) mmol/L Chloride 83.0 L (98-107) mmol/L Carbon Dioxide (21-33) mmol/L Anion Gap (10-20) BUN (7-21) mg/dL Creatinine (0.8-1.5) mg/dl Est GFR ( Amer) Est GFR (Non-Af Amer) POC Glucose (mg/dL) (65-110) mg/dL Random Glucose (70-110) mg/dL Serum Osmolality 317 H (272-300) mosm/kg Calcium (8.4-10.5) mg/dL Magnesium (1.7-2.2) mg/dL Total Bilirubin (0.2-1.3) mg/dL AST (17-59) U/L ALT (7-56) U/L Alkaline Phosphatase (38-126) U/L Troponin I ng/mL NT-Pro-B Natriuret Pep 38.2 (0-450) pg/mL Total Protein (5.8-8.3) g/dL Albumin (3.0-4.8) g/dL Globulin gm/dL Albumin/Globulin Ratio (1.1-1.8) Venous Blood Potassium 5.5 H (3.6-5.2) mmol/L Urine Color (YELLOW) Urine Appearance (CLEAR) Urine pH (4.7-8.0) Ur Specific [place] (1.005-1.035) Urine Protein (<30 mg/dL) mg/dL Urine Glucose (UA) (NEGATIVE) mg/dL Urine Ketones (NEGATIVE) mg/dL Urine Blood (NEGATIVE) Urine Nitrate (NEGATIVE) Urine Bilirubin (NEGATIVE) Urine Urobilinogen (<1 E.U./dL) E.U./dL Ur Leukocyte Esterase (NEGATIVE) Jenniffer/uL Urine Opiates Screen (NEGATIVE) Urine Methadone Screen (NEGATIVE) Ur Barbiturates Screen (NEGATIVE) Ur Phencyclidine Scrn (NEGATIVE) Ur Amphetamines Screen (NEGATIVE) U Benzodiazepines Scrn (NEGATIVE) U Oth Cocaine Metabols (NEGATIVE) U Cannabinoids Screen (NEGATIVE) 01/11/19 01/11/19 01/11/19 Range/Units 19:52 19:52 19:52 WBC 5.8 (4.5-11.0) 10^3/uL RBC 5.11 (3.5-6.1) 10^6/uL Hgb 14.7 (14.0-18.0) g/dL Hct 42.5 (42.0-52.0) % MCV 83.2 (80.0-105.0) fl MCH 28.8 (25.0-35.0) pg MCHC 34.6 (31.0-37.0) g/dl RDW 12.8 (11.5-14.5) % Plt Count 276 (120.0-450.0) 10^3/uL MPV 11.9 H (7.0-11.0) fl Neut % (Auto) 66.3 (50.0-68.0) % Lymph % (Auto) 24.6 (22.0-35.0) % [place] % (Auto) 7.6 H (1.0-6.0) % Eos % (Auto) 1.0 L (1.5-5.0) % Baso % (Auto) 0.5 (0.0-3.0) % Lymph # (Auto) 1.4 (1.2-3.4) [place] # (Auto) 0.4 (0.1-0.6) Eos # (Auto) 0.1 (0.0-0.7) Baso # (Auto) 0.03 (0.0-2.0) K/mm3 Absolute Neuts (auto) 3.86 (1.4-6.5) PT 11.4 (9.4-12.5) SECONDS INR 1.03 APTT 29.5 (26.9-38.3) Seconds pO2 (30-55) mm/Hg VBG pH (7.32-7.43) VBG pCO2 (40-60) VBG HCO3 (21-28) mmol/l VBG Total CO2 (22-28) mmol.L VBG O2 Sat (Calc) (40-65) % VBG Base Excess (0.0-2.0) mmol/L VBG Potassium (3.6-5.2) mmol/L Glucose Lactate (0.7-2.1) mmol/L FiO2 % Crit Value Called To Crit Value Called By Blood Gas Notified Time Sodium 124 L (132-148) mmol/L Potassium 5.7 H* D (3.6-5.0) mmol/L Chloride 82 L (98-107) mmol/L Carbon Dioxide 26 (21-33) mmol/L Anion Gap 22 H (10-20) BUN 44 H (7-21) mg/dL Creatinine 1.9 H (0.8-1.5) mg/dl Est GFR ( Amer) 48 Est GFR (Non-Af Amer) 39 POC Glucose (mg/dL) (65-110) mg/dL Random Glucose 895 H* D (70-110) mg/dL Serum Osmolality (272-300) mosm/kg Calcium 10.2 (8.4-10.5) mg/dL Magnesium 2.0 (1.7-2.2) mg/dL Total Bilirubin 0.5 (0.2-1.3) mg/dL AST 19 (17-59) U/L ALT 25 (7-56) U/L Alkaline Phosphatase 131 H D (38-126) U/L Troponin I < 0.01 D ng/mL NT-Pro-B Natriuret Pep (0-450) pg/mL Total Protein 7.7 (5.8-8.3) g/dL Albumin 4.4 (3.0-4.8) g/dL Globulin 3.3 gm/dL Albumin/Globulin Ratio 1.3 (1.1-1.8) Venous Blood Potassium (3.6-5.2) mmol/L Urine Color (YELLOW) Urine Appearance (CLEAR) Urine pH (4.7-8.0) Ur Specific [place] (1.005-1.035) Urine Protein (<30 mg/dL) mg/dL Urine Glucose (UA) (NEGATIVE) mg/dL Urine Ketones (NEGATIVE) mg/dL Urine Blood (NEGATIVE) Urine Nitrate (NEGATIVE) Urine Bilirubin (NEGATIVE) Urine Urobilinogen (<1 E.U./dL) E.U./dL Ur Leukocyte Esterase (NEGATIVE) Jenniffer/uL Urine Opiates Screen (NEGATIVE) Urine Methadone Screen (NEGATIVE) Ur Barbiturates Screen (NEGATIVE) Ur Phencyclidine Scrn (NEGATIVE) Ur Amphetamines Screen (NEGATIVE) U Benzodiazepines Scrn (NEGATIVE) U Oth Cocaine Metabols (NEGATIVE) U Cannabinoids Screen (NEGATIVE) Laboratory Results - last 24 hr 01/11/19 01/11/19 01/11/19 19:52 19:52 19:52 WBC 5.8 RBC 5.11 Hgb 14.7 Hct 42.5 MCV 83.2 MCH 28.8 MCHC 34.6 RDW 12.8 Plt Count 276 MPV 11.9 H Neut % (Auto) 66.3 Lymph % (Auto) 24.6 [place] % (Auto) 7.6 H Eos % (Auto) 1.0 L Baso % (Auto) 0.5 Lymph # (Auto) 1.4 [place] # (Auto) 0.4 Eos # (Auto) 0.1 Baso # (Auto) 0.03 Absolute Neuts (auto) 3.86 PT 11.4 INR 1.03 APTT 29.5 pO2 VBG pH VBG pCO2 VBG HCO3 VBG Total CO2 VBG O2 Sat (Calc) VBG Base Excess VBG Potassium Glucose Lactate FiO2 Crit Value Called To Crit Value Called By Blood Gas Notified Time Sodium 124 L Potassium 5.7 H* D Chloride 82 L Carbon Dioxide 26 Anion Gap 22 H BUN 44 H Creatinine 1.9 H Est GFR ( Amer) 48 Est GFR (Non-Af Amer) 39 POC Glucose (mg/dL) Random Glucose 895 H* D Serum Osmolality Calcium 10.2 Magnesium 2.0 Total Bilirubin 0.5 AST 19 ALT 25 Alkaline Phosphatase 131 H D Troponin I < 0.01 D NT-Pro-B Natriuret Pep Total Protein 7.7 Albumin 4.4 Globulin 3.3 Albumin/Globulin Ratio 1.3 Venous Blood Potassium Urine Color Urine Appearance Urine pH Ur Specific [place] Urine Protein Urine Glucose (UA) Urine Ketones Urine Blood Urine Nitrate Urine Bilirubin Urine Urobilinogen Ur Leukocyte Esterase Urine Opiates Screen Urine Methadone Screen Ur Barbiturates Screen Ur Phencyclidine Scrn Ur Amphetamines Screen U Benzodiazepines Scrn U Oth Cocaine Metabols U Cannabinoids Screen 01/11/19 01/11/19 01/11/19 19:52 19:52 22:10 WBC RBC Hgb Hct MCV MCH MCHC RDW Plt Count MPV Neut % (Auto) Lymph % (Auto) [place] % (Auto) Eos % (Auto) Baso % (Auto) Lymph # (Auto) [place] # (Auto) Eos # (Auto) Baso # (Auto) Absolute Neuts (auto) PT INR APTT pO2 32 VBG pH 7.21 L VBG pCO2 79.0 H* VBG HCO3 31.6 H VBG Total CO2 34.0 H VBG O2 Sat (Calc) 58.3 VBG Base Excess 1.3 VBG Potassium 5.5 H Glucose TEST NOT PERFORMED Lactate 2.2 H FiO2 21.0 Crit Value Called To Bonnie earl Crit Value Called By Atc Blood Gas Notified Time 2220 Sodium 127.0 L Potassium Chloride 83.0 L Carbon Dioxide Anion Gap BUN Creatinine Est GFR ( Amer) Est GFR (Non-Af Amer) POC Glucose (mg/dL) Random Glucose Serum Osmolality 317 H Calcium Magnesium Total Bilirubin AST ALT Alkaline Phosphatase Troponin I NT-Pro-B Natriuret Pep 38.2 Total Protein Albumin Globulin Albumin/Globulin Ratio Venous Blood Potassium 5.5 H Urine Color Urine Appearance Urine pH Ur Specific [place] Urine Protein Urine Glucose (UA) Urine Ketones Urine Blood Urine Nitrate Urine Bilirubin Urine Urobilinogen Ur Leukocyte Esterase Urine Opiates Screen Urine Methadone Screen Ur Barbiturates Screen Ur Phencyclidine Scrn Ur Amphetamines Screen U Benzodiazepines Scrn U Oth Cocaine Metabols U Cannabinoids Screen 01/11/19 01/11/19 01/11/19 23:22 23:22 23:55 WBC RBC Hgb Hct MCV MCH MCHC RDW Plt Count MPV Neut % (Auto) Lymph % (Auto) [place] % (Auto) Eos % (Auto) Baso % (Auto) Lymph # (Auto) [place] # (Auto) Eos # (Auto) Baso # (Auto) Absolute Neuts (auto) PT INR APTT pO2 VBG pH VBG pCO2 VBG HCO3 VBG Total CO2 VBG O2 Sat (Calc) VBG Base Excess VBG Potassium Glucose Lactate FiO2 Crit Value Called To Crit Value Called By Blood Gas Notified Time Sodium Potassium Chloride Carbon Dioxide Anion Gap BUN Creatinine Est GFR ( Amer) Est GFR (Non-Af Amer) POC Glucose (mg/dL) Random Glucose Serum Osmolality Calcium Magnesium Total Bilirubin AST ALT Alkaline Phosphatase Troponin I < 0.01 NT-Pro-B Natriuret Pep Total Protein Albumin Globulin Albumin/Globulin Ratio Venous Blood Potassium Urine Color Yellow Urine Appearance Clear Urine pH 6.0 Ur Specific [place] 1.010 Urine Protein Negative Urine Glucose (UA) >=1000 Urine Ketones Negative Urine Blood Negative Urine Nitrate Negative Urine Bilirubin Negative Urine Urobilinogen 0.2 Ur Leukocyte Esterase Negative Urine Opiates Screen Negative Urine Methadone Screen Negative Ur Barbiturates Screen Negative Ur Phencyclidine Scrn Positive H Ur Amphetamines Screen Negative U Benzodiazepines Scrn Negative U Oth Cocaine Metabols Negative U Cannabinoids Screen Negative 01/11/19 01/12/19 01/12/19 23:55 00:59 01:27 WBC RBC Hgb Hct MCV MCH MCHC RDW Plt Count MPV Neut % (Auto) Lymph % (Auto) [place] % (Auto) Eos % (Auto) Baso % (Auto) Lymph # (Auto) [place] # (Auto) Eos # (Auto) Baso # (Auto) Absolute Neuts (auto) PT INR APTT pO2 VBG pH VBG pCO2 VBG HCO3 VBG Total CO2 VBG O2 Sat (Calc) VBG Base Excess VBG Potassium Glucose Lactate FiO2 Crit Value Called To Crit Value Called By Blood Gas Notified Time Sodium 130 L Potassium 5.1 H Chloride 86 L Carbon Dioxide 28 Anion Gap 21 H BUN 42 H Creatinine 1.9 H Est GFR ( Amer) 48 Est GFR (Non-Af Amer) 39 POC Glucose (mg/dL) > 500 H* 490 H* Random Glucose 605 H* D Serum Osmolality Calcium 10.5 Magnesium Total Bilirubin AST ALT Alkaline Phosphatase Troponin I NT-Pro-B Natriuret Pep Total Protein Albumin Globulin Albumin/Globulin Ratio Venous Blood Potassium Urine Color Urine Appearance Urine pH Ur Specific [place] Urine Protein Urine Glucose (UA) Urine Ketones Urine Blood Urine Nitrate Urine Bilirubin Urine Urobilinogen Ur Leukocyte Esterase Urine Opiates Screen Urine Methadone Screen Ur Barbiturates Screen Ur Phencyclidine Scrn Ur Amphetamines Screen U Benzodiazepines Scrn U Oth Cocaine Metabols U Cannabinoids Screen 01/12/19 01/12/19 01/12/19 02:29 03:22 03:55 WBC RBC Hgb Hct MCV MCH MCHC RDW Plt Count MPV Neut % (Auto) Lymph % (Auto) [place] % (Auto) Eos % (Auto) Baso % (Auto) Lymph # (Auto) [place] # (Auto) Eos # (Auto) Baso # (Auto) Absolute Neuts (auto) PT INR APTT pO2 VBG pH VBG pCO2 VBG HCO3 VBG Total CO2 VBG O2 Sat (Calc) VBG Base Excess VBG Potassium Glucose Lactate FiO2 Crit Value Called To Crit Value Called By Blood Gas Notified Time Sodium Potassium Chloride Carbon Dioxide Anion Gap BUN Creatinine Est GFR ( Amer) Est GFR (Non-Af Amer) POC Glucose (mg/dL) 239 H 149 H 125 H Random Glucose Serum Osmolality Calcium Magnesium Total Bilirubin AST ALT Alkaline Phosphatase Troponin I NT-Pro-B Natriuret Pep Total Protein Albumin Globulin Albumin/Globulin Ratio Venous Blood Potassium Urine Color Urine Appearance Urine pH Ur Specific [place] Urine Protein Urine Glucose (UA) Urine Ketones Urine Blood Urine Nitrate Urine Bilirubin Urine Urobilinogen Ur Leukocyte Esterase Urine Opiates Screen Urine Methadone Screen Ur Barbiturates Screen Ur Phencyclidine Scrn Ur Amphetamines Screen U Benzodiazepines Scrn U Oth Cocaine Metabols U Cannabinoids Screen 01/12/19 01/12/19 01/12/19 05:17 05:30 05:30 WBC 9.5 D RBC 5.10 Hgb 14.4 Hct 41.6 L MCV 81.6 MCH 28.2 MCHC 34.6 RDW 12.7 Plt Count 320 MPV 11.2 H Neut % (Auto) 55.5 Lymph % (Auto) 35.3 H [place] % (Auto) 7.6 H Eos % (Auto) 1.3 L Baso % (Auto) 0.3 Lymph # (Auto) 3.4 [place] # (Auto) 0.7 H Eos # (Auto) 0.1 Baso # (Auto) 0.03 Absolute Neuts (auto) 5.27 PT INR APTT pO2 VBG pH VBG pCO2 VBG HCO3 VBG Total CO2 VBG O2 Sat (Calc) VBG Base Excess VBG Potassium Glucose Lactate FiO2 Crit Value Called To Crit Value Called By Blood Gas Notified Time Sodium 135 Potassium 3.9 Chloride 94 L Carbon Dioxide 27 Anion Gap 18 BUN 45 H Creatinine 2.9 H Est GFR ( Amer) 29 Est GFR (Non-Af Amer) 24 POC Glucose (mg/dL) 171 H Random Glucose 177 H Serum Osmolality Calcium 10.4 Magnesium Total Bilirubin AST ALT Alkaline Phosphatase Troponin I 0.04 D NT-Pro-B Natriuret Pep Total Protein Albumin Globulin Albumin/Globulin Ratio Venous Blood Potassium Urine Color Urine Appearance Urine pH Ur Specific [place] Urine Protein Urine Glucose (UA) Urine Ketones Urine Blood Urine Nitrate Urine Bilirubin Urine Urobilinogen Ur Leukocyte Esterase Urine Opiates Screen Urine Methadone Screen Ur Barbiturates Screen Ur Phencyclidine Scrn Ur Amphetamines Screen U Benzodiazepines Scrn U Oth Cocaine Metabols U Cannabinoids Screen 01/12/19 01/12/19 01/12/19 05:50 06:07 07:47 WBC RBC Hgb Hct MCV MCH MCHC RDW Plt Count MPV Neut % (Auto) Lymph % (Auto) [place] % (Auto) Eos % (Auto) Baso % (Auto) Lymph # (Auto) [place] # (Auto) Eos # (Auto) Baso # (Auto) Absolute Neuts (auto) PT INR APTT pO2 37 VBG pH 7.30 L VBG pCO2 59.0 VBG HCO3 29.0 H VBG Total CO2 30.8 H VBG O2 Sat (Calc) 70.9 H VBG Base Excess 1.2 VBG Potassium 4.1 Glucose 184 H Lactate 3.0 H FiO2 21.0 Crit Value Called To Ekaterina villar. Crit Value Called By Angie zeng Blood Gas Notified Time 640 Sodium 134.0 Potassium Chloride 94.0 L Carbon Dioxide Anion Gap BUN Creatinine Est GFR ( Amer) Est GFR (Non-Af Amer) POC Glucose (mg/dL) 208 H 215 H Random Glucose Serum Osmolality Calcium Magnesium Total Bilirubin AST ALT Alkaline Phosphatase Troponin I NT-Pro-B Natriuret Pep Total Protein Albumin Globulin Albumin/Globulin Ratio Venous Blood Potassium 4.1 Urine Color Urine Appearance Urine pH Ur Specific [place] Urine Protein Urine Glucose (UA) Urine Ketones Urine Blood Urine Nitrate Urine Bilirubin Urine Urobilinogen Ur Leukocyte Esterase Urine Opiates Screen Urine Methadone Screen Ur Barbiturates Screen Ur Phencyclidine Scrn Ur Amphetamines Screen U Benzodiazepines Scrn U Oth Cocaine Metabols U Cannabinoids Screen 01/12/19 01/12/19 01/12/19 08:57 09:05 10:25 WBC RBC Hgb Hct MCV MCH MCHC RDW Plt Count MPV Neut % (Auto) Lymph % (Auto) [place] % (Auto) Eos % (Auto) Baso % (Auto) Lymph # (Auto) [place] # (Auto) Eos # (Auto) Baso # (Auto) Absolute Neuts (auto) PT INR APTT pO2 46 VBG pH 7.34 VBG pCO2 51.0 VBG HCO3 27.5 VBG Total CO2 29.1 H VBG O2 Sat (Calc) 84.5 H VBG Base Excess 0.9 VBG Potassium 4.1 Glucose 167 H Lactate 2.7 H FiO2 21.0 Crit Value Called To Fredy Crit Value Called By Angie Blood Gas Notified Time 1022 Sodium 134 135.0 Potassium 4.0 Chloride 95 L 96.0 L Carbon Dioxide 26 Anion Gap 18 BUN 46 H Creatinine 3.2 H Est GFR ( Amer) 26 Est GFR (Non-Af Amer) 22 POC Glucose (mg/dL) 201 H Random Glucose 196 H Serum Osmolality Calcium 10.3 Magnesium Total Bilirubin AST ALT Alkaline Phosphatase Troponin I NT-Pro-B Natriuret Pep Total Protein Albumin Globulin Albumin/Globulin Ratio Venous Blood Potassium 4.1 Urine Color Urine Appearance Urine pH Ur Specific [place] Urine Protein Urine Glucose (UA) Urine Ketones Urine Blood Urine Nitrate Urine Bilirubin Urine Urobilinogen Ur Leukocyte Esterase Urine Opiates Screen Urine Methadone Screen Ur Barbiturates Screen Ur Phencyclidine Scrn Ur Amphetamines Screen U Benzodiazepines Scrn U Oth Cocaine Metabols U Cannabinoids Screen Radiology Impressions: Radiology Impressions Chest X-Ray 01/11/19 19:41 IMPRESSION: Improved inspiratory volumes. No acute infiltrate, pleural effusion or pneumothorax bilaterally. Normal pulmonary vascular pattern. EKG/Cardiology Studies: Cardiology / EKG Studies 01/11/19 19:41 ELECTROCARDIOGRAM Stat Comment: Reason For Exam: cp Critical Care Progress Note - Nutrition Nutrition: Nutrition Category Date Time Status Heart Healthy Diet [DIET] Diets 01/12/19 Lunch Active Attending/Attestation - Attestation I have personally seen and examined this patient.: Yes I have fully participated in the care of the patient.: Yes I have reviewed all pertinent clinical information: Yes Notes (Text): 01/12/19 11:38 43 yo male with HONKS vs DKA with closed AG now and who had his insulin drip switched to longer acting sc insulin formulation. is eating and drinking well. chest pain is reproducible on palpation, 2 troponins are negative. will get cardiology service on board. ccm time 40 min
[2019-01-12] MEDS ORDERED: Ergocalciferol 50,000 Intl Units Cap PO SCH (10:00)
[2019-01-12 10:37] LABS: VENOUS BLOOD GAS BASE EXCESS 0.9 mmol/L (0.0-2.0); VENOUS BLOOD GAS PO2 46 mm/Hg (30-55); VENOUS BLOOD PH 7.34 (7.32-7.43)
[2019-01-12] MEDS: Nitroglycerin 0.2 mg/hr Top Patch TD SCH (11:04)
[2019-01-12] MEDS ORDERED: Sodium Chloride 0.9% 1,000 ML IV STA (11:53)
[2019-01-12 13:01] LABS: CALCIUM 10.3 mg/dL (8.4-10.5)
--- NOTE | 2019-01-12 13:54 | CP.PCM.APN ---
Subjective - Date & Time of Evaluation Date of Evaluation: 01/12/19 Time of Evaluation: 13:00 - Subjective Subjective: Pt. seen and examined, c/o epigastric discomfort, states has problem breathing,feels discomfort with deep inspiration. Objective - Vital Signs/Intake and Output Vital Signs (last 24 hours): Temp Pulse Resp BP Pulse Ox 98.7 F 72 19 105/37 L 96 01/12/19 01:46 01/12/19 08:40 01/12/19 07:50 01/12/19 08:40 01/12/19 07:50 Intake and Output: 01/12/19 01/12/19 06:59 18:59 Intake Total 3678 35 Output Total 200 Balance 3478 35 - Medications Medications: Current Medications Aspirin (Aspirin Chewable) 81 mg PO DAILY [facility] Last Admin: 01/12/19 10:56 Dose: 81 mg Atorvastatin Calcium (Lipitor) 40 mg PO HS [facility] Clopidogrel Bisulfate (Plavix) 75 mg PO DAILY [facility] Last Admin: 01/12/19 10:54 Dose: 75 mg Dextrose (Dextrose 50% Inj) 0 ml IV STAT PRN; Protocol PRN Reason: Hypoglycemia Protocol Ergocalciferol (Drisdol 50,000 Intl Units Cap) 1 cap PO Q7D [facility] Famotidine (Pepcid) 40 mg PO HS [facility] Fenofibrate (Tricor) 48 mg PO DAILY [facility] Fluoxetine HCl (Prozac) 20 mg PO DAILY [facility] Last Admin: 01/12/19 10:54 Dose: 20 mg Gabapentin (Neurontin) 300 mg PO TID [facility]; Protocol Last Admin: 01/12/19 10:54 Dose: 300 mg Heparin Sodium (Porcine) (Heparin) 5,000 units SC Q8 [facility]; Protocol Last Admin: 01/12/19 05:26 Dose: 5,000 units Hydrochlorothiazide (Hydrodiuril) 25 mg PO DAILY [facility] Dextrose (Dextrose 5% In Water 1000 Ml) 1,000 mls @ 0 mls/hr IV .Q0M PRN; Moi col PRN Reason: Hypoglycemia Protocol Sodium Chloride (Sodium Chloride 0.9%) 1,000 mls @ 150 mls/hr IV .Q6H40M [facility] Dextrose (Dextrose 5% In Water 1000 Ml) 1,000 mls @ 150 mls/hr IV .Q6H40M [facility] Insulin Human Lispro (Humalog) 12 units SC WM JET Lisinopril (Zestril) 20 mg PO DAILY JET Metoprolol Tartrate (Lopressor) 25 mg PO BRKDIN [facility] Nitroglycerin (Nitro-Dur 0.2 Mg/Hr Patch) 1 patch TD DAILY JET (Insulin Glargine, Hum.Rec.Anlog [ Basaglar Kwikpen U- 100] 35 unit SQ HS JET Quetiapine Fumarate (Seroquel) 200 mg PO HS JET; Protocol - Labs Labs: 01/12/19 05:30 01/12/19 11:55 PT 11.4 SECONDS (9.4-12.5) 01/11/19 19:52 INR 1.03 01/11/19 19:52 APTT 29.5 Seconds (26.9-38.3) 01/11/19 19:52 - Constitutional Appears: Well, Non-toxic, No Acute Distress - Head Exam Head Exam: NORMOCEPHALIC - ENT Exam ENT Exam: Mucous Membranes Moist - Neck Exam Neck Exam: Full ROM - Respiratory Exam Respiratory Exam: Clear to Ausculation Bilateral, NORMAL BREATHING PATTERN - Cardiovascular Exam Cardiovascular Exam: REGULAR RHYTHM, +S1, +S2 - GI/Abdominal Exam GI & Abdominal Exam: Soft, Normal Bowel Sounds - Rectal Exam Rectal Exam: Deferred - Exam Exam: absent: Circumcision, NORMAL INSPECTION, Scrotal Swelling, Testicular Tenderness, Uretheral Discharge, Testicular Vertical Lie, Bladder Distension External exam: absent: Ecchymosis, Erythema, Lacerations, Lesions, NORMAL EXTER NAL EXAM, Swelling Speculum exam: absent: Cervical Discharge, Erythema, Foreign Body, Laceration, NORMAL SPECULUM EXAM, Tissue, Vaginal Bleeding, Vaginal Discharge Bimanual exam: absent: Adenexal Mass, Adnexal, Cervical Motion Tendernes, NORMAL BIMANUAL EXAM, Uterine Enlargement, Uterine Tenderness - Extremities Exam Extremities Exam: Full ROM - Neurological Exam Neurological Exam: Alert, Awake, Oriented x3 - Psychiatric Exam Psychiatric exam: Normal Affect, Normal Mood - Skin Skin Exam: Dry, Intact, Normal Color, Warm Assessment and Plan - Assessment and Plan (Free Text) Assessment: ITS Impressions Chest X-Ray 01/11/19 19:41 IMPRESSION: Improved inspiratory volumes. No acute infiltrate, pleural effusion or pneumothorax bilaterally. Normal pulmonary vascular pattern. Urine Color Yellow (YELLOW) 01/11/19 23:22 Urine Appearance Clear (CLEAR) 01/11/19 23:22 Urine pH 6.0 (4.7-8.0) 01/11/19 23:22 Ur Specific [place] 1.010 (1.005-1.035) 01/11/19 23:22 Urine Protein Negative mg/dL (<30 mg/dL) 01/11/19 23:22 Urine Glucose (UA) >=1000 mg/dL (NEGATIVE) 01/11/19 23:22 Urine Ketones Negative mg/dL (NEGATIVE) 01/11/19 23:22 Urine Blood Negative (NEGATIVE) 01/11/19 23:22 Urine Nitrate Negative (NEGATIVE) 01/11/19 23:22 Urine Bilirubin Negative (NEGATIVE) 01/11/19 23:22 Urine Urobilinogen 0.2 E.U./dL (<1 E.U./dL) 01/11/19 23:22 Ur Leukocyte Esterase Negative Jenniffer/uL (NEGATIVE) 01/11/19 23:22 Assessment: 43 yr old male w/ hx of CAD w/ 1 stent, hypertension, DM2, smoking p/w chest pain. Pt notes chest pain 45 minutes prior to arrival, tightness, to center or chest, without radiation, after eating pizza, also state not taking insulin for last 3 days, blood glucose in ED 895, Potassium 5.7, admitted with hype rglycemia, hyperkalemia and chest pain, for further eval and treatment. Plan: 1. , chest pain, hx. of CAD / stents 2015, stress test rec as outpatient by card. Cont. Asa lipitor, plavix per card. monitor on telemetry. 2. Hyperglycemia improved insulin recs per Dr. Mckeon, monitor blood glucose 3. RONAN IVF increased to [address] Mckeon,monitor and trend Bun/Creatinine Will continue to monitor clinical status and follow closely.
[2019-01-12] MEDS: Insulin Lispro 1 UNITS/0.01 ML SC SCH ×2 (14:26→17:09)
[2019-01-12] MEDS ORDERED: Insulin Lispro (humaLOG) LOW Coverage SC SCH (16:30)
--- NOTE | 2019-01-12 17:02 | CON ---
DATE OF CONSULTATION: 01/12/2019 REQUESTING PHYSICIAN: Dr. Burns. REASON FOR CONSULTATION: Coronary artery disease, chest pain. HISTORY: This is a 43-year-old man, known to me from prior admissions with a history of coronary artery disease and prior PCI, who presented to the emergency room with chest discomfort. His blood sugar was over 100 upon admission, and he was admitted to the CCU for treatment of his severe hyperglycemia. Initial cardiac enzymes are negative, and his electrocardiogram shows no acute changes. He reportedly had a stent placed in the past at [facility], but has not had a regular Cardiology followup since that time, and he was admitted several weeks ago with similar symptoms and was advised an outpatient stress test, which he did not have performed. He does have a history of hypertension and diabetes. He is also smoker of less than a pack per day for many years. He believes his cholesterol is normal. He claims compliance with his medications as an outpatient. PAST MEDICAL HISTORY: His past history is notable for the problems mentioned above. He reportedly has a history of anxiety, depression, and schizophrenia in the past as well. MEDICATIONS: His current medications include aspirin, IV fluids, subcutaneous heparin, IV insulin, Lipitor 40 mg daily, metoprolol 25 mg b.i.d., Neurontin, topical nitrate, Pepcid, Plavix, Prozac, and Zestril 20 mg daily. ALLERGIES: NONE. SOCIAL HISTORY: As mentioned, he smokes approximately less than a pack per day. He denies alcohol abuse or other drug use. FAMILY HISTORY: Unremarkable for premature heart disease. REVIEW OF SYSTEMS: A 12-point review of systems is notable for the problems mentioned above. He denies any recent dyspnea, arthralgias, or claudication. PHYSICAL EXAMINATION: GENERAL: He is a muscular, middle-aged man. VITAL SIGNS: His blood pressure is 106/50 with a pulse of 70 and sinus, respirations are 16. He is afebrile. HEENT: Normocephalic, atraumatic. NECK: Thick. No JVD noted. CHEST: Clear to auscultation and percussion. HEART: PMI in normal position. No pathological murmurs or gallops were noted. ABDOMEN: Soft, nontender with normoactive bowel sounds. EXTREMITIES: No clubbing, cyanosis, or edema. SKIN: Warm and dry. PSYCHIATRIC: Normal mood. Affect is somewhat flat. SKIN: Warm and dry. NEUROLOGIC: Alert and oriented x3. No gross motor or sensory deficits notable. DIAGNOSTIC DATA: Initial glucose was 895, repeat is 177; potassium is 3.9; BUN and creatinine are 45 and 2.9. White count 9.5, hemoglobin and hematocrit are 14.4 and 41.6 with a platelet count of 320,000. Venous blood gas initially revealed a pH of 7.21, pCO2 of 79, and pO2 of 32. Repeat is 7.30, pCO2 of 59, and pO2 of 37. Lactic acid level 3. IMPRESSION: 1. Chest pain with known coronary disease. No clear evidence of acute ischemia at the moment. 2. Profound hyperglycemia with no clear evidence of ketoacidosis. 3. Prior percutaneous coronary intervention, need eventual stress test. 4. Worsening renal insufficiency, possibly secondary to diabetic nephropathy, warrants further evaluation. 5. History of tobacco abuse. RECOMMENDATIONS: His current oral cardiac medications will be continued for now. Treatment of his hyperglycemia should continue. Renal evaluation is advised. Eventual cardiac stress test would be appropriate. Avoidance of contrast studies at this time given his renal issues is advised. Smoking abstinence was strongly encouraged. Thank you for this consultation. I will be happy to follow along through his hospital course as needed. Fco Estrella MD
[2019-01-12 17:14] LABS: CALCIUM 9.3 mg/dL (8.4-10.5)
[2019-01-12] MEDS ORDERED: Insulin Regular 1 UNITS/0.01 ML ML SC ONE (20:45)
[2019-01-12] MEDS: Insulin Detemir 100 units/ml Vial (Levemir) SC SCH ×2 (20:57→21:55)
--- NOTE | 2019-01-12 21:47 | CARD ---
APPROVED REPORT Date of service: 01/12/2019 EKG Measurement Heart [id number] <Conclusion> Normal sinus rhythm Possible Left atrial enlargement Borderline ECG
[2019-01-12] MEDS: Sodium Chloride 0.9% 1,000 ML IV SCH (21:55)
[2019-01-12] MEDS ORDERED: Insulin Reg-HIGH-Coverage SC SCH (22:00)
--- NOTE | 2019-01-12 22:39 | HP ---
DATE OF EXAM: 01/12/2019 HISTORY OF PRESENT ILLNESS: The patient is a 43-year-old black male. He says that recently because of his daughter's birthday he has not been wary and was eating all kinds of food and did not take his medication for three days. He said he came to emergency room because of chest pain, not feeling well, abdominal discomfort and bloating. He ate pizza and a couple of hours after that, he started to have more discomfort and so he came to emergency room for further evaluation. While he was in the ER, he was found to be in ketoacidosis. He had blood sugar of 895. He was also found to be hyponatremic. So he was admitted in ICU with IV fluid resuscitation and close monitoring. He denies any nausea or vomiting. No chest pain. No diarrhea. He does not have any fever or chills. PAST MEDICAL HISTORY: Significant for; 1. Coronary artery disease, status post angioplasty. 2. Noninsulin-dependent diabetes. 3. Hypertension. 4. Diabetic nephropathy. 5. Morbid obesity. 6. Anxiety disorder and questionable history of schizophrenia. SOCIAL HISTORY: He lives with his family. He does have history of drug abuse, admits to smoking 5 cigarette per day and socially drinks. ALLERGIES: HE IS NOT ALLERGIC TO ANY MEDICATION. MEDICATION: At home; he is supposed to be on metformin 850 mg twice a day, metoprolol 25 mg twice a day, lisinopril 20 mg daily, fluoxetine 20 mg daily, and he is on Plavix 75 mg daily, Lipitor 40 mg daily, aspirin 81 mg daily, Seroquel 200 mg at bedtime and TriCor 48 mg daily. PHYSICAL EXAMINATION: GENERAL: He states he is tired, he could not sleep last night. VITAL SIGNS: He is afebrile. Pulse 72, respirations 19, blood pressure 105/37. However upon arrival in the ER, his blood pressure was 168/34. LUNGS: Bilaterally clear to auscultation. No rhonchi or crackle. HEART: S1 and S2, audible. ABDOMEN: Soft, obese and nontender. No rebound. No guarding. NEUROLOGIC: The patient is awake, alert and able to communicate. LABORATORY DATA: Sodium 134, potassium 4, chloride 95, CO2 of 26, BUN 46, creatinine 3.2 and blood sugar of 131. WBC 9.5, hemoglobin 14, hematocrit 41.6 and platelets 320. PT 11.4 and INR 1.03. Urinalysis is unremarkable. Urine tox positive for phencyclidine. ASSESSMENT: 1. Noncompliance. 2. Hyperglycemia. 3. Acute on chronic renal failure. 4. History of bipolar disorder. 5. Hypertension. 6. Coronary artery disease status post angioplasty. PLAN: Currently the patient is on aspirin 81 mg daily. He is on DVT prophylaxis. He is on insulin short-acting 12 units before each meal. He is on statin. Continue on beta-justin. A 100 mL of normal saline, agree with that. I will start him on his psychiatric medications. Monitor his electrolytes. Out of bed to chair. Awaiting Cardiology input. We will follow up cardiac enzymes. We will follow up the patient in a.m. Mateus Burns MD
[2019-01-13] MEDS: Sodium Chloride 0.9% 1,000 ML IV SCH ×6 (02:20→22:12)
[2019-01-13 06:09] LABS: BASO # 0.01 K/mm3 (0.0-2.0); BASO % 0.1 % (0.0-3.0); EOS # 0.1 (0.0-0.7); EOS % 1.7 % (1.5-5.0); HEMOGLOBIN 13.2 g/dL (14.0-18.0); LYMPH # 3.1 (1.2-3.4); MEAN CELL VOLUME 83.9 fl (80.0-105.0); MEAN CORPUSCULAR HEMOGLOBIN 28.3 pg (25.0-35.0); MEAN CORPUSCULAR HGB CONC 33.7 g/dl (31.0-37.0); MEAN PLATELET VOLUME 10.9 fl (7.0-11.0); MONO # 0.4 (0.1-0.6); MONO % 6.1 % (1.0-6.0); RBC 4.67 10^6/uL (3.5-6.1); RED CELL DISTRIBUTION WIDTH 12.8 % (11.5-14.5); VENOUS BLOOD GAS BASE EXCESS -3.4 mmol/L (0.0-2.0); VENOUS BLOOD GAS PO2 57 mm/Hg (30-55); VENOUS BLOOD PH 7.24 (7.32-7.43); WHITE BLOOD COUNT 6.9 10^3/uL (4.5-11.0)
--- NOTE | 2019-01-13 06:30 | CON ---
DATE: 01/12/2019 ENDOCRINOLOGY CONSULTATION LOCATION: CCU #[id number], Room #3. HISTORY OF PRESENT ILLNESS: This is a 43-year-old male with known history of type 2 insulin-requiring diabetes, presenting here with marked hyperglycemic accelerations with concomitant polyuria, nocturia, polydipsia, and generalized body weakness with supervening dizziness and lightheadedness and has now been admitted to ICU for closer hemodynamic and metabolic monitoring as noted. He received intensive insulin therapy overnight with an insulin drip infusion as given with IV hydration which was apparently slowed down and modified overnight with supervening further dehydration today as noted as compared to the initial admitting biochemical indices as noted. PAST MEDICAL HISTORY: As mentioned above; history of type 2 insulin-requiring diabetes on a combination therapy of Basaglar, taken as 35 units at bedtime with Humalog at 12 units t.i.d. with meals. He was also on metformin given as 850 mg once daily, history of hypertension and dyslipidemia, history of obesity and expected increased insulin resistance thereof. 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 FAMILY HISTORY: Positive for diabetes and hypertension. SOCIAL HISTORY: The patient has a supportive family. He is an active current smoker, although admits to having slowed down and is currently only using four cigarettes a day as noted. REVIEW OF SYSTEMS: Admits to generalized body weakness with bifrontal headaches and visual blurring, worse in the last few days prior to admission. Also admits to dizziness and lightheadedness, worse on the day of admission. No chest pains or palpitations, but admits to progressive shortness of breath especially on exertion. Also admits to precordial tightness, especially on exertion although denies any substernal chest pains at this time. His oral intake has been variable with nausea, dyspepsia, although denies any recent vomiting episodes. Also admits to marked polyuria, nocturia, and polydipsia; moreover, admits to lower extremity painful paresthesias, especially nocturnally. PHYSICAL EXAMINATION: GENERAL: This is an obese male, in no apparent distress. VITAL SIGNS: Blood pressure of 150/100, pulse of 100 beats per minute, regular; temperature 98, respirations 20, height is 6 feet 1 inch, weight is 316 pounds. HEENT: Head is normocephalic. Eyes anicteric with pink conjunctivae. Funduscopy not possible at this time. Ears, nose, and throat otherwise normal. NECK: Supple. Thyroid gland is normal in size. No carotid bruits or any cervical adenopathy. CARDIOPULMONARY: Some adynamic precordium. S1, S2 are rapid and regular. LUNGS: Clear to auscultation. ABDOMEN: Flat, soft, with positive bowel sounds. EXTREMITIES: No peripheral edema. Pulses are +2 bilaterally. LABORATORY DATA: His chemistries initially reveal a BUN of 44, sodium 124, potassium 5.7, chloride 82, CO2 of 26, glucose 895, and creatinine 1.9. The labs today show a BUN of 47, sodium 135, potassium 4.1, chloride 93, CO2 of 26, glucose 155, and creatinine 3.5, calcium level is 10.3. Serum osmolality was 317. ASSESSMENT: This is a 43-year-old male with uncontrolled and decompensated type 2 insulin-requiring diabetes, presenting here with hyperosmolar hyperglycemic state and dehydration with prerenal azotemia and spurious hyponatremia. He also has significant diabetic microvascular complications of retinopathy, polyneuropathy, and nephropathy with underlying chronic kidney disease with macrovascular complications of coronary artery disease with a previous coronary stent placement and possibly peripheral arterial disease and vasculopathy. PLAN OF MANAGEMENT: As discussed directly with the patient at the bedside. The imperative need for a more optimal metabolic control and tighter insulin regimen cannot but be overemphasized at this time. Moreover, the imperative need for vigorous IV hydration must be continued especially because in the case of hyperosmolar hyperglycemic state, there are tremendous fluid volume deficits from 7-12 liters as noted. His creatinine level has actually risen since the time of admission with persistent hypotension as noted. We will increase the IV hydration to at least 150 mL/hr and repeat the chemistries tonight and even go up to 200 mL/hr of normal saline infusion. We will obtain serial chemistries and supplement accordingly as needed. A hemoglobin A1c level is pending at this time. We will obtain serial chemistries accordingly. We will switch him over to a more physiologic basal and bolus insulin drug combination starting with Humalog given as 12 units t.i.d. with meals and Levemir given as 30 units subcu at bedtime daily to start today. We will modify the coverage scale to obviate hypoglycemia and detailed orders have been given using a very low-dose Humalog algorithm as ordered. We will follow with the patient. Ioana Mckeon MD
[2019-01-13 07:21] LABS: ALB/GLOB RATIO 1.1 (1.1-1.8); ALBUMIN 3.5 g/dL (3.0-4.8); CALCIUM 9.1 mg/dL (8.4-10.5)
[2019-01-13] MEDS: Insulin Lispro 1 UNITS/0.01 ML SC SCH ×2 (09:08→09:11)
[2019-01-13] MEDS: Nitroglycerin 0.2 mg/hr Top Patch TD SCH (09:13)
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
--- NOTE | 2019-01-13 10:23 | PN ---
DATE: 01/13/2019 SUBJECTIVE: The patient is seen lying in bed. On telemetry, he is currently comfortable. He had some vague chest and epigastric discomfort yesterday with minimal activities. He denies any chest pain at rest. His blood glucose continues to fluctuate and his renal function remains abnormal. MEDICATIONS: His current medications include IV fluids, aspirin, subcutaneous heparin, insulin, Lipitor 40 mg daily, metoprolol 25 mg b.i.d., Neurontin 300 mg t.i.d., topical nitrate, Pepcid, Plavix, Prozac, Seroquel, fenofibrate. His Zestril is on hold. OBJECTIVE GENERAL: He is a muscular middle-aged man. VITAL SIGNS: His blood pressure is 108/72 with a pulse of 80 and sinus, respirations are 60. He is afebrile. HEENT: No JVD. CHEST: Few scattered rhonchi heard. HEART: PMI displaced laterally. No pathological gallops noted. ABDOMEN: Soft, nontender, normoactive bowel sounds. EXTREMITIES: No edema. DIAGNOSTIC DATA: Potassium 4.5, BUN and creatinine 49 and 2.7, glucose is 276. White count 6.9, hemoglobin and hematocrit 13.2 and 39.2 with platelet count of 247,000. IMPRESSION 1. Recent chest pain, unclear if this is due to active angina or gastrointestinal causes. 2. Known coronary artery disease status post prior percutaneous coronary intervention to left anterior descending artery. 3. Uncontrolled diabetes with poor compliance as outpatient. 4. Renal insufficiency, acute on chronic, workup in progress. 5. History of anxiety, depression and schizophrenia. RECOMMENDATIONS: Continued conservative cardiac management is advised at the present time. Obviously, invasive angiography will be avoided given his renal issues at this time and eventual outpatient stress test will be planned. I will continue to follow and make further recommendations as appropriate. Fco Estrella MD JOSE
[2019-01-13 11:18] LABS: VENOUS BLOOD GAS BASE EXCESS -3.2 mmol/L (0.0-2.0); VENOUS BLOOD GAS PO2 129 mm/Hg (30-55); VENOUS BLOOD PH 7.33 (7.32-7.43)
[2019-01-13] MEDS ORDERED: Insulin Regular 1 UNITS/0.01 ML ML SC SCH (11:30)
[2019-01-13] MEDS: Insulin Reg-LOW-Coverage SC SCH ×3 (12:31→22:11)
[2019-01-13] MEDS: Insulin Regular 1 UNITS/0.01 ML ML SC SCH ×2 (12:31→18:01)
--- NOTE | 2019-01-13 13:45 | PN ---
DATE: 01/13/2019 SUBJECTIVE: The patient is 43 years old, seen and examined. Seem to be irritated, states he could not sleep well, does not want to be bothered for the next couple of hours, so that he can have a nap, otherwise he is feeling better. No nausea and vomiting. No diarrhea. PHYSICAL EXAMINATION: VITAL SIGNS: He is afebrile. Pulse 82, respiration 20 and blood pressure 108/72. LUNGS: Bilateral fair airflow. No rhonchi or crackle. HEART: S1 and S2, audible. ABDOMEN: Soft, obese and nontender. No rebound. No guarding. NEUROLOGIC: The patient is awake, alert and able to communicate. EXTREMITIES: Bilateral leg, no edema. LABORATORY DATA: WBC 6.9, hemoglobin 13, hematocrit 39 and platelet 247. Chemistry; sodium 132, potassium 4.5, chloride 98, CO2 of 23, BUN 49, creatinine 2.7 and blood sugar more than 500. ASSESSMENT: 1. Uncontrolled diabetes with metabolic acidosis and hyperosmolar nonketotic hyperglycemia. 2. Coronary artery disease status post angioplasty of left anterior descending. 3. [id number] renal failure. 4. History of depression. PLAN: We will continue the patient on IV fluids. He is on DVT prophylaxis. Continue him on IV fluids. He is currently on 150 mL per hour. We will continue all his medication. Monitor his blood sugar. His blood sugar is being monitor by vp of digital marketing. Awaiting latest recommendation since his blood sugar is still uncontrolled. MAR reviewed, continue current medication. He is on IV fluid 150 mL per hour. He was on lisinopril 20 mg daily has been on hold. He is on TriCor. He is on Seroquel 200 at bedtime. He is on Prozac 20 mg daily, Plavix 75 daily, famotidine 40 mg at bedtime, gabapentin 300 three times a day. He is on statin. He is on insulin 20 unit before each meal and he is on NPH at 40 units at bedtime. He is on glimepiride 2 mg daily. Monitor blood sugar. Monitor his H and H and CMP in a.m. Mateus Burns MD [facility] # [id number]
--- NOTE | 2019-01-13 14:21 | CP.PCM.PCO ---
Physician Communication Note - Physician Communication Note Physician Communication Note: pt. resting,hyperglycemia improved,still w.susana,ivf 150 ml/hr,PT eval pend
[2019-01-13 15:17] LABS: VENOUS BLOOD GAS BASE EXCESS -0.8 mmol/L (0.0-2.0); VENOUS BLOOD GAS PO2 66 mm/Hg (30-55); VENOUS BLOOD PH 7.34 (7.32-7.43)
[2019-01-13 16:06] LABS: CALCIUM 8.8 mg/dL (8.4-10.5)
[2019-01-13] MEDS ORDERED: Insulin Human NPH 1 UNITS/0.01 ML SC SCH ×2 (22:00)
--- NOTE | 2019-01-13 23:28 | PN ---
DATE: 01/13/2019 ENDOCRINOLOGY FOLLOWUP NOTE LOCATION: In room 260. SUBJECTIVE: This is a 43-year-old male with recent uncontrolled type 2 insulin-requiring diabetes, presenting here with marked hyperglycemic accelerations and hyperosmolar state and dehydration and is now being followed closely for metabolic management. His glycemic levels are markedly elevated as noted overnight with glucose values ranging from 403 500 mg/dL. LABORATORY DATA: His chemistry showed a BUN of 47, sodium 131, potassium 5.2, chloride 100, CO2 of 23, glucose 363, and creatinine 2.5. ASSESSMENT: This is a 43-year-old male with uncontrolled and decompensated type 2 insulin-requiring diabetes with marked hyperglycemic accelerations, presenting here with hyperosmolar hyperglycemic state and dehydration with prerenal azotemia and spurious hyponatremia. PLAN OF MANAGEMENT: We will modify his current insulin regimen and switch him over to the more affordable and conventional insulin vial preparations, which could also be used for outpatient diabetic management. The patient has complaint to us that he has extremely very high his insulin analogues as previously given in the past. So, we will switch him over to a combination of NPH given as 40 units subcutaneously at bedtime daily to start tonight. We will change his Humalog to regular insulin given as 20 units t.i.d. before meals to start today as ordered. We will modify the coverage scale to obviate hypoglycemia and detailed orders have been given. We will continue the vigorous IV hydration with normal saline infusion running at 150 mL/hour to fully replenish the volume deficits as expected with the marked hyperglycemic accelerations and increased osmotic diuresis thereof. We will obtain serial chemistries accordingly. Ioana Mckeon MD
[2019-01-14] MEDS: Sodium Chloride 0.9% 1,000 ML IV SCH (05:54)
[2019-01-14 06:07] VITALS: O2SAT 99
[2019-01-14] MEDS: Insulin Reg-LOW-Coverage SC SCH ×2 (08:02→12:42)
[2019-01-14] MEDS: Insulin Regular 1 UNITS/0.01 ML ML SC SCH ×2 (08:35→12:42)
[2019-01-14 09:17] LABS: BASO # 0.01 K/mm3 (0.0-2.0); BASO % 0.1 % (0.0-3.0); EOS # 0.1 (0.0-0.7); EOS % 1.9 % (1.5-5.0); HEMOGLOBIN 12.6 g/dL (14.0-18.0); LYMPH # 2.9 (1.2-3.4); LYMPH % 41.3 % (22.0-35.0); MEAN CORPUSCULAR HGB CONC 33.3 g/dl (31.0-37.0); MEAN PLATELET VOLUME 10.6 fl (7.0-11.0); MONO # 0.6 (0.1-0.6); RBC 4.5 10^6/uL (3.5-6.1); RED CELL DISTRIBUTION WIDTH 12.8 % (11.5-14.5)
--- NOTE | 2019-01-14 09:22 | CP.PCM.PN ---
Subjective - Date & Time of Evaluation Date of Evaluation: 01/14/19 Time of Evaluation: 09:20 - Subjective Subjective: PGY-3 for Anthony Otrega Pt wanted to go home. No acute complaints Objective - Vital Signs/Intake and Output Vital Signs (last 24 hours): Temp Pulse Resp BP Pulse Ox 98.2 F 83 18 164/86 H 99 01/14/19 06:00 01/14/19 06:00 01/14/19 06:00 01/14/19 06:00 01/14/19 06:00 Intake and Output: 01/14/19 01/14/19 06:59 18:59 Intake Total 4950 Output Total 3820 Balance 1130 - Medications Medications: Current Medications Aspirin (Aspirin Chewable) 81 mg PO DAILY [facility] Last Admin: 01/13/19 09:13 Dose: 81 mg Atorvastatin Calcium (Lipitor) 40 mg PO HS [facility] Last Admin: 01/13/19 22:11 Dose: 40 mg Clopidogrel Bisulfate (Plavix) 75 mg PO DAILY [facility] Last Admin: 01/13/19 09:12 Dose: 75 mg Dextrose (Dextrose 50% Inj) 0 ml IV STAT PRN; Protocol PRN Reason: Hypoglycemia Protocol Ergocalciferol (Drisdol 50,000 Intl Units Cap) 1 cap PO Q7D [facility] Last Admin: 01/12/19 14:26 Dose: 1 cap Famotidine (Pepcid) 40 mg PO HS [facility] Last Admin: 01/13/19 22:11 Dose: 40 mg Fenofibrate (Tricor) 48 mg PO DAILY [facility] Last Admin: 01/13/19 09:22 Dose: 48 mg Fluoxetine HCl (Prozac) 20 mg PO DAILY [facility] Last Admin: 01/13/19 09:12 Dose: 20 mg Gabapentin (Neurontin) 300 mg PO TID [facility]; Protocol Last Admin: 01/13/19 18:02 Dose: 300 mg Glimepiride (Amaryl) 2 mg PO DAILY [facility] Last Admin: 01/13/19 09:22 Dose: 2 mg Heparin Sodium (Porcine) (Heparin) 5,000 units SC Q8 [facility]; Protocol Last Admin: 01/14/19 05:54 Dose: 5,000 units Hydrochlorothiazide (Hydrodiuril) 25 mg PO DAILY [facility] Dextrose (Dextrose 5% In Water 1000 Ml) 1,000 mls @ 0 mls/hr IV .Q0M PRN; Protocol PRN Reason: Hypoglycemia Protocol Sodium Chloride (Sodium Chloride 0.9%) 1,000 mls @ 150 mls/hr IV .Q6H40M [facility] Last Admin: 01/14/19 05:54 Dose: 150 mls/hr Insulin Human NPH (Humulin N) 40 units SC HS [facility] Last Admin: 01/13/19 22:10 Dose: 40 units Insulin Human Regular (Humulin R Low) 0 units SC ACHS [facility]; Protocol Last Admin: 01/14/19 08:02 Dose: Not Given Insulin Human Regular (Humulin R) 20 units SC ACTID [facility] Last Admin: 01/14/19 08:35 Dose: 20 units Lisinopril (Zestril) 20 mg PO DAILY [facility] Metoprolol Tartrate (Lopressor) 25 mg PO BRKDIN [facility] Nitroglycerin (Nitro-Dur 0.2 Mg/Hr Patch) 1 patch TD DAILY [facility] Last Admin: 01/13/19 09:13 Dose: 1 patch Quetiapine Fumarate (Seroquel) 200 mg PO [facility]; Protocol Last Admin: 01/13/19 22:11 Dose: 200 mg - Labs Labs: 01/13/19 05:30 01/13/19 15:00 PT 11.4 SECONDS (9.4-12.5) 01/11/19 19:52 INR 1.03 01/11/19 19:52 APTT 29.5 Seconds (26.9-38.3) 01/11/19 19:52 - Constitutional Appears: No Acute Distress - Head Exam Head Exam: ATRAUMATIC, NORMAL INSPECTION, NORMOCEPHALIC - Eye Exam Eye Exam: EOMI, Normal appearance, PERRL. absent: Scleral icterus Pupil Exam: NORMAL ACCOMODATION - ENT Exam ENT Exam: Mucous Membranes Moist - Neck Exam Additional comments: supple - Respiratory Exam Respiratory Exam: Clear to Ausculation Bilateral. absent: Rales, Rhonchi, Wheezes - Cardiovascular Exam Cardiovascular Exam: REGULAR RHYTHM, +S1, +S2 - GI/Abdominal Exam GI & Abdominal Exam: Soft, Normal Bowel Sounds. absent: Guarding, Rigid, Tenderness - Back Exam Back Exam: absent: CVA tenderness (L), CVA tenderness (R) - Neurological Exam Neurological Exam: Alert, Awake, Oriented x3 - Psychiatric Exam Psychiatric exam: Normal Affect, Normal Mood - Skin Skin Exam: Dry, Warm Assessment and Plan - Assessment and Plan (Free Text) Plan: DKA likely due to medication non-compliance and skipping insulin x 3 days - resolved Oliguria due to Dehydration and hypotensive episode from nitropaste - resolved RONAN - improving - Stop IVF - monitor i/o Uncontrolled IDDM-2 Complicated by retinopathy, polyneuropathy, nephropathy - A1C 13.3 - should discontinue metformin due to DKAs and RONAN on CKD - Pt cannot afford insulin, will change his insulin regimen to the cheapest combination today: Regular Insulin 20 ACTID NPH 40 HS Amaryl 2 BID ISSS low - (Home: metformin 850 daily, levemir 8.5 BID) Active smoker - counsellors for cessation PCP substance abuse - counsellors for cessation s/r/d/w Dr Mckeon
[2019-01-14 09:31] LABS: ALB/GLOB RATIO 1.1 (1.1-1.8); ALBUMIN 3.7 g/dL (3.0-4.8); CALCIUM 9.3 mg/dL (8.4-10.5)
[2019-01-14] MEDS: Nitroglycerin 0.2 mg/hr Top Patch TD SCH (10:21)
--- NOTE | 2019-01-14 10:34 | PN ---
DATE: 01/14/2019 SUBJECTIVE: The patient is seen lying in bed on telemetry. He is sleeping, but easily arousable. He denies any further chest pain. CURRENT MEDICATIONS: Include Amaryl, aspirin, IV fluids, subcutaneous heparin, insulin, Lipitor 40 mg daily, metoprolol 25 mg b.i.d., Neurontin, Nitro-Dur patch, Pepcid, Plavix, Prozac, Seroquel, Tricor and Zestril is on hold. PHYSICAL EXAMINATION: GENERAL: He is an overweight muscular man. VITAL SIGNS: His blood pressure is 164/86 with pulse of 82 and sinus, respirations 14. He is afebrile. HEENT: No JVD. CHEST: Few scattered rhonchi heard. HEART: Normal first and second sounds with a soft systolic murmur in the left sternal border. ABDOMEN: Soft, obese, nontender with normoactive bowel sounds. Extremities: No edema. DIAGNOSTIC DATA: No blood work pending from this morning. Blood glucose continues to fluctuate in the 200-400 range. IMPRESSION: 1. Recent chest pain difficult to determine if this is cardiac or noncardiac in nature. 2. Known coronary artery disease, status post prior percutaneous coronary intervention of his left anterior descending artery. 3. Poorly controlled diabetes. 4. Renal insufficiency, acute on chronic. 5. History of anxiety/depression and schizophrenia. RECOMMENDATIONS: Hi s current cardiac medications can continue for now. An eventual outpatient stress test is advised once his diabetes control has been optimized. Followup of his renal function is planned. I will follow along as needed. Fco Estrella MD
[2019-01-14 12:27] VITALS: BP 163/106; PULSE 73; RESP 20; TEMP 97.9
--- NOTE | 2019-01-15 00:12 | PN ---
DATE: 01/14/2019 ENDOCRINOLOGY PROGRESS NOTE LOCATION: Room 260. SUBJECTIVE: This is a 43-year-old male with recent uncontrolled type 2 insulin-requiring diabetes with tremendous insulin resistance and presenting here with hyperosmolar hyperglycemic state and dehydration and has since then improved clinically and metabolically as noted thereof. OBJECTIVE: His glycemic levels today are fluctuating, but improved and have ranged from 190 to 286 mg/dL. His chemistry shows a BUN of 31, sodium 139, potassium 4.2, chloride 104, CO2 of 29, glucose 190 and creatinine 1.9. ASSESSMENT AND PLAN: So at this time as he is scheduled for eventual discharge, would recommend a combination of regular insulin given as 20 units t.i.d. before meals as ordered with NPH given as 40 units subcutaneous at bedtime daily as given. We will also increase his Amaryl to 2 mg b.i.d. before meals as ordered. We will obtain serial chemistries and supplement accordingly as needed. He has been advised to follow with his medical doctor, Dr. Burns on the outpatient for ongoing medical and diabetic followup. Ioana Mckeon MD
--- NOTE | 2019-01-15 06:09 | DS ---
HISTORY OF PRESENT ILLNESS: The patient is a 43-year-old who came to emergency room because of chest pain. During workup he was found to be in hyperosmolar nonketotic hyperglycemia. His blood sugar upon arrival was 201 and he was found to be in acute renal failure. The patient state he had his daughter's birthday and he was not taking his medication on top of that insulin that he was prescribed was too expensive for him. He was unable to give himself for almost 2 to 3 days. He was admitted in ICU and was started on IV fluids and blood sugar was closely monitored. His BUN and creatinine was also monitored. adjustment was done. The patient was also evaluated by physician relations manager and it was decided to do his cardiac workup later on once his kidney function improve. His creatinine was 3.5 and he could not afford to have IV contrast, so he was treated conservatively. The patient started to do well, his blood sugar improved. PHYSICAL EXAMINATION: GENERAL: Today, he was awake and alert, able to communicate. VITAL SIGNS: He is afebrile, pulse 73, respirations 20, blood pressure 160/86. LUNGS: Bilateral good airflow. No rhonchi or crackle. HEART: S1, S2 audible. ABDOMEN: Soft, obese, nontender. No rebound. No guarding. NEUROLOGIC: The patient is awake and alert, able to communicate. EXTREMITIES: Bilateral leg, no edema. LABORATORY DATA: His blood sugar 387. WBC 7.0, hemoglobin 12.6, hematocrit 37.8, platelet of 243. Sodium 139, potassium 4.2, chloride 104, CO2 of 29, BUN 31, creatinine 1.9, blood sugar 304. ASSESSMENT: 1. Uncontrolled diabetes because of noncompliance. 2. Chest pain rule out underlying coronary ischemia. 3. Acute on chronic renal failure, stage III. 4. The patient hemoglobin A1c was 13.3, so the patient was discharged today. He is advised to take regular insulin 20 units before each meals and NPH 40 units at bedtime. He was given Amaryl 2 mg twice a day and was advised to stop taking metformin. He was also advised to follow up with Dr. Estrella to have cardiac workup done as outpatient. He understands that and he states he will follow with his primary care, Dr. Shannen Muhammad. Mateus Burns MD [facility] # [id number]
== END 2019-01-14 13:30 | disposition home or self-care (01) | DRG 638 ==
LOC: ED 19:18 → ERH 22:40 → CCU 01-12 01:14 → 2RNO 01-12 22:45
PROVIDERS: ADMIT Internal Medicine; ATTEND Internal Medicine
DX: E11.00 Type 2 diabetes mellitus with hyperosmolarity without nonketotic hyperglycemic-hyperosmolar coma (NKHHC) (principal); Z68.41 Body mass index [BMI] 40.0-44.9, adult; N17.9 Acute kidney failure, unspecified; E87.1 Hypo-osmolality and hyponatremia; I25.10 Atherosclerotic heart disease of native coronary artery without angina pectoris; I12.9 Hypertensive chronic kidney disease with stage 1 through stage 4 chronic kidney disease, or unspecified chronic kidney disease; E11.22 Type 2 diabetes mellitus with diabetic chronic kidney disease; N18.3 Chronic kidney disease, stage 3 (moderate); E86.0 Dehydration; E87.5 Hyperkalemia; E11.21 Type 2 diabetes mellitus with diabetic nephropathy; E11.42 Type 2 diabetes mellitus with diabetic polyneuropathy; E11.319 Type 2 diabetes mellitus with unspecified diabetic retinopathy without macular edema; F16.10 Hallucinogen abuse, uncomplicated; R07.89 Other chest pain; E78.5 Hyperlipidemia, unspecified; F31.9 Bipolar disorder, unspecified; F20.9 Schizophrenia, unspecified; E66.9 Obesity, unspecified; F17.210 Nicotine dependence, cigarettes, uncomplicated; Z79.4 Long term (current) use of insulin; Z91.14 Patient's other noncompliance with medication regimen; Z91.19 Patient's noncompliance with other medical treatment and regimen; Z95.5 Presence of coronary angioplasty implant and graft